=== PATIENT | female | born 1960 | race Caucasian/White ===

== ENCOUNTER 2025-03-31 14:19 | Outpatient (RCR) | payer MEDICARE, SELFPAY ==
[2025-03-31 15:21] LABS: Hematocrit 22.7 % (37.0-47.0); Hemoglobin 7.1 g/dL (12.0-15.0); Mean Corpuscular HGB Conc 31.3 g/dl (32-36); Mean Corpuscular Hemoglobin 33.2 pg (26-34); Mean Corpuscular Volume 106.1 fl (80-100); Platelet Count Result 169 k/mm3 (150-375); Red Blood Count 2.14 M/mm3 (4.2-5.4); White Blood Count 3.5 K/mm3 (4.5-10.0)
[2025-03-31 15:41] LABS: Alanine Aminotransferase 19 U/L (6-35); Albumin Level 3.8 g/dL (3.5-5.1); Alkaline Phosphatase 95 U/L (38-126); Anion Gap 10 mmol/L (4-12); Aspartate Amino Transferase 33 U/L (14-36); Bilirubin,Total 0.4 mg/dL (0.2-1.3); Blood Urea Nitrogen 46 mg/dL (7-17); Calcium 9.3 mg/dL (8.4-10.2); Carbon Dioxide 18 mmol/L (22-30); Chloride 110 mmol/L (98-107); Estimated Glomerular Filt Rate 11; Glucose 93 mg/dL (65-110); Potassium 4.6 mmol/L (3.4-5.0); Sodium 138 mmol/L (137-145); Total Protein 6.5 g/dL (6.3-8.2)
[2025-03-31 16:09] LABS: Band Neutrophils Percent 6 % (0-6); Basophils Absolute Manual 0.03 K/mm3 (0.0-0.1); Basophils Percent Manual 1 % (0-1); Eosinophils Absolute Manual 0.03 K/mm3 (0.02-0.50); Eosinophils Percent Manual 1 % (0-4); Lymphocytes Absolute Manual 0.70 K/mm3 (1.1-4.5); Lymphocytes Percent Manual 20 % (18-44); Monocytes Absolute Manual 0.17 K/mm3 (0.1-0.90); Monocytes Percent Manual 5 % (3-9); Neutrophils Absolute Manual 2.55 K/mm3 (1.3-6.7); Neutrophils Percent Manual 67 % (46-73); Total Cells Counted 100
[2025-03-31 16:10] LABS: Macrocytosis 1+ (NORMAL); Schistocytes None Seen
[2025-04-06 18:07] LABS: Tacrolimus (FK506), Blood 5.5 ng/mL (5.0-20.0)
== END 2025-06-29 23:59 | disposition home or self-care (01) ==
LOC: HOMEHLTHV 14:19
DX: Z48.24 Encounter for aftercare following lung transplant (principal); Z94.2 Lung transplant status
CPT/HCPCS: 36415; 80053; 80197; 85025

== ENCOUNTER 2025-04-07 12:30 | Outpatient (NON) | payer MEDICARE, SELFPAY ==
--- OUTSIDE RECORDS SUMMARY | 2025-04-07 12:43 | XMS_ITS | Clinical Summary ---
Author Organization [facility] Address [address] [place] [address] Care Team Providers Care Manager Linux Name Role Phone Pcp, [address] Primary Care Provide r Unavailable Source Comments [facility],non-owned Affiliates and Associated Physician Practices is amultiple site organization consisting of ambulatory clinics and hospital sitesin [place], [place], [place]. This disclosure is being madepursuant to the Care Everywhere program and may not contain all information available regarding this patient. Last updated 18.[employer] [facility] Allergies No known active allergies Medications * Be aware that medications may not be up to date on this document. Alwaysverify current medications with the patient. montelukast (SINGULAIR) 10 MG tablet Take 10 mg by mouth at bedtime 1 Active omeprazole (PRILOSEC) 40 MG capsule Take 40 mg by mouth 2 times daily 0 Active fluticasone propionate (FLONASE) 50 MCG/ACT nasal spray [place] 2 sprays into each nostril once daily 0 Active albuterol HFA (PROVENTIL;VENT MIHIR;PROAIR) 108 (90 Base) MCG/ACT inhaler Inhale 2 puffs by mouth 0 Active albuterol-iprat ropium (DUO-NEB) 0.5-2.5 (3) MG/3ML nebulizer solution 1 Active acetaminophen (TYLENOL) 500 MG tablet Take 2 (two) tablets by mouth every 6 hours as needed for Fever or Pain Maximum allowable Acetaminophen amount = 4 Grams (4000 mg) / 24 hours. 1 Active ibuprofen (MOTRIN) 200 MG tablet Take 1 (one) tablet to 2 (two) tablets by mouth every 6 hours as needed for Pain 0 1 Active calcium 500 mg tablet Take 1 (one) tablet by mouth 2 times daily with morning and evening meal 60 Each 1 Active amLODIPine (NORVASC) 10 MG tabletIndicatio ns:Hypertension , essential Take 1 (one) tablet by mouth once daily 90 tablet 3 1 Active propranolol (INDERAL) 20 MG tablet Take 20 mg by mouth 2 times daily Active lisinopril-hydr oCHLOROthiazide (PRINZIDE; ZESTORETIC) 20-12.5 MG tablet 1 Active hydrOXYzine hcl (ATARAX) 25 MG tabletIndicatio ns:Anxiety attack Take 1 (one) tablet by mouth 4 times daily as needed 60 tablet 1 1 Active benzonatate (TESSALON) 100 MG capsule Take 2 (two) capsules by mouth 3 times daily 90 capsule 1 1 Active calcium carbonate (CALCI-CHEW) 1250 (500 Ca) MG chew tablet Take 1 tablet by mouth 2 times daily Active fluticasone-demetris meterol 113-14 MCG/ACT inhaler Inhale 1 puff by mouth 2 times daily Active SYMBICORT 160-4.5 MCG/ACT inhaler Inhale 2 (two) puffs by mouth 2 times daily 10.2 g 5 1 Active nintedanib (OFEV) 150 MG capsuleIndicati ons:Interstitia l lung disease (HCC) Take 1 (one) capsule by mouth 2 times daily with morning and evening meal 60 capsule 11 1 Active traZODone (DESYREL) 100 MG tablet Take 1 (one) tablet by mouth nightly as needed for Insomnia 30 tablet 1 Active atorvastatin (LIPITOR) 10 MG tablet 1 Active cetirizine (ZYRTEC) 10 MG tabletIndicatio ns:Allergic rhinitis, unspecified seasonality, unspecified trigger Take 1 (one) tablet by mouth once daily 90 tablet 3 1 Active mycophenolate (CELLCEPT) 500 MG tabletIndicatio ns:Interstitial lung disease (HCC) Take 1 tablet by mouth twice daily 60 tablet 2 Active Active Problems Problem Noted Date Diagnosed Date Allergic rhinitis 03/30/2021 Pulmonary hypertension 03/30/2021 Weakness 03/11/2021 SOB (shortness of breath) on exertion 03/11/2021 Anxiety attack 03/10/2021 Assessment & Plan (03/10/2021 9:20 AM CDT): Try hydroxyzine as needed for anxiety Counseled her to avoid benzodiazepines She does not have any symptoms of depression at the moment, she is a new patient to me. 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 ER Shortness of breath 02/12/2021 UIP (usual interstitial pneumonitis) 02/12/2021 Hypertension, essential 10/06/2020 Overview (12/29/2020): Last Assessment & Plan: Stable Cont lisionpril/HCTZ Assessment & Plan (03/10/2021 9:17 AM CDT): Stop lisinopril and increase amlodipine to 10 mg daily Monitor blood pressure closely I do not feel lisinopril contributes to her cough but it is worth a try Interstitial lung disease 07/20/2020 Overview (12/29/2020): Last Assessment & Plan: F/u with pulmonary Last Assessment & Plan: Chronic Cont airduo F/u with pulmonary GERD (gastroesophageal reflux disease) 0 Overview (12/29/2020): Last Assessment & Plan: Improved Cont omeprazole BID Immunizations Immunization Administration Dates Next Due [employer] primary monoval ent 12+ yr 0.3mL Purple cap 10/04/2020,09/13/2020 INFLUENZA VACCINE 06/14/2020 PNEUMOCOCCAL PPSV23 09/21/2020 iNFLUENZA VACCINE, RECOM-MCCARTHY, QUADR. (FLUBLOCK QUADRIVALENT; 18Y+) (RIV4) 06/15/2021 Family History Medical History Relation Name Comments CAD (Coronary Artery Disease) Brother 1 CAD (Coronary Artery Disease) Brother 2 Cancer - Renal Father COPD - Chronic Obstructive Pulmonary Disease Mother Relation Name Status Comments Brother 1 Alive Brother 2 Alive Father Mother Social History Tobacco Use Types Packs/Day Years Used Date Smoking Tobacco: Never Smokeless Tobacco: Never Alcohol Use Standard Drinks/Week Comments Yes 4 (1 standard drink = 0.6 oz pur e alcohol) AUDIT-C Answer Date Recorded Q1: How often do you have a drink containing alc ohol? 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 Gender Identity Not on file Sexual Orientation Not on file Last Filed Vital Signs Vital Sign Reading Time Taken Comments Blood Pressure 114/80 07/11/2021 2:10 PM CDT Pulse 95 07/11/2021 2:10 PM CDT Temperature 36.5 C (97.7 F) 07/11/2021 2:10 PM CDT Respiratory Rate 14 07/11/2021 2:10 PM CDT Oxygen Saturation 96% 07/11/2021 2:10 PM CDT Inhaled Oxygen Concentration - - Weight 60.8 kg (134 lb) 07/11/2021 2:10 PM CDT Height 170.2 cm (5' 7) 03/27/2021 10:53 AM CDT Body Mass Index 20.99 03/27/2021 10:53 AM CDT Plan of Treatment Health Maintenance Due Date Last Done Comments COLON MONITORING 1961 COLONOSCOPY - COLON CA SCREENING 1961 CT COLONOGRAPHY - COLON CA SCREENING 1961 FIT - COLON CA SCREENING 1961 FLEX SIG - COLON CA SCREENING 1961 HIV SCREENING 1976 HEPATITIS C SCREENING 05/12/1979 DTAP/TDAP/TD VACCINES (1 - Tdap) 1980 ZOSTER VACCINE (1 of 2) 1980 Respiratory Syncytial Virus (RSV) Vaccine Pt: or over 60 yrs (1 - Risk 60-74 years 1-dose series) 2021 PNEUMOCOCCAL VACCINE 50+ (2 of 2 - PCV) 09/21/2021 09/21/2020 MAMMOGRAM 03/27/2023 03/27/2021 COLOGUARD (AGES 45-75) - COLON CA SCREENING 03/22/2024 03/22/2021, 03/22/2021 (Done Outside Per Report) Colorectal Cancer Screening 03/22/2024 COVID-19 VACCINE (4 - 2023-2 5 season) 2024 07/17/2021, 10/04/2020, 09/13/2020 DEPRESSION SCREENING 09/08/2024 INFLUENZA VACCINE (#1) 2025 06/15/2021, 2019 PAP with HPV 03/27/2026 03/27/2021 HEPATITIS B VACCINE Aged Out No longe r eligible based on patient's age to complete this topic HIB VACCINE Aged Out No longer eligi ble based on patient's age to complete this topic HPV VACCINE Aged Out No longer eligi ble based on patient's age to complete this topic MENINGOCOCCAL (Group B) VACCINE SHARED DECISION-MAKING Aged Out No longer eligible based on patient's age to complete this topic MENINGOCOCCAL GROUPS A/C/Y/W VACCINE Aged Out No longer eligible based on patient's age to complete this topic Procedures Procedure Name Priority Date/Time Associated Diagnosis Comments MAMMO BILAT SCREENING Routine 03/27/2021 1:02 PM CDT Encounter for screening mammogram for malignant neoplasm of breast PAP IG LB+HPV APTIMA Routine 03/27/2021 11:29 AM CDT Well woman exam with routine gynecological exam from Last 3 Months or Most Recently Relevant to Health Maintenance Results * MAMMO BILAT SCREENING (03/27/2021 1:02 PM CDT) Anatomical Region Laterality Modality Breast Bilateral Mammography 03/27/2021 1:50 PM CDT Impressions 03/27/2021 1:52 PM CDT Annual screening mammography is recommended. OVERALL FINAL ASSESSMENT: BI-RADS CATEGORY 2: BENIGN. *Reading Radiologist: Isabella Diane on 03/27/2021 at 1:52 PM Narrative 03/27/2021 1:52 PM CDT EXAMINATION: BILATERAL DIGITAL SCREENING MAMMOGRAM AND BILATERAL BREAST TOMOSYNTHESIS HISTORY: Screening. 60-year-old woman undergoing her first mammogram examination. The patient is undergoing evaluation for possible lung transplantation. COMPARISON: None, this is the patient's first mammogram. TECHNIQUE: BILATERAL digital breast tomosynthesis (DBT) and synthetic 2D digital mammogram images were obtained (bilateral craniocaudal and mediolateral oblique projections) including computer aided detection (CAD.) BREAST PARENCHYMAL COMPOSITION:Category C: The breasts are heterogeneously dense, which may obscure small masses. MAMMOGRAM FINDINGS: There is no suspicious finding in either breast. Vascular calcifications are present, left greater than right. Patrick Lorenzana MD MAMMO ORDERABLES Final Result * PAP IG LB+HPV APTIMA (03/27/2021 11:29 AM CDT) Diagnosis [facility] ACCOUNT BILL Comment:NEGATIVE FOR INTRAEP ITHELIAL LESION OR MALIGNANCY. Specimen Adequacy [facility] ACCOUNT BILL Comment: Satisfactory for evaluation. Endocervical and/or squamous metaplastic cells (endocervical component) are present. Clinician Provided ICD10 [facility] ACCOUNT BILL Comment:Z01.419 Performed by [facility] ACCOUNT BILL Comment:Rachel Hernandez, Manager Health (ASCP) Comment . [facility] ACCOUNT BILL Note [facility] ACCOUNT BILL Comment: The Pap smear is a screening test designed to aid in the detection of premalignant and malignant conditions of the uterine cervix. It is not a diagnostic procedure and should not be used as the sole means of detecting cervical cancer. Both false-positive and false-negative reports do occur. . IGLBP CPT Code Automation [facility] ACCOUNT BILL Comment: This liquid based ThinPrep(R) pap test was screened with the use of an image guided system. Human papillomavirus Aptima Negative Negative [facility] ACCOUNT BILL Comment: This nucleic acid amplification test detects fourteen high-risk HPV types (16,18,31,33,35,39,45,51,52,56,58,59,66,68) without differentiation. Pathology/Cytolog y PART OF UTERINE CERVIX / Unknown 03/27/2021 11:29 AM CDT 03/28/2021 Narrative [facility] ACCOUNT BILL - 03/29/2021 1:08 PM CDT Source.............Cervix;Endocervix Other..............Post Menopausal No. of containers..01 ThinPrep Vial Resulting Agency Comment Lab Testing performed at: [facility] [id number] [facility] - PATHOLOGY/CYTOLOGY O RDERABLES Final Result [facility] ACCOUNT BILL [address] [place] [address] from Last 3 Months or Most Recently Relevant to Health Maintenance Insurance Advance Directives * Full Code (Latest Code Status on File) Date Activated Date Inactivated Comments 03/11/2021 10:56 AM 03/17/2021 5:26 PM * Full Code Date Activated Date Inactivated Comments 02/12/2021 4:18 PM 02/19/2021 10:01 PM * Full Code Date Activated Date Inactivated Comments 01/23/2021 11:19 AM 01/24/2021 4:29 PM Care Teams Manager Linux Relationship Specialty Start Date End Date PcpMikal [facility] 3rd PCP - General 10/05/24
--- OUTSIDE RECORDS SUMMARY | 2025-04-07 12:43 | XMS_ITS | Encounter Summary ---
Author Organization [facility] Address [address] [place] [address] Care Team Providers Care Face Man Name Role Phone Rosy Grover RN Unavailable [phone] Pelon Yo MD Unavailable [phone] Paula Hitchcock RN Unavailable Unavai Kayleigh Mireles MD Unavailable [phone] Unknown, Notinfile Primary Care Provider Unavail able Patrick Lorenzana MD Primary Care Provider Encounter Details Date Type Department Care Team (Late st Contact Info) Description 07/01/[address] [id number] White, Marie Social History Tobacco Use Types Packs/Day Years Used Date Smoking Tobacco: Never Smokeless Tobacco: Never Alcohol Use Standard Drinks/Week Comments Never 0 (1 standard drink = 0.6 oz pur e alcohol) OASIS D0700: Social Isolation Answer Da te Recorded Frequency of experiencing loneliness or isolatio n Never 02/19/2023 OASIS A1250: Transportation Answer Date Recorded Lack of Transportation (Medical) No 02/19/2023 Lack of Transportation (Non-Medical) No 02/19/2023 Patient Unable or Declines to Respond No 02/19/2023 OASIS B1300: Health Literacy Answer Quinten e Recorded Frequency of needing help to read materials from doctor or pharmacy Never 02/19/2023 Social Connection and Isolation Panel [NHANES] A nswer Date Recorded In a typical week, how many times do you talk on the phone with family, friends, or neighbors? Three times a week 02/07/20 How often do you get togethe r with friends or relatives? Once a week 02/06/2023 How often do you attend chur ch or pentecostal services? Never 02/06/2023 Do you belong to any clubs o r organizations such as evangelical groups, unions, fraternal or athletic groups, or school groups? No 02/06/2023 How often do you attend meet ings of the clubs or organizations you belong to? 1 to 4 times per year 02/06/2023 Are you , , di vorced, , never , or living with a partner? 02/06/2023 AUDIT-C Answer Date Recorded Q1: How often do you have a drink containing alc ohol? 2-4 times a month 02/06/2023 Q2: How many drinks containi ng alcohol do you have on a typical day when you are drinking? 1 or 2 02/06/2023 Q3: How often do you have si x or more drinks on one occasion? Never 02/06/2023 Overall Financial Resource Strain (CARDIA) Answe r Date Recorded How hard is it for you to pa y for the very basics like food, housing, medical care, and heating? Not very hard 02/06/2023 PHQ-2 Answer Date Recorded PHQ-2 Total Score 2 02/06/2023 Hunger Vital Sign Answer Date Recorded Within the past 12 months, y ou worried that your food would run out before you got the money to buy more. Never true 02/26/20 24 Within the past 12 months, t he food you bought just didn't last and you didn't have money to get more. Never true 02/26/2024 PRAPARE - Transportation Answer Date Re corded In the past 12 months, has l ack of transportation kept you from medical appointments or from getting medications? No 09/2022 In the past 12 months, has l ack of transportation kept you from meetings, work, or from getting things needed for daily living? No 02/06/2023 Housing Stability Vital Sign Answer Quinten e Recorded In the last 12 months, was t here a time when you were not able to pay the mortgage or rent on time? No 02/06/2023 In the last 12 months, how many places have you lived? 1 02/06/2023 In the last 12 months, was t here a time when you did not have a steady place to sleep or slept in a mcc (including now)? No 02/06/2023 Personal Safety Answer Date Recorded Have you ever been in or are you currently in a harmful physical or emotional relationship or is someone making you feel afraid or unsafe? 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 Gender Identity Not on file Sexual Orientation Not on file documented as of this encounter Last Filed Vital Signs Vital Sign Reading Time Taken Comments Blood Pressure 146/85 06/29/2024 9:42 PM CDT Pulse 65 06/29/2024 9:42 PM CDT Temperature 36.8 C (98.2 F) 06/29/2024 9:42 PM CDT Respiratory Rate 20 06/29/2024 9:42 PM CDT Oxygen Saturation 97% 06/29/2024 9:42 PM CDT Inhaled Oxygen Concentration - - Weight - - Height - - Body Mass Index - - 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 Auris - 8900 12/12/2024 12/12/2024 12/30/2024 10:18 AM CDT C. difficile suspected 12/18/2024 12/18/202412/19 6:10 AM CDT C. difficile suspected 12/26/2024 12/26/202412/26 2:54 PM CDT Norovirus suspected 12/26/2024 12/26/2024 12/27/19 3:12 PM CDT Norovirus 12/26/2024 12/26/2024 01/09/2025 3:05 AM CDT COVID: Suspected 03/14/2025 03/14/2025 03/15/2025 12:27 AM CDT Ring Surveillance: C. auris Comment:03/15/2025- 8900 C. Auris. Lashonda Ontiveros 03/15/2025 03/15/2025 03/22/2025 7:27 PM C DT C. difficile suspected 03/15/2025 03/16/202503/17 5:35 AM CDT Norovirus suspected 03/15/2025 03/16/2025 03/17/20 4:31 AM CDT Norovirus 03/16/2025 03/16/2025 03/30/2025 7:26 PM CDT documented as of this encounter Care Teams Face Man Relationship Specialty Start Date End Date Unknown, Notinfile PCP - General 11/11/23 01/06/25 Patrick Lorenzana MD [address] [facility] [address] [place] [address] PCP - General Family Medicine 01/07/25 Rosy Grover, LOLI [address] [facility] [address] [place] [address] Finished Garment Inspector 02/14/21 Pelon Yo MD [address] [place] [address] Referring Physician Pulmonary Disease 04/29/21 Paula Hitchcock RN Finished Garment Inspector Finished Garment Inspector 01/21/22 Kayleigh Boland MD [address] [facility] [address] [place] [address] Senior Enterprise Architect Pulmonary Disease 02/13/23 documented as of this encounter
--- OUTSIDE RECORDS SUMMARY | 2025-04-07 12:43 | XMS_ITS ---
Author Organization [facility] Address [address] [place] [address] Care Team Providers Care Emergency Vehicle Dispatcher Name Role Phone Rosy Grover RN Unavailable [phone] Pelon Yo MD Unavailable [phone] Paula Hicthcock RN Unavailable Kayleigh Weeks MD Unavailable [phone] Patrick Lorenzana MD Primary Care Provider Transplant Episode Lung Recipient [facility] ([place], [place]) - 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 Marked as Active Follow-up on 01/19/2022 Lung CoordinatorPaula Hitchcock RN Phone: N/A Fax: N/A Email: N/A [place] Organ Diagnosis Organ 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) Infection History Noted Survival Infection Treatment Organism Resolved 12/30/2024 2 years 11 months Norovirus 0 01/04/2025 12/25/2024 2 years 11 months Devora esophagitis (HCC) 06/26/2024 2 years 5 months UTI (urinary tr act infection) 12/31/2024 08/07/2023 1 year 6 months COVID-19 10/03/2022 257 days UTI (urinary tra ct infection) 03/31/2022 71 days 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) 03/04/2022 44 days Proteus infection 0 12/31/2024 01/22/2022 3 days Donor culture wi th Aspergillus 01/22/2022 3 days Donor culture wi th Stenotrophomonas maltophilia Donor Information Organ ABO Source Meets Risk Criteria HLA Match Mismatches Cross Match Right Lung Transplanted O DBD No A: B: DR: T cell (Negative) B cell (Negative) Left Lung Transplanted O DBD No A: B: DR: T cell (Negative) B cell (Negative) Right Lung Donor Serology Results Anti-CMV CMV IgG: Positive Anti-HBcAb HBC Total: Negative HBsAg HBsAg: Negative HBV DNA No results on file Anti-HCV HCV: Negative Anti-HIV I/II No results on file Anti-HTLV I/II HTLV: Negative RPR/VDRL RPR: Negative HBsAb HBsAb: Not Done SARS CoV-2 No results on file Left Lung Donor Serology Results Anti-CMV CMV IgG: Positive Anti-HBcAb HBC Total: Negative HBsAg HBsAg: Negative HBV DNA No results on file Anti-HCV HCV: Negative Anti-HIV I/II No results on file Anti-HTLV I/II HTLV: Negative RPR/VDRL RPR: Negative HBsAb HBsAb: Not Done SARS CoV-2 No results on file Care Team Name Role Phone Fax Email Paula Hitchcock RN Lung Coordinator N/A N/A N/A Pelon Yo MD Referring Physician [phone] N/A Rosy Grover RN Pre Coordinator [phone] N/A N/A Events Post-Transplant Pre-Transplant Admitted: 01/08/2022 Referred: 02/14/2021 Transplanted: 01/19/2022 Evaluation began: 1 Discharged: 03/20/2022 Committee: 04/26/2021 Center waitlisted: 1 Appointments (03/07/2025 - 05/08/2025) When With Visit Type Description 03/14/2025 Transplant - Bery, A Return Encount er for aftercare following lung transplant (HCC) (Primary Dx); Encounter for monitoring tacrolimus therapy; Stage 4 chronic kidney disease (HCC); Bilateral leg pain
--- OUTSIDE RECORDS SUMMARY | 2025-04-07 12:44 | XMS_ITS | Referral Summary ---
Author Organization [facility] Address [address] [place] [address] Care Team Providers Care Senior International Tax Manager Name Role Phone Rosy Grover RN Unavailable [phone] Pelon Yo MD Unavailable [phone] Paula Hitchcock RN Unavailable Unavti Pauline Mireles MD Unavailable [phone] Patrick Lorenzana MD Primary Care Provider Encounters Date Type Department Care Team Description 04/01/2025 Telephone [facility] Pulmonary Rehabilitation Program 1 [facility] [address]st [place] [address] Josette Ochoa 03/31/2025 Orders Only [facility] and [facility] Transplant Lung [address] [facility] [address] [phone] [place] [address] Paula Hitchcock RN 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) (Primary Dx) 03/29/2025 Telephone [facility] Pulmonary Rehabilitation Program 1 [facility] 1st [place] [address] Josette Ochoa 03/28/2025 Telephone [facility] Pulmonary [address] [facility] Medicine 8th [place] [address] [place] [address] Kirby Porter MD 03/24/2025 Telephone [facility] 1[address] [place] [address] Josette Ochoa 03/22/2025 SHOP/CHAP Initial Eligibility Review [facility] OP CASE MANAGEMENT [address] [place] [address] Molly Wu RN 03/14/2025 8:13 PM CDT - 03/21/2025 2:30 PM CDT Hospital Encounter [facility] [address] [place] [address] Pauline Bhat MD Qureshi, MD Jacob Murdock Rodrigo, MD Lung transplant status, bilateral, 2021, (CMV D+/R+) (Primary Dx); Weight loss; Weakness; Failure to thrive in adult Discharge Disposition: Discharge to home or self care 03/15/2025 10:35 AM CDT Ancillary Procedure [facility] Vascular Lab IP 1 [facility] [address] [place] [address] 03/14/2025 Telephone [facility] Transplant Lung [address] [facility] [phone] [place] [address] Paula Hitchcock RN 03/14/2025 Telephone [facility] and [facility] Transplant Lung [address] [facility] [address] Mail[address] [phone] [place] [address] Tiera Lincoln 03/14/2025 10:30 AM CDT Lab [facility] Advanced [facility] [address] [place] [id number] 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) 03/14/2025 9:30 AM CDT Lab [facility] [address] [place] [address] 03/14/2025 8:53 AM CDT - 03/14/2025 11:59 PM CDT Hospital Encounter [facility] Radiology [facility] [address] [place] [address] 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) Discharge Disposition: Discharge to home or self care 03/14/2025 10:00 AM CDT Office Visit [facility] Pulmonary [address] [facility] Advanced [facility] 8th [place] [address] [place] [address] Seth Vasquez MD 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) (Primary Dx); Encounter for monitoring tacrolimus therapy; Stage 4 chronic kidney disease (HCC); Bilateral leg pain 03/14/2025 9:15 AM CDT - 03/14/2025 11:59 PM CDT Hospital Encounter [facility] Pulmonary [address] [facility] [address] [place] [address] 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) Discharge Disposition: Discharge to home or self care 03/09/2025 Telephone [facility] and [facility] Transplant Lung [address] [facility] [phone] [place] [address] Nga Rosario 03/09/2025 Telephone [facility] Transplant Lung [address] [phone] [place] [address] Paula Hitchcock RN 02/01/2025 Telephone [facility] Nephrology [address] [facility] 5th [place] [address] [place] [address] Irving Gipson MD Dismissal 01/13/2025 Telephone [facility] Transplant Lung [address] [facility] [phone] [place] [address] Paula Hitchcock RN 01/12/2025 Orders Only [facility] and [facility] Transplant Lung [address] [phone] [place] [address] Paula Hitchcock RN 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) (Primary Dx) 01/11/2025 Telephone [facility] Post Acute Care [address] [facility] [address] [place] [address] Grecia Adams MA 01/10/2025 Telephone [facility] Otolaryngology [address] [place] [address] Gisela Solorio 01/07/2025 NH/SNF Visit [facility] [place] [address] [place] [address] Malorie Bowling NP Lung transplant recipient (HCC) (Primary Dx); Susan esophagitis (HCC); ABLA (acute blood loss anemia); CKD (chronic kidney disease) stage 4, GFR 15-29 ml/min ([facility]); Hyperkalemia; Essential hypertension 01/07/2025 Telephone [facility] and [facility] Transplant Lung [address] [phone] [place] [address] Paula Hitchcock RN 01/07/2025 Orders Only [facility] [address] [place] [address] Malorie Bowling NP from Last 3 Months Allergies No known active allergies Medications acetaminophen (TYLENOL) 325 mg tablet Take 2 tablets (650 mg total) by mouth every 6 (six) hours as needed for pain Over the counter medication. 30 tablet Active cholecalciferol (VITAMIN D-3) 2000 unit capsule Take 1 capsule (2,000 Units total) by mouth daily Over the counter medication. Can be taken any time of day. 022 Active calcium carbonate (OS-PITO) 1,500 mg (600 mg elemental) tablet Take one tablet (600 mg) by mouth once daily. It is acceptable to take combination product with vitamin D, but also take additional vitamin D on medication list. Over the counter medication. Can be taken any time of day. 022 Active acyclovir (ZOVIRAX) 200 mg capsule -- HOLD while on Valcyte -- 024 Active predniSONE (DELTASONE) 5 mg tablet Take 1 tablet (5 mg) by mouth daily 90 tablet 3 025 Active sulfamethoxazole-t rimethoprim (BACTRIM DS) 800-160 mg per tabletIndications: Pulmonary fibrosis (HCC),Chronic hypoxemic respiratory failure (HCC),Awaiting transplantation of lung Take 1 tablet (160 mg of trimethoprim total) by mouth 3 (three) times a week 39 tablet 3 025 Active folic acid (FOLVITE) 1 mg tablet Take 1 tablet (1 mg total) by mouth daily 025 2025 Active prochlorperazine (COMPAZINE) 5 mg tablet TAKE 1 TABLET BY MOUTH THREE TIMES A DAY NEEDED 90 tablet 3 025 Active valGANciclovir (VALCYTE) 450 mg tablet Take 1 tablet (450 mg total) by mouth 2 (two) times a week on Mondays and 8 tablet 11 025 Active omeprazole (PriLOSEC) 40 mg capsule Take 1 capsule (40 mg total) by mouth 2 (two) times a day 60 capsule 025 Active aspirin 81 mg chewable tablet Take 1 tablet (81 mg total) by mouth daily 025 Active azaTHIOprine (IMURAN) 50 mg tablet HOLD - previous dose 50mg nightly Active tacrolimus 0.5 mg immediate-release capsule Take 1 capsule (0.5 mg total) by mouth 2 (two) times a day 60 capsule 11 025 Active sertraline (ZOLOFT) 50 mg tablet Take 1 tablet (50 mg total) by mouth daily Active cefdinir (OMNICEF) 300 mg capsule Take 1 capsule (300 mg total) by mouth daily 3 capsule 025 Active fosfomycin (MONUROL) 3 gram packet MIX CONTENTS OF 1 PACKET IN 3 TO 4 OUNCES (ONE-HALF CUP) OF WATER, STIR AND DRINK PROMPTLY *DO NOT USE HOT WATER. TAKE ONCE A WEEK FOR UTI PROPHYLAXIS 5 packet 10 024 2024 Discontinued(E rror) carvediloL (COREG) 12.5 mg tablet Take 1 tablet (12.5 mg total) by mouth 2 (two) times a day with meals 180 tablet 3 2024 Discontinued azaTHIOprine (IMURAN) 50 mg tablet HOLD for WBC 12/2024 (prev dose 50 mg QHS) 2024 Discontinued aspirin 81 mg chewable tablet Take 1 tablet (81 mg total) by mouth daily -- HOLD until instructed to resume by transplant team -- 2024 Discontinued mirtazapine (REMERON) 15 mg tablet Take 1 tablet (15 mg total) by mouth nightly 2024 Discontinued(E rror) nitazoxanide (ALINIA) 500 mg tabletIndications: Helminthic Infection Take 1 tablet (500 mg total) by mouth 2 (two) times a day through and including doses on 01/05/25 2024 Discontinued fluconazole (DIFLUCAN) 200 mg tabletIndications: invasive candidiasis Take 1 tablet (200 mg total) by mouth daily through and including doses on 01/11/25 2024 Discontinued tacrolimus 0.5 mg immediate-release capsule Take 1 capsule (0.5 mg total) by mouth every morning 2024 Discontinued azaTHIOprine (IMURAN) 50 mg tablet Take 1 tablet (50 mg total) by mouth nightly 2024 Discontinued hydroCHLOROthiazid e (HYDRODIURIL) 25 mg tablet Take 1 tablet (25 mg total) by mouth daily 2024 Discontinued Active Problems Problem Noted Date Diagnosed Date Pain in both lower extremities 03/15/2025 Weight loss 03/15/2025 Pancytopenia 03/15/2025 Acute kidney failure 03/14/2025 Assessment & Plan (03/14/2025 9:26 PM CDT): Cr up to 7.94, from b/l of 2-3. Last two admissions have been for TENNILLE on CKD as well. Last admission was 12/2024 iso of poor PO intake, during which she had HD line placed but was able to recover renal function to defer dialysis intitate. Has yet to establish with outpatient renal. -- Cont tacro at 0.5mg BID, adjust based on troughs and renal function -- IVF (1L 03/14). Urine lytes and UA ordered -- No indication for urgent dialysis. Transplant renal c/s in AM -- monitor K and phos Esophagitis 03/14/2025 Hyperkalemia 01/07/2025 Susan esophagitis 12/25/2024 Assessment & Plan (03/14/2025 9:26 PM CDT): -- Completed fluconazole course -- requires repeat EGD, due this month Assessment & Plan (01/07/2025 1:01 PM CDT): Will need repeat EGD scheduled in 8 weeks. Have asked SS to call and arrange. Complete diflucan as ordered & continue PPI. Assessment & Plan (01/04/2025 11:56 AM CDT): Will need repeat EGD scheduled in 8 weeks. Have asked SS to call and arrange. Complete diflucan ordered & continue PPI. Assessment & Plan (12/30/2024 12:49 PM CDT): Continue fluconazole 200 mg daily through January 11. Needs follow up GI for EGD in 8 weeks. She is so advised endorses understanding. Continue omeprazole 40 mg daily. Thrombocytopenia 12/13/2024 Failure to thrive in adult 12/11/2024 Assessment & Plan (12/31/2024 12:10 PM CDT): RD following. Reports eating well. Monitor. Assessment & Plan (12/30/2024 12:48 PM CDT): I endorse admission to longterm care. The patient is at risk of injury, illness and a requirement for a higher level of care without this service. The patient needs assistance from the nurses and care team for all activities of daily living including dressing, hygeine of person and toilet, safe transfer and mobility, dietary needs, medication administration, and grooming. The patient will need physical and occupational therapy to progress to a safer level of care. ABLA (acute blood loss anemia) 12/11/2024 Assessment & Plan (01/07/2025 1:02 PM CDT): Mild fluctuations. Continue to monitor outpt via Transplant team. Assessment & Plan (12/30/2024 12:48 PM CDT): Follow up labs ordered. Lung transplant status, bilateral, 2021, (CMV D+ /R+) 06/26/2024 Pulmonary embolism 06/26/2024 Assessment & Plan (12/30/2024 12:48 PM CDT): Recognized 2021. Not currently on anticoagulation. Essential hypertension 06/26/2024 Assessment & Plan (01/07/2025 1:05 PM CDT): Mild fluctuations. No changes. Montior outpt. Assessment & Plan (01/04/2025 11:49 AM CDT): BP mildly elevated. Continue on Coreg & monitor for need for BP med adjustment. No changes today. Assessment & Plan (12/30/2024 12:45 PM CDT): This is chronic and currently stable. We will continue to monitor serial vital signs for trending and continue the scripting of carvedilol 12.5 mg p.o. b.I.d.. Chronic kidney disease (CKD), stage IV (severe) 08/07/2023 Assessment & Plan (03/14/2025 9:26 PM CDT): Cr up to 7.94, from b/l of 2-3. Last two admissions have been for TENNILLE on CKD as well. Last admission was 12/2024 iso of poor PO intake, during which she had HD line placed but was able to recover renal function to defer dialysis intitate. Has yet to establish with outpatient renal. -- Cont tacro at 0.5mg BID, adjust based on troughs and renal function -- IVF (1L 03/14). Urine lytes and UA ordered -- No indication for urgent dialysis. Transplant renal c/s in AM -- monitor K and phos Assessment & Plan (01/07/2025 1:09 PM CDT): Increased. Have notified transplant team. Repeat labs with HH to be faxed to transplant team. Encourage to push fluids. Assessment & Plan (01/04/2025 11:58 AM CDT): Appears new baseline. Transplant team following. Repeat ordered for 01/07. Meds reviewed. Metabolic acidosis 02/06/2023 Lung transplant recipient 01/22/2023 Assessment & Plan (01/04/2025 11:57 AM CDT): Tacro level WNL. Labs reviewed by transplant team without new orders. Request weekly labs. Repeat ordered for 01/11. Assessment & Plan (12/31/2024 12:08 PM CDT): Continue immunosuppression/prophylaxis meds. Patient has not received tacro, fosfomycin, nitazonxanide since admission d/t pharmacy supply issues. Discussing with DON/Pharmacy to resolve issues SIA. Tacro level with BMP/CBC ordered for Friday. Assessment & Plan (12/30/2024 3:02 PM CDT): She received her transplant in 2021. He has been noncompliant with her medication. Continue fosfomycin 3 g oral weekly,nitazoxanide 500mg bid, prednisone 5mg/day, sulfamethoxazole/trimethoprim 160mg three times per week, tacrolimus, and valganciclovir 900mg on ; Follow up lab including Tacro level ordered. I asked the DON to ok the Tacro level via mediprocity. Nurses through [facility] chat to confirm that Imuran is currently to be on hold. I asked him to review the medication orders per [facility] and this was confirmed. UTI (urinary tract infection) 10/03/2022 Encounter for aftercare following lung transplan t 04/25/2022 Severe malnutrition 04/03/2022 Assessment & Plan (12/30/2024 12:48 PM CDT): Dietary to consult and monitor. 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 OK as long as skin does not get irritated. Can consider steri strips or replacement of suture if needed. Please keep remaining sutures in place for now Primary graft dysfunction of transplanted lung 0 01/22/2022 Donor culture with Aspergillus 01/22/2022 Donor culture with Stenotrophomonas maltophilia 01/22/2022 Pulmonary hypertension 03/30/2021 Exertional dyspnea 03/10/2021 Overview (03/12/2023): Last Assessment & Plan: I am not aware of her baseline pulmonary status Will get CXR I advised her to call her stagecraft teacher for further guidance If her symptoms worsened she is to go to [facility] ER Assessment & Plan (01/04/2025 11:53 AM CDT): Reports HENSLEY that improves with rest. Denies any SOB at rest, coughing. Not new. She does drop down to 92% on documenation at times. Will have therapy check O2 sats with exertion & monitor. May need walk study for home O2 PRN prior to discharge. IPF (idiopathic pulmonary fibrosis) 02/12/2021 Hypertension, essential 10/06/2020 Assessment & Plan (12/14/2020 5:17 AM CDT): Stable Cont lisionpril/HCTZ Assessment & Plan (10/20/2020 3:02 PM 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): Stable Cont lisionpril/HCTZ ILD (interstitial lung disease) 07/20/2020 Assessment & Plan (03/14/2025 9:26 PM CDT): -- cont pred 5, OI ppx, and valganciclovir -- Holding imuran -- PT/OT/Pulm rehab and RD consulted -- cont home mirtazapine for appetite Assessment & Plan (10/20/2020 3:02 PM 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): F/u with pulmonary Allergic rhinitis 07/20/2020 Assessment & Plan (12/14/2020 5:17 AM CDT): Uncontrolled Cont zyrtec, singulair Refer to ENT Primary insomnia 02/07/2020 Assessment & Plan (10/20/2020 3:03 PM 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): Chronic Cont ativan Assessment & Plan (06/06/2020 11:59 AM CDT): Stable Cont ativan prn Assessment & Plan (02/07/2020 11:27 AM CDT): Stable Cont ativan prn Gastroesophageal reflux disease without esophagi tis 02/07/2020 Assessment & Plan (04/06/2020 5:00 AM CDT): Improved Cont omeprazole BID Assessment & Plan (03/08/2020 11:08 AM CDT): Try omeprazole, see if covered by insurance Assessment & Plan (02/07/2020 11:28 AM CDT): Uncontrolled Start nexium BID Stop prilosec Refer to GI Check for h pylori Ab Postmenopausal 02/07/2020 Resolved Problems Problem Noted Date Diagnosed Date Resolved Date Norovirus 12/30/2024 01/04/2025 Assessment & Plan (12/31/2024 12:09 PM CDT): BM stable without n/v. Continue monitoring & contact isolation at this time. Assessment & Plan (12/30/2024 3:08 PM CDT): Detected December 26, she is currently on contact isolation, monitor for further symptoms or recurrence Other neutropenia 12/29/2024 01/04/2025 Melena 12/11/2024 12/31/2024 [id number] kidney injury 06/26/2024 01/04/2025 Assessment & Plan (12/30/2024 12:48 PM CDT): Follow up labs ordered UTI (urinary tract infection) 06/26/2024 12/31/2024 Pulmonary hypertension 06/26/202406/26 Cystitis 06/25/2024 06/26/2024 TENNILLE (acute kidney injury) 08/07/2023 COVID-19 08/07/2023 12/31/2024 Acute pancreatitis 02/06/2023 Acute renal failure superimp osed on chronic kidney disease 02/06/2023 12/31/2024 Abdominal pain 02/05/2023 12/31/2024 Colitis 10/02/2022 12/31/2024 Acute pulmonary embolism wit hout acute cor pulmonale 04/29/2022 12/31/2024 Diarrhea 03/31/2022 12/31/2024 Acute kidney injury 03/31/2022 01/01/20 Leg wound, left, subsequent encounter 03/31/2022 12/31/2024 Oropharyngeal dysphagia 03/04/2022 07/2 12/2021 Overview (03/04/2022): MBS: Pharyngeal swallow function is mildly impaired. Penetration: Yes There is penetration of thin liquid. Penetration is not sensed. The penetrated material is not cleared. Aspiration: Yes There is aspiration of thin liquid. Aspiration is not sensed. The aspirated material is cleared. Residue:Yes There is pharyngeal residue of nectar thick liquid and solid. Residue is not sensed. The residual material is not cleared. Proteus infection 03/04/2022 12/31/2024 Overview (03/04/2022): BAL and wash 02/22/2022 Lymphedema 03/04/2022 03/31/2022 Anemia 03/04/2022 01/04/[address] 01/30/20222021 Assessment & Plan (02/05/2022 3:18 PM CDT): Will plan to downsize trach later this week Acute hepatitis, likely ischemic 01/22/2022 01/04/2025 Steroid-induced hyperglycemia 01/22/2022 01/04/2025 Moderate malnutrition 01/09/20222024 Urinary Tract Infection 01/04/202212/08 Shortness of breath 01/03/2022 03/31/20 Allergic rhinitis 03/30/2021 12/30/2024 Idiopathic pulmonary fibrosis (CMS/HCC) 03/14/2021 02/01/2022 Overview (03/14/2021): Added automatically from request for surgery [id number] Weakness 03/11/2021 01/07/2025 Assessment & Plan (12/31/2024 12:06 PM CDT): Making good progress with PT/OT already. Continue & monitor. Anxiety attack 03/10/2021 12/31/2024 Overview (03/12/2023): Last Assessment & Plan: Try hydroxyzine as needed for anxiety Counseled her to avoid benzodiazepines She does not have any symptoms of depression at the moment, she is a new patient to me. Will re-evaluate this SOB (shortness of breath) on exertion 02/12/2021 12/31/2024 Hypertension, essential 10/06/202012/08 Overview (03/12/2023): Last Assessment & Plan: Stable Cont lisionpril/HCTZ Last Assessment & Plan: Stop lisinopril and increase amlodipine to 10 mg daily Monitor blood pressure closely I do not feel lisinopril contributes to her cough but it is worth a try Pulmonary fibrosis 07/20/2020 Assessment & Plan (12/14/2020 5:16 AM CDT): Chronic Cont airduo F/u with pulmonary Interstitial lung disease 07/20/2020 Overview (03/12/2023): Last Assessment & Plan: F/u with pulmonary Last Assessment & Plan: Chronic Cont airduo F/u with pulmonary Opacity of lung on imaging study 04/05/2020 03/31/2022 Assessment & Plan (04/06/2020 5:00 AM CDT): Persistent, new Because of abnormal CXR, to order CT chest and refer to pulmonary Bilateral pneumonia 03/14/2020 01/01/20 Assessment & Plan (04/06/2020 1:04 PM CDT): New Order cipro Pure hypercholesterolemia 02/07/2020 Assessment & Plan (12/30/2024 12:46 PM CDT): Dietary will follo Assessment & Plan (12/14/2020 5:17 AM CDT): Chronic Follow low cholesterol diet Assessment & Plan (10/20/2020 3:02 PM 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): Chronic Follow low cholesterol diet Assessment & Plan (06/06/2020 11:59 AM CDT): Stable Cont low cholesterol diet Assessment & Plan (04/06/2020 1:06 PM CDT): Stable Cont low cholesterol diet Assessment & Plan (02/07/2020 11:26 AM CDT): Need to get updated lipid profile Follow low cholesterol diet Pre-transplant evaluation for lung transplant 02/07/20 20 01/22/2022 Encounter for screening mamm ogram for malignant neoplasm of breast 02/07/2020 03/08/2020 Cough 02/07/2020 03/31/2022 Assessment & Plan (10/20/2020 3:01 PM 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): Likely secondary to ILD Cont Airduo F/u with pulmonary Assessment & Plan (04/06/2020 1:05 PM CDT): New Order cipro and medrol pack Order CT chest Assessment & Plan (04/06/2020 5:00 AM CDT): Improving. Because of abnormal CXR, to order CT chest and refer to pulmonary Assessment & Plan (03/08/2020 11:09 AM CDT): Chronic cough with new acute productive cough. Try omeprazole for chronic dry cough. For acute worsening productive cough, start Zpack. Assessment & Plan (02/07/2020 11:29 AM CDT): Possible secondary to uncontrolled GERD Start nexium BID Stop prilosec Refer to GI Check for h pylori Ab Order CXR GERD (gastroesophageal reflux disease) 02/07/2020 01/04/2025 Overview (03/12/2023): Last Assessment & Plan: Improved Cont omeprazole BID Chronic hypoxemic respiratory failure 03/31/2022 Awaiting transplantation of lung 03/31/2022 Immunizations Immunization Administration Dates Next Due Influenza, Quadrivalent, Spl it, Preservative Free, Intramuscular 10/15/2022 Influenza, Unspecified 06/14/2020,2018(Deferred: Patient Refused) Pfizer SARS-CoV-2 Monovalent Vaccination (12+ Yrs) PURPLE 07/17/2021,10/04/2020,09/13/2020 Pfizer Sars-Cov-2 Bivalent V accination (12+ YRS) 08/08/2022 Pneumococcal Polysaccharide PPV23 09/21/2020 Social History Tobacco Use Types Packs/Day Years Used Date Smoking Tobacco: Never Smokeless Tobacco: Never Tobacco Cessation:Counseling Given: Not Answered Alcohol Use Standard Drinks/Week Comments Never 0 [...] materials from doctor or pharmacy Never 02/19/2023 [facility] Utilities Answer Date Recorded In the past 12 months has th e [employer], gas, oil, or water [employer] threatened to shut off services in your home? No 03/20/2025 Social Connection and Isolation Panel [NHANES] A nswer Date Recorded In a typical week, how many times do you talk on the phone with family, friends, or neighbors? Once a week 03/20/2025 How often do you get together with friends or re latives? Once a week 03/20/2025 How often do you attend zoroastrianism or jewish serv ices? Never 03/20/2025 Do you belong to any clubs o r organizations such as zoroastrianism groups, unions, fraternal or athletic groups, or school groups? No 03/20/2025 How often do you attend meet ings of the clubs or organizations you belong to? Never 03/20/2025 Are you , , di vorced, , never , or living with a partner? 03/20/2025 AUDIT-C Answer Date Recorded Q1: How often do you have a drink containing alcohol? Never 12/22/2024 Q2: How many drinks containi ng alcohol do you have on a typical day when you are drinking? Patient does not drink Q3: How often do you have si x or more drinks on one occasion? Never 12/22/2024 Overall Financial Resource Strain (CARDIA) Answe r Date Recorded How hard is it for you to pa y for the very basics like food, housing, medical care, and heating? Not very hard 03/20/2025 PHQ-2 Answer Date Recorded PHQ-2 Total Score 2 02/06/2023 Hunger Vital Sign Answer Date Recorded Within the past 12 months, y ou worried that your food would run out before you got the money to buy more. Sometimes true Within the past 12 months, t he food you bought just didn't last and you didn't have money to get more. Sometimes true PRAPARE - Transportation Answer Date Re corded In the past 12 months, has l ack of transportation kept you from medical appointments or from getting medications? Yes 03/08 In the past 12 months, has l ack of transportation kept you from meetings, work, or from getting things needed for daily living? Yes 03/20/2025 Housing Stability Vital Sign Answer Quinten e [...] place to sleep or slept in a snf (including now)? No 02/06/2023 Housing Stability Vital Sign Answer Quinten e Recorded In the last 12 months, was t here a time when you were not able to pay the mortgage or rent on time? No 03/20/2025 In the past 12 months, how m any times have you moved where you were living? 0 03/20/2025 At any time in the past 12 m [facility], were you homeless or living in a snf (including now)? No 03/20/2025 Personal Safety Answer Date Recorded Have you ever been in or are you currently in a harmful physical or emotional relationship or is someone making you feel afraid or unsafe? 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 Gender Identity Not on file Sexual Orientation Not on file Last Filed Vital Signs Vital Sign Reading Time Taken Comments Blood Pressure 157/80 03/21/2025 2:10 PM CDT Pulse 71 03/21/2025 2:10 PM CDT Temperature 36.9 C (98.4 F) 03/21/2025 2:10 PM CDT Respiratory Rate 18 03/21/2025 2:10 PM CDT Oxygen Saturation 100% 03/21/2025 2:10 PM CDT Inhaled Oxygen Concentration - - Weight 50.9 kg (112 lb 3.2 oz) 03/19/2025 5:07 A M CDT Height 165.1 cm (5' 5) 03/15/2025 9:01 AM CDT Body Mass Index 18.67 03/15/2025 9:01 AM CDT Plan of Treatment Not on file Medical Devices Implanted Type Area Service Cashier Device Identifier Shelf Expiration Date Model / Serial / Lot Neri [place] Kit Hemodialysis Catheter Triple Lumen Curved Short Term Polyurethane Power Trialysis [id number] - [id number] Implanted:Qty: 1 on 12/13/2024 by Moon Carranza MD at [facility] Neri Giat 11/05/2025 [id number] / / [id number] Procedures Procedure Name Priority Date/Time Associated Diagnosis Comments INFECTION PREVENTION SUSAN AURIS PCR, SURVEILLANCE Routine 03/21/2025 12:36 PM CDT EGFR Routine 03/21/2025 5:07 AM CDT DIFFERENTIAL AUTO Routine 03/21/2025 5:07 AM CDT TACROLIMUS LEVEL, TROUGH Routine 03/21/2025 5:07 AM CDT MAGNESIUM Routine 03/21/2025 5:07 AM CDT PHOSPHORUS Routine 03/21/2025 5:07 AM CDT CBC WITH AUTO DIFFERENTIAL Routine 03/21/2025 5:07 AM CDT COMPREHENSIVE METABOLIC PANEL Routine 03/21/2025 5:07 AM CDT EGFR Routine 03/20/2025 5:05 AM CDT MANUAL DIFFERENTIAL Routine 03/20/2025 5:05 AM CDT TYPE AND SCREEN Timed 03/20/2025 5:05 AM CDT TACROLIMUS LEVEL, TROUGH Routine 03/20/2025 5:05 AM CDT MAGNESIUM Routine 03/20/2025 5:05 AM CDT PHOSPHORUS Routine 03/20/2025 5:05 AM CDT CBC WITH AUTO DIFFERENTIAL Routine 03/20/2025 5:05 AM CDT COMPREHENSIVE METABOLIC PANEL Routine 03/20/2025 5:05 AM CDT EGFR Routine 03/19/2025 5:05 AM CDT DIFFERENTIAL AUTO Routine 03/19/2025 5:05 AM CDT TACROLIMUS LEVEL, TROUGH Routine 03/19/2025 5:05 AM CDT MAGNESIUM Routine 03/19/2025 5:05 AM CDT PHOSPHORUS Routine 03/19/2025 5:05 AM CDT CBC WITH AUTO DIFFERENTIAL Routine 03/19/2025 5:05 AM CDT COMPREHENSIVE METABOLIC PANEL Routine 03/19/2025 5:05 AM CDT EGFR Routine 03/18/2025 5:45 AM CDT DIFFERENTIAL AUTO Routine 03/18/2025 5:45 AM CDT TACROLIMUS LEVEL, TROUGH Routine 03/18/2025 5:45 AM CDT MAGNESIUM Routine 03/18/2025 5:45 AM CDT PHOSPHORUS Routine 03/18/2025 5:45 AM CDT CBC WITH AUTO DIFFERENTIAL Routine 03/18/2025 5:45 AM CDT COMPREHENSIVE METABOLIC PANEL Routine 03/18/2025 5:45 AM CDT TRANSFUSE RED BLOOD CELLS Timed 03/17/2025 5:41 PM CDT TYPE AND SCREEN Timed 03/17/2025 1:35 PM CDT INFECTION PREVENTION SUSAN AURIS PCR, SURVEILLANCE Routine 03/17/2025 1:35 PM CDT PREPARE RBC Timed 03/17/2025 12:17 PM CDT EGFR Routine 03/17/2025 5:17 AM CDT DIFFERENTIAL AUTO Routine 03/17/2025 5:17 AM CDT TACROLIMUS LEVEL, TROUGH Routine 03/17/2025 5:17 AM CDT MAGNESIUM Routine 03/17/2025 5:17 AM CDT PHOSPHORUS Routine 03/17/2025 5:17 AM CDT CBC WITH AUTO DIFFERENTIAL Routine 03/17/2025 5:17 AM CDT COMPREHENSIVE METABOLIC PANEL Routine 03/17/2025 5:17 AM CDT MOLECULAR INFECTIOUS DISEASE LAB INFECTION PREVENTION COURTESY CALLBACK BATTERY Routine 03/16/2025 11:20 PM CDT CRYPTOSPORIDIUM AND GIARDIA ANTIGEN ASSAY Routine 03/16/2025 11:20 PM CDT OVA AND PARASITE EXAM GEN LAB Routine 03/16/2025 11:20 PM CDT STOOL CULTURE Routine 03/16/2025 11:20 PM CDT NOROVIRUS PCR Routine 03/16/2025 11:20 PM CDT C. DIFFICILE TESTING Routine 03/16/2025 11:20 PM CDT INFECTION PREVENTION VRE CULTURE Routine 03/16/2025 11:19 PM CDT US KIDNEY COMPLETE IP Routine 03/16/2025 2:26 PM CDT EGFR Routine 03/16/2025 5:41 AM CDT DIFFERENTIAL AUTO Routine 03/16/2025 5:41 AM CDT TACROLIMUS LEVEL, TROUGH Routine 03/16/2025 5:41 AM CDT ZINC Routine 03/16/2025 5:41 AM CDT FERRITIN Routine 03/16/2025 5:41 AM CDT IRON PROFILE W/ IBC Routine 03/16/2025 5:41 AM CDT COPPER, SERUM Routine 03/16/2025 5:41 AM CDT MAGNESIUM Routine 03/16/2025 5:41 AM CDT PHOSPHORUS Routine 03/16/2025 5:41 AM CDT CBC WITH AUTO DIFFERENTIAL Routine 03/16/2025 5:41 AM CDT COMPREHENSIVE METABOLIC PANEL Routine 03/16/2025 5:41 AM CDT CYTOMEGALOVIRUS (CMV) DNA, QUANT GEN LAB Routine 03/16/2025 5:41 AM CDT BK VIRUS PCR QUANTITATIVE Routine 03/16/2025 5:41 AM CDT PROTEIN / CREATININE RATIO, URINE, RANDOM Routine 03/15/2025 1:04 PM CDT INFECTION PREVENTION SUSAN AURIS PCR, SURVEILLANCE Routine 03/15/2025 1:04 PM CDT US ROBBI IP Routine 03/15/2025 11:44 AM CDT EGFR Timed 03/15/2025 5:32 AM CDT BASIC METABOLIC PANEL Timed 03/15/2025 5:32 AM CDT TACROLIMUS LEVEL, TROUGH Routine 03/15/2025 5:32 AM CDT CREATININE, URINE, RANDOM Routine 03/15/2025 12:29 AM CDT URINALYSIS, MICROSCOPIC ONLY Routine 03/15/2025 12:29 AM CDT POTASSIUM, URINE, RANDOM Routine 03/15/2025 12:29 AM CDT SODIUM, URINE, RANDOM Routine 03/15/2025 12:29 AM CDT URINE CULTURE Routine 03/15/2025 12:29 AM CDT URINALYSIS AND REFLEX TO MICROSCOPIC AND CULTURE Routine 03/15/2025 12:29 AM CDT MANUAL DIFFERENTIAL Routine 03/14/2025 10:24 PM CDT EGFR Routine 03/14/2025 10:24 PM CDT MAGNESIUM Routine 03/14/2025 10:24 PM CDT PHOSPHORUS Routine 03/14/2025 10:24 PM CDT CBC WITH AUTO DIFFERENTIAL Routine 03/14/2025 10:24 PM CDT COMPREHENSIVE METABOLIC PANEL Routine 03/14/2025 10:24 PM CDT RESPIRATORY PATHOGEN PANEL Routine 03/14/2025 10:24 PM CDT PULMONARY FUNCTION TEST (PFT) Routine 03/14/2025 9:42 AM CDT 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) EGFR Routine 03/14/2025 9:15 AM CDT 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) BLOOD SMEAR REVIEW Routine 03/14/2025 9:15 AM CDT 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) DIFFERENTIAL AUTO Routine 03/14/2025 9:15 AM CDT Encounter for aftercare following lung transplant ([facility]) CBC WITH AUTO DIFFERENTIAL Routine 03/14/2025 9:15 AM CDT 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) COMPREHENSIVE METABOLIC PANEL Routine 03/14/2025 9:15 AM CDT 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) LIPID PANEL Routine 03/14/2025 9:15 AM CDT 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) HEMOGLOBIN A1C Routine 03/14/2025 9:15 AM CDT Encounter for aftercare following lung transplant ([facility]) VITAMIN D 25 HYDROXY Routine 03/14/2025 9:15 AM CDT 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) T4, FREE Routine 03/14/2025 9:15 AM CDT 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) TSH Routine 03/14/2025 9:15 AM CDT 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) TACROLIMUS LEVEL, TROUGH Routine 03/14/2025 9:15 AM CDT 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) XR CHEST PA LATERAL 2 VIEWS Schedule Routine, Read Routine (OP Routine) 03/14/2025 9:02 AM CDT 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) MANUAL DIFFERENTIAL Routine 01/07/2025 5:29 AM CDT CBC WITHOUT DIFFERENTIAL Routine 01/07/2025 5:29 AM CDT EGFR Routine 01/07/2025 5:29 AM CDT BASIC METABOLIC PANEL Routine 01/07/2025 5:29 AM CDT HEPATITIS PANEL, ACUTE Routine 08/15/2022 9:25 AM 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) Long-term use of immunosuppressant medication Encounter for therapeutic drug level monitoring Aftercare following organ transplant STOOL DNA COLOGUARD Routine 03/22/2021 9:50 AM CDT Screening for colon cancer SCREENING MAMMOGRAM BILATERAL W JOSESITO Routine 06/08/2015 2:50 PM CDT from Last 3 Months or Most Recently Relevant to Health Maintenance Results * Infection Prevention Susan auris PCR, surveillance Axilla/Groin (03/21/2025 12:36 PM CDT) Susan auris DNA Not Detected Not Detected [facility] Comment: Interpretive Data Testing performed by [facility] Molecular Infectious Disease Laboratory using the Lauren beth 6800 Susan auris assay. This assay detects DNA from Susan auris using Real-Time PCR. This assay is laboratory developed and is not cleared by the [place] Food and Drug Administration. The performance characteristics have been verified by the [facility] Infectious Disease [facility]. Axilla/Groin 03/21/2025 12:3 6 PM CDT 03/21/2025 1:14 PM CDT Maria Antonia SHELL [facility] - 03/22/2025 10:01 AM CDT Order placed by OPA due to ring surveillance. us Instant Order Generic Provider LAB MICROBIOLOGY - GENERAL ORDERABLES Final Result [facility] [place] [address] [facility] * (ABNORMAL) eGFR (03/21/2025 5:07 AM CDT) Pathologist [facility] eGFR 16(L) >=60 mL/min/1. 73 m2 Comment: Interpretive Data Reference Interval Normal >/= 90 mL/min/1.73m2 Mildly decreased* 60 - 89 mL/min/1.73m2 Mildly to moderately decreased 45 - 59 mL/min/1.73m2 Moderately to severely decreased 30 - 44 mL/min/1.73m2 Severely decreased 15 - 29 mL/min/1.73m2 Kidney Failure < 15 mL/min/1.73m2 *Relative to young adult level Estimated glomerular filtration rate is determined by the 2020 CKD-EPI equation recommended by the National Kidney Foundation (A Unifying Approach to GFR Estimation: Recommendations of the NKF-ASK Task Force on Reassessing the Inclusion of Race in Diagnosing Kidney Disease, JASN 2020). The CKD-EPI equation should not be used for patients with unstable renal function and has not been validated in children and those over 70. Current interpretive data was last reviewed 2021. Blood 03/21/2025 5:07 AM CDT 03/21/2025 5:34 AM CDT Pauline Bhat MD LAB BLOOD ORDERABLES F inal Result SUMAYA [facility] Department [place] [address] * (ABNORMAL) Differential, auto (03/21/2025 5:07 AM CDT) Pathologist [facility] Neutrophil abs 0.54(L) 1.50 - 6.50 K/cumm Imm gran abs 0.19(H) 0.00 - 0.10 K/cumm [facility] Lymphocyte abs 0.74(L) 0.80 - 3.30 K/cumm [facility] Monocyte abs 0.23 0.20 - 0.80 K/cumm [facility] Eosinophil abs 0.03 0.00 - 0.50 K/cumm [facility] Basophil abs 0.03 0.00 - 0.10 K/cumm [facility] Neutrophil pct 30.7 % [facility] Comment: Interpretive Data Percent cell count reference ranges are not reported, since discordance with absolute values may lead to misinterpretation of CBC data. Current Interpretive Data was last revised on 2017. Imm gran pct 10.8 % [facility] Comment: Interpretive Data Percent cell count reference ranges are not reported, since discordance with absolute values may lead to misinterpretation of CBC data. Current Interpretive Data was last revised on 2017. Lymphocyte pct 42.0 % [facility] Comment: Interpretive Data Percent cell count reference ranges are not reported, since discordance with absolute values may lead to misinterpretation of CBC data. Current Interpretive Data was last revised on 2017. Monocyte pct 13.1 % [facility] Comment: Interpretive Data Percent cell count reference ranges are not reported, since discordance with absolute values may lead to misinterpretation of CBC data. Current Interpretive Data was last revised on 2017. Eosinophil pct 1.7 % [facility] Comment: Interpretive Data Percent cell count reference ranges are not reported, since discordance with absolute values may lead to misinterpretation of CBC data. Current Interpretive Data was last revised on 2017. Basophil pct 1.7 % [facility] Comment: Interpretive Data Percent cell count reference ranges are not reported, since discordance with absolute values may lead to misinterpretation of CBC data. Current Interpretive Data was last revised on 2017. Blood 03/21/2025 5:07 AM CDT 03/21/2025 5:34 AM CDT us Pauline Bhat MD LAB BLOOD ORDERABLES F inal Result [facility] Department [place] [address] * Tacrolimus level trough (03/21/2025 5:07 AM CDT) Tacrolimus trough 5.1 ng/mL Comment: Interpretive Data Testing performed by liquid chromatography-tandem mass spectrometry. Therapeutic concentrations vary depending on type of transplanted organ and time elapsed since transplant. Typical trough concentrations range from 5-15 ng/mL. This test was developed and its performance characteristics determined by the [facility] Laboratory consistent with CLIA requirements. This test has not been cleared or approved by the [place] Food and Drug administration. Current interpretive data last reviewed 2019. Blood 03/21/2025 5:07 AM CDT 03/21/2025 5:34 AM CDT us Pauline Bhat MD LAB BLOOD ORDERABLES F inal Result [facility] Department [place] [address] * (ABNORMAL) CBC with auto differential (03/21/2025 5:07 AM CDT) WBC 1.76(L) 3.80 - 9.90 K/cumm Hgb 7.0(L) 11.9 - 15.5 g/dL [facility] Hct 21.4(L) 35.6 - 45.5 % [facility] Plt 120(L) 150 - 400 K/cumm [facility] MPV 10.3 9.1 - 12.3 fL [facility] RBC 2.21(L) 3.90 - 5.20 M/cumm [facility] MCV 96.8(H) 81.3 - 96.4 fL [facility] MCH 31.7 27.1 - 33.3 pg [facility] MCHC 32.7 32.3 - 35.7 g/dL [facility] RDW CV 25.1(H) 11.1 - 14.9 % [facility] RDW SD 84.6(H) 35.7 - 48.1 fL [facility] NRBC abs 0.00 0.00 - 0.01 K/cumm [facility] Blood 03/21/2025 5:07 AM CDT 03/21/2025 5:34 AM CDT Pauline Bhat MD LAB BLOOD ORDERABLES F inal Result Performing Organization Address City/[facility] [[email or web address]] Co de Phone Number [facility] [place] [address] * (ABNORMAL) Phosphorus (03/21/2025 5:07 AM CDT) [facility] Phosphorus, pl 1.6(L) 2.3 - 4.5 mg/dL Blood 03/21/2025 5:07 AM CDT 03/21/2025 5:34 AM CDT Pauline Bhat MD LAB BLOOD ORDERABLES F inal Result Performing Organization Address [facility] [[email or web address]] Co de Phone Number [facility] Department [place] [address] * Magnesium (03/21/2025 5:07 AM CDT) [facility] Magnesium 1.5 1.4 - 2.5 mg/dL Blood 03/21/2025 5:07 AM CDT 03/21/2025 5:34 AM CDT Paulien Bhat MD LAB BLOOD ORDERABLES F inal Result Performing Organization Address City/[facility] [[email or web address]] [place] [address] * (ABNORMAL) Comprehensive metabolic panel (03/21/2025 5:07 AM CDT) [facility] Sodium 140 135 - 145 mmol/L Potassium, pl 3.6 3.3 - 4.9 mmol/L [facility] Chloride 112(H) 97 - 110 mmol/L [facility] CO2 22 22 - 32 mmol/L [facility] Anion gap 6 2 - 15 mmol/L [facility] BUN 30(H) 6 - 25 mg/dL [facility] Creatinine 3.23(H) 0.60 - 1.10 mg/dL [facility] Glucose 86 70 - 199 mg/dL [facility] Comment: Interpretive Data Fasting glucose >/= 126 mg/dl is diagnostic for diabetes. Fasting is defined as no caloric intake for at least 8 hours. Fasting glucose between 100 mg/dl to 125 mg/dl is diagnostic of prediabetes. In a patient with classic symptoms of hyperglycemia or hyperglycemic crisis, a random glucose >/= 200 mg/dl is diagnostic for diabetes. In the absence of unequivocal hyperglycemia, results should be confirmed by repeat testing. The classification and Diagnosis of Diabetes Diabetes Care 202; 46: S19-S40. Current interpretive data was last revised 2022. Calcium 8.6 8.5 - 10.3 mg/dL [facility] Bilirubin, total 0.2 0.1 - 1.2 mg/dL [facility] Protein, pl 5.6(L) 6.5 - 8.5 g/dL [facility] Albumin 3.3(L) 3.5 - 5.0 g/dL [facility] Alk phos 87 40 - 130 Units/L [facility] ALT 19 7 - 45 Units/L [facility] AST 40 10 - 45 Units/L [facility] Blood 03/21/2025 5:07 AM CDT 03/21/2025 5:34 AM CDT us Pauline Bhat MD LAB BLOOD ORDERABLES F inal Result [facility] Department [place] [address] * (ABNORMAL) eGFR (03/20/2025 5:05 AM CDT) [facility] eGFR 14(L) >=60 mL/min/1. 73 m2 Comment: Interpretive Data Reference Interval Normal >/= 90 mL/min/1.73m2 Mildly decreased* 60 - 89 mL/min/1.73m2 Mildly to moderately decreased 45 - 59 mL/min/1.73m2 Moderately to severely decreased 30 - 44 mL/min/1.73m2 Severely decreased 15 - 29 mL/min/1.73m2 Kidney Failure < 15 mL/min/1.73m2 *Relative to young adult level Estimated glomerular filtration rate is determined by the 2020 CKD-EPI equation recommended by the National Kidney Foundation (A Unifying Approach to GFR Estimation: Recommendations of the NKF-ASK Task Force on Reassessing the Inclusion of Race in Diagnosing Kidney Disease, JASN 2020). The CKD-EPI equation should not be used for patients with unstable renal function and has not been validated in children and those over 70. Current interpretive data was last reviewed 2021. Blood 03/20/2025 5:05 AM CDT 03/20/2025 5:58 AM CDT Pauline Bhat MD LAB BLOOD ORDERABLES F inal Result Performing Organization Address [facility] de Phone Number SUMAYA [facility] [place] [employer] [place] [address] * Tacrolimus level trough (03/20/2025 5:05 AM CDT) [facility] Signature Tacrolimus trough 4.1 ng/mL Comment: Interpretive Data Testing performed by liquid chromatography-tandem mass spectrometry. Therapeutic concentrations vary depending on type of transplanted organ and time elapsed since transplant. Typical trough concentrations range from 5-15 ng/mL. This test was developed and its performance characteristics determined by the [facility] consistent with CLIA requirements. This test has not been cleared or approved by the [place] Food and Drug administration. Current interpretive data last reviewed 2019. Blood 03/20/2025 5:05 AM CDT 03/20/2025 6:00 AM CDT Pauline Bhat MD LAB BLOOD ORDERABLES F inal Result Performing Organization Address [facility] de Phone [facility] [place] [address] * (ABNORMAL) CBC with auto differential (03/20/2025 5:05 AM CDT) Pathologist [facility] WBC 1.58(L) 3.80 - 9.90 K/cumm Hgb 7.2(L) 11.9 - 15.5 g/dL [facility] Hct 21.6(L) 35.6 - 45.5 % [facility] Plt 120(L) 150 - 400 K/cumm [facility] MPV 11.2 9.1 - 12.3 fL [facility] RBC 2.23(L) 3.90 - 5.20 M/cumm [facility] MCV 96.9(H) 81.3 - 96.4 fL [facility] MCH 32.3 27.1 - 33.3 pg [facility] MCHC 33.3 32.3 - 35.7 g/dL [facility] RDW CV 24.8(H) 11.1 - 14.9 % [facility] RDW SD 83.8(H) 35.7 - 48.1 fL [facility] NRBC abs 0.00 0.00 - 0.01 K/cumm [facility] Morphologic Screen Results confirmed by manual morphology review. [facility] Blood 03/20/2025 5:05 AM CDT 03/20/2025 6:00 AM CDT us Pauline Bhat MD LAB BLOOD ORDERABLES E dited Result - Final [facility] [place] [address] * (ABNORMAL) Manual Differential (03/20/2025 5:05 AM CDT) Pathologist [facility] Differential Manual Cells Counted 119 [facility] Neutrophil abs 0.74(L) 1.50 - 6.50 K/cumm [facility] Imm gran abs 0.07 0.00 - 0.10 K/cumm [facility] Lymphocyte abs 0.55(L) 0.80 - 3.30 K/cumm [facility] Monocyte abs 0.17(L) 0.20 - 0.80 K/cumm [facility] Eosinophil abs 0.03 0.00 - 0.50 K/cumm [facility] Basophil abs 0.03 0.00 - 0.10 K/cumm [facility] Neutrophil pct 47.0 % [facility] Comment: Interpretive Data Percent cell count reference ranges are not reported, since discordance with absolute values may lead to misinterpretation of CBC data. Current Interpretive Data was last revised on 2017. Lymphocyte pct 34.5 % [facility] Comment: Interpretive Data Percent cell count reference ranges are not reported, since discordance with absolute values may lead to misinterpretation of CBC data. Current Interpretive Data was last revised on 2017. Monocyte pct 10.9 % [facility] Comment: Interpretive Data Percent cell count reference ranges are not reported, since discordance with absolute values may lead to misinterpretation of CBC data. Current Interpretive Data was last revised on 2017. Eosinophil pct 1.7 % [facility] Comment: Interpretive Data Percent cell count reference ranges are not reported, since discordance with absolute values may lead to misinterpretation of CBC data. Current Interpretive Data was last revised on 2017. Basophil pct 1.7 % [facility] Comment: Interpretive Data Percent cell count reference ranges are not reported, since discordance with absolute values may lead to misinterpretation of CBC data. Current Interpretive Data was last revised on 2017. Metamyelocyte pct 1.7(H) 0.0 - 0.0 % [facility] Myelocyte pct 1.7(H) 0.0 - 0.0 % [facility] Promyelocyte pct 0.8(H) 0.0 - 0.0 % [facility] [facility] Blood 03/20/2025 5:05 AM CDT 03/20/2025 6:05 AM CDT us Pauline Bhat MD LAB BLOOD ORDERABLES F inal Result [facility] [place] [address] * Type and screen (03/20/2025 5:05 AM CDT) Moon, indirect Negative ABO Rh O Positive [facility] Blood 03/20/2025 5:05 AM CDT 03/20/2025 6:05 AM CDT Narrative [facility] - 03/20/2025 7:29 AM CDT Has the patient had Daratumumab or Isatuximab in the past 6 months?->Unknown Gage Rogers MD LAB BLOOD BANK TEST ORDERABLES Final Result Performing Organization Address City/[facility] [[email or web address]] [place] [address] * (ABNORMAL) Phosphorus (03/20/2025 5:05 AM CDT) Pathologist [facility] Phosphorus, pl 1.6(L) 2.3 - 4.5 mg/dL Blood 03/20/2025 5:05 AM CDT 03/20/2025 5:58 AM CDT Pauline Bhat MD LAB BLOOD ORDERABLES F inal Result Performing Organization Address [facility] [[email or web address]] Co de Phone Number [facility] [place] [place] [address] * Magnesium (03/20/2025 5:05 AM CDT) Pathologist [facility] Magnesium 1.5 1.4 - 2.5 mg/dL Blood 03/20/2025 5:05 AM CDT 03/20/2025 5:58 AM CDT Pauline Bhat MD LAB BLOOD ORDERABLES F inal Result Performing Organization Address City/[facility] [[email or web address]] Co de Phone Number [facility] [place] [address] * (ABNORMAL) Comprehensive metabolic panel (03/20/2025 5:05 AM CDT) Sodium 142 135 - 145 mmol/L Potassium, pl 3.5 3.3 - 4.9 mmol/L [facility] Chloride 111(H) 97 - 110 mmol/L [facility] CO2 22 22 - 32 mmol/L [facility] Anion gap 9 2 - 15 mmol/L [facility] BUN 35(H) 6 - 25 mg/dL [facility] Creatinine 3.58(H) 0.60 - 1.10 mg/dL [facility] Glucose 95 70 - 199 mg/dL [facility] Comment: Interpretive Data Fasting glucose >/= 126 mg/dl is diagnostic for diabetes. Fasting is defined as no caloric intake for at least 8 hours. Fasting glucose between 100 mg/dl to 125 mg/dl is diagnostic of prediabetes. In a patient with classic symptoms of hyperglycemia or hyperglycemic crisis, a random glucose >/= 200 mg/dl is diagnostic for diabetes. In the absence of unequivocal hyperglycemia, results should be confirmed by repeat testing. The classification and Diagnosis of Diabetes Diabetes Care 202; 46: S19-S40. Current interpretive data was last revised 2022. Calcium 8.6 8.5 - 10.3 mg/dL [facility] Bilirubin, total 0.2 0.1 - 1.2 mg/dL [facility] Protein, pl 5.7(L) 6.5 - 8.5 g/dL [facility] Albumin 3.2(L) 3.5 - 5.0 g/dL [facility] Alk phos 83 40 - 130 Units/L [facility] ALT 23 7 - 45 Units/L [facility] AST 48(H) 10 - 45 Units/L [facility] Blood 03/20/2025 5:05 AM CDT 03/20/2025 5:58 AM CDT us Pauline Bhat MD LAB BLOOD ORDERABLES F inal Result [facility] [place] [address] * (ABNORMAL) eGFR (03/19/2025 5:05 AM CDT) eGFR 12(L) >=60 mL/min/1. 73 m2 Comment: Interpretive Data Reference Interval Normal >/= 90 mL/min/1.73m2 Mildly decreased* 60 - 89 mL/min/1.73m2 Mildly to moderately decreased 45 - 59 mL/min/1.73m2 Moderately to severely decreased 30 - 44 mL/min/1.73m2 Severely decreased 15 - 29 mL/min/1.73m2 Kidney Failure < 15 mL/min/1.73m2 *Relative to young adult level Estimated glomerular filtration rate is determined by the 2020 CKD-EPI equation recommended by the National Kidney Foundation (A Unifying Approach to GFR Estimation: Recommendations of the NKF-ASK Task Force on Reassessing the Inclusion of Race in Diagnosing Kidney Disease, JASN 2020). The CKD-EPI equation should not be used for patients with unstable renal function and has not been validated in children and those over 70. Current interpretive data was last reviewed 2021. Blood 03/19/2025 5:05 AM CDT 03/19/2025 6:35 AM CDT us Pauline Bhat MD LAB BLOOD ORDERABLES F inal Result [facility] [place] [address] * (ABNORMAL) Differential, auto (03/19/2025 5:05 AM CDT) Neutrophil abs 0.48(C) 1.50 - 6.50 K/cumm Comment:This result has been called to irineo mendoza rn by [id number] on 03/19/2025 07:41:05, and has been read back. Imm gran abs 0.18(H) 0.00 - 0.10 K/cumm [facility] Lymphocyte abs 0.68(L) 0.80 - 3.30 K/cumm [facility] Monocyte abs 0.18(L) 0.20 - 0.80 K/cumm [facility] Eosinophil abs 0.02 0.00 - 0.50 K/cumm [facility] Basophil abs 0.01 0.00 - 0.10 K/cumm [facility] Neutrophil pct 31.0 % [facility] Comment: Differential consistent with previous result. Differential consistent with previous result. Interpretive Data Percent cell count reference ranges are not reported, since discordance with absolute values may lead to misinterpretation of CBC data. Current Interpretive Data was last revised on 2017. Imm gran pct 11.6 % [facility] Comment: Interpretive Data Percent cell count reference ranges are not reported, since discordance with absolute values may lead to misinterpretation of CBC data. Current Interpretive Data was last revised on 2017. Lymphocyte pct 43.9 % [facility] Comment: Interpretive Data Percent cell count reference ranges are not reported, since discordance with absolute values may lead to misinterpretation of CBC data. Current Interpretive Data was last revised on 2017. Monocyte pct 11.6 % [facility] Comment: Interpretive Data Percent cell count reference ranges are not reported, since discordance with absolute values may lead to misinterpretation of CBC data. Current Interpretive Data was last revised on 2017. Eosinophil pct 1.3 % [facility] Comment: Interpretive Data Percent cell count reference ranges are not reported, since discordance with absolute values may lead to misinterpretation of CBC data. Current Interpretive Data was last revised on 2017. Basophil pct 0.6 % [facility] Comment: Interpretive Data Percent cell count reference ranges are not reported, since discordance with absolute values may lead to misinterpretation of CBC data. Current Interpretive Data was last revised on 2017. Blood 03/19/2025 5:05 AM CDT 03/19/2025 6:36 AM CDT us Pauline Bhat MD LAB BLOOD ORDERABLES F inal Result [facility] [place] [address] * Tacrolimus level trough (03/19/2025 5:05 AM CDT) Pathologist [facility] Tacrolimus trough 4.5 ng/mL Comment: Interpretive Data Testing performed by liquid chromatography-tandem mass spectrometry. Therapeutic concentrations vary depending on type of transplanted organ and time elapsed since transplant. Typical trough concentrations range from 5-15 ng/mL. This test was developed and its performance characteristics determined by the [facility] consistent with CLIA requirements. This test has not been cleared or approved by the [place] Food and Drug administration. Current interpretive data last reviewed 2019. Blood 03/19/2025 5:05 AM CDT 03/19/2025 6:36 AM CDT Pauline Bhat MD LAB BLOOD ORDERABLES F inal Result [facility] [place] [address] * (ABNORMAL) CBC with auto differential (03/19/2025 5:05 AM CDT) Pathologist [facility] WBC 1.55(L) 3.80 - 9.90 K/cumm Hgb 7.0(L) 11.9 - 15.5 g/dL [facility] Hct 20.7(L) 35.6 - 45.5 % [facility] Plt 116(L) 150 - 400 K/cumm [facility] MPV 10.6 9.1 - 12.3 fL [facility] RBC 2.18(L) 3.90 - 5.20 M/cumm [facility] MCV 95.0 81.3 - 96.4 fL [facility] MCH 32.1 27.1 - 33.3 pg [facility] MCHC 33.8 32.3 - 35.7 g/dL [facility] RDW CV 25.2(H) 11.1 - 14.9 % [facility] RDW SD 81.4(H) 35.7 - 48.1 fL [facility] NRBC abs 0.00 0.00 - 0.01 K/cumm [facility] Blood 03/19/2025 5:05 AM CDT 03/19/2025 6:36 AM CDT Pauline Bhat MD LAB BLOOD ORDERABLES F inal Result Performing Organization Address City/[facility] [[email or web address]] Co de Phone Number [facility] [place] [address] * (ABNORMAL) Phosphorus (03/19/2025 5:05 AM CDT) [facility] Phosphorus, pl 1.8(L) 2.3 - 4.5 mg/dL Blood 03/19/2025 5:05 AM CDT 03/19/2025 6:35 AM CDT Pauline Bhat MD LAB BLOOD ORDERABLES F inal Result Performing Organization Address [facility] [[email or web address]] Co de Phone Number [facility] [place] [address] * Magnesium (03/19/2025 5:05 AM CDT) [facility] Magnesium 1.6 1.4 - 2.5 mg/dL Blood 03/19/2025 5:05 AM CDT 03/19/2025 6:35 AM CDT Pauline Bhat MD LAB BLOOD ORDERABLES F inal Result Performing Organization Address City/[facility] [[email or web address]] [place] [address] * (ABNORMAL) Comprehensive metabolic panel (03/19/2025 5:05 AM CDT) [facility] Sodium 140 135 - 145 mmol/L Potassium, pl 3.6 3.3 - 4.9 mmol/L [facility] Chloride 109 97 - 110 mmol/L [facility] CO2 20(L) 22 - 32 mmol/L [facility] Anion gap 11 2 - 15 mmol/L [facility] BUN 42(H) 6 - 25 mg/dL [facility] Creatinine 3.93(H) 0.60 - 1.10 mg/dL [facility] Glucose 89 70 - 199 mg/dL [facility] Comment: Interpretive Data Fasting glucose >/= 126 mg/dl is diagnostic for diabetes. Fasting is defined as no caloric intake for at least 8 hours. Fasting glucose between 100 mg/dl to 125 mg/dl is diagnostic of prediabetes. In a patient with classic symptoms of hyperglycemia or hyperglycemic crisis, a random glucose >/= 200 mg/dl is diagnostic for diabetes. In the absence of unequivocal hyperglycemia, results should be confirmed by repeat testing. The classification and Diagnosis of Diabetes Diabetes Care 202; 46: S19-S40. Current interpretive data was last revised 2022. Calcium 8.2(L) 8.5 - 10.3 mg/dL [facility] Bilirubin, total 0.2 0.1 - 1.2 mg/dL [facility] Protein, pl 5.6(L) 6.5 - 8.5 g/dL [facility] Albumin 3.1(L) 3.5 - 5.0 g/dL [facility] Alk phos 72 40 - 130 Units/L [facility] ALT 18 7 - 45 Units/L [facility] AST 45 10 - 45 Units/L [facility] Blood 03/19/2025 5:0 5 AM CDT 03/19/2025 6:35 AM CDT us Pauline Bhat MD LAB BLOOD ORDERABLES F inal Result [facility] [place] [address] * (ABNORMAL) eGFR (03/18/2025 5:45 AM CDT) eGFR 10(L) >=60 mL/min/1. 73 m2 Comment: Interpretive Data Reference Interval Normal >/= 90 mL/min/1.73m2 Mildly decreased* 60 - 89 mL/min/1.73m2 Mildly to moderately decreased 45 - 59 mL/min/1.73m2 Moderately to severely decreased 30 - 44 mL/min/1.73m2 Severely decreased 15 - 29 mL/min/1.73m2 Kidney Failure < 15 mL/min/1.73m2 *Relative to young adult level Estimated glomerular filtration rate is determined by the 2020 CKD-EPI equation recommended by the National Kidney Foundation (A Unifying Approach to GFR Estimation: Recommendations of the NKF-ASK Task Force on Reassessing the Inclusion of Race in Diagnosing Kidney Disease, JASN 2020). The CKD-EPI equation should not be used for patients with unstable renal function and has not been validated in children and those over 70. Current interpretive data was last reviewed 2021. Blood 03/18/2025 5:45 AM CDT 03/18/2025 7:40 AM CDT us Pauline Bhat MD LAB BLOOD ORDERABLES F inal Result [facility] [place] [address] * (ABNORMAL) Differential, auto (03/18/2025 5:45 AM CDT) Neutrophil abs 0.67(L) 1.50 - 6.50 K/cumm Imm gran abs 0.19(H) 0.00 - 0.10 K/cumm [facility] Lymphocyte abs 0.66(L) 0.80 - 3.30 K/cumm [facility] Monocyte abs 0.21 0.20 - 0.80 K/cumm [facility] Eosinophil abs 0.04 0.00 - 0.50 K/cumm [facility] Basophil abs 0.02 0.00 - 0.10 K/cumm [facility] Neutrophil pct 37.5 % [facility] Comment: Interpretive Data Percent cell count reference ranges are not reported, since discordance with absolute values may lead to misinterpretation of CBC data. Current Interpretive Data was last revised on 2017. Imm gran pct 10.6 % [facility] Comment: Interpretive Data Percent cell count reference ranges are not reported, since discordance with absolute values may lead to misinterpretation of CBC data. Current Interpretive Data was last revised on 2017. Lymphocyte pct 36.9 % [facility] Comment: Interpretive Data Percent cell count reference ranges are not reported, since discordance with absolute values may lead to misinterpretation of CBC data. Current Interpretive Data was last revised on 2017. Monocyte pct 11.7 % [facility] Comment: Interpretive Data Percent cell count reference ranges are not reported, since discordance with absolute values may lead to misinterpretation of CBC data. Current Interpretive Data was last revised on 2017. Eosinophil pct 2.2 % [facility] Comment: Interpretive Data Percent cell count reference ranges are not reported, since discordance with absolute values may lead to misinterpretation of CBC data. Current Interpretive Data was last revised on 2017. Basophil pct 1.1 % [facility] Comment: Interpretive Data Percent cell count reference ranges are not reported, since discordance with absolute values may lead to misinterpretation of CBC data. Current Interpretive Data was last revised on 2017. Blood 03/18/2025 5:45 AM CDT 03/18/2025 7:22 AM CDT Pauline Bhat MD LAB BLOOD ORDERABLES F inal Result [facility] [place] [address] * Tacrolimus level trough (03/18/2025 5:45 AM CDT) Tacrolimus trough 3.2 ng/mL Comment: Interpretive Data Testing performed by liquid chromatography-tandem mass spectrometry. Therapeutic concentrations vary depending on type of transplanted organ and time elapsed since transplant. Typical trough concentrations range from 5-15 ng/mL. This test was developed and its performance characteristics determined by the [facility] consistent with CLIA requirements. This test has not been cleared or approved by the [place] Food and Drug administration. Current interpretive data last reviewed 2019. Blood 03/18/2025 5:45 AM CDT 03/18/2025 7:22 AM CDT Pauline Bhat MD LAB BLOOD ORDERABLES F inal Result [facility] [place] [address] * (ABNORMAL) CBC with auto differential (03/18/2025 5:45 AM CDT) Pathologist [facility] WBC 1.79(L) 3.80 - 9.90 K/cumm Hgb 7.8(L) 11.9 - 15.5 g/dL [facility] Hct 23.2(L) 35.6 - 45.5 % [facility] Plt 117(L) 150 - 400 K/cumm [facility] MPV 10.9 9.1 - 12.3 fL [facility] RBC 2.42(L) 3.90 - 5.20 M/cumm [facility] MCV 95.9 81.3 - 96.4 fL [facility] Comment:MCV delta due to megan arent blood transfusion. MCH 32.2 27.1 - 33.3 pg [facility] MCHC 33.6 32.3 - 35.7 g/dL [facility] RDW CV 24.6(H) 11.1 - 14.9 % [facility] RDW SD 79.8(H) 35.7 - 48.1 fL [facility] NRBC abs 0.00 0.00 - 0.01 K/cumm [facility] Blood 03/18/2025 5:45 AM CDT 03/18/2025 7:22 AM CDT us Pauline Bhat MD LAB BLOOD ORDERABLES E dited Result - Final [facility] [place] [address] * (ABNORMAL) Phosphorus (03/18/2025 5:45 AM CDT) Pathologist [facility] Phosphorus, pl 2.1(L) 2.3 - 4.5 mg/dL Blood 03/18/2025 5:45 AM CDT 03/18/2025 7:22 AM CDT Pauline Bhat MD LAB BLOOD ORDERABLES F inal Result Performing Organization Address City/[facility]/ZIP Co de Phone Number [facility] [place] [address] * Magnesium (03/18/2025 5:45 AM CDT) [facility] Magnesium 1.8 1.4 - 2.5 mg/dL Blood 03/18/2025 5:45 AM CDT 03/18/2025 7:22 AM CDT Pauline Bhat MD LAB BLOOD ORDERABLES F inal Result Performing Organization Address City/[facility] de Phone Number [facility] [place] [address] * (ABNORMAL) Comprehensive metabolic panel (03/18/2025 5:45 AM CDT) [facility] Sodium 143 135 - 145 mmol/L Potassium, pl 3.4 3.3 - 4.9 mmol/L [facility] Chloride 110 97 - 110 mmol/L [facility] CO2 20(L) 22 - 32 mmol/L [facility] Anion gap 13 2 - 15 mmol/L [facility] BUN 51(H) 6 - 25 mg/dL [facility] Creatinine 4.74(H) 0.60 - 1.10 mg/dL [facility] Glucose 94 70 - 199 mg/dL [facility] Comment: Interpretive Data Fasting glucose >/= 126 mg/dl is diagnostic for diabetes. Fasting is defined as no caloric intake for at least 8 hours. Fasting glucose between 100 mg/dl to 125 mg/dl is diagnostic of prediabetes. In a patient with classic symptoms of hyperglycemia or hyperglycemic crisis, a random glucose >/= 200 mg/dl is diagnostic for diabetes. In the absence of unequivocal hyperglycemia, results should be confirmed by repeat testing. The classification and Diagnosis of Diabetes Diabetes Care 202; 46: S19-S40. Current interpretive data was last revised 2022. Calcium 8.4(L) 8.5 - 10.3 mg/dL [facility] Bilirubin, total 0.3 0.1 - 1.2 mg/dL [facility] Protein, pl 5.9(L) 6.5 - 8.5 g/dL [facility] Albumin 3.4(L) 3.5 - 5.0 g/dL [facility] Alk phos 67 40 - 130 Units/L [facility] ALT 12 7 - 45 Units/L [facility] AST 30 10 - 45 Units/L [facility] Blood 03/18/2025 5:45 AM CDT 03/18/2025 7:22 AM CDT Pauline Bhat MD LAB BLOOD ORDERABLES F inal Result Performing Organization Address City/[facility]/ZIP Co de Phone Number [facility] [place] [employer] [place] [address] * Transfuse RBC (03/17/2025 11:45 PM CDT) Blood Gary Verdin MD BLOOD TRANSFUSION ORDER ALEX Edited Result - Final [facility] [place] [place] [address] * Infection Prevention Susan auris PCR, surveillance Axilla/Groin (03/17/2025 1:35 PM CDT) Pathologist [facility] Susan auris DNA Not Detected Not Detected [facility] Comment: Interpretive Data Testing performed by [facility] Infectious Disease Laboratory using the Lauren beth 6800 Susan auris assay. This assay detects DNA from Susan auris using Real-Time PCR. This assay is laboratory developed and is not cleared by the [place] Food and Drug Administration. The performance characteristics have been verified by the [facility] Infectious Disease [facility]. Axilla/Groin 03/17/2025 1:35 PM CDT 03/17/2025 3:48 PM CDT Narrative [facility] - 03/17/2025 11:58 PM CDT Order placed by [facility] due to ring surveillance. us Instant Order Generic Provider LAB MICROBIOLOGY - GENERAL ORDERABLES Final Result Performing Organization Address [facility]/ZIP Co de Phone Number [facility] [place] [address] [facility] * Type and screen (03/17/2025 1:35 PM CDT) ABO Rh O Positive Moon, indirect Negative [facility] Blood 03/17/2025 1:35 PM CDT 03/17/2025 2:46 PM CDT Narrative [facility] - 03/17/2025 3:34 PM CDT Has the patient had Daratumumab or Isatuximab in the past 6 months?->Unknown Gary Verdin MD LAB BLOOD BANK TEST ORD ERABLES Final Result Performing Organization Address [facility] [[email or web address]] Co de Phone Number [facility] Department [place] [address] * Prepare RBC: 1 Units (03/17/2025 12:17 PM CDT) Product code [id number] Unit Number [id number] [facility] Product Blood Type OPOS [facility] Dispense Status PRESUMED TRANSFUSED [facility] Blood 03/17/2025 12:1 7 PM CDT 03/17/2025 12:17 PM CDT Narrative [facility] - 03/18/2025 6:00 AM CDT Are special requirements needed? (All products are leukoreduced and CMV- safe)- >No Date required:-[id number] LRRBC # of [id number] Reasons:-Hgb <7 g/dL} Gary Verdin MD BLOOD BANK PRODUCT ORDE RADHA Final Result Performing Organization Address [facility] [[email or web address]] Co de Phone Number [facility] [place] [address] * (ABNORMAL) eGFR (03/17/2025 5:17 AM CDT) eGFR 8(L) >=60 mL/min/1. 73 m2 Comment: Interpretive Data Reference Interval Normal >/= 90 mL/min/1.73m2 Mildly decreased* 60 - 89 mL/min/1.73m2 Mildly to moderately decreased 45 - 59 mL/min/1.73m2 Moderately to severely decreased 30 - 44 mL/min/1.73m2 Severely decreased 15 - 29 mL/min/1.73m2 Kidney Failure < 15 mL/min/1.73m2 *Relative to young adult level Estimated glomerular filtration rate is determined by the 2020 CKD-EPI equation recommended by the National Kidney Foundation (A Unifying Approach to GFR Estimation: Recommendations of the NKF-ASK Task Force on Reassessing the Inclusion of Race in Diagnosing Kidney Disease, JASN 2020). The CKD-EPI equation should not be used for patients with unstable renal function and has not been validated in children and those over 70. Current interpretive data was last reviewed 2021. Blood 03/17/2025 5:17 AM CDT 03/17/2025 5:54 AM CDT us Pauline Bhat MD LAB BLOOD ORDERABLES F inal Result Performing Organization Address [facility]/ZIP Co de Phone Number [facility] [place] [address] * (ABNORMAL) Differential, auto (03/17/2025 5:17 AM CDT) Neutrophil abs 0.80(L) 1.50 - 6.50 K/cumm Imm gran abs 0.20(H) 0.00 - 0.10 K/cumm [facility] Lymphocyte abs 0.67(L) 0.80 - 3.30 K/cumm [facility] [facility] Monocyte abs 0.30 0.20 - 0.80 K/cumm [facility] Eosinophil abs 0.02 0.00 - 0.50 K/cumm [facility] Basophil abs 0.02 0.00 - 0.10 K/cumm [facility] Neutrophil pct 39.8 % [facility] Comment: Interpretive Data Percent cell count reference ranges are not reported, since discordance with absolute values may lead to misinterpretation of CBC data. Current Interpretive Data was last revised on 2017. Imm gran pct 10.0 % [facility] Comment: Interpretive Data Percent cell count reference ranges are not reported, since discordance with absolute values may lead to misinterpretation of CBC data. Current Interpretive Data was last revised on 2017. Lymphocyte pct 33.3 % [facility] Comment: Interpretive Data Percent cell count reference ranges are not reported, since discordance with absolute values may lead to misinterpretation of CBC data. Current Interpretive Data was last revised on 2017. Monocyte pct 14.9 % [facility] Comment: Interpretive Data Percent cell count reference ranges are not reported, since discordance with absolute values may lead to misinterpretation of CBC data. Current Interpretive Data was last revised on 2017. Eosinophil pct 1.0 % [facility] Comment: Interpretive Data Percent cell count reference ranges are not reported, since discordance with absolute values may lead to misinterpretation of CBC data. Current Interpretive Data was last revised on 2017. Basophil pct 1.0 % [facility] Comment: Interpretive Data Percent cell count reference ranges are not reported, since discordance with absolute values may lead to misinterpretation of CBC data. Current Interpretive Data was last revised on 2017. Blood 03/17/2025 5:17 AM CDT 03/17/2025 5:53 AM CDT Pauline Bhat MD LAB BLOOD ORDERABLES F inal Result Performing Organization Address [facility] de Phone Number [facility] [place] [address] * Tacrolimus level trough (03/17/2025 5:17 AM CDT) [facility] Tacrolimus trough 4.3 ng/mL Comment: Interpretive Data Testing performed by liquid chromatography-tandem mass spectrometry. Therapeutic concentrations vary depending on type of transplanted organ and time elapsed since transplant. Typical trough concentrations range from 5-15 ng/mL. This test was developed and its performance characteristics determined by the [facility] consistent with CLIA requirements. This test has not been cleared or approved by the [place] Food and Drug administration. Current interpretive data last reviewed 2019. Blood 03/17/2025 5:17 AM CDT 03/17/2025 5:53 AM CDT Pauline Bhat MD LAB BLOOD ORDERABLES F inal Result Performing Organization Address [facility] [[email or web address]] Co de Phone Number SUMAYA [facility] [place] [address] * (ABNORMAL) CBC with auto differential (03/17/2025 5:17 AM CDT) [facility] WBC 2.01(L) 3.80 - 9.90 K/cumm Hgb 6.9(L) 11.9 - 15.5 g/dL [facility] Hct 20.7(L) 35.6 - 45.5 % [facility] Plt 123(L) 150 - 400 K/cumm [facility] MPV 10.5 9.1 - 12.3 fL [facility] RBC 2.04(L) 3.90 - 5.20 M/cumm [facility] MCV 101.5(H) 81.3 - 96.4 fL [facility] MCH 33.8(H) 27.1 - 33.3 pg [facility] MCHC 33.3 32.3 - 35.7 g/dL [facility] RDW CV 22.5(H) 11.1 - 14.9 % [facility] RDW SD 81.1(H) 35.7 - 48.1 fL [facility] NRBC abs 0.00 0.00 - 0.01 K/cumm [facility] Blood 03/17/2025 5:17 AM CDT 03/17/2025 5:53 AM CDT Pauline Bhat MD LAB BLOOD ORDERABLES F inal Result Performing Organization Address City/State/[facility] [[email or web address]] Co de Phone Number [facility] [place] [address] * Phosphorus (03/17/2025 5:17 AM CDT) [facility] Phosphorus, pl 2.7 2.3 - 4.5 mg/dL Blood 03/17/2025 5:17 AM CDT 03/17/2025 5:54 AM CDT Pauline Bhat MD LAB BLOOD ORDERABLES F inal Result Performing Organization Address City/[facility] de Phone Number [facility] [place] [address] * Magnesium (03/17/2025 5:17 AM CDT) [facility] Magnesium 1.9 1.4 - 2.5 mg/dL Blood 03/17/2025 5:17 AM CDT 03/17/2025 5:54 AM CDT Pauline Bhat MD LAB BLOOD ORDERABLES F inal Result Performing Organization Address City/[facility] [[email or web address]] [place] [address] * (ABNORMAL) Comprehensive metabolic panel (03/17/2025 5:17 AM CDT) [facility] Sodium 143 135 - 145 mmol/L Potassium, pl 3.9 3.3 - 4.9 mmol/L [facility] Chloride 110 97 - 110 mmol/L [facility] CO2 22 22 - 32 mmol/L [facility] Anion gap 11 2 - 15 mmol/L [facility] BUN 65(H) 6 - 25 mg/dL [facility] Creatinine 5.74(H) 0.60 - 1.10 mg/dL [facility] Glucose 113 70 - 199 mg/dL [facility] Comment: Interpretive Data Fasting glucose >/= 126 mg/dl is diagnostic for diabetes. Fasting is defined as no caloric intake for at least 8 hours. Fasting glucose between 100 mg/dl to 125 mg/dl is diagnostic of prediabetes. In a patient with classic symptoms of hyperglycemia or hyperglycemic crisis, a random glucose >/= 200 mg/dl is diagnostic for diabetes. In the absence of unequivocal hyperglycemia, results should be confirmed by repeat testing. The classification and Diagnosis of Diabetes Diabetes Care 2021; 46: S19-S40. Current interpretive data was last revised 2022. Calcium 8.8 8.5 - 10.3 mg/dL [facility] Bilirubin, total 0.2 0.1 - 1.2 mg/dL [facility] Protein, pl 6.5 6.5 - 8.5 g/dL [facility] Albumin 3.8 3.5 - 5.0 g/dL [facility] Alk phos 85 40 - 130 Units/L [facility] ALT 9 7 - 45 Units/L [facility] AST 22 10 - 45 Units/L [facility] Blood 03/17/2025 5:17 AM CDT 03/17/2025 5:54 AM CDT us Pauline Bhat MD LAB BLOOD ORDERABLES F inal Result [facility] Department [place] [address] * MID Lab Inf Prevention Courtesy Callback Stool (03/16/2025 11:20 PM CDT) Pathologist [facility] TestName Norovirus PCR Date Notified [id number] [facility] Time Notified 912 [facility] Called/Read Back Alberto Beckman, Revenue Accountant [facility] Called By Lito Eduardo [facility] Stool 03/16/2025 11:2 0 PM CDT 03/17/2025 3:06 AM CDT Pauline Bhat MD LAB MICROBIOLOGY - GEN ERAL ORDERABLES Final Result Performing Organization Address City/[facility] [[email or web address]] Co de Phone Number [facility] [place] [address] * C. difficile testing Stool (03/16/2025 11:20 PM CDT) [facility] Result Positive Negative Toxin Result Negative Negative [facility] C. diff result Negative, free toxin. Negative, free toxin [facility] C. diff interp GDH+/toxin- results almost never represent true C. difficile infection (CDI). Results may represent colonization with C. difficile without CDI, detection of a bacteria other than toxigenic C. difficile, or a false negative toxin assay. If there is a high index of suspicion for CDI, additional testing by PCR is available upon request. [facility] Stool 03/16/2025 11:2 0 PM CDT 03/17/2025 12:56 AM CDT Pauline Bhat MD LAB MICROBIOLOGY - GEN ERAL ORDERABLES Final Result Performing Organization Address City/[facility] [[email or web address]] Co de Phone Number [facility] [place] [address] * Ova and parasite exam Stool (03/16/2025 11:20 PM CDT) [facility] Ova & Parasite exam See Footnote [facility] Comment: SOURCE: STOOL, STLP OVA AND PARASITE, MICROSCOPY, F FINAL No parasites seen. Cryptosporidium, Cyclospora, and microsporidia are not readily detected by this method. Single negative specimen does not rule out parasitic infection. Test Performed by: [facility] - [address] [address] Bookkeeper: Bryson Craft Ph.D.; CLIA# [id number] Stool 03/16/2025 11:2 0 PM CDT 03/17/2025 12:56 AM CDT Narrative IMGUELEE [facility] - 03/24/2025 2:02 PM CDT Is the patient immunosuppressed?->Yes Has the patient had recent travel outside the [place]?->No Pauline Bhat MD LAB MICROBIOLOGY - GEN ERAL ORDERABLES Final Result [facility] [place] [address] [facility] * (ABNORMAL) Norovirus PCR Stool (03/16/2025 11:20 PM CDT) [facility] Norovirus GI RNA Not Detected Not Detected [facility] Norovirus GII RNA Detected(A) Not Detected SUMAYA [facility] Comment: Interpretive data: Testing performed at the [facility] using the [employer]od[employer] Xpert Norovirus Assay. This assay uses nucleic acid amplification to detect RNA from norovirus. This test is cleared by the [place] Food and Drug Administration for unformed stool specimens. The performance characteristics for unformed stool specimens have been verified by the performing laboratory. The performance characteristics of rectal swab specimens have also been validated and verified by the performing laboratory. Positive Xpert Norovirus results do not rule out other causes of infectious diarrhea. Assay interference may be observed in the presence of Barium sulfate and Benzalkonium chloride. Mutations or polymorphisms in primer or probe binding regions may affect detection of new or unknown norovirus variants resulting in a false negative result. Results from the Xpert Norovirus Assay should be interpreted in conjunction with other laboratory and clinical data available to the clinician. Current interpretive data was last revised on 2024. Stool 03/16/2025 11:2 0 PM CDT 03/17/2025 3:06 AM CDT Pauline Bhat MD LAB MICROBIOLOGY - GEN ERAL ORDERABLES Final Result Performing Organization Address City/[facility]/[place] [address] [facility] * Cryptosporidium and Giardia antigen assay Stool (03/16/2025 11:20 PM CDT) Giardia Ag Negative Negative Cryptosporidium Ag Negative Negative [facility] Comment: Interpretive data: Testing performed by the [facility] using an immunoassay that detects Cryptosporidium and Giardia antigens in stool specimens. If comprehensive examination for ova and parasites is required, please request Ova and Parasite Examination. Stool 03/16/2025 11:2 0 PM CDT 03/17/2025 12:56 AM CDT Pauline Bhat MD LAB MICROBIOLOGY - GEN ERAL ORDERABLES Final Result Performing Organization Address [facility] [[email or web address]] Co de Phone Number [facility] [place] [address] * Stool culture Stool Rectum (03/16/2025 11:20 PM CDT) Pathologist [facility] Direct Specimen Exam Shiga Toxin Testing: Antigen detection assay for Shiga-toxin NEGATIVE for Shiga Toxin 1 and Shiga Toxin 2. Report Final Report: No growth of enteric bacterial pathogens [facility] Stool (Rectum) 03/16/2025 11 :20 PM CDT 03/17/2025 12:56 AM CDT Narrative [facility] - 03/21/2025 10:38 AM CDT Testing performed by [facility] ([phone]). Routine stool cultures include procedures to detect Salmonella, Shigella, Edwardsiella, Aeromonas, Pleisiomonas, Campylobacter, Yersinia, E. coli O157, and Shiga-like toxins. Vibrio is cultured only upon special request. If Vibrio is suspected, please call the laboratory at [phone]. Interpretive data was last updated January 13, 2017. us Pauline Bhat MD LAB MICROBIOLOGY - GEN ERAL ORDERABLES Final Result Performing Organization Address City/[facility]/ZIP Co de Phone Number [facility] [place] [address] * Infection Prevention VRE Culture Stool (03/16/2025 11:19 PM CDT) Report Final Report: Negative Stool 03/16/2025 11:1 9 PM CDT 03/17/2025 5:28 AM CDT Narrative [facility] - 03/19/2025 8:23 AM CDT Surveillance culture for Infection Prevention purposes only; results indicate colonization, not infection requiring treatment. Testing performed by [facility] ([phone]). us Gary Verdin MD LAB MICROBIOLOGY - GENE RAL ORDERABLES Final Result Performing Organization Address [facility] [[email or web address]] Co de Phone Number [facility] [place] [address] * US Kidney Complete (03/16/2025 2:26 PM CDT) Anatomical Region Laterality Modality Kidney N/A Ultrasound 03/16/2025 2:28 PM CDT Impressions 03/16/2025 2:30 PM CDT 1. No hydronephrosis or suspicious renal masses. 2. The kidneys are small bilaterally compatible with chronic renal disease. 3. Punctate focus of gas in the bladder lumen. Please correlate with history of recent catheterization. Dictated by: Lilian Milian MD, MPHS The radiology attending physician has personally reviewed this study, and had reviewed and/or edited this written report and agrees with it. Electronically signed by: Prosper Brooks M.D. 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 Prior Chambers catheter. COMPARISON: Ultrasound 12/11/2024. FINDINGS: Kidneys: The echogenicity of both kidneys is normal. The kidneys are small in size. The right kidney measures 8.9 cm in length, and the left, 9.2 cm in length. There is no hydronephrosis in either kidney. There are no renal calculi visualized. Simple cyst in the left kidney. Bladder: There is a focus of dirty shadowing in the anti-dependent bladder lumen. Otherwise, the bladder is normal. 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 Prior Chambers catheter. COMPARISON: Ultrasound 12/11/2024. FINDINGS: Kidneys: The echogenicity of both kidneys is normal. The kidneys are small in size. The right kidney measures 8.9 cm in length, and the left, 9.2 cm in length. There is no hydronephrosis in either kidney. There are no renal calculi visualized. Simple cyst in the left kidney. Bladder: There is a focus of dirty shadowing in the anti-dependent bladder lumen. Otherwise, the bladder is normal. IMPRESSION: 1. No hydronephrosis or suspicious renal masses. 2. The kidneys are small bilaterally compatible with chronic renal disease. 3. Punctate focus of gas in the bladder lumen. Please correlate with history of recent catheterization. Dictated by: Lilian Milian MD, MPHS The radiology attending physician has personally reviewed this study, and had reviewed and/or edited this written report and agrees with it. Electronically signed by: Prosper Brooks M.D. us Pauline Bhat MD [facility] US PROCEDURES Tonia l Result * BK virus PCR quantitative Blood (03/16/2025 5:41 AM CDT) Pathologist [facility] BKV DNA result, pl Not Detected [facility] Comment: The quantifiable range of this assay is 21.5 IU/mL to 100,000,000 IU/mL (1.33 log IU/mL to 8.00 log IU/mL). Testing was performed by the [employer] BKV Quantatitive Test version 2.0 ([employer] Testing performed at [facility] Current Interpretive Data was last revised on 2021. Blood 03/16/2025 5:41 AM CDT 03/16/2025 6:28 AM CDT Pauline Bhat MD LAB MICROBIOLOGY - GEN ERAL ORDERABLES Final Result Performing Organization Address City/[facility]/ZIP Co de Phone Number [facility] [place] [place] [address] [facility] * (ABNORMAL) Cytomegalovirus (CMV) DNA PCR, quantitative Blood (03/16/2025 5:41 AM CDT) [facility] CMV DNA Detected( A) [facility] Comment: Interpretive Data: The quantifiable range of this assay is 34 IUnits/mL to 10,000,000 IUnits/mL (1.53 log IUnits/mL to 7.0 log IUnits/mL). Testing was performed by the BETH 6800 CMV Test ([employer] Testing performed at [facility]. Current interpretive data was last revised on 2021. CMV DNA IU/mL 124 IUnits/mL [facility] CMV DNA log IU/mL 2.09 log IUnits/mL [facility] Blood 03/16/2025 5:41 AM CDT 03/16/2025 6:28 AM CDT Pauline Bhat MD LAB MICROBIOLOGY - GEN ERAL ORDERABLES Final Result Performing Organization Address City/[facility]/ZIP Co de Phone Number [facility] [place] [employer] [place] [address] [facility] * (ABNORMAL) eGFR (03/16/2025 5:41 AM CDT) [facility] eGFR 6(L) >=60 mL/min/1. 73 m2 Comment: Interpretive Data Reference Interval Normal >/= 90 mL/min/1.73m2 Mildly decreased* 60 - 89 mL/min/1.73m2 Mildly to moderately decreased 45 - 59 mL/min/1.73m2 Moderately to severely decreased 30 - 44 mL/min/1.73m2 Severely decreased 15 - 29 mL/min/1.73m2 Kidney Failure < 15 mL/min/1.73m2 *Relative to young adult level Estimated glomerular filtration rate is determined by the 2020 CKD-EPI equation recommended by the National Kidney Foundation (A Unifying Approach to GFR Estimation: Recommendations of the NKF-ASK Task Force on Reassessing the Inclusion of Race in Diagnosing Kidney Disease, JASN 2020). The CKD-EPI equation should not be used for patients with unstable renal function and has not been validated in children and those over 70. Current interpretive data was last reviewed 2021. Blood 03/16/2025 5:41 AM CDT 03/16/2025 6:24 AM CDT us Pauline Bhat MD LAB BLOOD ORDERABLES F inal Result [facility] [place] [address] * (ABNORMAL) Differential, auto (03/16/2025 5:41 AM CDT) Neutrophil abs 0.57(L) 1.50 - 6.50 K/cumm Imm gran abs 0.09 0.00 - 0.10 K/cumm [facility] Lymphocyte abs 0.52(L) 0.80 - 3.30 K/cumm [facility] Monocyte abs 0.17(L) 0.20 - 0.80 K/cumm [facility] Eosinophil abs 0.03 0.00 - 0.50 K/cumm [facility] Basophil abs 0.01 0.00 - 0.10 K/cumm [facility] Neutrophil pct 41.0 % [facility] Comment: Interpretive Data Percent cell count reference ranges are not reported, since discordance with absolute values may lead to misinterpretation of CBC data. Current Interpretive Data was last revised on 2017. Imm gran pct 6.5 % [facility] Comment: Interpretive Data Percent cell count reference ranges are not reported, since discordance with absolute values may lead to misinterpretation of CBC data. Current Interpretive Data was last revised on 2017. Lymphocyte pct 37.4 % SUMAYA [facility] Comment: Interpretive Data Percent cell count reference ranges are not reported, since discordance with absolute values may lead to misinterpretation of CBC data. Current Interpretive Data was last revised on 2017. Monocyte pct 12.2 % SUMAYA [facility] Comment: Interpretive Data Percent cell count reference ranges are not reported, since discordance with absolute values may lead to misinterpretation of CBC data. Current Interpretive Data was last revised on 2017. Eosinophil pct 2.2 % SUMAYA [facility] Comment: Interpretive Data Percent cell count reference ranges are not reported, since discordance with absolute values may lead to misinterpretation of CBC data. Current Interpretive Data was last revised on 2017. Basophil pct 0.7 % [facility] Comment: Interpretive Data Percent cell count reference ranges are not reported, since discordance with absolute values may lead to misinterpretation of CBC data. Current Interpretive Data was last revised on 2017. Blood 03/16/2025 5:41 AM CDT 03/16/2025 6:25 AM CDT us Pauline Bhat MD LAB BLOOD ORDERABLES F inal Result [facility] [place] [address] * Tacrolimus level trough (03/16/2025 5:41 AM CDT) Tacrolimus trough 5.5 ng/mL Comment: Interpretive Data Testing performed by liquid chromatography-tandem mass spectrometry. Therapeutic concentrations vary depending on type of transplanted organ and time elapsed since transplant. Typical trough concentrations range from 5-15 ng/mL. This test was developed and its performance characteristics determined by the [facility] consistent with CLIA requirements. This test has not been cleared or approved by the [place] Food and Drug administration. Current interpretive data last reviewed 2019. Blood 03/16/2025 5:41 AM CDT 03/16/2025 6:25 AM CDT Pauline Bhat MD LAB BLOOD ORDERABLES F inal Result Performing Organization Address [facility] de Phone Number [facility] [place] [employer] [place] [address] * (ABNORMAL) Iron profile w/ IBC (03/16/2025 5:41 AM CDT) [facility] Iron 191(H) 35 - 145 mcg/dL TIBC <208(L) 250 - 400 mcg/dL [facility] Transferrin saturation >92(H) 20 - 50 % [facility] Blood 03/16/2025 5:41 AM CDT 03/16/2025 6:24 AM CDT Pauline Bhat MD LAB BLOOD ORDERABLES F inal Result Performing Organization Address [facility] de Phone Number [facility] [place] [employer] [place] [address] * (ABNORMAL) CBC with auto differential (03/16/2025 5:41 AM CDT) [facility] WBC 1.39(L) 3.80 - 9.90 K/cumm Hgb 7.5(L) 11.9 - 15.5 g/dL [facility] Hct 22.3(L) 35.6 - 45.5 % [facility] Plt 124(L) 150 - 400 K/cumm [facility] MPV 10.7 9.1 - 12.3 fL [facility] RBC 2.20(L) 3.90 - 5.20 M/cumm [facility] MCV 101.4(H) 81.3 - 96.4 fL [facility] MCH 34.1(H) 27.1 - 33.3 pg [facility] MCHC 33.6 32.3 - 35.7 g/dL [facility] RDW CV 22.5(H) 11.1 - 14.9 % [facility] RDW SD 81.2(H) 35.7 - 48.1 fL [facility] NRBC abs 0.00 0.00 - 0.01 K/cumm [facility] Blood 03/16/2025 5:41 AM CDT 03/16/2025 6:25 AM CDT Pauline Bhat MD LAB BLOOD ORDERABLES F inal Result Performing Organization Address [facility] de Phone Number [facility] [place] [address] * Copper, serum (03/16/2025 5:41 AM CDT) Copper 90 77 - 206 mcg/dL [facility] Comment: ADDITIONAL INFORMATION This test was developed and its performance characteristics determined by [facility] in a manner consistent with CLIA requirements. This test has not been cleared or approved by the U.S. Food and Drug Administration. Test Performed by: [address] [address] Bookkeeper: Bryson Craft Ph.D.; CLIA# [id number] Blood 03/16/2025 5:41 AM CDT 03/16/2025 6:24 AM CDT Pauline Bhat MD LAB BLOOD ORDERABLES F inal Result Performing Organization Address [facility] [[email or web address]] Co de Phone Number [facility] [place] [address] [facility] * Zinc (03/16/2025 5:41 AM CDT) Zinc 66 60 - 106 mcg/dL [facility] Comment: ADDITIONAL INFORMATION This test was developed and its performance characteristics determined by [facility] in a manner consistent with CLIA requirements. This test has not been cleared or approved by the U.S. Food and Drug Administration. Test Performed by: [facility] [address] [place] [address] Bookkeeper: Bryson Craft Ph.D.; CLIA# [id number] Blood 03/16/2025 5:41 AM CDT 03/16/2025 6:24 AM CDT aPuline Bhat MD LAB BLOOD ORDERABLES F inal Result Performing Organization Address [facility] [[email or web address]] Co de Phone Number [facility] [place] [place] [address] [facility] * Phosphorus (03/16/2025 5:41 AM CDT) Phosphorus, pl 4.0 2.3 - 4.5 mg/dL Blood 03/16/2025 5:41 AM CDT 03/16/2025 6:24 AM CDT Pauline Bhat MD LAB BLOOD ORDERABLES F inal Result Performing Organization Address [facility] de Phone Number [facility] [place] [place] [address] * Magnesium (03/16/2025 5:41 AM CDT) Magnesium 2.3 1.4 - 2.5 mg/dL Blood 03/16/2025 5:41 AM CDT 03/16/2025 6:24 AM CDT Pauline Bhat MD LAB BLOOD ORDERABLES F inal Result Performing Organization Address [facility] [[email or web address]] Co de Phone Number [facility] [place] [address] * (ABNORMAL) Ferritin (03/16/2025 5:41 AM CDT) Ferritin 868(H) 13 - 150 ng/mL Blood 03/16/2025 5:41 AM CDT 03/16/2025 6:24 AM CDT Pauline Bhat MD LAB BLOOD ORDERABLES F inal Result SUMAYA [facility] [place] [address] * (ABNORMAL) Comprehensive metabolic panel (03/16/2025 5:41 AM CDT) Pathologist [facility] Sodium 141 135 - 145 mmol/L Potassium, pl 4.1 3.3 - 4.9 mmol/L [facility] Chloride 107 97 - 110 mmol/L [facility] CO2 20(L) 22 - 32 mmol/L [facility] Anion gap 14 2 - 15 mmol/L [facility] BUN 76(H) 6 - 25 mg/dL [facility] Creatinine 7.19(H) 0.60 - 1.10 mg/dL [facility] Glucose 81 70 - 199 mg/dL [facility] Comment: Interpretive Data Fasting glucose >/= 126 mg/dl is diagnostic for diabetes. Fasting is defined as no caloric intake for at least 8 hours. Fasting glucose between 100 mg/dl to 125 mg/dl is diagnostic of prediabetes. In a patient with classic symptoms of hyperglycemia or hyperglycemic crisis, a random glucose >/= 200 mg/dl is diagnostic for diabetes. In the absence of unequivocal hyperglycemia, results should be confirmed by repeat testing. The classification and Diagnosis of Diabetes Diabetes Care 202; 46: S19-S40. Current interpretive data was last revised 2022. Calcium 9.1 8.5 - 10.3 mg/dL [facility] Bilirubin, total 0.3 0.1 - 1.2 mg/dL [facility] Protein, pl 6.7 6.5 - 8.5 g/dL [facility] Albumin 3.9 3.5 - 5.0 g/dL [facility] Alk phos 72 40 - 130 Units/L [facility] ALT 6(L) 7 - 45 Units/L [facility] AST 20 10 - 45 Units/L [facility] Blood 03/16/2025 5:41 AM CDT 03/16/2025 6:24 AM CDT Pauline Bhat MD LAB BLOOD ORDERABLES F inal Result Performing Organization Address [facility] [[email or web address]] Co de Phone Number [facility] [place] [place] [address] * Infection Prevention Susan auris PCR, surveillance Axilla/Groin (03/15/2025 1:04 PM CDT) Pathologist [facility] Susan auris DNA Not Detected Not Detected [facility] Comment: Interpretive Data Testing performed by [facility] Molecular Infectious Disease Laboratory using the Lauren beth 6800 Susan auris assay. This assay detects DNA from Susan auris using Real-Time PCR. This assay is laboratory developed and is not cleared by the [facility] Food and Drug Administration. The performance characteristics have been verified by the [facility] Molecular Infectious Disease Laboratory. Axilla/Groin 03/15/2025 1:04 PM CDT 03/15/2025 2:07 PM CDT Lito Robertson MD LAB MICROBIOLOGY - GENERAL ORDER ALEX Final Result Performing Organization Address [facility] [[email or web address]] Co de Phone Number [facility] [place] [address] [facility] * (ABNORMAL) Protein / creatinine ratio, urine, random (03/15/2025 1:04 PM CDT) Protein, ur, quant 31.5 mg/dL Comment: Interpretive Data No reference range established. Current interpretive data was last revised 2019. Creatinine Ur 114.6 mg/dL [facility] Comment: Interpretive Data No reference range established. Current interpretive data was last revised 2019. Protein/creatinin e ratio 274.9(H) 0.0 - 180.0 mg/g CR SUMAYA [facility] Urine 03/15/2025 1:04 PM CDT 03/15/2025 2:09 PM CDT us Pauline Bhat MD LAB URINE ORDERABLES F inal Result [facility] Department of Laboratories [place], [place] [id number] * US ROBBI (03/15/2025 11:44 AM CDT) Anatomical Region Laterality Modality Vascular N/A Ultrasound 03/15/2025 11:0 8 AM CDT Narrative 03/21/2025 12:43 PM CDT [facility] - Department of Vascular Surgery, Vascular Laboratory [address] [place] [id number] Lower Extremity Arterial Doppler Report Patient Name: HANNAH BOYD : 1960 Study Date: 03/15/2025 11:08:00 AM Gender: F Tech: Tamela Muñoz [facility] Location: [id number] Ref Provider: PAULINE BHAT Quality: Adequate Order Provider: PAULINE BHAT PROCEDURES: Arterial Report: Ankle - Brachial Index Doppler exam. INDICATIONS: Leg pain. MEASUREMENTS: Right Value Units Left Value Units Rt Brachial Pressure 128 mmHg Lt Brachial Pressure IV mmHg Rt JET WIPER Pressure >254 mmHg Lt JET WIPER Pressure 168 mmHg Rt DPA Pressure >254 mmHg Lt DPA Pressure 182 mmHg Rt 1st Digit Pressure 118 mmHg Lt 1st Digit Pressure 122 mmHg Rt PT ROBBI Resting NC Lt PT ROBBI Resting 1.31 Rt AT ROBBI Resting NC Lt AT ROBBI Resting 1.42 Rt Digit/Arm Index 0.92 Lt Digit/Arm Index 0.95 Right Value Units Left Value Units FINDINGS: Performing Senior Reservations Agent: Tamela Muñoz RVT. Right Posterior Tibial Artery Analysis: The posterior tibial waveform is multiphasic. Right Anterior Tibial Artery Analysis: The anterior tibial waveform is multiphasic. Right Digits: Normal right digit pressure and waveform. Left Posterior Tibial Artery Analysis: The posterior tibial waveform is multiphasic. Left Anterior Tibial Artery Analysis: The anterior tibial waveform is multiphasic. Left Digits: Normal left digit pressure and waveform. CONCLUSIONS: 1. Bilateral Digit/Arm Indices are within normal limits (for reference, normal ELVIS is >0.6). 2. The right ankle arteries are non-compressible which is consistent with arterial calcification thus the Ankle/Brachial Index on the right is not obtainable. 3. The above listed left Ankle/Brachial Index at rest is within normal limits (for reference, normal resting ROBBI is 0.90 - 1.4; ROBBI >1.4 due to non-compressible arteries is not diagnostic). HISTORY: CKD, HTN, leg pain. PREVIOUS STUDIES: No previous studies for comparison. DISCLAIMER: The study images and the final report will be retained in the patient chart by the Vascular Laboratory for the legally required time period. This chart constitutes the legal record of any testing performed. ATTESTATION: I have reviewed and interpreted the pertinent images and measurements of this study. I attest to the conclusions in the final report that is provided above. Electronically Signed By: Cesar Isaacs MD [facility] [phone] 03/21/2025 11:55:03 AM CDT Procedure Note Cesar Isaacs MD - 03/21/2025 [facility] - Department of Vascular Surgery,Vascular Laboratory [address] [place] [address] Lower Extremity Arterial Doppler Report Patient Name: HANNAH BOYD : 1960 Study Date: 03/15/2025 11:08:00 AM Gender: F Tech: Tamela Muñoz RVT Location: [id number] Ref Provider: PAULINE BHAT Quality: Adequate Order Provider: PAULINE BHAT PROCEDURES: Arterial Report: Ankle - Brachial Index Doppler exam. INDICATIONS: Leg pain. MEASUREMENTS: Right Value Units Left Value Units Rt Brachial Pressure 128 mmHg Lt Brachial Pressure IV mmHg Rt JET WIPER Pressure >254 mmHg Lt JET WIPER Pressure 168 mmHg Rt DPA Pressure >254 mmHg Lt DPA Pressure 182 mmHg Rt 1st Digit Pressure 118 mmHg Lt 1st Digit Pressure 122 mmHg Rt PT ROBBI Resting NC Lt PT ROBBI Resting 1.31 Rt AT ROBBI Resting NC Lt AT ROBBI Resting 1.42 Rt Digit/Arm Index 0.92 Lt Digit/Arm Index 0.95 Right Value Units Left Value Units FINDINGS: Performing Senior Reservations Agent: Tamela Muñoz RVT. Right Posterior Tibial Artery Analysis: The posterior tibial waveform is multiphasic. Right Anterior Tibial Artery Analysis: The anterior tibial waveform is multiphasic. Right Digits: Normal right digit pressure and waveform. Left Posterior Tibial Artery Analysis: The posterior tibial waveform is multiphasic. Left Anterior Tibial Artery Analysis: The anterior tibial waveform is multiphasic. Left Digits: Normal left digit pressure and waveform. CONCLUSIONS: 1. Bilateral Digit/Arm Indices are within normal limits (for reference,normal ELVIS is >0.6). 2. The right ankle arteries are non-compressible which is consistent witharterial calcification thus the Ankle/Brachial Index on the right is notobtainable. 3. The above listed left Ankle/Brachial Index at rest is within normallimits (for reference, normal resting ROBBI is 0.90 - 1.4; ROBBI >1.4 due tonon-compressible arteries is not diagnostic). HISTORY: CKD, HTN, leg pain. PREVIOUS STUDIES: No previous studies for comparison. DISCLAIMER: The study images and the final report will be retained in the patientchart by the Vascular Laboratory for the legally required time period. This chartconstitutes the legal record of any testing performed. ATTESTATION: I have reviewed and interpreted the pertinent images and measurements ofthis study. I attest to the conclusions in the final report that is provided above. Electronically Signed By: Cesar Isaacs MD [facility] [phone] 03/21/2025 11:55:03 AM CDT Pauline Bhat MD [facility] US PROCEDURES Tonia l Result * (ABNORMAL) eGFR (03/15/2025 5:32 AM CDT) eGFR 5(L) >=60 mL/min/1. 73 m2 Comment: Interpretive Data Reference Interval Normal >/= 90 mL/min/1.73m2 Mildly decreased* 60 - 89 mL/min/1.73m2 Mildly to moderately decreased 45 - 59 mL/min/1.73m2 Moderately to severely decreased 30 - 44 mL/min/1.73m2 Severely decreased 15 - 29 mL/min/1.73m2 Kidney Failure < 15 mL/min/1.73m2 *Relative to young adult level Estimated glomerular filtration rate is determined by the 2020 CKD-EPI equation recommended by the National Kidney Foundation (A Unifying Approach to GFR Estimation: Recommendations of the NKF-ASK Task Force on Reassessing the Inclusion of Race in Diagnosing Kidney Disease, JASN 2020). The CKD-EPI equation should not be used for patients with unstable renal function and has not been validated in children and those over 70. Current interpretive data was last reviewed 2021. Blood 03/15/2025 5:32 AM CDT 03/15/2025 6:25 AM CDT Pauline Bhat MD LAB BLOOD ORDERABLES F inal Result Performing Organization Address [facility] de Phone Number [facility] [place] [place] [address] * Tacrolimus level trough (03/15/2025 5:32 AM CDT) Tacrolimus trough 6.6 ng/mL Comment: Interpretive Data Testing performed by liquid chromatography-tandem mass spectrometry. Therapeutic concentrations vary depending on type of transplanted organ and time elapsed since transplant. Typical trough concentrations range from 5-15 ng/mL. This test was developed and its performance characteristics determined by the [facility] Laboratory consistent with CLIA requirements. This test has not been cleared or approved by the [place] Food and Drug administration. Current interpretive data last reviewed 2019. Blood 03/15/2025 5:32 AM CDT 03/15/2025 6:25 AM CDT Pauline Bhat MD LAB BLOOD ORDERABLES F inal Result Performing Organization Address [facility] de Phone Number SUMAYA [facility] [place] [address] * (ABNORMAL) Basic metabolic panel (03/15/2025 5:32 AM CDT) Sodium 136 135 - 145 mmol/L Potassium, pl 3.7 3.3 - 4.9 mmol/L [facility] Chloride 105 97 - 110 mmol/L [facility] CO2 19(L) 22 - 32 mmol/L [facility] Anion gap 12 2 - 15 mmol/L [facility] BUN 84(H) 6 - 25 mg/dL [facility] Creatinine 7.79(H) 0.60 - 1.10 mg/dL [facility] Glucose 89 70 - 199 mg/dL [facility] Comment: Interpretive Data Fasting glucose >/= 126 mg/dl is diagnostic for diabetes. Fasting is defined as no caloric intake for at least 8 hours. Fasting glucose between 100 mg/dl to 125 mg/dl is diagnostic of prediabetes. In a patient with classic symptoms of hyperglycemia or hyperglycemic crisis, a random glucose >/= 200 mg/dl is diagnostic for diabetes. In the absence of unequivocal hyperglycemia, results should be confirmed by repeat testing. The classification and Diagnosis of Diabetes Diabetes Care 2021; 46: S19-S40. Current interpretive data was last revised 2022. Calcium 8.7 8.5 - 10.3 mg/dL [facility] Blood 03/15/2025 5:32 AM CDT 03/15/2025 6:25 AM CDT us Pauline Bhat MD LAB BLOOD ORDERABLES F inal Result [facility] [place] [address] * (ABNORMAL) Urinalysis reflex to microscopic and culture Urine (03/15/2025 12:29 AM CDT) Color, ur Yellow Yellow Clarity, ur Cloudy(A) Clear [facility] Specific gravity, ur 1.018 1.003 - 1.030 [facility] pH, urine 6.0 [facility] Comment: Interpretive Data U rine pH is affected by diet, medications, systemic acid-base disturbances, and renal tubular function. pH may affect urinary stone formation. For example, urine pH below 6.0 may help reduce the tendency for calcium phosphate stones and pH greater than 6.0 may reduce the tendency for uric acid stone formation. Source: [facility] Current Interpretive Data was last revised on 2017 Protein, ur ql 1+(A) Negative [facility] Glucose, ur ql Negative Negative [facility] Ketones, ur Negative Negative [facility] Bilirubin, ur Negative Negative [facility] Blood, ur Trace(A) Negative [facility] Urobilinogen, ur <2.0 <2.0 mg/dL [facility] Nitrite, ur Negative Negative [facility] Leukocyte esterase, ur 3+(A) Negative [facility] UA reflex comment Reflex to microscopic UA will be performed. [facility] Urine 03/15/2025 12:2 9 AM CDT 03/15/2025 12:48 AM CDT Pauline Bhat MD LAB MICROBIOLOGY - GEN ERAL ORDERABLES Final Result Performing Organization Address [facility] [[email or web address]] Co de Phone Number [facility] [place] [address] * Sodium, urine, random (03/15/2025 12:29 AM CDT) Sodium, ur 31 mmol/L Comment: Interpretive Data No reference range established. Current interpretive data was last revised 2019. Urine (Urine, Clean Catch) 03/15/2025 12:29 AM CDT 03/15/2025 12:54 AM CDT Pauline Bhat MD LAB URINE ORDERABLES F inal Result Performing Organization Address [facility] [[email or web address]] Co de Phone Number [facility] [place] [employer] [place] [address] * Potassium, urine, random (03/15/2025 12:29 AM CDT) Potassium conc, ur 29.5 mmol/L Comment: Interpretive Data No reference range established. Current interpretive data was last revised 2019. Urine (Urine, Clean Catch) 03/15/2025 12:29 AM CDT 03/15/2025 12:54 AM CDT us Pauline Bhat MD LAB URINE ORDERABLES F inal Result Performing Organization Address [facility] [[email or web address]] Co de Phone Number [facility] [place] [address] * Creatinine, urine, random (03/15/2025 12:29 AM CDT) Creatinine Ur 170.7 mg/dL Comment: Interpretive Data No reference range established. Current interpretive data was last revised 2019. Urine 03/15/2025 12:2 9 AM CDT 03/15/2025 12:54 AM CDT Pauline Bhat MD LAB URINE ORDERABLES F inal Result Performing Organization Address [facility] de Phone Number [facility] [place] [address] * (ABNORMAL) Urinalysis, microscopic only (03/15/2025 12:29 AM CDT) WBC, ur >50(A) 0 - 5 /HPF RBC, ur 3-5(A) 0 - 2 /HPF [facility] Epithelial cells, squamous, ur 1-5 0 - 5 /HPF [facility] Bacteria, ur 3+(A) [facility] Mucous, ur Present(A) [facility] Culture Reflex Comment Reflex to urine culture will be performed. [facility] Urine 03/15/2025 12:2 9 AM CDT 03/15/2025 12:48 AM CDT us Pauline Bhat MD LAB URINE ORDERABLES F inal Result Performing Organization Address [facility] de Phone Number [facility] [place] [address] * (ABNORMAL) Urine culture Urine (03/15/2025 12:29 AM CDT) Report Final Report: Greater than or equal to 100,000 colonies/mL of Proteus vulgaris group Greater than or equal to 100,000 colonies/mL of Klebsiella variicola (.) Organism PROTEUS VULGARIS GROUP [facility] Organism KLEBSIELLA VARIICOLA [facility] Urine 03/15/2025 12:2 9 AM CDT 03/15/2025 1:27 AM CDT Narrative [facility] - 03/17/2025 10:58 AM CDT Urine culture reflexed based upon urinalysis results. Testing performed by [facility] Microbiology Laboratory ([phone]) Organism Antibiotic Method Susceptibility Proteus vulgaris group Ampicillin INTERPRETATION Resistant Proteus vulgaris group Cefazolin INTERPRETATION Resistant Proteus vulgaris group Nitrofurantoin INTERPRETATION Resistant Proteus vulgaris group Gentamicin INTERPRETATION Susceptible Proteus vulgaris group Trimethoprim with Sulfamethoxazole INTERPRETATION Resistant Proteus vulgaris group Meropenem INTERPRETATION Susceptible Proteus vulgaris group Cefepime INTERPRETATION Susceptible Proteus vulgaris group Ciprofloxacin INTERPRETATION Susceptible Proteus vulgaris group Ceftazidime INTERPRETATION Susceptible Proteus vulgaris group Ceftriaxone INTERPRETATION Susceptible Proteus vulgaris group Piperacillin/Tazobactam INTERPR ETATION Susceptible Klebsiella variicola Ampicillin INTERPRETATION Resistant Klebsiella variicola Cefazolin INTERPRETATION Susceptible Klebsiella variicola Nitrofurantoin INTERPRETATION Susceptible Klebsiella variicola Gentamicin INTERPRETATION Susceptible Klebsiella variicola Trimethoprim with Sulfamethoxazole INTERPRETATION Resistant Klebsiella variicola Meropenem INTERPRETATION Susceptible Klebsiella variicola Cefepime INTERPRETATION Susceptible Klebsiella variicola Ciprofloxacin INTERPRETATION Susceptible Klebsiella variicola Ceftazidime INTERPRETATION Susceptible Klebsiella variicola Ceftriaxone INTERPRETATION Susceptible Klebsiella variicola Piperacillin/Tazobactam INTERPRET ATION Intermediate Klebsiella variicola Cephalexin INTERPRETATION Susceptible Klebsiella variicola Cefuroxime-axetil INTERPRETATION Susceptible Klebsiella variicola Cefdinir INTERPRETATION Susceptible us Pauline Bhat MD LAB MICROBIOLOGY - GEN ERAL ORDERABLES Final Result [facility] [place] [address] * (ABNORMAL) eGFR (03/14/2025 10:24 PM CDT) [facility] eGFR 5(L) >=60 mL/min/1. 73 m2 Comment: Interpretive Data Reference Interval Normal >/= 90 mL/min/1.73m2 Mildly decreased* 60 - 89 mL/min/1.73m2 Mildly to moderately decreased 45 - 59 mL/min/1.73m2 Moderately to severely decreased 30 - 44 mL/min/1.73m2 Severely decreased 15 - 29 mL/min/1.73m2 Kidney Failure < 15 mL/min/1.73m2 *Relative to young adult level Estimated glomerular filtration rate is determined by the 2020 CKD-EPI equation recommended by the National Kidney Foundation (A Unifying Approach to GFR Estimation: Recommendations of the NKF-ASK Task Force on Reassessing the Inclusion of Race in Diagnosing Kidney Disease, JASN 2020). The CKD-EPI equation should not be used for patients with unstable renal function and has not been validated in children and those over 70. Current interpretive data was last reviewed 2021. Blood 03/14/2025 10:2 4 PM CDT 03/14/2025 11:13 PM CDT us Pauline Bhat MD LAB BLOOD ORDERABLES F inal Result [facility] [place] [address] * Respiratory pathogen panel Nasopharyngeal (03/14/2025 10:24 PM CDT) [facility] Influenza A RNA Not Detected Not Detected Influenza B RNA Not Detected Not Detected [facility] RSV RNA Not Detected Not Detected [facility] COVID-19 RNA Not Detected Not Detected [facility] Coronavirus 229E RNA Not Detected Not Detected [facility] Coronavirus HKU1 RNA Not Detected Not Detected [facility] Coronavirus NL63 RNA Not Detected Not Detected [facility] Coronavirus OC43 RNA Not Detected Not Detected [facility] Adenovirus DNA Not Detected Not Detected [facility] Metapneumovirus RNA Not Detected Not Detected [facility] [facility] Rhinovirus/Enterov irus RNA Not Detected Not Detected [facility] Parainfluenza 1 RNA Not Detected Not Detected [facility] Parainfluenza 2 RNA Not Detected Not Detected [facility] Parainfluenza 3 RNA Not Detected Not Detected [facility] Parainfluenza 4 RNA Not Detected Not Detected [facility] B. pertussis DNA Not Detected Not Detected [facility] B. parapertussis DNA Not Detected Not Detected [facility] C. pneumoniae DNA Not Detected Not Detected [facility] M. pneumoniae DNA Not Detected Not Detected [facility] Nasopharyngeal 03/14/2025 10 :24 PM CDT 03/14/2025 11:15 PM CDT N[facility]ative [facility] - 03/15/2025 12:26 AM CDT Is the Patient experiencing symptoms consistent with COVID?->Unknown Surveillance testing for transplant patient?->No Interpretive Data The Translimit FilmArray Respiratory Panel (RP2.1) assay is a multiplexed real-time PCR based nucleic acid test capable of simultaneous qualitative detection and identification of multiple respiratory viral and bacterial nucleic acids, including SARS Coronavirus 2 (the causative agent of COVID-19). The following bacteria, viruses and virus subtypes can be identified using the FilmArray RP2.1 assay: Bordetella pertussis, Bordetella parapertussis, Chlamydia pneumoniae, Mycoplasma pneumoniae, Adenovirus, SARS Coronavirus 2, seasonal coronaviruses (Coronavirus HKU1, Coronavirus NL63, Coronavirus 229E, and Coronavirus OC43), Influenza A, Influenza A subtype H1, Influenza A subtype H3, Influenza A subtype 2009 H1, Influenza B, Metapneumovirus, Parainfluenza 1, Parainfluenza 2, Parainfluenza 3, Parainfluenza 4, RSV, Rhinovirus/Enterovirus. Due to the genetic similarity between human Rhinovirus and Enterovirus, the FilmArray RP2.1 assay cannot reliably differentiate them. Coronavirus OC43 may cross-react with some isolates of Coronavirus HKU1. A dual positive result may be due to cross-reactivity or may indicate a co- infection. The detection and identification of specific viral and bacterial nucleic acids from individuals exhibiting signs and symptoms of a respiratory infection aids in the diagnosis of respiratory infection if used in conjunction with other clinical and epidemiological information. The results of this test should not be used as the sole basis for diagnosis, treatment, or other management decisions. Negative results in the setting of a respiratory illness may be due to infection with pathogens that are not detected by this test. Positive results do not rule out infection/co-infection with other organisms. The agent(s) detected by the FilmArray RP2.1 may not be the definite cause of disease. Additional testing (lab, imaging, etc.) may be necessary when evaluating a patient with possible respiratory tract infection. The FilmArray RP2.1 assay has FDA clearance for testing of [employer] swabs. The performance of additional specimen types has been assessed by the performing laboratory. The performance characteristics of this assay have been determined by [facility]. Current interpretive data was last revised on 22. us Pauline Bhat MD LAB MICROBIOLOGY - GEN ERAL ORDERABLES Final Result [facility] [place] [address] * (ABNORMAL) CBC with auto differential (03/14/2025 10:24 PM CDT) WBC 1.65(L) 3.80 - 9.90 K/cumm Hgb 7.9(L) 11.9 - 15.5 g/dL [facility] Hct 23.6(L) 35.6 - 45.5 % [facility] Plt 133(L) 150 - 400 K/cumm [facility] MPV 10.4 9.1 - 12.3 fL [facility] RBC 2.36(L) 3.90 - 5.20 M/cumm [facility] MCV 100.0(H) 81.3 - 96.4 fL [facility] MCH 33.5(H) 27.1 - 33.3 pg [facility] MCHC 33.5 32.3 - 35.7 g/dL [facility] RDW CV 22.5(H) 11.1 - 14.9 % [facility] RDW SD 79.3(H) 35.7 - 48.1 fL [facility] NRBC abs 0.00 0.00 - 0.01 K/cumm [facility] Blood 03/14/2025 10:2 4 PM CDT 03/14/2025 11:13 PM CDT us Pauline Bhat MD LAB BLOOD ORDERABLES F inal Result [facility] [place] [address] * (ABNORMAL) Manual Differential (03/14/2025 10:24 PM CDT) Differential Manual Cells Counted 116 [facility] Neutrophil abs 0.95(L) 1.50 - 6.50 K/cumm [facility] Lymphocyte abs 0.58(L) 0.80 - 3.30 K/cumm [facility] Monocyte abs 0.09(L) 0.20 - 0.80 K/cumm [facility] Eosinophil abs 0.01 0.00 - 0.50 K/cumm [facility] Basophil abs 0.01 0.00 - 0.10 K/cumm [facility] Neutrophil pct 57.7 % [facility] Comment: Interpretive Data Percent cell count reference ranges are not reported, since discordance with absolute values may lead to misinterpretation of CBC data. Current Interpretive Data was last revised on 2017. Lymphocyte pct 35.3 % [facility] Comment: Interpretive Data Percent cell count reference ranges are not reported, since discordance with absolute values may lead to misinterpretation of CBC data. Current Interpretive Data was last revised on 2017. Monocyte pct 5.2 % [facility] Comment: Interpretive Data Percent cell count reference ranges are not reported, since discordance with absolute values may lead to misinterpretation of CBC data. Current Interpretive Data was last revised on 2017. Eosinophil pct 0.9 % [facility] Comment: Interpretive Data Percent cell count reference ranges are not reported, since discordance with absolute values may lead to misinterpretation of CBC data. Current Interpretive Data was last revised on 2017. Basophil pct 0.9 % [facility] Comment: Interpretive Data Percent cell count reference ranges are not reported, since discordance with absolute values may lead to misinterpretation of CBC data. Current Interpretive Data was last revised on 2017. RBC morphology Normal [facility] Platelet clumping Present(A) [facility] Blood 03/14/2025 10:2 4 PM CDT 03/14/2025 11:17 PM CDT Pauline Bhat MD LAB BLOOD ORDERABLES E dited Result - Final Performing Organization Address City/[facility] [[email or web address]] Co de Phone Number [facility] [place] [employer] [place] [address] * Phosphorus (03/14/2025 10:24 PM CDT) Phosphorus, pl 4.2 2.3 - 4.5 mg/dL Blood 03/14/2025 10:2 4 PM CDT 03/14/2025 11:13 PM CDT Pauline Bhat MD LAB BLOOD ORDERABLES F inal Result Performing Organization Address [facility] de Phone Number [facility] [place] [employer] [place] [address] * Magnesium (03/14/2025 10:24 PM CDT) Magnesium 2.3 1.4 - 2.5 mg/dL Blood 03/14/2025 10:2 4 PM CDT 03/14/2025 11:13 PM CDT Pauline Bhat MD LAB BLOOD ORDERABLES F inal Result Performing Organization Address [facility] de Phone Number [facility] [place] [employer] [place] [address] * (ABNORMAL) Comprehensive metabolic panel (03/14/2025 10:24 PM CDT) Sodium 135 135 - 145 mmol/L Potassium, pl 3.8 3.3 - 4.9 mmol/L [facility] Chloride 102 97 - 110 mmol/L [facility] CO2 18(L) 22 - 32 mmol/L [facility] Anion gap 15 2 - 15 mmol/L [facility] BUN 87(H) 6 - 25 mg/dL [facility] Creatinine 8.48(H) 0.60 - 1.10 mg/dL [facility] Glucose 122 70 - 199 mg/dL [facility] Comment: Interpretive Data Fasting glucose >/= 126 mg/dl is diagnostic for diabetes. Fasting is defined as no caloric intake for at least 8 hours. Fasting glucose between 100 mg/dl to 125 mg/dl is diagnostic of prediabetes. In a patient with classic symptoms of hyperglycemia or hyperglycemic crisis, a random glucose >/= 200 mg/dl is diagnostic for diabetes. In the absence of unequivocal hyperglycemia, results should be confirmed by repeat testing. The classification and Diagnosis of Diabetes Diabetes Care 2021; 46: S19-S40. Current interpretive data was last revised 2022. Calcium 9.1 8.5 - 10.3 mg/dL [facility] Bilirubin, total 0.3 0.1 - 1.2 mg/dL [facility] Protein, pl 7.2 6.5 - 8.5 g/dL [facility] Albumin 4.2 3.5 - 5.0 g/dL [facility] Alk phos 72 40 - 130 Units/L [facility] ALT 9 7 - 45 Units/L [facility] AST 18 10 - 45 Units/L [facility] Blood 03/14/2025 10:2 4 PM CDT 03/14/2025 11:13 PM CDT us Pauline Bhat MD LAB BLOOD ORDERABLES F inal Result [facility] [place] [address] * Pulmonary Function Test - (03/14/2025 9:42 AM CDT) FVC PRE 2.36 L [facility] FVC %PRE PRED 76 % [facility] FEV1 PRE 1.83 L [facility] FEV1 %PRE PRED 75 % [facility] FEV1/FVC PRE 77.4 % [facility] Anatomical Region Laterality Modality PFT 03/14/2025 9:32 AM CDT Narrative 03/14/2025 12:23 PM CDT PFT performed at:->[facility] Adult PFT Lab- [facility]- Procedure:->Spirometry Procedure:->Pulse Ox Pulmonary Function Test Interpretation SPIROMETRY: There is a decrease in expiratory airflow at high lung volumes. There is a decrease in expiratory airflow at middle lung volumes. The FEV1 to FVC ratio is normal. The FEV1 and FVC are reduced in a pattern suggestive of a restrictive abnormality. The inspiratory loop is appropriate for the expiratory flow abnormality. PULSE OXIMETRY: Oxygen saturation as measured by pulse oximetry is normal. Impression: There is a mild restrictive ventilatory defect. However, measurement of lung volumes is suggested to confirm this if clinically indicated. Compared with most recent study, there has been no significant interval change. The attending pulmonary physician certifies a physician presence in the [facility] during the administration of aerosolized bronchodilator. The attending pulmonary physician certifies that he/she has reviewed and interpreted the graphic and numerical data of this pulmonary function study and agrees with the written final report. The lower limit of normal for PaO2 and %HbO2 is age dependent. However, the [facility] Pulmonary Function Laboratory defines hypoxemia as a PaO2 <56 mm Hg or a %HbO2 <89%. Starting on September of 2024 the [facility] Pulmonary Function Laboratory utilizes race neutral GLI Global normative equations. Pauline Bhat MD PFT ORDERABLES Final Result * (ABNORMAL) Blood smear review (03/14/2025 9:15 AM CDT) RBC morphology Present(A) Hypochromasia 3-7/HPF(A) [facility] Anisocytosis Slight(A) [facility] Poikilocytosis Slight(A) [facility] Microcytes 3-7/HPF(A) [facility] Macrocytes 3-7/HPF(A) [facility] Schistocytes 1-2/HPF(A) [facility] Acanthocytes 3-7/HPF(A) [facility] Platelet estimate Adequate [facility] Blood 03/14/2025 9:15 AM CDT 03/14/2025 10:00 AM CDT Pauline Bhat MD LAB BLOOD ORDERABLES F inal Result Performing Organization Address City/[facility]/ZIP Co de Phone Number [facility] [place] [address] * (ABNORMAL) eGFR (03/14/2025 9:15 AM CDT) eGFR 5(L) >=60 mL/min/1. 73 m2 Comment: Interpretive Data Reference Interval Normal >/= 90 mL/min/1.73m2 Mildly decreased* 60 - 89 mL/min/1.73m2 Mildly to moderately decreased 45 - 59 mL/min/1.73m2 Moderately to severely decreased 30 - 44 mL/min/1.73m2 Severely decreased 15 - 29 mL/min/1.73m2 Kidney Failure < 15 mL/min/1.73m2 *Relative to young adult level Estimated glomerular filtration rate is determined by the 2020 CKD-EPI equation recommended by the National Kidney Foundation (A Unifying Approach to GFR Estimation: Recommendations of the NKF-ASK Task Force on Reassessing the Inclusion of Race in Diagnosing Kidney Disease, JASN 2020). The CKD-EPI equation should not be used for patients with unstable renal function and has not been validated in children and those over 70. Current interpretive data was last reviewed 2021. Blood 03/14/2025 9:15 AM CDT 03/14/2025 9:50 AM CDT us Pauline Bhat MD LAB BLOOD ORDERABLES F inal Result Performing Organization Address City/[facility]/ZIP Co de Phone Number [facility] [place] [address] * (ABNORMAL) Differential, auto (03/14/2025 9:15 AM CDT) Pathologist [facility] Neutrophil abs 0.82(L) 1.50 - 6.50 K/cumm Imm gran abs 0.05 0.00 - 0.10 K/cumm [facility] Lymphocyte abs 0.93 0.80 - 3.30 K/cumm [facility] Monocyte abs 0.25 0.20 - 0.80 K/cumm [facility] Eosinophil abs 0.05 0.00 - 0.50 K/cumm [facility] Basophil abs 0.01 0.00 - 0.10 K/cumm [facility] Neutrophil pct 38.8 % [facility] Comment: Interpretive Data Percent cell count reference ranges are not reported, since discordance with absolute values may lead to misinterpretation of CBC data. Current Interpretive Data was last revised on 2017. Imm gran pct 2.4 % [facility] Comment: Interpretive Data Percent cell count reference ranges are not reported, since discordance with absolute values may lead to misinterpretation of CBC data. Current Interpretive Data was last revised on 2017. Lymphocyte pct 44.1 % [facility] Comment: Interpretive Data Percent cell count reference ranges are not reported, since discordance with absolute values may lead to misinterpretation of CBC data. Current Interpretive Data was last revised on 2017. Monocyte pct 11.8 % [facility] Comment: Interpretive Data Percent cell count reference ranges are not reported, since discordance with absolute values may lead to misinterpretation of CBC data. Current Interpretive Data was last revised on 2017. Eosinophil pct 2.4 % [facility] Comment: Interpretive Data Percent cell count reference ranges are not reported, since discordance with absolute values may lead to misinterpretation of CBC data. Current Interpretive Data was last revised on 2017. Basophil pct 0.5 % [facility] Comment: Interpretive Data Percent cell count reference ranges are not reported, since discordance with absolute values may lead to misinterpretation of CBC data. Current Interpretive Data was last revised on 2017. Blood 03/14/2025 9:15 AM CDT 03/14/2025 9:57 AM CDT us Pauline Bhat MD LAB BLOOD ORDERABLES F inal Result Performing Organization Address [facility] de Phone Number [facility] [place] [address] * Tacrolimus level trough (03/14/2025 9:15 AM CDT) [facility] Tacrolimus trough 7.9 ng/mL Comment: Interpretive Data Testing performed by liquid chromatography-tandem mass spectrometry. Therapeutic concentrations vary depending on type of transplanted organ and time elapsed since transplant. Typical trough concentrations range from 5-15 ng/mL. This test was developed and its performance characteristics determined by the [facility] consistent with CLIA requirements. This test has not been cleared or approved by the [place] Food and Drug administration. Current interpretive data last reviewed 2019. Blood 03/14/2025 9:15 AM CDT 03/14/2025 9:50 AM CDT Pauline Bhat MD LAB BLOOD ORDERABLES F inal Result Performing Organization Address [facility] de Phone Number [facility] [place] [address] * (ABNORMAL) CBC with auto differential (03/14/2025 9:15 AM CDT) [facility] WBC 2.11(L) 3.80 - 9.90 K/cumm Hgb 8.1(L) 11.9 - 15.5 g/dL [facility] Hct 24.1(L) 35.6 - 45.5 % [facility] Plt 150 150 - 400 K/cumm [facility] MPV 10.7 9.1 - 12.3 fL [facility] RBC 2.38(L) 3.90 - 5.20 M/cumm [facility] MCV 101.3(H) 81.3 - 96.4 fL [facility] MCH 34.0(H) 27.1 - 33.3 pg [facility] MCHC 33.6 32.3 - 35.7 g/dL [facility] RDW CV 22.7(H) 11.1 - 14.9 % [facility] RDW SD 82.1(H) 35.7 - 48.1 fL [facility] NRBC abs 0.02(H) 0.00 - 0.01 K/cumm [facility] Blood 03/14/2025 9:15 AM CDT 03/14/2025 9:57 AM CDT Pauline Bhat MD LAB BLOOD ORDERABLES F inal Result Performing Organization Address City/[facility]/ZIP Co de Phone Number [facility] [place] [address] * Vitamin D 25 hydroxy (03/14/2025 9:15 AM CDT) Vitamin D 25-OH 30 30 - 80 ng/mL Blood 03/14/2025 9:15 AM CDT 03/14/2025 9:50 AM CDT Pauline Bhat MD LAB BLOOD ORDERABLES F inal Result Performing Organization Address City/[facility] [[email or web address]] Co de Phone Number [facility] [place] [address] * TSH (03/14/2025 9:15 AM CDT) Thyroid Stimulating Hormone 0.95 0.30 - 4.20 mcIUnit/mL Blood 03/14/2025 9:15 AM CDT 03/14/2025 9:50 AM CDT Pauline Bhat MD LAB BLOOD ORDERABLES F inal Result Performing Organization Address City/[facility] [[email or web address]] Co de Phone Number [facility] [place] [address] * T4, free (03/14/2025 9:15 AM CDT) Free T4 0.93 0.90 - 1.70 ng/dL Blood 03/14/2025 9:15 AM CDT 03/14/2025 9:50 AM CDT Pauline Bhat MD LAB BLOOD ORDERABLES F inal Result Performing Organization Address [facility] Phone Number [facility] [place] [place] [address] * (ABNORMAL) Hemoglobin A1c (03/14/2025 9:15 AM CDT) Hgb A1C 6.2(H) 4.0 - 5.6 % Estimated Average Glucose 131 mg/dL [facility] Comment: The ADA recommends reporting an estimated Average Glucose (eAG) with all Hemoglobin A1c results using the equation derived from a study of 507 normal and diabetic adults. Minority populations were underrepresented and children were not included. (Diabetes Care 2020; 43(S1): S66-S76). The eAG is not equivalent to a fasting glucose. Blood 03/14/2025 9:15 AM CDT 03/14/2025 9:50 AM CDT Result [facility] Pauline Bhat MD LAB BLOOD ORDERABLES F inal Result Performing Organization Address [facility] de Phone Number [facility] [place] [address] * (ABNORMAL) Lipid panel (03/14/2025 9:15 AM CDT) Cholesterol 216(H) 30 - 199 mg/dL Comment: Interpretive Data Ages < or = 19 years Acceptable: <170 mg/dL Borderline high: 170-199 mg/dL High: >or= 200 mg/dL Ages > or = 20 years Desirable: <200 mg/dL Borderline high: 200-239 mg/dL High: >or= 240 mg/dL Literature References: 1. Expert Panel on Integrated Guidelines for Cardiovascular Health and Risk Reduction in Children and Adolescents. Pediatrics 2011;128:S213 2. NCEP Expert Panel. Circulation 2004;110:227 Current Interpretive Data was last revised on 2018. Triglycerides 306(H) <=149 mg/dL [facility] Comment: Interpretive Data Ages < or = 9 years Acceptable: <75 mg/dL Borderline high: 75-99 mg/dL High: >or= 100 mg/dL Ages 10 to 20 years Acceptable: <90 mg/dL Borderline high: 90-129 mg/dL High: >or= 130 mg/dL Ages > or = 20 years Desirable: <150 mg/dL Borderline high: 150-199 mg/dL High: 200-499 mg/dL Very high: >or= 499 mg/dL Literature References: 1. Expert Panel on Integrated Guidelines for Cardiovascular Health and Risk Reduction in Children and Adolescents. Pediatrics 2011;128:S213 2. NCEP Expert Panel. Circulation 2004;110:227 Current Interpretive Data was last revised on 2018. HDL 36(L) >=40 mg/dL [facility] Comment: Interpretive Data Ages < or = 19 years Acceptable: >45 mg/dL Borderline low: 40-45 mg/dL Low: <40 mg/dL Ages > or = 20 years Desirable: >or= 60 mg/dL Low: <40 mg/dL Literature References: 1. Expert Panel on Integrated Guidelines for Cardiovascular Health and Risk Reduction in Children and Adolescents. Pediatrics 2011;128:S213 2. NCEP Expert Panel. Circulation 2004;110:227 Current Interpretive Data was last revised on 2018. LDL, calculated 126 <=129 mg/dL [facility] Comment: Interpretive Data Ages < or = 19 years Acceptable: <110 mg/dL Borderline high: 110-129 mg/dL High: >or= 130 mg/dL Ages > or = 20 years Optimal: <100 mg/dL Near optimal: 100-129 mg/dL Borderline high: 130-159 mg/dL High: >160 mg/dL Calculated using the Yann LDL-C estimating equation. This equation was implemented on 2024. Prior to this date LDL-C was estimated using the Friedewald equation. Literature References: 1. Expert Panel on Integrated Guidelines for Cardiovascular Health and Risk Reduction in Children and Adolescents. Pediatrics 2011;128:S213 2. NCEP Expert Panel. Circulation 2004;110:227 3. Yann Hernández et al. SANAZ Cardiol. 2019January 06;5(5):540-548. doi: 10.1001/[email or web address] Current Interpretive Data was last revised on 2024. Non-HDL Cholesterol 180 mg/dL [facility] Comment: Interpretive Data Ages < or = 19 years Acceptable: <120 mg/dL Borderline high: 120-144 mg/dL High: >145 mg/dL Ages > or = 20 years When triglycerides are >200 mg/dL, Non-HDL cholesterol is a secondary target of therapy with treatment goals that are 30 mg/dL greater than the LDL cholesterol target. Literature References: 1. Expert Panel on Integrated Guidelines for Cardiovascular Health and Risk Reduction in Children and Adolescents. Pediatrics 2011;128:S213 2. NCEP Expert Panel. Circulation 2004;110:227 Current Interpretive Data was last revised on 2018. Chol/HDL ratio 6 [facility] Blood 03/14/2025 9:15 AM CDT 03/14/2025 9:50 AM CDT us Pauline Bhat MD LAB BLOOD ORDERABLES F inal Result [facility] [place] [address] * (ABNORMAL) Comprehensive metabolic panel (03/14/2025 9:15 AM CDT) Sodium 133(L) 135 - 145 mmol/L Potassium, pl 4.1 3.3 - 4.9 mmol/L [facility] Comment:Hemolyzed; Potassium value may be falsely elevated by as much as 0.6-1.0 mmol/L. Suggest redraw and reanalysis. Chloride 102 97 - 110 mmol/L [facility] CO2 13(L) 22 - 32 mmol/L [facility] Anion gap 18(H) 2 - 15 mmol/L [facility] BUN 84(H) 6 - 25 mg/dL [facility] Creatinine 7.94(H) 0.60 - 1.10 mg/dL [facility] Glucose 127 70 - 199 mg/dL [facility] Comment: Interpretive Data Fasting glucose >/= 126 mg/dl is diagnostic for diabetes. Fasting is defined as no caloric intake for at least 8 hours. Fasting glucose between 100 mg/dl to 125 mg/dl is diagnostic of prediabetes. In a patient with classic symptoms of hyperglycemia or hyperglycemic crisis, a random glucose >/= 200 mg/dl is diagnostic for diabetes. In the absence of unequivocal hyperglycemia, results should be confirmed by repeat testing. The classification and Diagnosis of Diabetes Diabetes Care 2021; 46: S19-S40. Current interpretive data was last revised 2022. Calcium 9.4 8.5 - 10.3 mg/dL [facility] Bilirubin, total 0.4 0.1 - 1.2 mg/dL [facility] Protein, pl 7.2 6.5 - 8.5 g/dL [facility] Albumin 3.9 3.5 - 5.0 g/dL [facility] Alk phos 73 40 - 130 Units/L [facility] ALT 7 7 - 45 Units/L [facility] AST 29 10 - 45 Units/L [facility] Comment:Hemolyzed; result ma y be falsely elevated Blood 03/14/2025 9:15 AM CDT 03/14/2025 9:50 AM CDT us Pauline Bhat MD LAB BLOOD ORDERABLES F inal Result [facility] [place] [address] * XR Chest Pa Lateral 2 Views (03/14/2025 9:02 AM CDT) Anatomical Region Laterality Modality Body, Chest N/A Computed Radiogr aphy 03/14/2025 9:07 AM CDT Impressions 03/14/2025 9:07 AM CDT The current study is compared with the prior radiograph dated 12/27/2024. The patient is status post a transverse sternotomy and bilateral lung transplantation. The heart and mediastinal contours are stable.. There is no pneumothorax.. There is minimal blunting of the right costophrenic angle likely due to scarring. No effusions no mass or lymphadenopathy. Suture material seen in the bilateral lower lobes compatible with downsizing of the donor lungs. Vertebroplasty changes noted. Electronically signed by: Starr Kohli M.D. Narrative 03/14/2025 9:07 AM CDT EXAMINATION: 2 view chest radiograph Procedure Note Starr Kohli MD - 03/14/2025 EXAMINATION: 2 view chest radiograph IMPRESSION: The current study is compared with the prior radiograph dated 12/27/2024. The patient is status post a transverse sternotomy and bilateral lung transplantation. The heart and mediastinal contours are stable.. There is no pneumothorax.. There is minimal blunting of the right costophrenic angle likely due to scarring. No effusions no mass or lymphadenopathy. Suture material seen in the bilateral lower lobes compatible with downsizing of the donor lungs. Vertebroplasty changes noted. Electronically signed by: Starr Kohli M.D. Pauline Bhat MD IMG XR PROCEDURES Tonia l Result * (ABNORMAL) eGFR (01/07/2025 5:29 AM CDT) eGFR 16(L) >=60 mL/min/1. 73 m2 [facility] BAKER Comment: Interpretive Data Reference Interval Normal >/= 90 mL/min/1.73m2 Mildly decreased* 60 - 89 mL/min/1.73m2 Mildly to moderately decreased 45 - 59 mL/min/1.73m2 Moderately to severely decreased 30 - 44 mL/min/1.73m2 Severely decreased 15 - 29 mL/min/1.73m2 Kidney Failure < 15 mL/min/1.73m2 *Relative to young adult level Estimated glomerular filtration rate is determined by the 2020 CKD-EPI equation recommended by the National Kidney [employer] (A Unifying Approach to GFR Estimation: Recommendations of the NKF-ASK Task Force on Reassessing the Inclusion of Race in Diagnosing Kidney Disease, JASN 2020). The CKD-EPI equation should not be used for patients with unstable renal function and has not been validated in children and those over 70. Current interpretive data was last reviewed 2021. [address] [address] Blood 01/07/2025 5:29 AM CDT 01/07/2025 6:56 AM CDT us Malorie Bowling [employer] LAB BLOOD ORDERABLES Final Result [address] Department [place] [address] * (ABNORMAL) Manual Differential (01/07/2025 5:29 AM CDT) Differential Manual SUMAYA Comment:[address] [address] Cells Counted 100 SUMAYA Comment:[address] [address] Neutrophil abs 4.00 1.50 - 6.50 K/cumm SUMAYA Comment:[address] [address] Imm gran abs 0.33(H) 0.00 - 0.10 K/cumm SUMAYA Comment:[address] [address] Lymphocyte abs 1.00 0.80 - 3.30 K/cumm SUMAYA Comment:[address] [address] Monocyte abs 0.22 0.20 - 0.80 K/cumm SUMAYA Comment:[address] [address] Neutrophil pct 72.0 % SUMAYA Comment: rare band seen Interpretive Data Percent cell count reference ranges are not reported, since discordance with absolute values may lead to misinterpretation of CBC data. Current Interpretive Data was last revised on 2017. [address] [address] Lymphocyte pct 18.0 % SUMAYA Comment: Interpretive Data Percent cell count reference ranges are not reported, since discordance with absolute values may lead to misinterpretation of CBC data. Current Interpretive Data was last revised on 2017. [address] [address] Monocyte pct 4.0 % SUMAYA BAKER Comment: Interpretive Data Percent cell count reference ranges are not reported, since discordance with absolute values may lead to misinterpretation of CBC data. Current Interpretive Data was last revised on 2017. [facility], [address] [place]., [address] Metamyelocyte pct 2.0(H) 0.0 - 0.0 % SUMAYA BAKER Comment:[address] [address] Myelocyte pct 3.0(H) 0.0 - 0.0 % SUMAYA Comment:[facility], [address] [place] [address]., [address] Promyelocyte pct 1.0(H) 0.0 - 0.0 % SUMAYA BAKER Comment:[address] [address] RBC morphology Present(A) SUMAYA BAKER Comment:[address] [address] Microcytes 3-7/HPF(A) SUMAYA BAKER Comment:[address] [address] Platelet estimate Automated Count Confirmed [facility]MAYA BAKER Comment:[address] [address] Blood 01/07/2025 5:29 AM CDT 01/07/2025 6:45 AM CDT Malorie Bowling [employer] LAB BLOOD ORDERABLES Final Result SUMAYA [address] Department [place] [address] * (ABNORMAL) CBC without differential (01/07/2025 5:29 AM CDT) WBC 5.56 3.80 - 9.90 K/cumm SUMAYA BAKER Comment:[address] [address] Hgb 8.5(L) 11.9 - 15.5 g/dL SUMAYA BAKER Comment:[address] [address] Hct 27.0(L) 35.6 - 45.5 % SUMAYA BAKER Comment:[address] [address] Plt 130(L) 150 - 400 K/cumm [facility] Comment:[address], [address] MPV 11.1 9.1 - 12.3 fL [facility] Comment:[address], [address] RBC 2.69(L) 3.90 - 5.20 M/cumm [facility] Comment:[address], [address] MCV 100.4(H) 81.3 - 96.4 fL [facility] Comment:[address], [address] MCH 31.6 27.1 - 33.3 pg [facility] Comment:[address], [address] MCHC 31.5(L) 32.3 - 35.7 g/dL [facility] Comment:[address], [address] RDW CV 21.2(H) 11.1 - 14.9 % [facility] Comment:[address], [address] RDW SD 74.2(H) 35.7 - 48.1 fL [facility] Comment:[address], [address] NRBC abs 0.02(H) 0.00 - 0.01 K/cumm [facility] Comment:[address], [address] Blood 01/07/2025 5:29 AM CDT 01/07/2025 6:45 AM CDT us Malorie Bowling NP LAB BLOOD ORDERABLES Edited Result - Final SUMAYA [address] [facility] Department [place] [address] * (ABNORMAL) Basic metabolic panel (01/07/2025 5:29 AM CDT) Pathologist [facility] Sodium 142 135 - 145 mmol/L SUMAYA Comment:[facility], [address] [place] [address]., [address] Potassium, pl 5.3(H) 3.3 - 4.9 mmol/L [facility] Comment:[address] [address] Chloride 115(H) 97 - 110 mmol/L SUMAYA Comment:[address] [address] CO2 17(L) 22 - 32 mmol/L SUMAYA Comment:[address] [address] Anion gap 10 2 - 15 mmol/L [facility] Comment:[address] [address] BUN 34(H) 6 - 25 mg/dL [facility] Comment:[address] [address] Creatinine 3.19(H) 0.60 - 1.10 mg/dL SUMAYA Comment:[address] [address] Glucose 79 70 - 199 mg/dL [facility] Comment: Interpretive Data Fasting glucose >/= 126 mg/dl is diagnostic for diabetes. Fasting is defined as no caloric intake for at least 8 hours. Fasting glucose between 100 mg/dl to 125 mg/dl is diagnostic of prediabetes. In a patient with classic symptoms of hyperglycemia or hyperglycemic crisis, a random glucose >/= 200 mg/dl is diagnostic for diabetes. In the absence of unequivocal hyperglycemia, results should be confirmed by repeat testing. The classification and Diagnosis of Diabetes Diabetes Care 202; 46: S19-S40. Current interpretive data was last revised 2022. [facility], [address] [place]., [address] Calcium 8.4(L) 8.5 - 10.3 mg/dL [facility]YA Comment:[address] [address] Blood 01/07/2025 5:29 AM CDT 01/07/2025 6:56 AM CDT Malorie Bowling [employer] LAB BLOOD ORDERABLES Final Result [facility]MAYA [address] [facility] Department [place] [address] * Hepatitis panel, acute (08/15/2022 9:25 AM 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) Pathologist [facility] Hep A IgM Nonreactive Nonreactive [facility] Hep B core IgM Nonreactive Nonreactive [facility] Hep C Ab Nonreactive Nonreactive [facility] Comment:Antibodies to HCV no t detected. Does NOT exclude the possibility of recent exposure to HCV. Current interpretive data was last revised on 22 HepBsAg Nonreactive Nonreactive [facility] Blood 08/15/2022 9:25 AM 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 08/15/2022 10:04 AM 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 Manuel Gil MD LAB MICROBIOLOGY - GENE [facility] ORDERABLES Final Result Performing Organization Address [facility] [[email or web address]] Co de Phone Number SUMAYA [facility] [place] [address] * Stool DNA - Cologuard (03/22/2021 9:50 AM CDT) Pathologist [facility] Stool DNA - Cologuard Negative Negative [facility] (CLIA #:[id number]) Comment: NEGATIVE TEST RESULT. A negative Cologuard result indicates a low likelihood that a colorectal cancer (CRC) or advanced adenoma (adenomatous polyps with more advanced pre-malignant features) is present. The chance that a person with a negative Cologuard test has a colorectal cancer is less than 1 in 1500 (negative predictive value >99.9%) or has an advanced adenoma is less than 5.3% (negative predictive value 94.7%). These data are based on a prospective cross-sectional study of 10,000 individuals at average risk for colorectal cancer who were screened with both Cologuard and colonoscopy. (Ioana Vicente al, N Engl J Med 2014;370(14):6608-3723) The normal value (reference range) for this assay is negative. COLOGUARD RE-SCREENING RECOMMENDATION: Periodic colorectal cancer screening is an important part of preventive healthcare for asymptomatic individuals at average risk for colorectal cancer. Following a negative Cologuard result, the [place] [employer] and U.S. Multi-Society Task Force screening guidelines recommend a Cologuard re-screening interval of 3 years. References: [place] [employer] Guideline for Colorectal Cancer Screening: https://www.cancer.org/cancer/iimcb-rfyldj-wpldke/kkrtxvowd-mjlfejamd-ilrzqyr/ac s-rec ommendations.html.; Andrew DK, Saul MACIAS, John PavonK, Colorectal Cancer Screening: Recommendations for Physicians and Patients from the U.S. Multi-Society Task Force on Colorectal Cancer Screening , Am J Gastroenterology 2017; 112:5158-5336. TEST DESCRIPTION: Composite algorithmic analysis of stool DNA-biomarkers with hemoglobin immunoassay. Quantitative values of individual biomarkers are not reportable and are not associated with individual biomarker result reference ranges. Cologuard is intended for colorectal cancer screening of adults of either sex, 45 years or older, who are at average-risk for colorectal cancer (CRC). Cologuard has been approved for use by the U.S. FDA. The performance of Cologuard was established in a cross sectional study of average-risk adults aged 50-84. Cologuard performance in patients ages 45 to 49 years was estimated by sub-group analysis of near-age groups. Colonoscopies performed for a positive result may find as the most clinically significant lesion: colorectal cancer [4.0%], advanced adenoma (including sessile serrated polyps greater than or equal to 1cm diameter) [20%] or non- advanced adenoma [31%]; or no colorectal neoplasia [45%]. These estimates are derived from a prospective cross-sectional screening study of 10,000 individuals at average risk for colorectal cancer who were screened with both Cologuard and colonoscopy. (Ioana Vicente al, N Engl J Med 2014;370(14):0135-4250.) Cologuard may produce a false negative or false positive result (no colorectal cancer or precancerous polyp present at colonoscopy follow up). A negative Cologuard test result does not guarantee the absence of CRC or advanced adenoma (pre-cancer). The current Cologuard screening interval is every 3 years. ([place] [employer] and U.S. Multi-Society Task Force). Cologuard performance data in a 10,000 patient pivotal study using colonoscopy as the reference method can be accessed at the following location: www.Wisr.Dinnr/results. Additional description of the Cologuard test process, warnings and precautions can be found at www.colGaaturd.Dinnr. Stool 03/22/2021 9:50 AM CDT 03/23/2021 6:25 PM CDT us Ethan Suero MD LAB BODY FLUIDS AND STOOLS OR DERABLES Final Result [facility] (CLIA #:[id number]) [address] [place] [address] * Screening Mammogram Bilateral [place] (06/08/2015 2:50 PM CDT) Anatomical Region Laterality Modality Breast Bilateral Mammography 06/08/2015 2:50 PM CDT Impressions 06/09/2015 8:56 AM CDT BIRADS 1: NEGATIVE There is no mammographic evidence of malignancy. A 1 year screening mammogram is recommended. The patient has been or will be contacted. The patient will be entered into an automated reminder system to schedule a mammogram in one year. Electronically signed by: Dr. Kendell Renee nh/:06/09/2015 08:56:27 Veneer Puller: Criselda Delgado RT(R)(M), [facility] letter sent: Normal Exam Reading location: BI-RADS: 1 Negative [EOD] Narrative 06/09/2015 8:56 AM CDT - BENJAMÍN BILAT SCREENING 3D W/CAD BILATERAL DIGITAL SCREENING MAMMOGRAM 3D/2D WITH CAD WITH MEDIOLATERAL OBLIQUE CRANIOCAUDAL: 06/08/2015 The study was acquired using full field digital technology and interpreted from soft copy. Current study was also evaluated with ICAD version 7.2. CLINICAL: Baseline. COMPARISONS: None. BREAST TISSUE: The tissue of both breasts is heterogeneously dense, which may obscure small masses. FINDINGS: No significant masses, calcifications, or other findings are seen in either breast. Procedure Note Provider, MD Elizabeth - 01/23/2021 - BENJAMÍN BILAT SCREENING 3D W/CAD BILATERAL DIGITAL SCREENING MAMMOGRAM 3D/2D WITH CAD WITH MEDIOLATERALOBLIQUE CRANIOCAUDAL: 06/08/2015 The study was acquired using full field digital technology and interpretedfrom soft copy. Current study was also evaluated with [employer] version 7.2. CLINICAL: Baseline. COMPARISONS: None. BREAST TISSUE: The tissue of both breasts is heterogeneously dense, whichmay obscure small masses. FINDINGS: No significant masses, calcifications, or other findings areseen in either breast. IMPRESSION: BIRADS 1: NEGATIVE There is no mammographic evidence of malignancy. A 1 year screeningmammogram is recommended. The patient has been or will be contacted. The patient will be entered into an automated reminder system to schedulea mammogram in one year. Electronically signed by: Dr. 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 09/11/21, 12/25/21 09/11/2021 023 Insurance IDPA MEDICARE MEDICARE Advance Directives For more information, please contact: [phone] * Full Code (Latest Code Status on File) Date Activated Date Inactivated Comments 03/14/2025 8:38 PM 03/21/2025 7:13 PM * Full Code Date Activated Date Inactivated Comments 12/12/2024 2:25 AM 12/29/2024 5:40 PM * Full Code Date Activated Date Inactivated Comments 06/26/2024 1:09 AM 06/30/2024 3:49 PM * Full Code Date Activated Date Inactivated Comments 08/07/2023 1:11 PM 08/09/2023 4:21 PM * Full Code Date Activated Date Inactivated Comments 02/06/2023 1:30 AM 02/13/2023 4:00 PM Care Teams Senior International Tax Manager Relationship Specialty Start Date End Date Patrick Lorenzana MD [address] [facility] [address] [place] [address] PCP - General Family Medicine 01/07/25 Rosy Grover, RN [address] [facility] [address] [place] [address] Body Coverer 02/14/21 Pelon Yo MD [address] [place] [address] Referring Physician Pulmonary Disease 04/29/21 Paula Hitchcock, winch operatorBody Coverer Body Coverer 01/21/22 Pauline Bhat MD [address] [place] [address] Environmental Sampling Technician Pulmonary Disease 02/13/23
--- OUTSIDE RECORDS SUMMARY | 2025-04-07 12:45 | XMS_ITS | Clinical Summary ---
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 2 Active acetaminophen (TYLENOL) 325 MG tablet Take 650 mg by mouth every 6 (six) hours as needed for Pain or Fever. Active apixaban (ELIQUIS) 5 MG tablet Take 5 mg by mouth 2 (two) times daily. Active voriconazole (VFEND) 200 MG tablet Take 200 mg by mouth 2 (two) times daily. Active tacrolimus (PROGRAF) 0.5 MG capsule Take 0.5-1 mg by mouth see administration instructions. Takes 2 capsules (1 mg) in AM and 1 capsule (0.5 mg) in PM Active prochlorperazi ne (COMPAZINE) 10 MG tablet Take 10 mg by mouth every 8 (eight) hours as needed (nausea). Active omeprazole (PRILOSEC) 40 MG capsule Take 40 mg by mouth 2 (two) times a day. Active sulfamethoxazo le-trimethopri m (BACTRIM DS) 800-160 MG tablet Take 1 tablet by mouth 3 (three) times a week. Friday, Friday, and Fridays Active furosemide (LASIX) 20 MG tablet Take 20 mg by mouth daily as needed (Edema). Active acyclovir (ZOVIRAX) 200 mg capsule Take 200 mg by mouth 2 (two) times daily. Active predniSONE (DELTASONE) 5 mg tablet Take 5 mg by mouth daily. Active azaTHIOprine (IMURAN) 50 MG tablet Take 50 mg by mouth daily. Active aspirin EC (ECOTRIN) 81 MG tablet Take 81 mg by mouth daily. Active sertraline (ZOLOFT) 50 MG tablet Take 50 mg by mouth nightly at bedtime. Active Calcium Carbonate (CALCIUM 600 OR) Take 600 mg by mouth daily. Active Vitamin D3, cholecalcifero l, 2000 UNIT Tab tablet Take 2,000 Units by mouth daily. Active Active Problems Problem Noted Date Diagnosed Date Colitis 10/02/2022 Encounters Date Type Department Care Team Description 03/24/2025 6:49 PM CDT - 03/24/2025 11:59 PM CDT Hospital Encounter [place] [id number] [place] [address] Fabrice Dunham MD Discharge Disposition: Home or Self Care (Routine Discharge) 03/24/2025 Orders Only [facility] [address] [place] [address] Fabrice Dunham MD from Last 3 Months Immunizations Immunization Administration Dates Next Due Fluzone 6 Months+ Quad (0.5 mL Prefilled Syringe) 10/02/2022(Deferred: Other - will give prior to DC) Social History Tobacco Use Types Packs/Day Years Used Date Smoking Tobacco: Never Smokeless Tobacco: Never Tobacco Cessation:Counseling Given: Not Answered Alcohol Use Standard Drinks/Week Comments Not Currently 0 (1 standard drink = 0.6 oz pur e alcohol) Comments No Sex and Gender Information Value Date Recorded Sex Assigned at Not on file Legal Sex Female 7:32 PM CDT Gender Identity Not on file Sexual Orientation Not on file Last Filed Vital Signs Vital Sign Reading Time Taken Comments Blood Pressure 113/69 10/03/2022 5:57 AM [employer] Pulse 88 10/03/2022 5:28 AM [employer] Temperature 36.7 C (98.1 F) 10/03/2022 5:28 AM [employer] Respiratory Rate 18 10/03/2022 5:28 AM [employer] Oxygen Saturation 93% 10/03/2022 5:28 AM [employer] Inhaled Oxygen Concentration - - Weight 55.8 kg (123 lb 0.3 oz) 10/02/2022 5:25 P M [employer] Height 168.9 cm (5' 6.5) 10/02/2022 5:25 PM [employer] Body Mass Index 19.56 10/02/2022 5:25 PM [employer] Plan of Treatment Health Maintenance Due Date Last Done Comments Cervical Cancer Screening Pap Smear (Age 30 to 64) Every 3 Years 1961 Annual Physical 1964 Hepatitis C 1979 DTaP, Tdap and Td Vaccines (1 - Tdap) 1980 Zoster Vaccines (1 of 2) 1980 Cervical Cancer Screening Pap with HPV Testing (Age 30 to 64) Every 5 Years 1991 Cervical Cancer Screening with HPV 1991 Mammogram Screening 2001 RSV Immunization or 60+ Years (1 - Risk 60-74 years 1-dose series) 2021 Pneumococcal Vaccine: 50+ Years (2 of 2 - PCV) 09/21/2021 09/21/2020 Colorectal Cancer Screening FIT/FOBT (1 Year) 10/02/2023 10/02/2022 COVID-19 Vaccine ( season) 2024 08/08/2022, 07/17/2021, 10/04/2020, Additional history exists Meningococcal B Vaccine Aged Out No l onger eligible based on patient's age to complete this topic Meningococcal Vaccine Aged Out No carlos alberto deny eligible based on patient's age to complete this topic RSV Immunizations Under 20 Months Aged Out No longer eligible based on patient's age to complete this topic Procedures Procedure Name Priority Date/Time Associated Diagnosis Comments CBC W/DIFF AUTOMATED Routine 03/24/2025 1:10 PM CDT Lung transplant status, bilateral (CMS/HCC HHS/HCC) COMPREHENSIVE METABOLIC PANEL Routine 03/24/2025 1:10 PM CDT Lung transplant status, bilateral (CMS/HCC HHS/HCC) TACROLIMUS Routine 03/24/2025 1:10 PM CDT Lung transplant status, bilateral (CMS/HCC HHS/HCC) OCCULT BLOOD, FECES STAT 10/02/2022 5 :42 PM [employer] from Last 3 Months or Most Recently Relevant to Health Maintenance Results * (ABNORMAL) COMPREHENSIVE METABOLIC PANEL (03/24/2025 1:10 PM CDT) SODIUM S/P/B 142 136 - 145 MMOL/L 03/24/2025 7:13 PM CDT [facility] POTASSIUM S/P/B 4.5 3.5 - 5.1 MMOL/L 03/24/2025 7:13 PM CDT [facility] CHLORIDE S/P/B 107 98 - 107 MMOL/L 03/24/2025 7:13 PM CDT [facility] CO2 20.5(L) 21.0 - 32.0 MMOL/L 03/24/2025 7:13 PM CDT [facility] GLUCOSE 116(H) 70 - 99 MG/DL 03/24/2025 7:13 PM CDT [facility] Comment: FASTING GLUCOSE 100 TO 125 MG/DL IS CONSISTENT WITH IMPAIRED FASTING GLUCOSE. FASTING GLUCOSE >125 MG/DL IS CONSISTENT WITH DIABETES. RANDOM GLUCOSE >200 MG/DL WITH HYPERGLYCEMIC SYMPTOMS IS CONSISTENT WITH DIABETES. PER ADA GUIDELINES BUN 32(H) 6 - 24 MG/DL 03/24/2025 7:13 PM CDT [facility] CREATININE S/P/B 3.78(H) 0.55 - 1.02 MG/DL 03/24/2025 7:13 PM CDT [facility] CALCIUM S/P/B 9.1 8.4 - 10.5 MG/DL 03/24/2025 7:13 PM CDT [facility] BILIRUBIN TOTAL S/P/B 0.3 0.2 - 1.0 MG/DL 03/24/2025 7:13 PM CDT [facility] Comment: THIS ASSAY IS NOT RECOMMENDED FOR PATIENTS UNDERGOING TREATMENT WITH ELTROMBOPAG DUE TO THE POTENTIAL FOR FALSELY ELEVATED RESULTS. ALKALINE PHOSPHATASE S/P/B 137(H) 50 - 130 U/L 03/24/2025 7:13 PM CDT [facility] AST 53(H) 15 - 37 U/L 03/24/2025 7:13 PM CDT [facility] ALT 35 14 - 59 U/L 03/24/2025 7:13 PM CDT [facility] TOTAL PROTEIN S/P/B 6.7 6.4 - 8.2 G/DL 03/24/2025 7:13 PM CDT [facility] ALBUMIN S/P/B 3.7 3.4 - 5.0 G/DL 03/24/2025 7:13 PM CDT [facility] ANION GAP 14.5 5.0 - 15.0 MMOL/L 03/24/2025 7:13 PM CDT [facility] OSMOLALITY (CALC) 302 MOSM/KG 025 7:13 PM CDT [facility] Comment:REFERENCE RANGE NOT ESTABLISHED GFR ESTIMATE 13(L) >89 ML/MIN/1. 73 M2 03/24/2025 7:13 PM CDT [facility] GFR NOTES GFR REFERENCE S: 03/24/2025 7:13 PM CDT [facility] Comment: THE ESTIMATED GFR IS CALCULATED USING THE 2020 CKD-EPI EQUATION. THE FOLLOWING CATEGORIES FOR GRADING RENAL FUNCTION ARE RECOMMENDED BY THE INTERNATIONAL SOCIETY OF NEPHROLOGY (KDIGO 2012 CLINICAL PRACTICE GUIDELINE). G1,NORMAL OR HIGH: >89 ml/min/1.73 m2 G2,MILDLY DECREASED: 60-89 ml/min/1.73 m2 G3A,MILDLY TO MODERATELY DECREASED: 45-59 ml/min/1.73 m2 G3B,MODERATELY TO SEVERELY DECREASED: 30-44 ml/min/1.73 m2 G4,SEVERELY DECREASED: 15-29 ml/min/1.73 m2 G5,KIDNEY FAILURE: <15 ml/min/1.73 m2 03/24/2025 1:10 PM CDT us Fabrice Pennington MD LABORATORY Fin al Result [facility] [address] [email or web address] [address], * (ABNORMAL) CBC W/DIFF AUTOMATED (03/24/2025 1:10 PM CDT) WBC 2.43(L) 4.00 - 10.80 x10'3/uL 03/24/2025 7:04 PM CDT [facility] RBC 2.38(L) 4.10 - 5.40 x10'6/uL 03/24/2025 7:04 PM CDT [facility] HGB 7.7(L) 12.0 - 16.0 G/DL 03/24/2025 7:04 PM CDT [facility] HCT 24.7(L) 36.0 - 47.0 % 03/24/2025 7:04 PM CDT [facility] MCV 103.8(H) 78.0 - 100.0 FL 03/24/2025 7:04 PM CDT [facility] MCH 32.4(H) 27.0 - 31.0 PG 03/24/2025 7:04 PM CDT [facility] MCHC 31.2(L) 33.0 - 36.0 G/DL 03/24/2025 7:04 PM CDT [facility] RDW 24.9(H) 11.5 - 14.5 % 03/24/2025 7:04 PM CDT [facility] PLT 167 150 - 350 x10'3/uL 03/24/2025 7:04 PM CDT [facility] MPV 10.8(H) 7.4 - 10.4 FL 03/24/2025 7:04 PM CDT [facility] CBC COMMENT NORMAL REFERENCE RANGE NOT ESTABLISHED FOR THE PROPORTIONAL LEUKOCYTE DIFFERENTIAL. 03/24/2025 7:04 PM CDT [facility] SEG NEUTROPHILS 53 % 7:27 PM CDT [facility] METAMYELOCYTES 2 % 03/24/2025 7:27 PM CDT [facility] MYELOCYTES 4 % 03/24/2025 7:27 PM CDT [facility] LYMPHOCYTES 33 % 03/24/2025 7:27 PM CDT [facility] MONOCYTES 8 % 03/24/2025 7:27 PM CDT [facility] ABS SEGMENTED NEUTS 1.29(L) 1.60 - 8.30 x10'3/uL 03/24/2025 7:27 PM CDT [facility] ABS. METAMYELOCYTES 0.05(H) 0.00 x10'3/uL 03/24/2025 7:27 PM CDT [facility] ABS. MYELOCYTES 0.10(H) 0.00 x10'3/uL 03/24/2025 7:27 PM CDT [facility] ABS. LYMPHOCYTES 0.80 0.80 - 4.70 x10'3/uL 03/24/2025 7:27 PM CDT [facility] ABS. MONOCYTES 0.19 0.10 - 1.50 x10'3/uL 03/24/2025 7:27 PM CDT [facility] PLT MORPH. NORMAL 03/24/2025 7:27 PM CDT [facility] RBC MORPHOLOGY 2+ 03/24/2025 7:27 PM CDT [facility] Comment: POIKILOCYTOSIS 2+ MACROCYTES 3+ ANISOCYTOSIS 03/24/2025 1:10 PM CDT Fabrice Pennington MD LABORATORY Fin al Result [facility] [address] [id number], * TACROLIMUS (03/24/2025 1:10 PM CDT) Pathologist [facility] TACROLIMUS 14.4 mcg/L 03/26/2025 3:29 PM CDT [email or web address] [facility] Comment: No definitive therapeutic or toxic ranges have been established. Optimal blood drug levels are influenced by type of transplant, patient response, time post- transplant, co-administration of other drugs, and drug formulation. The following trough range is a suggested guideline: 5.0-20.0 mcg/L This test was developed and its analytical performance characteristics have been determined by [email or web address] [place], [place]. It has not been cleared or approved by the U.S. Food and Drug Administration. This assay has been validated pursuant to the CLIA regulations and is used for clinical purposes. Test Performed by [email or web address], [email or web address], [address] [place] [address] Wilson Reyez M.D., Ph.D., Director of Laboratories , CLIA [id number] 03/24/2025 1:10 PM CDT Fabrice Pennington MD LABORATORY Fin al Result [email or web address] [place] [id number] [place], [place] , [place] [phone] * OCCULT BLOOD, FECES (10/02/2022 5:42 PM [employer]) Pathologist [facility] OCCULT BLOOD FECAL POSITIVE 10/02/2022 6:04 PM [employer] [facility] STOOL SPECIMEN / Unknown 10/02/2022 5:42 PM [employer] Pat Gomes [employer]-BC BODY FLUIDS AND STOOLS OR DERABLES Final Result [facility] [address] [place] [address], [place] [phone] from Last 3 Months or Most Recently Relevant to Health Maintenance Additional Health Concerns Infection Onset Date Last Indicated ESBL - Extended Spectrum Beta-lactamase 10/04/19 23 10/04/2022 Insurance [employer] Advance Directives * Full Code (Latest Code Status on File) Date Activated Date Inactivated Comments 10/02/2022 10:53 PM 10/03/2022 11:08 AM Care Teams Trapeze Artist Relationship Specialty Start Date End Date None, Provider, PCP - General UNKNOWN PHYSICIAN SPECIALTY 10/02/22
--- OUTSIDE RECORDS SUMMARY | 2025-04-07 12:45 | XMS_ITS | Clinical Summary ---
Author Organization [facility] Address [address] [place] [address] Care Team Providers Care Web Content Coordinator Name Role Phone Rosy Grover RN Unavailable [phone] Pelon Yo MD Unavailable [phone] Paula Hitchcock RN Unavailable Georgei Pauline Mireles MD Unavailable [phone] Patrick Lorenzana MD Primary Care Provider Allergies No known active allergies Medications acetaminophen (TYLENOL) 325 mg tablet Take 2 tablets (650 mg total) by mouth every 6 (six) hours as needed for pain Over the counter medication. 30 tablet 022 Active cholecalciferol (VITAMIN D-3) 2000 unit capsule [...] a day 60 capsule 11 025 Active aspirin 81 mg chewable tablet Take 1 tablet (81 mg total) by mouth daily 025 Active azaTHIOprine (IMURAN) 50 mg tablet HOLD - previous dose 50mg nightly 025 Active tacrolimus 0.5 mg immediate-release capsule Take [...] A WEEK FOR UTI PROPHYLAXIS 5 packet 024 2024 Discontinued(E rror) carvediloL (COREG) 12.5 mg tablet Take 1 tablet (12.5 mg total) by mouth 2 (two) times a day with meals 180 tablet 3 024 2024 Discontinued azaTHIOprine (IMURAN) 50 mg tablet HOLD for WBC 12/2024 (prev dose 50 mg QHS) 025 2024 Discontinued aspirin 81 mg chewable tablet Take 1 tablet (81 mg total) by mouth daily -- HOLD until instructed to resume by transplant team -- 025 2024 Discontinued mirtazapine (REMERON) 15 mg tablet Take 1 tablet (15 mg total) by mouth nightly 2024 Discontinued(E rror) nitazoxanide (ALINIA) 500 mg tabletIndications: Helminthic Infection Take 1 tablet (500 mg total) by mouth 2 (two) times a day through and including doses on 01/05/25 025 2024 Discontinued fluconazole (DIFLUCAN) 200 mg tabletIndications: invasive candidiasis Take 1 tablet (200 mg total) by mouth daily through and including doses on 01/11/25 025 2024 Discontinued tacrolimus 0.5 mg immediate-release capsule Take 1 capsule (0.5 mg total) by mouth every morning 2024 Discontinued azaTHIOprine (IMURAN) 50 mg tablet Take 1 tablet (50 mg total) by mouth nightly 025 2024 Discontinued hydroCHLOROthiazid e (HYDRODIURIL) 25 mg [...] K and phos Esophagitis 03/14/2025 Hyperkalemia 01/07/2025 Devora esophagitis 12/25/2024 Assessment & Plan (03/14/2025 9:26 [...] 12:48 PM CDT): I endorse admission to fpc care. The patient is at risk of [...] DON to ok [facility] level [facility] Nurses through [employer] chat to confirm that Imuran is currently to be on hold. I asked him to review the medication orders per [employer] and this was confirmed. UTI (urinary tract [...] CXR I advised her to call her gmat tutor for further guidance If her symptoms worsened she is to go to [facility] Assessment & Plan (01/04/2025 11:53 AM [...] lisionpril/HCTZ Assessment & Plan (10/20/2020 3:02 PM COMMUNITY ENGAGEMENT COORDINATOR): Stable Cont lisionpril/HCTZ ILD (interstitial lung disease) 07/20/2020 Assessment & Plan (03/14/2025 9:26 PM CDT): -- cont pred 5, OI ppx, and valganciclovir -- Holding imuran -- PT/OT/Pulm rehab and RD consulted -- cont home mirtazapine for appetite Assessment & Plan (10/20/2020 3:02 PM COMMUNITY ENGAGEMENT COORDINATOR): F/u with pulmonary Allergic rhinitis 07/20/2020 Assessment & Plan (12/14/2020 5:17 AM CDT): Uncontrolled Cont zyrtec, singulair Refer to ENT Primary insomnia 02/07/2020 Assessment & Plan (10/20/2020 3:03 PM COMMUNITY ENGAGEMENT COORDINATOR): Chronic Cont ativan Assessment & Plan (06/06/2020 [...] Other neutropenia 12/29/2024 01/04/2025 Melena 12/11/2024 12/31/2024 [id number] kidney injury 06/26/2024 01/04/2025 Assessment & Plan [...] (03/14/2021): Added automatically from request for surgery [id number] Weakness 03/11/2021 01/07/2025 Assessment & Plan (12/31/2024 [...] diet Assessment & Plan (10/20/2020 3:02 PM COMMUNITY ENGAGEMENT COORDINATOR): Chronic Follow low cholesterol diet Assessment & Plan (06/06/2020 11:59 AM CDT): Stable Cont low cholesterol diet Assessment & Plan (04/06/2020 1:06 PM CDT): Stable Cont low cholesterol diet Assessment & Plan (02/07/2020 11:26 AM CDT): Need to get updated lipid profile Follow low cholesterol diet Pre-transplant evaluation for lung transplant 02/07/2001/22/2022 Encounter for screening mamm ogram for malignant neoplasm of breast 02/07/2020 03/08/2020 Cough 02/07/2020 03/31/2022 Assessment & Plan (10/20/2020 3:01 PM COMMUNITY ENGAGEMENT COORDINATOR): Likely secondary to ILD Cont Airduo F/u [...] failure 03/31/2022 Awaiting transplantation of lung 03/31/2022 Encounters Date Type Department Care Team Description 04/01/2025 Telephone [facility] Program 1 [facility] 1st [place] [phone] Josette Ochoa 03/31/2025 Orders Only [facility] Transplant Lung [address] [facility] [address] [id number] [place] [address] Paula Hitchcock, RN 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) (Primary Dx) 03/29/2025 Telephone [facility] 1 [facility] 1[address] [place] [address] Josette Ochoa 03/28/2025 Telephone [facility] [address] [facility] 8th [place] [address] [place] [address] Kirby Porter MD 03/24/2025 Telephone [facility] 1 [facility] [address] [place] [address] Josette Ochoa 03/22/2025 SHOP/CHAP Initial Eligibility Review [facility] OP CASE MANAGEMENT [address] [place] [address] Molly Wu RN 03/15/2025 10:35 AM CDT Ancillary Procedure [facility] IP 1 [facility] [address] [place] [address] 03/14/2025 8:13 PM CDT - 03/21/2025 2:30 PM CDT Hospital Encounter [address] [address] Pauline Bhat MD Qureshi, MD Jacob Murdock Rodrigo, MD Lung transplant status, bilateral, 2021, (CMV D+/R+) (Primary Dx); Weight loss; Weakness; Failure to thrive in adult Discharge Disposition: Discharge to home or self care 03/14/2025 10:30 AM CDT Lab [facility] ([facility]) [address] [place] [address] 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) 03/14/2025 10:00 AM CDT Office Visit [facility] [address] [facility] Medicine 8th [place] [address] [place] [address] Seth Vasquez MD 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) (Primary Dx); Encounter for monitoring tacrolimus therapy; Stage 4 chronic kidney disease (HCC); Bilateral leg pain 03/14/2025 9:30 AM CDT Lab [facility] [address] [place] [address] 03/14/2025 9:15 AM CDT - 03/14/2025 11:59 PM CDT Hospital Encounter [facility] [address] [facility] [address] [place] [address] 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) Discharge Disposition: Discharge to home or self care 03/14/2025 8:53 AM CDT - 03/14/2025 11:59 PM CDT Hospital Encounter [facility] [place] [facility] ([facility]) [address] [place] [address] 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) Discharge Disposition: Discharge to home or self care 03/14/2025 Telephone [facility] [address] [facility] [address] [id number] [place] [address] Paula Hitchcock, LOLI 03/14/2025 Telephone [facility] [address] [facility] [address] [id number] [place] [address] Tiera Lincoln 03/09/2025 Telephone [facility] [address] [facility] [address] [id number] [place] [address] Nga Rosario 03/09/2025 Telephone [facility] [address] [facility] [address] [phone] [place] [address] Puala Hitchcock, RN 02/01/2025 Telephone [facility] Nephrology [address] [facility] Medicine 5th [place] [address] [place] [address] Irving Gipson MD Dismissal 01/13/2025 Telephone [facility] Trans[facility] Lung [address] [facility] [address] [id number] [place] [address] Paula Hitchcock, LOLI 01/12/2025 Orders Only [facility] Trans[facility] Lung [address] [facility] [address] [id number] [place] [address] Paula Hitchcock, LOLI 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) (Primary Dx) 01/11/[address] [facility] Medical [facility] Post Acute Care [address] [facility] [address], [place] [address] Grecia Adams MA 01/10/2025 Telephone [facility] Otolaryngology [address] [place] [address] Giesla Solorio 01/07/2025 NH/SNF Visit [facility] Medical [facility] Post Acute Care [address] [address] Malorie Bowling NP Lung transplant recipient (HCC) (Primary Dx); Devora esophagitis (HCC); ABLA (acute blood loss anemia); CKD (chronic kidney disease) stage 4, GFR 15-29 ml/min (HCC); Hyperkalemia; Essential hypertension 01/07/2025 Telephone [facility] Trans[facility] Lung [address] [facility] [address] [phone] [place] [address] Paula Hitchcock RN 01/07/[address] [facility] Medical [address] [phone] Malorie Bowling NP from Last 3 Months Immunizations Immunization Administration Dates Next Due Influenza, Quadrivalent, Spl it, Preservative Free, Intramuscular 10/15/2022 Influenza, Unspecified 06/14/2020,2018(Deferred: Patient Refused) Pfizer SARS-CoV-2 Monovalent Vaccination (12+ Yrs) PURPLE 07/17/2021,10/04/2020,09/13/2020 PitchEngine Sars-Cov-2 Bivalent V accination (12+ YRS) 08/08/2022 Pneumococcal Polysaccharide PPV23 09/21/2020 Surgical History Surgery Date Site/Laterality Comments IR PICC LINE PLACEMENT > 5 YEARS 09/14/2021 N/A IR PICC LINE PLACEMENT > 5 YEARS 12/28/2021 N/A CENTRAL LINE PLACEMENT > 5 YEARS 04/03/2022 N/A CENTRAL LINE PLACEMENT > 5 YEARS 05/01/2022 N/A US GUIDED ASPIRATION ABSCESS HEMATOMA CYST SOFT TISSUE 06/27/2022 N/A COLONOSCOPY LUNG TRANSPLANT, DOUBLE CENTRAL LINE PLACEMENT > 5 YEARS 10/04/2022 N/A KYPHOPLASTY LUMBAR 03/24/2023 N/A CENTRAL LINE PLACEMENT > 5 YEARS 06/29/2024 N/A CENTRAL LINE PLACEMENT > 5 YEARS 12/13/2024 N/A Medical History Medical History Date Comments Known health problems: none Pulmonary fibrosis (HCC) 07/20/2020 ILD (interstitial lung disease) ([facility]) 07/20/2020 Allergic rhinitis 07/20/2020 Asthma Hypertension Oropharyngeal dysphagia 03/04/2022 MBS: Pha ryngeal swallow function is mildly impaired. Penetration: Yes There is penetration of thin liquid. Penetration is not sensed. The penetrated material is not cleared. Aspiration: Yes There is aspiration of thin liquid. Aspiration is not sensed. The aspirated material is cleared. Residue:Yes There is pharyngeal residue of nectar thick liquid and solid. Residue is not sensed. The residual GERD (gastroesophageal reflux disease) Acute pancreatitis 02/06/2023 Family History Medical History Relation Name Comments Cancer Father Hypertension Father COPD Mother No Known Problems Son 1 No Known Problems Son 2 Relation Name Status Comments Father Mother Son 1 Alive Son 2 Alive Social History Tobacco Use Types Packs/Day Years [...] materials from doctor or pharmacy Never 02/19/2023 [facility] Utilities Answer Date Recorded In the past 12 months has th e electric, gas, oil, or water company threatened to shut off services in your home? No 03/20/2025 Social Connection and Isolation Panel [NHANES] A nswer Date Recorded In a typical week, how many times do you talk on the phone with family, friends, or neighbors? Once a week 03/20/2025 How often do you get together with friends or re latives? Once a week 03/20/2025 How often do you attend mu-ism or advent serv ices? Never 03/20/2025 Do you belong to any clubs o r organizations such as mu-ism groups, unions, fraternal or athletic groups, or [...] any time in the past [address] [facility], were you homeless or living in a [...] on file Legal Sex Female 6:28 PM COMMUNITY ENGAGEMENT COORDINATOR Gender Identity Not on file Sexual Orientation Not on file Obstetrics History Last Filed Vital Signs Vital Sign Reading [...] 03/15/2025 9:01 AM CDT Plan of Treatment Health Maintenance Due Date Last Done Comments Cervical Cancer Screening 1961 Colon Cancer Screening-Colonoscopy 1961 DTaP/Tdap/Td Vaccine (1 - Tdap) 1972 Hepatitis B Screening 1979 Regular Well Visit/Exam 18-64 1979 Zoster Vaccine (1 of 2) 1980 Pneumococcal vaccine <65 (2 of 2 - PCV) 09/21/2021 09/21/2020 Breast Cancer Screening-Mammogram 03/27/2022 021, 06/08/2015 Depression Screening 02/06/2024 02/05/2023, 02/05/2023, 07/09/2022, Additional history exists Covid-19 Vaccine (2023- 5 season) 2024 08/08/2022, 07/17/2021, 10/04/2020, Additional history exists Influenza Vaccine (#1) 2025 3, 06/15/2021, 06/14/2020 Colon Cancer Screening-DNA Stool Discontinued 03/22/20 21 Colon Cancer Screening-FIT Discontinued 03/22/2021 Hepatitis C Screening Completed 08/15/2022 , 04/22/2022, 02/19/2022, Additional history exists Medical Devices Implanted Type Area Transfusion Nurse Device Identifier Shelf Expiration Date Model / Serial / Lot Neri Gita Kit Hemodialysis Catheter Triple Lumen Curved Short Term Polyurethane Power Trialysis [id number] - [id number] Implanted:Qty: 1 on 12/13/2024 by Moon Carranza MD at [facility] Neri Carlton 11/05/2025 [id number] / / [id number] Procedures Procedure Name Priority Date/Time Associated Diagnosis Comments INFECTION PREVENTION DEVORA AURIS PCR, SURVEILLANCE Routine 03/21/2025 12:36 PM [...] Timed 03/17/2025 1:35 PM CDT INFECTION PREVENTION DEVORA AURIS PCR, SURVEILLANCE Routine 03/17/2025 1:35 PM [...] Routine 03/15/2025 1:04 PM CDT INFECTION PREVENTION DEVORA AURIS PCR, SURVEILLANCE Routine 03/15/2025 1:04 PM [...] 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) CBC WITH AUTO DIFFERENTIAL Routine 03/14/2025 9:15 AM CDT 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) COMPREHENSIVE METABOLIC PANEL Routine 03/14/2025 9:15 AM CDT 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) LIPID PANEL Routine 03/14/2025 9:15 AM CDT 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) HEMOGLOBIN A1C Routine 03/14/2025 9:15 AM CDT 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) VITAMIN D 25 HYDROXY Routine 03/14/2025 9:15 [...] HEPATITIS PANEL, ACUTE Routine 08/15/2022 9:25 AM COMMUNITY ENGAGEMENT COORDINATOR 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) Long-term use of immunosuppressant medication Encounter for therapeutic drug level monitoring Aftercare following organ transplant STOOL DNA COLOGUARD Routine 03/22/2021 9:50 AM CDT Screening for colon cancer SCREENING MAMMOGRAM BILATERAL W JOSESITO Routine 06/08/2015 2:50 PM CDT from Last 3 Months or Most Recently Relevant to Health Maintenance Results * Infection Prevention Devora auris PCR, surveillance Axilla/Groin (03/21/2025 12:36 PM CDT) 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 This assay detects DNA from Devora auris using Real-Time PCR. This assay is laboratory developed and is not cleared by the [place] Food and Drug Administration. The performance characteristics have been verified by the [facility]. Axilla/Groin 03/21/2025 12:3 6 PM CDT 03/21/2025 1:14 PM CDT Narrative SUMAYA CASTELLANOS - 03/22/2025 10:01 AM CDT Order placed by [facility] due to ring surveillance. us Instant Order Generic Provider LAB MICROBIOLOGY - GENERAL ORDERABLES [facility] Department [place] [address] [facility] * (ABNORMAL) eGFR (03/21/2025 5:07 AM CDT) eGFR 16(L) >=60 mL/min/1. 73 m2 Comment: [...] LAB BLOOD ORDERABLES F inal Result SUMAYA CASTELLANOS [facility] Department [place] [address] * (ABNORMAL) Differential, auto (03/21/2025 5:07 AM CDT) Neutrophil abs 0.54(L) 1.50 - 6.50 K/cumm Imm gran abs 0.19(H) 0.00 - 0.10 K/cumm [facility] Lymphocyte abs 0.74(L) 0.80 - 3.30 K/cumm [facility] Monocyte abs 0.23 0.20 - 0.80 K/cumm [facility] Eosinophil abs 0.03 0.00 - 0.50 K/cumm [facility] Basophil abs 0.03 0.00 - 0.10 K/cumm [facility] Neutrophil pct 30.7 % [facility] Comment: Interpretive Data Percent cell count reference ranges are not reported, since discordance with absolute values may lead to misinterpretation of CBC data. Current Interpretive Data was last revised on 2017. Imm gran pct 10.8 % [facility] Comment: Interpretive Data Percent cell count reference ranges are not reported, since discordance with absolute values may lead to misinterpretation of CBC data. Current Interpretive Data was last revised on 2017. Lymphocyte pct 42.0 % [facility] Comment: Interpretive Data Percent cell count reference ranges are not reported, since discordance with absolute values may lead to misinterpretation of CBC data. Current Interpretive Data was last revised on 2017. Monocyte pct 13.1 % [facility] Comment: Interpretive Data Percent cell count reference ranges are not reported, since discordance with absolute values may lead to misinterpretation of CBC data. Current Interpretive Data was last revised on 2017. Eosinophil pct 1.7 % [facility] Comment: Interpretive Data Percent cell count reference ranges are not reported, since discordance with absolute values may lead to misinterpretation of CBC data. Current Interpretive Data was last revised on 2017. Basophil pct 1.7 % [facility] Comment: Interpretive Data Percent cell count reference ranges are not reported, since discordance with absolute values may lead to misinterpretation of CBC data. Current Interpretive Data was last revised on 2017. Blood 03/21/2025 5:07 AM CDT 03/21/2025 5:34 AM CDT Pauline Bhat MD LAB BLOOD ORDERABLES F inal Result Performing Organization Address [facility] de Phone Number [facility] [place] [address] * Tacrolimus level trough (03/21/2025 5:07 AM CDT) Pathologist [facility] Tacrolimus trough 5.1 ng/mL Comment: Interpretive Data Testing performed by liquid chromatography-tandem mass spectrometry. Therapeutic concentrations vary depending on type of transplanted organ and time elapsed since transplant. Typical trough concentrations range from 5-15 ng/mL. This test was developed and its performance characteristics determined by the [facility] consistent with CLIA requirements. This test has not been cleared or approved by the [place] Food and Drug administration. Current interpretive data last reviewed 2019. Blood 03/21/2025 5:07 AM CDT 03/21/2025 5:34 AM CDT Pauline Bhat MD LAB BLOOD ORDERABLES F inal Result Performing Organization Address [facility] de Phone Number [facility] [place] [address] * (ABNORMAL) CBC with auto differential (03/21/2025 5:07 AM CDT) Pathologist [facility] WBC 1.76(L) 3.80 - 9.90 K/cumm Hgb 7.0(L) 11.9 - 15.5 g/dL [facility] Hct 21.4(L) 35.6 - 45.5 % [facility] Plt 120(L) 150 - 400 K/cumm [facility] MPV 10.3 9.1 - 12.3 fL [facility] RBC 2.21(L) 3.90 - 5.20 M/cumm [facility] MCV 96.8(H) 81.3 - 96.4 fL [facility] MCH 31.7 27.1 - 33.3 pg [facility] MCHC 32.7 32.3 - 35.7 g/dL [facility] RDW CV 25.1(H) 11.1 - 14.9 % [facility] RDW SD 84.6(H) 35.7 - 48.1 fL [facility] NRBC abs 0.00 0.00 - 0.01 K/cumm [facility] Blood 03/21/2025 5:07 AM CDT 03/21/2025 5:34 AM CDT us Pauline Bhat MD LAB BLOOD ORDERABLES F inal Result Performing Organization Address [facility] Co de Phone Number [facility] Department [place] [address] * (ABNORMAL) Phosphorus (03/21/2025 5:07 AM CDT) Phosphorus, pl 1.6(L) 2.3 - 4.5 mg/dL Blood 03/21/2025 5:07 AM CDT 03/21/2025 5:34 AM CDT Pauline Bhat MD LAB BLOOD ORDERABLES F inal Result Performing Organization Address City/[facility] Co de Phone Number [facility] Department [place] [address] * Magnesium (03/21/2025 5:07 AM CDT) Magnesium 1.5 1.4 - 2.5 mg/dL Blood 03/21/2025 5:07 AM CDT 03/21/2025 5:34 AM CDT Pauline Bhat MD LAB BLOOD ORDERABLES F inal Result [facility] [place] [address] * (ABNORMAL) Comprehensive metabolic panel (03/21/2025 5:07 AM CDT) Sodium 140 135 - 145 mmol/L Potassium, pl 3.6 3.3 - 4.9 mmol/L [facility] Chloride 112(H) 97 - 110 mmol/L [facility] CO2 22 22 - 32 mmol/L [facility] Anion gap 6 2 - 15 mmol/L [facility] BUN 30(H) 6 - 25 mg/dL [facility] Creatinine 3.23(H) 0.60 - 1.10 mg/dL [facility] Glucose 86 70 - 199 mg/dL [facility] Comment: Interpretive Data Fasting glucose >/= 126 [...] 2022. Calcium 8.6 8.5 - 10.3 mg/dL [facility] Bilirubin, total 0.2 0.1 - 1.2 mg/dL [facility] Protein, pl 5.6(L) 6.5 - 8.5 g/dL [facility] Albumin 3.3(L) 3.5 - 5.0 g/dL [facility] Alk phos 87 40 - 130 Units/L [facility] ALT 19 7 - 45 Units/L [facility] AST 40 10 - 45 Units/L [facility] Blood 03/21/2025 5:07 AM CDT 03/21/2025 5:34 AM CDT Pauline Bhat MD LAB BLOOD ORDERABLES F inal Result Performing Organization Address [facility] de Phone Number [facility] Department [place] [address] * (ABNORMAL) eGFR (03/20/2025 5:05 AM CDT) eGFR 14(L) >=60 mL/min/1. 73 m2 Comment: [...] ORDERABLES F inal Result Performing Organization Address [facility] Co de Phone Number [facility] [place] [address] * Tacrolimus level trough (03/20/2025 5:05 AM CDT) Tacrolimus trough 4.1 ng/mL Comment: Interpretive Data Testing performed by liquid chromatography-tandem mass spectrometry. Therapeutic concentrations vary depending on type of transplanted organ and time elapsed since transplant. Typical trough concentrations range from 5-15 ng/mL. This test was developed and its performance characteristics determined by the [facility] consistent with CLIA requirements. This test has not been cleared or approved by the [place] Food and Drug administration. Current interpretive data last reviewed 2019. Blood 03/20/2025 5:05 AM CDT 03/20/2025 6:00 AM CDT Pauline Bhat MD LAB BLOOD ORDERABLES F inal Result Performing Organization Address City/[facility]/ZIP Co de Phone Number [facility] [facility] [place] [address] * (ABNORMAL) CBC with auto differential (03/20/2025 5:05 AM CDT) WBC 1.58(L) 3.80 - 9.90 K/cumm Hgb 7.2(L) 11.9 - 15.5 g/dL [facility] Hct 21.6(L) 35.6 - 45.5 % [facility] Plt 120(L) 150 - 400 K/cumm [facility] MPV 11.2 9.1 - 12.3 fL [facility] RBC 2.23(L) 3.90 - 5.20 M/cumm [facility] MCV 96.9(H) 81.3 - 96.4 fL [facility] MCH 32.3 27.1 - 33.3 pg [facility] MCHC 33.3 32.3 - 35.7 g/dL [facility] RDW CV 24.8(H) 11.1 - 14.9 % [facility] RDW SD 83.8(H) 35.7 - 48.1 fL [facility] NRBC abs 0.00 0.00 - 0.01 K/cumm [facility] Morphologic Screen Results confirmed by manual morphology review. [facility] Blood 03/20/2025 5:05 AM CDT 03/20/2025 6:00 AM CDT Pauline Bhat MD LAB BLOOD ORDERABLES E dited Result - Final Performing Organization Address [facility]/ZIP Co de Phone Number [facility] Department [place] [address] * (ABNORMAL) Manual Differential (03/20/2025 5:05 AM CDT) Differential Manual Cells Counted 119 [facility] Neutrophil abs 0.74(L) 1.50 - 6.50 K/cumm [facility] Imm gran abs 0.07 0.00 - 0.10 K/cumm [facility] Lymphocyte abs 0.55(L) 0.80 - 3.30 K/cumm [facility] Monocyte abs 0.17(L) 0.20 - 0.80 K/cumm [facility] Eosinophil abs 0.03 0.00 - 0.50 K/cumm [facility] Basophil abs 0.03 0.00 - 0.10 K/cumm [facility] Neutrophil pct 47.0 % [facility] Comment: Interpretive Data Percent cell count reference ranges are not reported, since discordance with absolute values may lead to misinterpretation of CBC data. Current Interpretive Data was last revised on 2017. Lymphocyte pct 34.5 % [facility] Comment: Interpretive Data Percent cell count reference ranges are not reported, since discordance with absolute values may lead to misinterpretation of CBC data. Current Interpretive Data was last revised on 2017. Monocyte pct 10.9 % [facility] Comment: Interpretive Data Percent cell count reference ranges are not reported, since discordance with absolute values may lead to misinterpretation of CBC data. Current Interpretive Data was last revised on 2017. Eosinophil pct 1.7 % [facility] Comment: Interpretive Data Percent cell count reference ranges are not reported, since discordance with absolute values may lead to misinterpretation of CBC data. Current Interpretive Data was last revised on 2017. Basophil pct 1.7 % [facility] Comment: Interpretive Data Percent cell count reference ranges are not reported, since discordance with absolute values may lead to misinterpretation of CBC data. Current Interpretive Data was last revised on 2017. Metamyelocyte pct 1.7(H) 0.0 - 0.0 % [facility] Myelocyte pct 1.7(H) 0.0 - 0.0 % [facility] Promyelocyte pct 0.8(H) 0.0 - 0.0 % [facility] Blood 03/20/2025 5:05 AM CDT 03/20/2025 6:05 AM CDT Pauline Bhat MD LAB BLOOD ORDERABLES F inal Result Performing Organization Address [facility] Co de Phone Number [facility] [place] [address] * Type and screen (03/20/2025 5:05 AM CDT) Pathologist [facility] Moon, indirect Negative ABO Rh O Positive [facility] Blood 03/20/2025 5:05 AM CDT 03/20/2025 6:05 AM CDT Narrative [facility] - 03/20/2025 7:29 AM CDT Has the patient had Daratumumab or Isatuximab in the past 6 months?->Unknown Gage Rogers MD LAB BLOOD BANK TEST ORDERABLES Final Result Performing Organization Address [facility] de Phone Number [facility] [address] * (ABNORMAL) Phosphorus (03/20/2025 5:05 AM CDT) Pathologist [facility] Phosphorus, pl 1.6(L) 2.3 - 4.5 mg/dL Blood 03/20/2025 5:05 AM CDT 03/20/2025 5:58 AM CDT Pauline Bhat MD LAB BLOOD ORDERABLES F inal Result Performing Organization Address [facility] Co de Phone Number [facility] [place] [address] * Magnesium (03/20/2025 5:05 AM CDT) Magnesium 1.5 1.4 - 2.5 mg/dL Blood 03/20/2025 5:05 AM CDT 03/20/2025 5:58 AM CDT us Pauline Bhat MD LAB BLOOD ORDERABLES F inal Result [facility] Department [place] [address] * (ABNORMAL) Comprehensive metabolic panel (03/20/2025 5:05 AM CDT) Pathologist [facility] Sodium 142 135 - 145 mmol/L Potassium, pl 3.5 3.3 - 4.9 mmol/L [facility] Chloride 111(H) 97 - 110 mmol/L [facility] CO2 22 22 - 32 mmol/L [facility] Anion gap 9 2 - 15 mmol/L [facility] BUN 35(H) 6 - 25 mg/dL [facility] Creatinine 3.58(H) 0.60 - 1.10 mg/dL [facility] Glucose 95 70 - 199 mg/dL [facility] Comment: Interpretive Data Fasting glucose >/= 126 [...] 2022. Calcium 8.6 8.5 - 10.3 mg/dL [facility] Bilirubin, total 0.2 0.1 - 1.2 mg/dL [facility] Protein, pl 5.7(L) 6.5 - 8.5 g/dL [facility] Albumin 3.2(L) 3.5 - 5.0 g/dL [facility] Alk phos 83 40 - 130 Units/L [facility] ALT 23 7 - 45 Units/L [facility] AST 48(H) 10 - 45 Units/L [facility] Blood 03/20/2025 5:05 AM CDT 03/20/2025 5:58 AM CDT Pauline Bhat MD LAB BLOOD ORDERABLES F inal Result Performing Organization Address [facility] Co de Phone Number [facility] Department [place] [address] * (ABNORMAL) eGFR (03/19/2025 5:05 AM CDT) [...] ORDERABLES F inal Result Performing Organization Address [facility] Co de Phone Number [facility] Department [place] [address] * (ABNORMAL) Differential, auto (03/19/2025 5:05 AM CDT) Neutrophil abs 0.48(C) 1.50 - 6.50 K/cumm Comment:This result has been called to irineo mendoza rn by [id number] on 03/19/2025 07:41:05, and has been read back. Imm gran abs 0.18(H) 0.00 - 0.10 K/cumm [facility] Lymphocyte abs 0.68(L) 0.80 - 3.30 K/cumm [facility] Monocyte abs 0.18(L) 0.20 - 0.80 K/cumm [facility] Eosinophil abs 0.02 0.00 - 0.50 K/cumm [facility] Basophil abs 0.01 0.00 - 0.10 K/cumm [facility] Neutrophil pct 31.0 % [facility] Comment: Differential consistent with previous result. Differential consistent with previous result. Interpretive Data Percent cell count reference ranges are not reported, since discordance with absolute values may lead to misinterpretation of CBC data. Current Interpretive Data was last revised on 2017. Imm gran pct 11.6 % [facility] Comment: Interpretive Data Percent cell count reference ranges are not reported, since discordance with absolute values may lead to misinterpretation of CBC data. Current Interpretive Data was last revised on 2017. Lymphocyte pct 43.9 % [facility] Comment: Interpretive Data Percent cell count reference ranges are not reported, since discordance with absolute values may lead to misinterpretation of CBC data. Current Interpretive Data was last revised on 2017. Monocyte pct 11.6 % [facility] Comment: Interpretive Data Percent cell count reference ranges are not reported, since discordance with absolute values may lead to misinterpretation of CBC data. Current Interpretive Data was last revised on 2017. Eosinophil pct 1.3 % [facility] Comment: Interpretive Data Percent cell count reference ranges are not reported, since discordance with absolute values may lead to misinterpretation of CBC data. Current Interpretive Data was last revised on 2017. Basophil pct 0.6 % [facility] Comment: Interpretive Data Percent cell count reference ranges are not reported, since discordance with absolute values may lead to misinterpretation of CBC data. Current Interpretive Data was last revised on 2017. Blood 03/19/2025 5:05 AM CDT 03/19/2025 6:36 AM CDT Pauline Bhat MD LAB BLOOD ORDERABLES F inal Result Performing Organization Address [facility] de Phone Number [facility] [place] [address] * Tacrolimus level trough (03/19/2025 5:05 AM CDT) Pathologist [facility] Tacrolimus trough 4.5 ng/mL Comment: Interpretive Data Testing performed by liquid chromatography-tandem mass spectrometry. Therapeutic concentrations vary depending on type of transplanted organ and time elapsed since transplant. Typical trough concentrations range from 5-15 ng/mL. This test was developed and its performance characteristics determined by the [facility] consistent with CLIA requirements. This test has not been cleared or approved by the US Food and Drug administration. Current interpretive data last reviewed 2019. Blood 03/19/2025 5:05 AM CDT 03/19/2025 6:36 AM CDT Pauline Bhat MD LAB BLOOD ORDERABLES F inal Result Performing Organization Address [facility] de Phone Number [facility] [place] [address] * (ABNORMAL) CBC with auto differential (03/19/2025 5:05 AM CDT) Pathologist [facility] WBC 1.55(L) 3.80 - 9.90 K/cumm Hgb 7.0(L) 11.9 - 15.5 g/dL [facility] Hct 20.7(L) 35.6 - 45.5 % [facility] Plt 116(L) 150 - 400 K/cumm [facility] MPV 10.6 9.1 - 12.3 fL [facility] RBC 2.18(L) 3.90 - 5.20 M/cumm [facility] MCV 95.0 81.3 - 96.4 fL [facility] MCH 32.1 27.1 - 33.3 pg [facility] MCHC 33.8 32.3 - 35.7 g/dL [facility] RDW CV 25.2(H) 11.1 - 14.9 % [facility] RDW SD 81.4(H) 35.7 - 48.1 fL [facility] NRBC abs 0.00 0.00 - 0.01 K/cumm [facility] Blood 03/19/2025 5:05 AM CDT 03/19/2025 6:36 AM CDT us Pauline Bhat MD LAB BLOOD ORDERABLES F inal Result Performing Organization Address [facility] Co de Phone Number [facility] [place] [address] * (ABNORMAL) Phosphorus (03/19/2025 5:05 AM CDT) Phosphorus, pl 1.8(L) 2.3 - 4.5 mg/dL Blood 03/19/2025 5:05 AM CDT 03/19/2025 6:35 AM CDT Pauline Bhat MD LAB BLOOD ORDERABLES F inal Result Performing Organization Address City/[facility] Co de Phone Number [facility] [place] [address] * Magnesium (03/19/2025 5:05 AM CDT) Magnesium 1.6 1.4 - 2.5 mg/dL Blood 03/19/2025 5:05 AM CDT 03/19/2025 6:35 AM CDT Pauline Bhat MD LAB BLOOD ORDERABLES F inal Result [facility] [place] [address] * (ABNORMAL) Comprehensive metabolic panel (03/19/2025 5:05 AM CDT) Sodium 140 135 - 145 mmol/L Potassium, pl 3.6 3.3 - 4.9 mmol/L [facility] Chloride 109 97 - 110 mmol/L [facility] CO2 20(L) 22 - 32 mmol/L [facility] Anion gap 11 2 - 15 mmol/[facility] BUN 42(H) 6 - 25 mg/dL [facility] Creatinine 3.93(H) 0.60 - 1.10 mg/dL [facility] Glucose 89 70 - 199 mg/dL [facility] Comment: Interpretive Data Fasting glucose >/= 126 [...] 2022. Calcium 8.2(L) 8.5 - 10.3 mg/dL [facility] Bilirubin, total 0.2 0.1 - 1.2 mg/dL [facility] Protein, pl 5.6(L) 6.5 - 8.5 g/dL [facility] Albumin 3.1(L) 3.5 - 5.0 g/dL [facility] Alk phos 72 40 - 130 Units/L [facility] ALT 18 7 - 45 Units/L [facility] AST 45 10 - 45 Units/[facility] Blood 03/19/2025 5:05 AM CDT 03/19/2025 6:35 AM CDT us Pauline Bhat MD LAB BLOOD ORDERABLES F inal Result Performing Organization Address [facility] de Phone Number [facility] Department [place] [address] * (ABNORMAL) eGFR (03/18/2025 5:45 AM CDT) Pathologist [facility] eGFR 10(L) >=60 mL/min/1. 73 m2 Comment: [...] ORDERABLES F inal Result Performing Organization Address [facility] Co de Phone Number [facility] Department [place] [address] * (ABNORMAL) Differential, auto (03/18/2025 5:45 AM CDT) Neutrophil abs 0.67(L) 1.50 - 6.50 K/cumm Imm gran abs 0.19(H) 0.00 - 0.10 K/cumm [facility] Lymphocyte abs 0.66(L) 0.80 - 3.30 K/cumm [facility] Monocyte abs 0.21 0.20 - 0.80 K/cumm [facility] Eosinophil abs 0.04 0.00 - 0.50 K/cumm [facility] Basophil abs 0.02 0.00 - 0.10 K/cumm [facility] Neutrophil pct 37.5 % [facility] Comment: Interpretive Data Percent cell count reference ranges are not reported, since discordance with absolute values may lead to misinterpretation of CBC data. Current Interpretive Data was last revised on 2017. Imm gran pct 10.6 % [facility] Comment: Interpretive Data Percent cell count reference ranges are not reported, since discordance with absolute values may lead to misinterpretation of CBC data. Current Interpretive Data was last revised on 2017. Lymphocyte pct 36.9 % [facility] Comment: Interpretive Data Percent cell count reference ranges are not reported, since discordance with absolute values may lead to misinterpretation of CBC data. Current Interpretive Data was last revised on 2017. Monocyte pct 11.7 % [facility] Comment: Interpretive Data Percent cell count reference ranges are not reported, since discordance with absolute values may lead to misinterpretation of CBC data. Current Interpretive Data was last revised on 2017. Eosinophil pct 2.2 % [facility] Comment: Interpretive Data Percent cell count reference ranges are not reported, since discordance with absolute values may lead to misinterpretation of CBC data. Current Interpretive Data was last revised on 2017. Basophil pct 1.1 % [facility] Comment: Interpretive Data Percent cell count reference ranges are not reported, since discordance with absolute values may lead to misinterpretation of CBC data. Current Interpretive Data was last revised on 2017. Blood 03/18/2025 5:45 AM CDT 03/18/2025 7:22 AM CDT us Pauline Bhat MD LAB BLOOD ORDERABLES F inal Result [facility] Department [place] [address] * Tacrolimus level trough (03/18/2025 5:45 AM CDT) [facility] Tacrolimus trough 3.2 ng/mL Comment: Interpretive Data Testing performed by liquid chromatography-tandem mass spectrometry. Therapeutic concentrations vary depending on type of transplanted organ and time elapsed since transplant. Typical trough concentrations range from 5-15 ng/mL. This test was developed and its performance characteristics determined by the [facility] consistent with CLIA requirements. This test has not been cleared or approved by the US Food and Drug administration. Current interpretive data last reviewed 2019. Blood 03/18/2025 5:45 AM CDT 03/18/2025 7:22 AM CDT us Pauline Bhat MD LAB BLOOD ORDERABLES F inal Result [facility] Department [place] [address] * (ABNORMAL) CBC with auto differential (03/18/2025 5:45 AM CDT) [facility] WBC 1.79(L) 3.80 - 9.90 K/cumm Hgb 7.8(L) 11.9 - 15.5 g/dL [facility] Hct 23.2(L) 35.6 - 45.5 % [facility] Plt 117(L) 150 - 400 K/cumm [facility] MPV 10.9 9.1 - 12.3 fL [facility] RBC 2.42(L) 3.90 - 5.20 M/cumm [facility] MCV 95.9 81.3 - 96.4 fL [facility] Comment:MCV delta due to megan arent blood transfusion. MCH 32.2 27.1 - 33.3 pg [facility] MCHC 33.6 32.3 - 35.7 g/dL [facility] RDW CV 24.6(H) 11.1 - 14.9 % [facility] RDW SD 79.8(H) 35.7 - 48.1 fL [facility] NRBC abs 0.00 0.00 - 0.01 K/cumm [facility] Blood 03/18/2025 5:45 AM CDT 03/18/2025 7:22 AM CDT Pauline Bhat MD LAB BLOOD ORDERABLES E dited Result - Final Performing Organization Address [facility] Co de Phone Number [facility] [place] [address] * (ABNORMAL) Phosphorus (03/18/2025 5:45 AM CDT) [facility] Phosphorus, pl 2.1(L) 2.3 - 4.5 mg/dL Blood 03/18/2025 5:45 AM CDT 03/18/2025 7:22 AM CDT Pauline Bhat MD LAB BLOOD ORDERABLES F inal Result Performing Organization Address [facility] de Phone Number [facility] Department [place] [address] * Magnesium (03/18/2025 5:45 AM CDT) [facility] Magnesium 1.8 1.4 - 2.5 mg/dL Blood 03/18/2025 5:45 AM CDT 03/18/2025 7:22 AM CDT Pauline Bhat MD LAB BLOOD ORDERABLES F inal Result Performing Organization Address [facility] [place] [address] * (ABNORMAL) Comprehensive metabolic panel (03/18/2025 5:45 AM CDT) [facility] Sodium 143 135 - 145 mmol/L Potassium, pl 3.4 3.3 - 4.9 mmol/L [facility] Chloride 110 97 - 110 mmol/L [facility] CO2 20(L) 22 - 32 mmol/L [facility] Anion gap 13 2 - 15 mmol/L [facility] BUN 51(H) 6 - 25 mg/dL [facility] Creatinine 4.74(H) 0.60 - 1.10 mg/dL [facility] Glucose 94 70 - 199 mg/dL [facility] Comment: Interpretive Data Fasting glucose >/= 126 [...] 2022. Calcium 8.4(L) 8.5 - 10.3 mg/dL [facility] Bilirubin, total 0.3 0.1 - 1.2 mg/dL [facility] Protein, pl 5.9(L) 6.5 - 8.5 g/dL [facility] Albumin 3.4(L) 3.5 - 5.0 g/dL [facility] Alk phos 67 40 - 130 Units/L [facility] ALT 12 7 - 45 Units/L [facility] AST 30 10 - 45 Units/L [facility] Blood 03/18/2025 5:45 AM CDT 03/18/2025 7:22 AM CDT us Pauline Bhat MD LAB BLOOD ORDERABLES F inal Result [facility] [place] [address] * Transfuse RBC (03/17/2025 11:45 PM CDT) Blood Gary Verdin MD BLOOD TRANSFUSION ORDER ALEX Edited Result - Final [facility] [place] [address] * Infection Prevention Devora auris PCR, surveillance Axilla/Groin (03/17/2025 1:35 PM CDT) 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 This assay detects DNA from Devora auris using Real-Time PCR. This assay is laboratory developed and is not cleared by the [facility] Food and Drug Administration. The performance characteristics have been verified by the [facility]. Axilla/Groin 03/17/2025 1:35 PM CDT 03/17/2025 3:48 PM CDT Narrative [facility] - 03/17/2025 11:58 PM CDT Order placed by [facility] due to ring surveillance. us Instant Order Generic Provider LAB MICROBIOLOGY - GENERAL ORDERABLES [place] [address] [facility] * Type and screen (03/17/2025 1:35 PM CDT) ABO Rh O Positive Moon, indirect Negative [facility] Blood 03/17/2025 1:35 PM CDT 03/17/2025 2:46 PM CDT Narrative [facility] - 03/17/2025 3:34 PM CDT Has the patient had Daratumumab or Isatuximab in the past 6 months?->Unknown us Gary Verdin MD LAB BLOOD BANK TEST ORD [place]AB[place] [address] * Prepare RBC: 1 Units (03/17/2025 12:17 PM CDT) Product code [id number] Unit Number [id number] [facility] Product Blood Type OPOS [facility] Dispense Status PRESUMED TRANSFUSED [facility] Blood 03/17/2025 12:1 7 PM CDT 03/17/2025 12:[address] [facility] - 03/18/2025 6:00 AM CDT Are special requirements needed? (All products are leukoreduced and CMV- safe)- >No Date required:-[id number] LRRBC # of [id number] Reasons:-Hgb <7 g/dL} us Gary Verdin MD BLOOD BANK PRODUCT ORDE RABLES Final Result [facility] [place] [address] * (ABNORMAL) eGFR (03/17/2025 5:17 AM CDT) [...] of Race in Diagnosing Kidney Disease, JASN 202). The CKD-EPI equation should not be used for patients with unstable renal function and has not been validated in children and those over 70. Current interpretive data was last reviewed 2021. Blood 03/17/2025 5:17 AM CDT 03/17/2025 5:54 AM CDT us Pauline Bhat MD LAB BLOOD ORDERABLES F inal Result [facility] [place] [address] * (ABNORMAL) Differential, auto (03/17/2025 5:17 AM CDT) Neutrophil abs 0.80(L) 1.50 - 6.50 K/cumm Imm gran abs 0.20(H) 0.00 - 0.10 K/cumm [facility] Lymphocyte abs 0.67(L) 0.80 - 3.30 K/cumm [facility] Monocyte abs 0.30 0.20 - 0.80 K/cumm [facility] Eosinophil abs 0.02 0.00 - 0.50 K/cumm [facility] Basophil abs 0.02 0.00 - 0.10 K/cumm [facility] Neutrophil pct 39.8 % [facility] Comment: Interpretive Data Percent cell count reference ranges are not reported, since discordance with absolute values may lead to misinterpretation of CBC data. Current Interpretive Data was last revised on 2017. Imm gran pct 10.0 % [facility] Comment: Interpretive Data Percent cell count reference ranges are not reported, since discordance with absolute values may lead to misinterpretation of CBC data. Current Interpretive Data was last revised on 2017. Lymphocyte pct 33.3 % [facility] Comment: Interpretive Data Percent cell count reference ranges are not reported, since discordance with absolute values may lead to misinterpretation of CBC data. Current Interpretive Data was last revised on 2017. Monocyte pct 14.9 % [facility] Comment: Interpretive Data Percent cell count reference ranges are not reported, since discordance with absolute values may lead to misinterpretation of CBC data. Current Interpretive Data was last revised on 2017. Eosinophil pct 1.0 % [facility] Comment: Interpretive Data Percent cell count reference ranges are not reported, since discordance with absolute values may lead to misinterpretation of CBC data. Current Interpretive Data was last revised on 2017. Basophil pct 1.0 % [facility] Comment: Interpretive Data Percent cell count reference ranges are not reported, since discordance with absolute values may lead to misinterpretation of CBC data. Current Interpretive Data was last revised on 2017. Blood 03/17/2025 5:17 AM CDT 03/17/2025 5:53 AM CDT Pauline Bhat MD LAB BLOOD ORDERABLES F inal Result Performing Organization Address [facility] de Phone Number [facility] [place] [address] * Tacrolimus level trough (03/17/2025 5:17 AM CDT) [facility] Tacrolimus trough 4.3 ng/mL Comment: Interpretive Data Testing performed by liquid chromatography-tandem mass spectrometry. Therapeutic concentrations vary depending on type of transplanted organ and time elapsed since transplant. Typical trough concentrations range from 5-15 ng/mL. This test was developed and its performance characteristics determined by the [facility] consistent with CLIA requirements. This test has not been cleared or approved by the US Food and Drug administration. Current interpretive data last reviewed 2019. Blood 03/17/2025 5:17 AM CDT 03/17/2025 5:53 AM CDT Pauline Bhat MD LAB BLOOD ORDERABLES F inal Result Performing Organization Address [facility] de Phone Number [facility] [place] [address] * (ABNORMAL) CBC with auto differential (03/17/2025 5:17 AM CDT) [facility] WBC 2.01(L) 3.80 - 9.90 K/cumm Hgb 6.9(L) 11.9 - 15.5 g/dL [facility] Hct 20.7(L) 35.6 - 45.5 % [facility] Plt 123(L) 150 - 400 K/cumm [facility] MPV 10.5 9.1 - 12.3 fL [facility] RBC 2.04(L) 3.90 - 5.20 M/cumm [facility] MCV 101.5(H) 81.3 - 96.4 fL [facility] MCH 33.8(H) 27.1 - 33.3 pg [facility] MCHC 33.3 32.3 - 35.7 g/dL [facility] RDW CV 22.5(H) 11.1 - 14.9 % [facility] RDW SD 81.1(H) 35.7 - 48.1 fL [facility] NRBC abs 0.00 0.00 - 0.01 K/cumm [facility] Blood 03/17/2025 5:17 AM CDT 03/17/2025 5:53 AM CDT Pauline Bhat MD LAB BLOOD ORDERABLES F inal Result [facility] [place] [address] * Phosphorus (03/17/2025 5:17 AM CDT) Pathologist [facility] Phosphorus, pl 2.7 2.3 - 4.5 mg/dL Blood 03/17/2025 5:17 AM CDT 03/17/2025 5:54 AM CDT Pauline Bhat MD LAB BLOOD ORDERABLES F inal Result [facility] [place] [address] * Magnesium (03/17/2025 5:17 AM CDT) Magnesium 1.9 1.4 - 2.5 mg/dL Blood 03/17/2025 5:17 AM CDT 03/17/2025 5:54 AM CDT us Pauline Bhat MD LAB BLOOD ORDERABLES F inal Result [facility] [place] [address] * (ABNORMAL) Comprehensive metabolic panel (03/17/2025 5:17 AM CDT) Sodium 143 135 - 145 mmol/L Potassium, pl 3.9 3.3 - 4.9 mmol/L [facility] Chloride 110 97 - 110 mmol/L [facility] CO2 22 22 - 32 mmol/L [facility] Anion gap 11 2 - 15 mmol/L [facility] BUN 65(H) 6 - 25 mg/dL [facility] Creatinine 5.74(H) 0.60 - 1.10 mg/dL [facility] Glucose 113 70 - 199 mg/dL [facility] Comment: Interpretive Data Fasting glucose >/= 126 [...] 2022. Calcium 8.8 8.5 - 10.3 mg/dL [facility] Bilirubin, total 0.2 0.1 - 1.2 mg/dL [facility] Protein, pl 6.5 6.5 - 8.5 g/dL [facility] Albumin 3.8 3.5 - 5.0 g/dL [facility] Alk phos 85 40 - 130 Units/L [facility] ALT 9 7 - 45 Units/L [facility] AST 22 10 - 45 Units/L [facility] Blood 03/17/2025 5:17 AM CDT 03/17/2025 5:54 AM CDT Pauline Bhat MD LAB BLOOD ORDERABLES F inal Result Performing Organization Address City/[facility] Co de Phone Number [facility] [place] [address] * MID Lab Inf Prevention Courtesy Callback Stool (03/16/2025 11:20 PM CDT) Pathologist [facility] TestName Norovirus PCR Date Notified [id number] [facility] Time Notified [address] [facility] Called/Read Back Alberto Beckman, Department Store Door Greeter [facility] Called By Lito Eduardo [facility] Stool 03/16/2025 11:2 0 PM CDT 03/17/2025 3:06 AM CDT Pauline Bhat MD LAB MICROBIOLOGY - GEN ERAL ORDERABLES Final Result Performing Organization Address [facility] de Phone Number [facility] [place] [address] * C. difficile testing Stool (03/16/2025 11:20 PM CDT) [facility] Result Positive Negative Toxin Result Negative Negative [facility] C. diff result Negative, free toxin. Negative, free toxin [facility] C. diff interp GDH+/toxin- results almost never represent true C. difficile infection (CDI). Results may represent colonization with C. difficile without CDI, detection of a bacteria other than toxigenic C. difficile, or a false negative toxin assay. If there is a high index of suspicion for CDI, additional testing by PCR is available upon request. SUMAYA [facility] Stool 03/16/2025 11:2 0 PM CDT 03/17/2025 12:56 AM CDT Pauline Bhat MD LAB MICROBIOLOGY - GEN ERAL ORDERABLES Final Result Performing Organization Address City/[facility] Co de Phone Number [facility] Department [place] [address] * Ova and parasite exam Stool (03/16/2025 11:20 PM CDT) [facility] Ova & Parasite exam See [facility] [place] ref Lab Comment: SOURCE: STOOL, STLP OVA AND PARASITE, MICROSCOPY, F FINAL No parasites seen. Cryptosporidium, Cyclospora, and microsporidia are not readily detected by this method. Single negative specimen does not rule out parasitic infection. Test Performed by: [address] [address] [employer] Operator: Bryson Craft Ph.D.; CLIA# [id number] Stool 03/16/2025 11:2 0 PM CDT 03/17/2025 12:56 AM CDT Narrative [facility] - 03/24/2025 2:02 PM CDT Is the patient immunosuppressed?->Yes Has the patient had recent travel outside the [place]?->No Pauline Bhat MD LAB MICROBIOLOGY - GEN ERAL ORDERABLES Final Result SUMAYA CASTELLANOS [facility] Department [place] [address] [facility] * (ABNORMAL) Norovirus PCR Stool (03/16/2025 11:20 PM CDT) [facility] Norovirus GI RNA Not Detected Not Detected [facility] Norovirus GII RNA Detected(A) Not Detected [facility] Comment: Interpretive data: Testing performed at the [facility] using the Leaf Xpert Norovirus Assay. This assay uses nucleic [...] ERAL ORDERABLES Final Result Performing Organization Address [facility] [place] [address] [facility] * Cryptosporidium and Giardia antigen assay Stool (03/16/2025 11:20 PM CDT) Giardia Ag Negative Negative Cryptosporidium Ag Negative Negative [facility] Comment: Interpretive data: Testing performed by the [facility] using an immunoassay that detects Cryptosporidium and Giardia antigens in stool specimens. If comprehensive examination for ova and parasites is required, please request Ova and Parasite Examination. Stool 03/16/2025 11:2 0 PM CDT 03/17/2025 12:56 AM CDT Pauline Bhat MD LAB MICROBIOLOGY - GEN ERAL ORDERABLES Final Result Performing Organization Address [facility] Co de Phone Number [facility] [place] [address] * Stool culture Stool Rectum (03/16/2025 11:20 PM CDT) Direct Specimen Exam Shiga Toxin Testing: Antigen detection assay for Shiga-toxin NEGATIVE for Shiga Toxin 1 and Shiga Toxin 2. Report Final Report: No growth of enteric bacterial pathogens [facility] Stool (Rectum) 03/16/2025 11 :20 PM CDT 03/17/2025 12:56 AM CDT Narrative [facility] 03/21/2025 10:38 AM CDT Testing performed by [facility] ([phone]). Routine stool cultures include procedures to detect Salmonella, Shigella, Edwardsiella, Aeromonas, Pleisiomonas, Campylobacter, Yersinia, E. coli O157, and Shiga-like toxins. Vibrio is cultured only upon special request. If Vibrio is suspected, please call the laboratory at [phone]. Interpretive data was last updated January 13, 2017. Pauline Bhat MD LAB MICROBIOLOGY - GEN ERAL ORDERABLES Final Result Performing Organization Address City/[facility]/ZIP Co de Phone Number [facility] [place] [address] * Infection Prevention VRE Culture Stool (03/16/2025 11:19 PM CDT) Report Final Report: Negative Stool 03/16/2025 11:1 9 PM CDT 03/17/2025 5:28 AM CDT Narrative [facility] 03/19/2025 8:23 AM CDT Surveillance culture for Infection Prevention purposes only; results indicate colonization, not infection requiring treatment. Testing performed by [facility] ([phone]). us Gary Verdin MD LAB MICROBIOLOGY - GENE RAL ORDERABLES Final Result Performing Organization Address City/[facility] Co de Phone Number [facility] Department [place] [address] * US Kidney Complete (03/16/2025 2:26 PM [...] Prosper Brooks M.D. us Pauline Bhat MD [facility] US PROCEDURES Tonia l Result * BK virus PCR quantitative Blood (03/16/2025 5:41 AM CDT) Pathologist [facility] BKV DNA result, pl Not Detected [facility] Comment: The quantifiable range of this assay is 21.5 IU/mL to 100,000,000 IU/mL (1.33 log IU/mL to 8.00 log IU/mL). Testing was performed by the JIMMY 6800 BKV Quantatitive Test version 2.0 ([employer] Testing performed at [facility] Current Interpretive Data was last revised on 2021. Blood 03/16/2025 5:41 AM CDT 03/16/2025 6:28 AM CDT Pauline Bhat MD LAB MICROBIOLOGY - GEN ERAL ORDERABLES Final Result [facility] Department [place] [address] [facility] * (ABNORMAL) Cytomegalovirus (CMV) DNA PCR, quantitative Blood (03/16/2025 5:41 AM CDT) [facility] CMV DNA Detected( A) [facility] Comment: Interpretive Data: The quantifiable range of this assay is 34 IUnits/mL to 10,000,000 IUnits/mL (1.53 log IUnits/mL to 7.0 log IUnits/mL). Testing was performed by the JIMMY 6800 CMV Test ([employer] Testing performed at [facility]. Current interpretive data was last revised on 2021. CMV DNA IU/mL 124 IUnits/mL [facility] CMV DNA log IU/mL 2.09 log IUnits/mL [facility] Blood 03/16/2025 5:41 AM CDT 03/16/2025 6:28 AM CDT Result [facility] Pauline Bhat MD LAB MICROBIOLOGY - GEN ERAL ORDERABLES Final Result Performing Organization Address [facility] Co de Phone Number SUMAYA [facility] [place] [address] [facility] * (ABNORMAL) eGFR (03/16/2025 5:41 AM CDT) Pathologist [facility] eGFR 6(L) >=60 mL/min/1. 73 m2 Comment: [...] ORDERABLES F inal Result Performing Organization Address City/[facility]/ZIP Co de Phone Number SUMAYA [facility] Department [place] [address] * (ABNORMAL) Differential, auto (03/16/2025 5:41 AM CDT) Pathologist [facility] Neutrophil abs 0.57(L) 1.50 - 6.50 K/cumm Imm gran abs 0.09 0.00 - 0.10 K/cumm [facility] Lymphocyte abs 0.52(L) 0.80 - 3.30 K/cumm [facility] Monocyte abs 0.17(L) 0.20 - 0.80 K/cumm [facility] Eosinophil abs 0.03 0.00 - 0.50 K/cumm [facility] Basophil abs 0.01 0.00 - 0.10 K/cumm [facility] Neutrophil pct 41.0 % [facility] Comment: Interpretive Data Percent cell count reference ranges are not reported, since discordance with absolute values may lead to misinterpretation of CBC data. Current Interpretive Data was last revised on 2017. Imm gran pct 6.5 % [facility] Comment: Interpretive Data Percent cell count reference ranges are not reported, since discordance with absolute values may lead to misinterpretation of CBC data. Current Interpretive Data was last revised on 2017. Lymphocyte pct 37.4 % [facility] Comment: Interpretive Data Percent cell count reference ranges are not reported, since discordance with absolute values may lead to misinterpretation of CBC data. Current Interpretive Data was last revised on 2017. Monocyte pct 12.2 % [facility] Comment: Interpretive Data Percent cell count reference ranges are not reported, since discordance with absolute values may lead to misinterpretation of CBC data. Current Interpretive Data was last revised on 2017. Eosinophil pct 2.2 % [facility] Comment: Interpretive Data Percent cell count reference ranges are not reported, since discordance with absolute values may lead to misinterpretation of CBC data. Current Interpretive Data was last revised on 2017. Basophil pct 0.7 % [facility] Comment: Interpretive Data Percent cell count reference ranges are not reported, since discordance with absolute values may lead to misinterpretation of CBC data. Current Interpretive Data was last revised on 2017. Blood 03/16/2025 5:41 AM CDT 03/16/2025 6:25 AM CDT us Pauline Bhat MD LAB BLOOD ORDERABLES F inal Result [facility] Department [place] [address] * Tacrolimus level trough (03/16/2025 5:41 AM CDT) Pathologist [facility] Tacrolimus trough 5.5 ng/mL Comment: Interpretive Data Testing performed by liquid chromatography-tandem mass spectrometry. Therapeutic concentrations vary depending on type of transplanted organ and time elapsed since transplant. Typical trough concentrations range from 5-15 ng/mL. This test was developed and its performance characteristics determined by the [facility] consistent with CLIA requirements. This test has not been cleared or approved by the [place] Food and Drug administration. Current interpretive data last reviewed 2019. Blood 03/16/2025 5:41 AM CDT 03/16/2025 6:25 AM CDT Pauline Bhat MD LAB BLOOD ORDERABLES F inal Result Performing Organization Address [facility] Co de Phone Number [facility] [place] [address] * (ABNORMAL) Iron profile w/ IBC (03/16/2025 5:41 AM CDT) [facility] Iron 191(H) 35 - 145 mcg/dL TIBC <208(L) 250 - 400 mcg/dL [facility] Transferrin saturation >92(H) 20 - 50 % [facility] Blood 03/16/2025 5:41 AM CDT 03/16/2025 6:24 AM CDT Pauline Bhat MD LAB BLOOD ORDERABLES F inal Result Performing Organization Address City/[facility]/ZIP Co de Phone Number [facility] [place] [address] * (ABNORMAL) CBC with auto differential (03/16/2025 5:41 AM CDT) [facility] WBC 1.39(L) 3.80 - 9.90 K/cumm Hgb 7.5(L) 11.9 - 15.5 g/dL [facility] Hct 22.3(L) 35.6 - 45.5 % [facility] Plt 124(L) 150 - 400 K/cumm [facility] MPV 10.7 9.1 - 12.3 fL [facility] RBC 2.20(L) 3.90 - 5.20 M/cumm [facility] MCV 101.4(H) 81.3 - 96.4 fL [facility] MCH 34.1(H) 27.1 - 33.3 pg [facility] MCHC 33.6 32.3 - 35.7 g/dL [facility] RDW CV 22.5(H) 11.1 - 14.9 % [facility] RDW SD 81.2(H) 35.7 - 48.1 fL [facility] NRBC abs 0.00 0.00 - 0.01 K/cumm [facility] Blood 03/16/2025 5:41 AM CDT 03/16/2025 6:25 AM CDT Pauline Bhat MD LAB BLOOD ORDERABLES F inal Result [facility] Department [place] [address] * Copper, serum (03/16/2025 5:41 AM CDT) [facility] Copper 90 77 - 206 mcg/dL [place] ref [facility] Comment: ADDITIONAL INFORMATION This test was developed and its performance characteristics determined by [facility] in a manner consistent with CLIA requirements. This test has not been cleared or approved by the U.S. Food and Drug Administration. Test Performed by: [facility] - [address] [address] [employer] Operator: Bryson Craft Ph.D.; CLIA# [id number] Blood 03/16/2025 5:41 AM CDT 03/16/2025 6:24 AM CDT Pauline Bhat MD LAB BLOOD ORDERABLES F inal Result Performing Organization Address City/[facility] Co de Phone Number [facility] [place] [address] [place] [facility] * Zinc (03/16/2025 5:41 AM CDT) Zinc 66 60 - 106 mcg/dL [facility] Comment: ADDITIONAL INFORMATION This test was developed and its performance characteristics determined by [facility] in a manner consistent with CLIA requirements. This test has not been cleared or approved by the U.S. Food and Drug Administration. Test Performed by: [place] [id number] [employer] Operator: Bryson Craft Ph.D.; CLIA# [id number] Blood 03/16/2025 5:41 AM CDT 03/16/2025 6:24 AM CDT Pauline Bhat MD LAB BLOOD ORDERABLES F inal Result Performing Organization Address [facility] de Phone Number SUMAYA [facility] [place] [address] [place] ref [facility] * Phosphorus (03/16/2025 5:41 AM CDT) Phosphorus, pl 4.0 2.3 - 4.5 mg/dL Blood 03/16/2025 5:41 AM CDT 03/16/2025 6:24 AM CDT Pauline Bhat MD LAB BLOOD ORDERABLES F inal Result Performing Organization Address City/[facility] Co de Phone Number SUMAYA [facility] [place] [address] * Magnesium (03/16/2025 5:41 AM CDT) [facility] Magnesium 2.3 1.4 - 2.5 mg/dL Blood 03/16/2025 5:41 AM CDT 03/16/2025 6:24 AM CDT Pauline Bhat MD LAB BLOOD ORDERABLES F inal Result Performing Organization Address City/[facility]/ZIP Co de Phone Number [facility] [place] [address] * (ABNORMAL) Ferritin (03/16/2025 5:41 AM CDT) [facility] Ferritin 868(H) 13 - 150 ng/mL Blood 03/16/2025 5:41 AM CDT 03/16/2025 6:24 AM CDT Pauline Bhat MD LAB BLOOD ORDERABLES F inal Result Performing Organization Address City/[facility] de Phone Number [facility] Department [place] [address] * (ABNORMAL) Comprehensive metabolic panel (03/16/2025 5:41 AM CDT) [facility] Sodium 141 135 - 145 mmol/L Potassium, pl 4.1 3.3 - 4.9 mmol/L [facility] Chloride 107 97 - 110 mmol/L [facility] CO2 20(L) 22 - 32 mmol/L [facility] Anion gap 14 2 - 15 mmol/L [facility] BUN 76(H) 6 - 25 mg/dL [facility] Creatinine 7.19(H) 0.60 - 1.10 mg/dL [facility] Glucose 81 70 - 199 mg/dL [facility] Comment: Interpretive Data Fasting glucose >/= 126 [...] 2022. Calcium 9.1 8.5 - 10.3 mg/dL [facility] Bilirubin, total 0.3 0.1 - 1.2 mg/dL [facility] Protein, pl 6.7 6.5 - 8.5 g/dL [facility] Albumin 3.9 3.5 - 5.0 g/dL [facility] Alk phos 72 40 - 130 Units/L [facility] ALT 6(L) 7 - 45 Units/L [facility] AST 20 10 - 45 Units/L [facility] Blood 03/16/2025 5:41 AM CDT 03/16/2025 6:24 AM CDT Pauline Bhat MD LAB BLOOD ORDERABLES F inal Result Performing Organization Address City/State/[facility] Co de Phone Number [facility] [place] [address] * Infection Prevention Devora auris PCR, surveillance Axilla/Groin (03/15/2025 1:04 PM CDT) 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 This assay detects DNA from Devora auris using Real-Time PCR. This assay is laboratory developed and is not cleared by the [place] Food and Drug Administration. The performance characteristics have been verified by the [facility]. Axilla/Groin 03/15/2025 1:04 PM CDT 03/15/2025 2:07 PM CDT Lito Robertson MD LAB MICROBIOLOGY - GENERAL ORDER ALEX Final Result Performing Organization Address City/State/[facility] de Phone Number [facility] [place] [address] [facility] * (ABNORMAL) Protein / creatinine ratio, urine, random (03/15/2025 1:04 PM CDT) Protein, ur, quant 31.5 mg/dL Comment: Interpretive Data No reference range established. Current interpretive data was last revised 2019. Creatinine Ur 114.6 mg/dL [facility] Comment: Interpretive Data No reference range established. Current interpretive data was last revised 2019. Protein/creatinin e ratio 274.9(H) 0.0 - 180.0 mg/g CR [facility] Urine 03/15/2025 1:04 PM CDT 03/15/2025 2:09 PM CDT us Pauline Bhat MD LAB URINE ORDERABLES F inal Result Performing Organization Address [facility] Co de Phone Number [facility] [place] [address] * US ROBBI (03/15/2025 11:44 AM CDT) Anatomical Region Laterality Modality Vascular N/A Ultrasound 03/15/2025 11:0 8 AM CDT Narrative 03/21/2025 12:43 PM CDT [facility] - Department of Vascular Surgery, Vascular Laboratory [address] [place] [address] Lower Extremity Arterial Doppler Report Patient Name: HANNAH BOYD : 1960 Study Date: 03/15/2025 11:08:00 AM Gender: F Tech: Tamela Muñoz RVT Location: [id number] Ref Provider: PALUINE BHAT Quality: Adequate Order Provider: PAULINE BHAT PROCEDURES: Arterial Report: Ankle - Brachial Index Doppler exam. INDICATIONS: Leg pain. MEASUREMENTS: Right Value Units Left Value Units Rt Brachial Pressure 128 mmHg Lt Brachial Pressure IV mmHg Rt APPEALS REPRESENTATIVE Pressure >254 mmHg Lt APPEALS REPRESENTATIVE Pressure 168 mmHg Rt DPA Pressure >254 mmHg Lt DPA Pressure 182 mmHg Rt 1st Digit Pressure 118 mmHg Lt 1st Digit Pressure 122 mmHg Rt PT ROBBI Resting NC Lt PT ROBBI Resting 1.31 Rt AT ROBBI Resting NC Lt AT ROBBI Resting 1.42 Rt Digit/Arm Index 0.92 Lt Digit/Arm Index 0.95 Right Value Units Left Value Units FINDINGS: Performing Hair Assistant: Tamela Muñoz RVT. Right Posterior Tibial Artery [...] above. Electronically Signed By: Cesar Isaacs MD [facility] [phone] 03/21/2025 11:55:03 AM CDT Procedure Note Cesar Isaacs MD - 03/21/2025 [facility] - Department of Vascular Surgery,Vascular Laboratory [address] [place] [address] Lower Extremity Arterial Doppler Report Patient Name: HANNAH BOYD : 1960 Study Date: 03/15/2025 11:08:00 AM Gender: F Tech: Tamela Muñoz RVT Location: [id number] Ref Provider: PAULINE BHAT Quality: Adequate Order Provider: PAULINE BHAT PROCEDURES: Arterial Report: Ankle - Brachial Index Doppler exam. INDICATIONS: Leg pain. MEASUREMENTS: Right Value Units Left Value Units Rt Brachial Pressure 128 mmHg Lt Brachial Pressure IV mmHg Rt APPEALS REPRESENTATIVE Pressure >254 mmHg Lt APPEALS REPRESENTATIVE Pressure 168 mmHg Rt DPA Pressure >254 mmHg Lt DPA Pressure 182 mmHg Rt 1st Digit Pressure 118 mmHg Lt 1st Digit Pressure 122 mmHg Rt PT ROBBI Resting NC Lt PT ROBBI Resting 1.31 Rt AT ROBBI Resting NC Lt AT ROBBI Resting 1.42 Rt Digit/Arm Index 0.92 Lt Digit/Arm Index 0.95 Right Value Units Left Value Units FINDINGS: Performing Hair Assistant: Tamela Muñoz RVT. Right Posterior Tibial Artery [...] above. Electronically Signed By: Cesar Isaacs MD [facility] [phone] 03/21/2025 11:55:03 AM CDT us Pauline Bhat MD [facility] US PROCEDURES Tonia l Result * (ABNORMAL) [...] LAB BLOOD ORDERABLES F inal Result [facility] Department [place] [address] * Tacrolimus level trough (03/15/2025 5:32 AM CDT) Tacrolimus trough 6.6 ng/mL Comment: Interpretive Data Testing performed by liquid chromatography-tandem mass spectrometry. Therapeutic concentrations vary depending on type of transplanted organ and time elapsed since transplant. Typical trough concentrations range from 5-15 ng/mL. This test was developed and its performance characteristics determined by the [facility] consistent with CLIA requirements. This test has not been cleared or approved by the US Food and Drug administration. Current interpretive data last reviewed 2019. Blood 03/15/2025 5:32 AM CDT 03/15/2025 6:25 AM CDT Pauline Bhat MD LAB BLOOD ORDERABLES F inal Result Performing Organization Address City/[facility]/ZIP Co de Phone Number [facility] Department [place] [address] * (ABNORMAL) Basic metabolic panel (03/15/2025 5:32 AM CDT) [facility] Sodium 136 135 - 145 mmol/L Potassium, pl 3.7 3.3 - 4.9 mmol/L [facility] Chloride 105 97 - 110 mmol/L [facility] CO2 19(L) 22 - 32 mmol/L [facility] Anion gap 12 2 - 15 mmol/L [facility] BUN 84(H) 6 - 25 mg/dL [facility] Creatinine 7.79(H) 0.60 - 1.10 mg/dL [facility] Glucose 89 70 - 199 mg/dL [facility] Comment: Interpretive Data Fasting glucose >/= 126 [...] 2022. Calcium 8.7 8.5 - 10.3 mg/dL [facility] Blood 03/15/2025 5:32 AM CDT 03/15/2025 6:25 AM CDT Pauline Bhat MD LAB BLOOD ORDERABLES F inal Result Performing Organization Address City/[facility]/ZIP Co de Phone Number [facility] Department [place] [address] * (ABNORMAL) Urinalysis reflex to microscopic and culture Urine (03/15/2025 12:29 AM CDT) Color, ur Yellow Yellow Clarity, ur Cloudy(A) Clear [facility] Specific gravity, ur 1.018 1.003 - 1.030 [facility] pH, urine 6.0 [facility] Comment: Interpretive Data U rine pH is affected by diet, medications, systemic acid-base disturbances, and renal tubular function. pH may affect urinary stone formation. For example, urine pH below 6.0 may help reduce the tendency for calcium phosphate stones and pH greater than 6.0 may reduce the tendency for uric acid stone formation. Source: [facility] Current Interpretive Data was last revised on 2017 Protein, ur ql 1+(A) Negative [facility] Glucose, ur ql Negative Negative [facility] Ketones, ur Negative Negative [facility] Bilirubin, ur Negative Negative [facility] Blood, ur Trace(A) Negative [facility] Urobilinogen, ur <2.0 <2.0 mg/dL [facility] Nitrite, ur Negative Negative [facility] Leukocyte esterase, ur 3+(A) Negative [facility] UA reflex comment Reflex to microscopic UA will be performed. [facility] Urine 03/15/2025 12:2 9 AM CDT 03/15/2025 12:48 AM CDT Pauline Bhat MD LAB MICROBIOLOGY - GEN ERAL ORDERABLES Final Result [facility] [place] [address] * Sodium, urine, random (03/15/2025 12:29 AM CDT) Sodium, ur 31 mmol/L Comment: Interpretive Data No reference range established. Current interpretive data was last revised 2019. Urine (Urine, Clean Catch) 03/15/2025 12:29 AM CDT 03/15/2025 12:54 AM CDT Pauline Bhat MD LAB URINE ORDERABLES F inal Result Performing Organization Address [facility] de Phone Number [facility] [place] [address] * Potassium, urine, random (03/15/2025 12:29 AM CDT) Potassium conc, ur 29.5 mmol/L Comment: Interpretive Data No reference range established. Current interpretive data was last revised 2019. Urine (Urine, Clean Catch) 03/15/2025 12:29 AM CDT 03/15/2025 12:54 AM CDT Pauline Bhat MD LAB URINE ORDERABLES F inal Result Performing Organization Address [facility] [place] [address] * Creatinine, urine, random (03/15/2025 12:29 AM CDT) Creatinine Ur 170.7 mg/dL Comment: Interpretive Data No reference range established. Current interpretive data was last revised 2019. Urine 03/15/2025 12:2 9 AM CDT 03/15/2025 12:54 AM CDT Pauline Bhat MD LAB URINE ORDERABLES F inal Result Performing Organization Address [facility] de Phone Number [facility] [place] [address] * (ABNORMAL) Urinalysis, microscopic only (03/15/2025 12:29 AM CDT) WBC, ur >50(A) 0 - 5 /HPF RBC, ur 3-5(A) 0 - 2 /HPF [facility] Epithelial cells, squamous, ur 1-5 0 - 5 /HPF [facility] Bacteria, ur 3+(A) [facility] Mucous, ur Present(A) [facility] Culture Reflex Comment Reflex to urine culture will be performed. [facility] Urine 03/15/2025 12:2 9 AM CDT 03/15/2025 12:48 AM CDT us Pauline Bhat MD LAB URINE ORDERABLES F inal Result [facility] Department [place] [address] * (ABNORMAL) Urine culture Urine (03/15/2025 12:29 AM CDT) Report Final Report: Greater than or equal to 100,000 colonies/mL of Proteus vulgaris group Greater than or equal to 100,000 colonies/mL of Klebsiella variicola (.) Organism PROTEUS VULGARIS GROUP [facility] Organism KLEBSIELLA VARIICOLA [facility] Urine 03/15/2025 12:2 9 AM CDT 03/15/2025 1:27 AM CDT Narrative [facility] - 03/17/2025 10:58 AM CDT Urine culture reflexed based upon urinalysis results. Testing performed by [facility] ([phone]) Organism Antibiotic Method Susceptibility Proteus vulgaris group [...] INTERPRETATION Susceptible Klebsiella variicola Cefdinir INTERPRETATION Susceptible Pauline Bhat MD LAB MICROBIOLOGY - GEN ERAL ORDERABLES Final Result Performing Organization Address [facility] Co de Phone Number [facility] Department [place] [address] * (ABNORMAL) eGFR (03/14/2025 10:24 PM CDT) [facility] eGFR 5(L) >=60 mL/min/1. 73 m2 Comment: [...] ORDERABLES F inal Result Performing Organization Address City/[facility]/ZIP Co de Phone Number [facility] Department [place] [address] * Respiratory pathogen panel Nasopharyngeal (03/14/2025 10:24 PM CDT) [facility] Influenza A RNA Not Detected Not Detected Influenza B RNA Not Detected Not Detected [facility] RSV RNA Not Detected Not Detected [facility] COVID-19 RNA Not Detected Not Detected [facility] Coronavirus 229E RNA Not Detected Not Detected [facility] Coronavirus HKU1 RNA Not Detected Not Detected [facility] Coronavirus NL63 RNA Not Detected Not Detected [facility] Coronavirus OC43 RNA Not Detected Not Detected [facility] Adenovirus DNA Not Detected Not Detected [facility] Metapneumovirus RNA Not Detected Not Detected [facility] Rhinovirus/Enterov irus RNA Not Detected Not Detected [facility] Parainfluenza 1 RNA Not Detected Not Detected [facility] Parainfluenza 2 RNA Not Detected Not Detected [facility] Parainfluenza 3 RNA Not Detected Not Detected [facility] Parainfluenza 4 RNA Not Detected Not Detected [facility] B. pertussis DNA Not Detected Not Detected [facility] B. parapertussis DNA Not Detected Not Detected [facility] C. pneumoniae DNA Not Detected Not Detected [facility] M. pneumoniae DNA Not Detected Not Detected [facility] Nasopharyngeal 03/14/2025 10 :24 PM CDT 03/14/2025 11:15 PM CDT Narrative [facility] - 03/15/2025 12:26 AM CDT Is the Patient experiencing symptoms consistent with COVID?->Unknown Surveillance testing for transplant patient?->No Interpretive Data The [employer] FilmArray Respiratory Panel (RP2.1) assay is a [...] assay has FDA clearance for testing of IN [place] swabs. The performance of additional specimen types has been assessed by the performing laboratory. The performance characteristics of this assay have been determined by [facility] Molecular Infectious Disease Laboratory. Current interpretive data was last revised on 22. Pauline Bhat MD LAB MICROBIOLOGY - GEN ERAL ORDERABLES Final Result [facility] Department [place] [address] * (ABNORMAL) CBC with auto differential (03/14/2025 10:24 PM CDT) WBC 1.65(L) 3.80 - 9.90 K/cumm Hgb 7.9(L) 11.9 - 15.5 g/dL [facility] Hct 23.6(L) 35.6 - 45.5 % [facility] Plt 133(L) 150 - 400 K/cumm [facility] MPV 10.4 9.1 - 12.3 fL [facility] RBC 2.36(L) 3.90 - 5.20 M/cumm [facility] MCV 100.0(H) 81.3 - 96.4 fL [facility] MCH 33.5(H) 27.1 - 33.3 pg [facility] MCHC 33.5 32.3 - 35.7 g/dL [facility] RDW CV 22.5(H) 11.1 - 14.9 % [facility] RDW SD 79.3(H) 35.7 - 48.1 fL [facility] NRBC abs 0.00 0.00 - 0.01 K/cumm [facility] Blood 03/14/2025 10:2 4 PM CDT 03/14/2025 11:13 PM CDT us Pauline Bhat MD LAB BLOOD ORDERABLES F inal Result [facility] Department [place] [address] * (ABNORMAL) Manual Differential (03/14/2025 10:24 PM CDT) Differential Manual Cells Counted 116 [facility] Neutrophil abs 0.95(L) 1.50 - 6.50 K/cumm [facility] Lymphocyte abs 0.58(L) 0.80 - 3.30 K/cumm [facility] Monocyte abs 0.09(L) 0.20 - 0.80 K/cumm [facility] Eosinophil abs 0.01 0.00 - 0.50 K/cumm [facility] Basophil abs 0.01 0.00 - 0.10 K/cumm [facility] Neutrophil pct 57.7 % [facility] Comment: Interpretive Data Percent cell count reference ranges are not reported, since discordance with absolute values may lead to misinterpretation of CBC data. Current Interpretive Data was last revised on 2017. Lymphocyte pct 35.3 % [facility] Comment: Interpretive Data Percent cell count reference ranges are not reported, since discordance with absolute values may lead to misinterpretation of CBC data. Current Interpretive Data was last revised on 2017. Monocyte pct 5.2 % [facility] Comment: Interpretive Data Percent cell count reference ranges are not reported, since discordance with absolute values may lead to misinterpretation of CBC data. Current Interpretive Data was last revised on 2017. Eosinophil pct 0.9 % [facility] Comment: Interpretive Data Percent cell count reference ranges are not reported, since discordance with absolute values may lead to misinterpretation of CBC data. Current Interpretive Data was last revised on 2017. Basophil pct 0.9 % [facility] Comment: Interpretive Data Percent cell count reference ranges are not reported, since discordance with absolute values may lead to misinterpretation of CBC data. Current Interpretive Data was last revised on 2017. RBC morphology Normal [facility] Platelet clumping Present(A) [facility] Blood 03/14/2025 10:2 4 PM CDT 03/14/2025 11:17 PM CDT Pauline Bhat MD LAB BLOOD ORDERABLES E dited Result - Final [facility] [place] [address] * Phosphorus (03/14/2025 10:24 PM CDT) Phosphorus, pl 4.2 2.3 - 4.5 mg/dL Blood 03/14/2025 10:2 4 PM CDT 03/14/2025 11:13 PM CDT Pauline Bhat MD LAB BLOOD ORDERABLES F inal Result [facility] [place] [address] * Magnesium (03/14/2025 10:24 PM CDT) Magnesium 2.3 1.4 - 2.5 mg/dL Blood 03/14/2025 10:2 4 PM CDT 03/14/2025 11:13 PM CDT us Pauline Bhat MD LAB BLOOD ORDERABLES F inal Result [facility] [place] [address] * (ABNORMAL) Comprehensive metabolic panel (03/14/2025 10:24 PM CDT) Sodium 135 135 - 145 mmol/L Potassium, pl 3.8 3.3 - 4.9 mmol/L [facility] Chloride 102 97 - 110 mmol/L [facility] CO2 18(L) 22 - 32 mmol/L [facility] Anion gap 15 2 - 15 mmol/L [facility] BUN 87(H) 6 - 25 mg/dL [facility] Creatinine 8.48(H) 0.60 - 1.10 mg/dL [facility] Glucose 122 70 - 199 mg/dL [facility] Comment: Interpretive Data Fasting glucose >/= 126 [...] 2022. Calcium 9.1 8.5 - 10.3 mg/dL [facility] Bilirubin, total 0.3 0.1 - 1.2 mg/dL [facility] Protein, pl 7.2 6.5 - 8.5 g/dL [facility] Albumin 4.2 3.5 - 5.0 g/dL [facility] Alk phos 72 40 - 130 Units/L [facility] ALT 9 7 - 45 Units/L [facility] AST 18 10 - 45 Units/L [facility] Blood 03/14/2025 10:2 4 PM CDT 03/14/2025 11:13 PM CDT Pauline Bhat MD LAB BLOOD ORDERABLES F inal Result [facility] [place] [address] * Pulmonary Function Test - (03/14/2025 9:42 AM CDT) FVC PRE 2.36 L [facility] FVC %PRE PRED 76 % [facility] FEV1 PRE 1.83 L [facility] FEV1 %PRE PRED 75 % [facility] FEV1/FVC PRE 77.4 % [facility] Anatomical Region Laterality Modality PFT 03/14/2025 9:32 AM CDT Narrative 03/14/2025 12:23 PM CDT PFT performed at:->[facility] Adult PFT Lab- [facility] Procedure:->Spirometry Procedure:->Pulse Ox Pulmonary Function Test Interpretation [...] and %HbO2 is age dependent. However, the [facility] defines hypoxemia as a PaO2 <56 mm Hg or a %HbO2 <89%. Starting on September of 2024 the [facility] utilizes race neutral GLI Global normative equations. Pauline Bhat MD PFT ORDERABLES Final Result * (ABNORMAL) Blood smear review (03/14/2025 9:15 AM CDT) RBC morphology Present(A) Hypochromasia 3-7/HPF(A) [facility] Anisocytosis Slight(A) [facility] Poikilocytosis Slight(A) [facility] Microcytes 3-7/HPF(A) [facility] Macrocytes 3-7/HPF(A) [facility] Schistocytes 1-2/HPF(A) [facility] Acanthocytes 3-7/HPF(A) [facility] Platelet estimate Adequate [facility] Blood 03/14/2025 9:15 AM CDT 03/14/2025 10:00 AM CDT us Pauline Bhat MD LAB BLOOD ORDERABLES F inal Result [facility] [place] [address] * (ABNORMAL) eGFR (03/14/2025 9:15 AM CDT) [...] MD LAB BLOOD ORDERABLES F inal Result [facility] [place] [address] * (ABNORMAL) Differential, auto (03/14/2025 9:15 AM CDT) Neutrophil abs 0.82(L) 1.50 - 6.50 K/cumm Imm gran abs 0.05 0.00 - 0.10 K/cumm [facility] Lymphocyte abs 0.93 0.80 - 3.30 K/cumm [facility] Monocyte abs 0.25 0.20 - 0.80 K/cumm [facility] Eosinophil abs 0.05 0.00 - 0.50 K/cumm [facility] Basophil abs 0.01 0.00 - 0.10 K/cumm [facility] Neutrophil pct 38.8 % [facility] Comment: Interpretive Data Percent cell count reference ranges are not reported, since discordance with absolute values may lead to misinterpretation of CBC data. Current Interpretive Data was last revised on 2017. Imm gran pct 2.4 % [facility] Comment: Interpretive Data Percent cell count reference ranges are not reported, since discordance with absolute values may lead to misinterpretation of CBC data. Current Interpretive Data was last revised on 2017. Lymphocyte pct 44.1 % [facility] Comment: Interpretive Data Percent cell count reference ranges are not reported, since discordance with absolute values may lead to misinterpretation of CBC data. Current Interpretive Data was last revised on 2017. Monocyte pct 11.8 % [facility] Comment: Interpretive Data Percent cell count reference ranges are not reported, since discordance with absolute values may lead to misinterpretation of CBC data. Current Interpretive Data was last revised on 2017. Eosinophil pct 2.4 % [facility] Comment: Interpretive Data Percent cell count reference ranges are not reported, since discordance with absolute values may lead to misinterpretation of CBC data. Current Interpretive Data was last revised on 2017. Basophil pct 0.5 % [facility] Comment: Interpretive Data Percent cell count reference ranges are not reported, since discordance with absolute values may lead to misinterpretation of CBC data. Current Interpretive Data was last revised on 2017. Blood 03/14/2025 9:15 AM CDT 03/14/2025 9:57 AM CDT Pauline Bhat MD LAB BLOOD ORDERABLES F inal Result Performing Organization Address [facility] de Phone Number [facility] [place] [address] * Tacrolimus level trough (03/14/2025 9:15 AM CDT) Pathologist [facility] Tacrolimus trough 7.9 ng/mL Comment: Interpretive Data Testing performed by liquid chromatography-tandem mass spectrometry. Therapeutic concentrations vary depending on type of transplanted organ and time elapsed since transplant. Typical trough concentrations range from 5-15 ng/mL. This test was developed and its performance characteristics determined by the [facility] consistent with CLIA requirements. This test has not been cleared or approved by the US Food and Drug administration. Current interpretive data last reviewed 2019. Blood 03/14/2025 9:15 AM CDT 03/14/2025 9:50 AM CDT Pauline Bhat MD LAB BLOOD ORDERABLES F inal Result Performing Organization Address [facility] de Phone Number [facility] Department [place] [address] * (ABNORMAL) CBC with auto differential (03/14/2025 9:15 AM CDT) Pathologist [facility] WBC 2.11(L) 3.80 - 9.90 K/cumm Hgb 8.1(L) 11.9 - 15.5 g/dL [facility] Hct 24.1(L) 35.6 - 45.5 % [facility] Plt 150 150 - 400 K/cumm [facility] MPV 10.7 9.1 - 12.3 fL [facility] RBC 2.38(L) 3.90 - 5.20 M/cumm [facility] MCV 101.3(H) 81.3 - 96.4 fL [facility] MCH 34.0(H) 27.1 - 33.3 pg [facility] MCHC 33.6 32.3 - 35.7 g/dL [facility] RDW CV 22.7(H) 11.1 - 14.9 % [facility] RDW SD 82.1(H) 35.7 - 48.1 fL [facility] NRBC abs 0.02(H) 0.00 - 0.01 K/cumm [facility] Blood 03/14/2025 9:15 AM CDT 03/14/2025 9:57 AM CDT Pauline Bhat MD LAB BLOOD ORDERABLES F inal Result [facility] Department [place] [address] * Vitamin D 25 hydroxy (03/14/2025 9:15 AM CDT) Vitamin D 25-OH 30 30 - 80 ng/mL Blood 03/14/2025 9:15 AM CDT 03/14/2025 9:50 AM CDT Pauline Bhat MD LAB BLOOD ORDERABLES F inal Result [facility] [place] [address] * TSH (03/14/2025 9:15 AM CDT) Thyroid Stimulating Hormone 0.95 0.30 - 4.20 mcIUnit/mL Blood 03/14/2025 9:15 AM CDT 03/14/2025 9:50 AM CDT Pauline Bhat MD LAB BLOOD ORDERABLES F inal Result Performing Organization Address City/[facility] Co de Phone Number [facility] [place] [address] * T4, free (03/14/2025 9:15 AM CDT) Pathologist [facility] Free T4 0.93 0.90 - 1.70 ng/dL Blood 03/14/2025 9:15 AM CDT 03/14/2025 9:50 AM CDT Pauline Bhat MD LAB BLOOD ORDERABLES F inal Result Performing Organization Address [facility] [place] [address] * (ABNORMAL) Hemoglobin A1c (03/14/2025 9:15 AM CDT) [facility] Hgb A1C 6.2(H) 4.0 - 5.6 % Estimated Average Glucose 131 mg/dL [facility] Comment: The ADA recommends reporting an estimated [...] ORDERABLES F inal Result Performing Organization Address [facility] [place] [address] * (ABNORMAL) Lipid panel (03/14/2025 9:15 AM [...] revised on 2018. Triglycerides 306(H) <=149 mg/dL [facility] Comment: Interpretive Data Ages < or = [...] revised on 2018. HDL 36(L) >=40 mg/dL [facility] Comment: Interpretive Data Ages < or = [...] 2018. LDL, calculated 126 <=129 mg/dL [facility] Comment: Interpretive Data Ages < or = [...] 3. Yann Hernández et al. SANAZ Cardiol. 2020 January 06;5(5):540-548. doi: [email or web address] Current Interpretive Data was last revised on 2024. Non-HDL Cholesterol 180 mg/dL [facility] Comment: Interpretive Data Ages < or = [...] last revised on 2018. Chol/HDL ratio 6 [facility] Blood 03/14/2025 9:15 AM CDT 03/14/2025 9:50 AM CDT us Pauline Bhat MD LAB BLOOD ORDERABLES F inal Result [facility] [place] [address] * (ABNORMAL) Comprehensive metabolic panel (03/14/2025 9:15 AM CDT) Sodium 133(L) 135 - 145 mmol/L Potassium, pl 4.1 3.3 - 4.9 mmol/L [facility] Comment:Hemolyzed; Potassium value may be falsely elevated by as much as 0.6-1.0 mmol/L. Suggest redraw and reanalysis. Chloride 102 97 - 110 mmol/L [facility] CO2 13(L) 22 - 32 mmol/L [facility] Anion gap 18(H) 2 - 15 mmol/L [facility] BUN 84(H) 6 - 25 mg/dL [facility] Creatinine 7.94(H) 0.60 - 1.10 mg/dL [facility] Glucose 127 70 - 199 mg/dL [facility] Comment: Interpretive Data Fasting glucose >/= 126 [...] 2022. Calcium 9.4 8.5 - 10.3 mg/dL [facility] Bilirubin, total 0.4 0.1 - 1.2 mg/dL [facility] Protein, pl 7.2 6.5 - 8.5 g/dL [facility] Albumin 3.9 3.5 - 5.0 g/dL [facility] Alk phos 73 40 - 130 Units/L [facility] ALT 7 7 - 45 Units/L [facility] AST 29 10 - 45 Units/L [facility] Comment:Hemolyzed; result ma y be falsely elevated Blood 03/14/2025 9:15 AM CDT 03/14/2025 9:50 AM CDT us Pauline Bhat MD LAB BLOOD ORDERABLES F inal Result [facility] Department of [place] [address] * XR Chest Pa Lateral 2 Views [...] noted. Electronically signed by: Starr Kohli M.D. [facility] 03/14/2025 9:07 AM CDT EXAMINATION: 2 view [...] Current interpretive data was last reviewed 2021. [facility] [place], [address] [place] [address]., [id number] Blood 01/07/2025 5:29 AM CDT 01/07/2025 6:56 AM CDT us Malorie Bowling NP LAB BLOOD ORDERABLES Final Result SUMAYA [address] Department [place] [address] * (ABNORMAL) Manual Differential (01/07/2025 5:29 AM CDT) Differential Manual SUMAYA Comment:[address] [address] Cells Counted 100 SUMAYA Comment:[address] [address] Neutrophil abs 4.00 1.50 - 6.50 K/cumm SUMAYA Comment:[address] [address] Imm gran abs 0.33(H) 0.00 - 0.10 K/cumm SUMAYA Comment:[address] [address] Lymphocyte abs 1.00 0.80 - 3.30 K/cumm SUMAYA Comment:[address] [address] Monocyte abs 0.22 0.20 - 0.80 K/cumm SUMAYA Comment:[address] [address] Neutrophil pct 72.0 % SUMAYA Comment: rare band seen Interpretive Data Percent cell count reference ranges are not reported, since discordance with absolute values may lead to misinterpretation of CBC data. Current Interpretive Data was last revised on 2017. [address] [address] Lymphocyte pct 18.0 % SUMAYA Comment: Interpretive Data Percent cell count reference ranges are not reported, since discordance with absolute values may lead to misinterpretation of CBC data. Current Interpretive Data was last revised on 2017. [address] [address] Monocyte pct 4.0 % SUMAYA Comment: Interpretive Data Percent cell count reference ranges are not reported, since discordance with absolute values may lead to misinterpretation of CBC data. Current Interpretive Data was last revised on 2017. [address] [address] Metamyelocyte pct 2.0(H) 0.0 - 0.0 % SUMAYA Comment:[address] [address] Myelocyte pct 3.0(H) 0.0 - 0.0 % SUMAYA Comment:[address] [address] Promyelocyte pct 1.0(H) 0.0 - 0.0 % SUMAYA Comment:[address] [address] RBC morphology Present(A) SUMAYA Comment:[address] [address] Microcytes 3-7/HPF(A) SUMAYA Comment:[address] [address] Platelet estimate Automated Count Confirmed SUMAYA Comment:[address] [address] Blood 01/07/2025 5:29 AM CDT 01/07/2025 6:45 AM CDT us Malorie Bowling IN [place] LAB BLOOD ORDERABLES Final Result SUMAYA [address] Department [place] [address] * (ABNORMAL) CBC without differential (01/07/2025 5:29 AM CDT) WBC 5.56 3.80 - 9.90 K/cumm SUMAYA Comment:[address], [address] Hgb 8.5(L) 11.9 - 15.5 g/dL SUMAYA Comment:[address], [address] Hct 27.0(L) 35.6 - 45.5 % SUMAYA Comment:[address], [address] Plt 130(L) 150 - 400 K/cumm SUMAYA Comment:[address], [address] MPV 11.1 9.1 - 12.3 fL CERLEE Comment:[address], [address] RBC 2.69(L) 3.90 - 5.20 M/cumm SUMAYA Comment:[address], [address] MCV 100.4(H) 81.3 - 96.4 fL CERLEE Comment:[address], [address] MCH 31.6 27.1 - 33.3 pg SUMAYA Comment:[address], [address] MCHC 31.5(L) 32.3 - 35.7 g/dL SUMAYA Comment:[address], [address] RDW CV 21.2(H) 11.1 - 14.9 % SUMAYA Comment:[address], [address] RDW SD 74.2(H) 35.7 - 48.1 fL SUMAYA Comment:[address], [address] NRBC abs 0.02(H) 0.00 - 0.01 K/cumm SUMAYA Comment:[address], [address] Blood 01/07/2025 5:29 AM CDT 01/07/2025 6:45 AM CDT us Malorie Bowling NP LAB BLOOD ORDERABLES Edited Result - Final SUMAYA [address] Department [place] [address] * (ABNORMAL) Basic metabolic panel (01/07/2025 5:29 AM CDT) Sodium 142 135 - 145 mmol/L SUMAYA Comment:[address] [address] Potassium, pl 5.3(H) 3.3 - 4.9 mmol/L SUMAYA Comment:[address] [address] Chloride 115(H) 97 - 110 mmol/L SUMAYA Comment:[address] [address] CO2 17(L) 22 - 32 mmol/L SUMAYA Comment:[address] [address] Anion gap 10 2 - 15 mmol/L SUMAYA Comment:[address] [address] BUN 34(H) 6 - 25 mg/dL SUMAYA Comment:[address] [address] Creatinine 3.19(H) 0.60 - 1.10 mg/dL SUMAYA Comment:[address] [address] Glucose 79 70 - 199 mg/dL [facility] Comment: Interpretive Data Fasting glucose >/= 126 [...] Current interpretive data was last revised 2022. [address] [place]., [address] Calcium 8.4(L) 8.5 - 10.3 mg/dL SUMAYA Comment:[facility] [place], [address] [place]., [address] Blood 01/07/2025 5:2 9 AM CDT 01/07/2025 6:56 AM CDT Malorie Bowling IN [place] LAB BLOOD ORDERABLES Final Result Performing Organization Address City/[facility]/ZIP Co de Phone Number SUMAYA [address] [place] [address] Department [place] [address] * Hepatitis panel, acute (08/15/2022 9:25 AM COMMUNITY ENGAGEMENT COORDINATOR) Pathologist [facility] Hep A IgM Nonreactive Nonreactive [facility] Hep B core IgM Nonreactive Nonreactive [facility] Hep C Ab Nonreactive Nonreactive [facility] Comment:Antibodies to HCV no t detected. Does NOT exclude the possibility of recent exposure to HCV. Current interpretive data was last revised on 22 HepBsAg Nonreactive Nonreactive [facility] Blood 08/15/2022 9:25 AM COMMUNITY ENGAGEMENT COORDINATOR 08/15/2022 10:04 AM COMMUNITY ENGAGEMENT COORDINATOR Manuel Gil MD LAB MICROBIOLOGY - GENE RAL ORDERABLES Final Result Performing Organization Address [facility] Co de Phone Number [facility] [place] [address] * Stool DNA - Cologuard (03/22/2021 9:50 AM CDT) Pathologist [facility] Stool DNA - Cologuard Negative Negative [facility] (CLIA #:[id number]) Comment: NEGATIVE TEST RESULT. A negative Cologuard [...] (Ioana Vicente al, N Engl J Med 2014;370(14):7383-2029) The normal value (reference range) for this assay is negative. COLOGUARD RE-SCREENING RECOMMENDATION: Periodic colorectal cancer screening is an important part of preventive healthcare for asymptomatic individuals at average risk for colorectal cancer. Following a negative Cologuard result, the [place] [employer] Society and U.S. Multi-Society Task Force screening guidelines recommend a Cologuard re-screening interval of 3 years. References: [place] [employer] Guideline for Colorectal Cancer Screening: https://www.cancer.org/cancer/lhzor-ozenkf-fdgcdf/njwzjcqjx-ucciwmpwp-lysjydv/ac s-rec ommendations.html.; Andrew DK, Saul MACIAS, John PavonK, Colorectal Cancer Screening: Recommendations for Physicians and Patients from the U.S. Multi-Society Task Force on Colorectal Cancer Screening , Am J Gastroenterology 2017; 112:5908-7430. TEST DESCRIPTION: Composite algorithmic analysis of stool [...] (Ioana Vicente al, N Engl J Med 2014;370(14):6309-1794.) Cologuard may produce a false negative or false positive result (no colorectal cancer or precancerous polyp present at colonoscopy follow up). A negative Cologuard test result does not guarantee the absence of CRC or advanced adenoma (pre-cancer). The current Cologuard screening interval is every 3 years. ([place] [employer] Society and U.S. Multi-Society Task Force). Cologuard performance data in a 10,000 patient pivotal study using colonoscopy as the reference method can be accessed at the following location: www.[facility].GuidesMob/results. Additional description of the Cologuard test process, warnings and precautions can be found at www.cologuard.GuidesMob. Stool 03/22/2021 9:50 AM CDT 03/23/2021 6:25 PM CDT Ethan Suero MD LAB BODY FLUIDS AND STOOLS OR DERABLES Final Result [facility] (CLIA #:[id number]) [address] [place] [address] * Screening Mammogram Bilateral W Josesito (06/08/2015 [...] signed by: Dr. Kendell Renee nh/:06/09/2015 08:56:27 Retail Aide: Criselda Delgado RT(R)(M), [facility] letter sent: Normal Exam Reading location: BI-RADS: [...] signed by: Dr. 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 09/11/21, 12/25/21 09/11/2021 023 Insurance IDPA MEDICARE MEDICARE Advance Directives For more information, please contact: [phone] * Full Code (Latest Code Status on [...] 1:30 AM 02/13/2023 4:00 PM Care Teams Web Content Coordinator Relationship Specialty Start Date End Date Patrick Lorenzana MD [address] [facility] [address] [place] [address] PCP - General Family Medicine 01/07/25 Rosy Grover RN [address] [facility] [address] [place] [address] Copying Machine Repairer 02/14/21 Pelon Yo MD [address] [place], [place] [id number] Referring Physician Pulmonary Disease 04/29/21 Paula Hitchcock, flexographic press helperCopying Machine Repairer Copying Machine Repairer 01/21/22 Pauline Bhat MD [address] [place] [address] Outsole Handler Pulmonary Disease 02/13/23
[2025-04-07 12:50] LABS: Hematocrit 22.7 % (35.0-49.0); Hemoglobin 7.0 g/dL (12.0-15.0); Mean Corpuscular HGB Conc 30.8 g/dL (32-36); Mean Corpuscular Hemoglobin 34.3 pg (27.0-31.0); Mean Corpuscular Volume 111.3 fL (78.0-102.0); Platelet Count Result 126 K/mm3 (150-420); Red Blood Count 2.04 M/mm3 (4.20-5.40); White Blood Count 4.0 K/mm3 (4.8-10.8)
[2025-04-07 13:02] LABS: Alanine Aminotransferase 15 U/L (6-35); Albumin Level 3.9 g/dL (3.5-5.1); Alkaline Phosphatase 92 U/L (38-126); Anion Gap 9 mmol/L (4-12); Aspartate Amino Transferase 26 U/L (14-36); Bilirubin,Total 0.4 mg/dL (0.2-1.3); Blood Urea Nitrogen 38 mg/dL (7-17); Calcium 8.5 mg/dL (8.4-10.2); Carbon Dioxide 16 mmol/L (22-30); Chloride 114 mmol/L (98-107); Estimated Glomerular Filt Rate 12; Glucose 96 mg/dL (65-110); Osmolality Calculated 297 mOsm/kg (285-295); Potassium 4.4 mmol/L (3.4-5.0); Sodium 139 mmol/L (137-145); Total Protein 6.3 g/dL (6.3-8.2)
[2025-04-07 13:07] LABS: Band Neutrophils Percent 0 % (0-6); Neutrophils Absolute Manual 2.24 K/mm3 (1.3-6.7); Neutrophils Percent Manual 56 % (46-73); Total Cells Counted 100
[2025-04-07 13:08] LABS: Eosinophils Absolute Manual 0.16 K/mm3 (0.02-0.50); Eosinophils Percent Manual 4 % (1-6); Lymphocytes Absolute Manual 1.36 K/mm3 (1.1-4.5); Lymphocytes Percent Manual 34 % (18-44); Monocytes Absolute Manual 0.24 K/mm3 (0.1-0.90); Monocytes Percent Manual 6 % (3-9)
[2025-04-10 10:07] LABS: Tacrolimus (FK506), Blood 7.0 ng/mL (5.0-20.0)
== END 2025-04-07 12:31 | disposition home or self-care (01) ==
LOC: CHSLAB 12:41
DX: N17.9 Acute kidney failure, unspecified (principal); I12.9 Hypertensive chronic kidney disease with stage 1 through stage 4 chronic kidney disease, or unspecified chronic kidney disease; N18.4 Chronic kidney disease, stage 4 (severe); Z94.2 Lung transplant status
CPT/HCPCS: 36415; 80053; 80197; 85025

== ENCOUNTER 2025-04-14 11:08 | Outpatient (NON) | payer MEDICARE, SELFPAY ==
--- OUTSIDE RECORDS SUMMARY | 2025-04-14 11:16 | XMS_ITS | Clinical Summary ---
Author Organization [facility] Address [address] [place] [address] Care Team Providers Care Attorney General Name Role Phone None, Provider MD Primary [...] - 03/24/2025 11:59 PM CDT Hospital Encounter [place] [id number] [place] [address] Fabrice Dunham MD Discharge Disposition: Home or Self Care (Routine Discharge) 03/24/2025 Orders Only [facility] [address] [place] [address] Fabrice Dunham MD from Last 3 Months [...] Comments Blood Pressure 113/69 10/03/2022 5:57 AM CRABBER Pulse 88 10/03/2022 5:28 AM CRABBER Temperature 36.7 C (98.1 F) 10/03/2022 5:28 AM CRABBER Respiratory Rate 18 10/03/2022 5:28 AM CRABBER Oxygen Saturation 93% 10/03/2022 5:28 AM CRABBER Inhaled Oxygen Concentration - - Weight 55.8 kg (123 lb 0.3 oz) 10/02/2022 5:25 P M CRABBER Height 168.9 cm (5' 6.5) 10/02/2022 5:25 PM CRABBER Body Mass Index 19.56 10/02/2022 5:25 PM CRABBER Plan of Treatment Health Maintenance Due Date [...] BLOOD, FECES STAT 10/02/2022 5 :42 PM CRABBER from Last 3 Months or Most Recently Relevant to Health Maintenance Results * (ABNORMAL) COMPREHENSIVE METABOLIC PANEL (03/24/2025 1:10 PM CDT) SODIUM S/P/B 142 136 - 145 MMOL/L 03/24/2025 7:[address] [facility] POTASSIUM S/P/B 4.5 3.5 - 5.1 MMOL/L 03/24/2025 7:[address] [facility] CHLORIDE S/P/B 107 98 - 107 MMOL/L 03/24/2025 7:[address] [facility] CO2 20.5(L) 21.0 - 32.0 MMOL/L 03/24/2025 7:[address] [facility] GLUCOSE 116(H) 70 - 99 MG/DL 03/24/2025 7:[address] [facility] Comment: FASTING GLUCOSE 100 TO 125 MG/DL IS CONSISTENT WITH IMPAIRED FASTING GLUCOSE. FASTING GLUCOSE >125 MG/DL IS CONSISTENT WITH DIABETES. RANDOM GLUCOSE >200 MG/DL WITH HYPERGLYCEMIC SYMPTOMS IS CONSISTENT WITH DIABETES. PER ADA GUIDELINES BUN 32(H) 6 - 24 MG/DL 03/24/2025 7:[address] [facility] CREATININE S/P/B 3.78(H) 0.55 - 1.02 MG/DL 03/24/2025 7:[address] [facility] CALCIUM S/P/B 9.1 8.4 - 10.5 MG/DL 03/24/2025 7:[address] [facility] BILIRUBIN TOTAL S/P/B 0.3 0.2 - 1.0 MG/DL 03/24/2025 7:[address] [facility] Comment: THIS ASSAY IS NOT RECOMMENDED FOR PATIENTS UNDERGOING TREATMENT WITH ELTROMBOPAG DUE TO THE POTENTIAL FOR FALSELY ELEVATED RESULTS. ALKALINE PHOSPHATASE S/P/B 137(H) 50 - 130 U/L 03/24/2025 7:[address] [facility] AST 53(H) 15 - 37 U/L 03/24/2025 7:[address] [facility] ALT 35 14 - 59 U/L 03/24/2025 7:[address] [facility] TOTAL PROTEIN S/P/B 6.7 6.4 - 8.2 G/DL 03/24/2025 7:[address] [facility] ALBUMIN S/P/B 3.7 3.4 - 5.0 G/DL 03/24/2025 7:[address] [facility] ANION GAP 14.5 5.0 - 15.0 MMOL/L 03/24/2025 7:[address] [facility] OSMOLALITY (CALC) 302 MOSM/KG 025 7:[address] [facility] Comment:REFERENCE RANGE NOT ESTABLISHED GFR ESTIMATE 13(L) >89 ML/MIN/1. 73 M2 03/24/2025 7:[address] [facility] GFR NOTES GFR REFERENCE S: 03/24/2025 7:[address] [facility] Comment: THE ESTIMATED GFR IS [...] Fabrice Pennington MD LABORATORY Fin al Result [facility] [address] [place] [address], * (ABNORMAL) CBC W/DIFF AUTOMATED (03/24/2025 1:10 PM CDT) WBC 2.43(L) 4.00 - 10.80 x10'3/uL 03/24/2025 7:[address] [facility] RBC 2.38(L) 4.10 - 5.40 x10'6/uL 03/24/2025 7:[address] [facility] HGB 7.7(L) 12.0 - 16.0 G/DL 03/24/2025 7:[address] [facility] HCT 24.7(L) 36.0 - 47.0 % 03/24/2025 7:[address] [facility] MCV 103.8(H) 78.0 - 100.0 FL 03/24/2025 7:[address] [facility] MCH 32.4(H) 27.0 - 31.0 PG 03/24/2025 7:[address] [facility] MCHC 31.2(L) 33.0 - 36.0 G/DL 03/24/2025 7:[address] [facility] RDW 24.9(H) 11.5 - 14.5 % 03/24/2025 7:[address] [facility] PLT 167 150 - 350 x10'3/uL 03/24/2025 7:[address] [facility] MPV 10.8(H) 7.4 - 10.4 FL 03/24/2025 7:[address] [facility] CBC COMMENT NORMAL REFERENCE RANGE NOT ESTABLISHED FOR THE PROPORTIONAL LEUKOCYTE DIFFERENTIAL. 03/24/2025 7:[address] [facility] SEG NEUTROPHILS 53 % 7:[address] [facility] METAMYELOCYTES 2 % 03/24/2025 7:[address] [facility] MYELOCYTES 4 % 03/24/2025 7:[address] [facility] LYMPHOCYTES 33 % 03/24/2025 7:[address] [facility] MONOCYTES 8 % 03/24/2025 7:[address] [facility] ABS SEGMENTED NEUTS 1.29(L) 1.60 - 8.30 x10'3/uL 03/24/2025 7:[address] [facility] ABS. METAMYELOCYTES 0.05(H) 0.00 x10'3/uL 03/24/2025 7:[address] [facility] ABS. MYELOCYTES 0.10(H) 0.00 x10'3/uL 03/24/2025 7:[address] [facility] ABS. LYMPHOCYTES 0.80 0.80 - 4.70 x10'3/uL 03/24/2025 7:[address] [facility] ABS. MONOCYTES 0.19 0.10 - 1.50 x10'3/uL 03/24/2025 7:[address] [facility] PLT MORPH. NORMAL 03/24/2025 7:[address] [facility] RBC MORPHOLOGY 2+ 03/24/2025 7:[address] [facility] Comment: POIKILOCYTOSIS 2+ MACROCYTES 3+ ANISOCYTOSIS 03/24/2025 1:10 PM CDT Fabrice Pennington MD LABORATORY Fin al Result [facility] [address] [place] [place] [id number], * TACROLIMUS (03/24/2025 1:10 PM CDT) Pathologist [facility] TACROLIMUS 14.4 mcg/L 03/26/2025 3:29 PM CDT [facility] SHELLI NIELSEN Comment: No definitive therapeutic or toxic ranges have been established. Optimal blood drug levels are influenced by type of transplant, patient response, time post- transplant, co-administration of other drugs, and drug formulation. The following trough range is a suggested guideline: 5.0-20.0 mcg/L This test was developed and its analytical performance characteristics have been determined by [facility] [place], [place]. It has not been cleared or approved by the U.S. Food and Drug Administration. This assay has been validated pursuant to the CLIA regulations and is used for clinical purposes. Test Performed by [facility], [address] [place] [address] Wilson Reyez M.D., Ph.D., Director of Laboratories , CLIA [id number] 03/24/2025 1:10 PM CDT Fabrice Pennington MD LABORATORY Fin al Result [facility] [place] [id number] [place], [place] , [place] [phone] * OCCULT BLOOD, FECES (10/02/2022 5:42 PM CRABBER) Pathologist [facility] OCCULT BLOOD FECAL POSITIVE 10/02/2022 6:04 PM CRABBER [facility] STOOL SPECIMEN / Unknown 10/02/2022 5:42 PM CRABBER Pat Gomes KNOT BORER-BC BODY FLUIDS AND STOOLS OR DERABLES Final Result [facility] [address] [place] [address], [place] [phone] from Last 3 Months or Most Recently Relevant to Health Maintenance Additional Health Concerns Infection Onset Date Last Indicated ESBL - Extended Spectrum Beta-lactamase 10/04/19 23 10/04/2022 Insurance MULT[employer]LAN Advance Directives * Full Code (Latest Code Status on File) Date Activated Date Inactivated Comments 10/02/2022 10:53 PM 10/03/2022 11:08 AM Care Teams Attorney General Relationship Specialty Start Date End Date None, Provider, PCP - General UNKNOWN PHYSICIAN SPECIALTY 10/02/22
--- OUTSIDE RECORDS SUMMARY | 2025-04-14 11:16 | XMS_ITS ---
Author Organization [facility] Address [address] [place] [address] Care Team Providers Care Cigar Head Pegger Name Role Phone Rosy Grover RN Unavailable [phone] Pelon Yo MD Unavailable [phone] Paula Hitchcock RN Unavailable Kayleigh Weeks MD Unavailable [phone] Patrick Lorenzana MD Primary Care Provider Transplant Episode Lung Recipient [facility] ([place], [place]) - [facility] Organs Received: Right Lung, Left Lung Transplanted on 01/19/2022 Marked as Active Follow-up on 01/19/2022 Lung CoordinatorPaula Hitchcock RN Phone: N/A Fax: N/A Email: N/A [place] Organ Diagnosis Organ 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) Infection History Noted Survival Infection Treatment Organism Resolved 12/30/2024 2 years 11 months Norovirus 0 01/04/2025 12/25/2024 2 years 11 months Devora esophagitis 06/26/2024 2 years 5 months UTI (urinary [...] N/A N/A Pelon Yo MD Referring Physician [phone] N/A Rosy Grover RN Pre Coordinator [phone] N/A N/A Events Post-Transplant Pre-Transplant Admitted: 01/08/2022 Referred: 02/14/2021 Transplanted: 01/19/2022 Evaluation began: 1 Discharged: 03/20/2022 Committee: 04/26/2021 Center waitlisted: 1 Appointments (03/14/2025 - 05/15/2025) When With Visit Type Description 03/14/2025 Transplant - Berdarron, A Return Encount er for aftercare following lung transplant (HCC) (Primary Dx); Encounter for monitoring tacrolimus therapy; Stage 4 chronic kidney disease (HCC); Bilateral leg pain
--- OUTSIDE RECORDS SUMMARY | 2025-04-14 11:16 | XMS_ITS | Patient Health Record ---
Author Organization [facility] Address [address] [address] Care Team Providers Care Broiler Chef Or Cook Name Role Phone RAYSA COLVIN Unavailable [phone] Reason For Referral No Information Plan Of Treatment No Information
--- OUTSIDE RECORDS SUMMARY | 2025-04-14 11:16 | XMS_ITS | Clinical Summary ---
Author Organization [facility] Address [address] [place] [address] Care Team Providers Care Tubing Tester Name Role Phone Rosy Grover RN Unavailable [phone] Pelon Yo MD Unavailable [phone] Paula Hitchcock RN Unavailable Georgei Pauline Mireles MD Unavailable [phone] Patrick Lorenzana MD Primary Care Provider Allergies [...] (BACTRIM DS) 800-160 mg per tabletIndications: Pulmonary fibrosis,Chronic hypoxemic respiratory failure (HCC),Awaiting transplantation of lung [...] week on Mondays and 8 tablet 11 Active omeprazole (PriLOSEC) 40 mg capsule Take 1 capsule (40 mg total) by mouth 2 (two) times a day 60 capsule 11 Active aspirin 81 mg chewable tablet Take 1 tablet (81 mg total) by mouth daily Active azaTHIOprine (IMURAN) 50 mg tablet HOLD - previous dose 50mg nightly Active sertraline (ZOLOFT) 50 mg tablet Take 1 tablet (50 mg total) by mouth daily Active cefdinir (OMNICEF) 300 mg capsule Take 1 capsule (300 mg total) by mouth daily 3 capsule Active tacrolimus 0.5 mg immediate-release capsule Take 1 capsule (0.5 mg total) by mouth every morning Active tacrolimus 0.5 mg immediate-release capsule Take 1 capsule (0.5 mg total) by mouth 2 (two) times a day 60 capsule 11 025 2024 Discontinued hydroCHLOROthiazid e (HYDRODIURIL) 25 [...] 12:48 PM CDT): I endorse admission to [facility] care. The patient is at risk of [...] the [place] level via mediprocity. Nurses through [employer] chat to confirm that Imuran is currently to be on hold. I asked him to review the medication orders per [employer] and this was confirmed. UTI (urinary tract [...] CXR I advised her to call her machine baster for further guidance If her symptoms worsened [...] lisionpril/HCTZ Assessment & Plan (10/20/2020 3:02 PM CODING QUALITY ANALYST): Stable Cont lisionpril/HCTZ ILD (interstitial lung disease) 07/20/2020 Assessment & Plan (03/14/2025 9:26 PM CDT): -- cont pred 5, OI ppx, and valganciclovir -- Holding imuran -- PT/OT/Pulm rehab and RD consulted -- cont home mirtazapine for appetite Assessment & Plan (10/20/2020 3:02 PM CODING QUALITY ANALYST): F/u with pulmonary Allergic rhinitis 07/20/2020 Assessment & Plan (12/14/2020 5:17 AM CDT): Uncontrolled Cont zyrtec, singulair Refer to ENT Primary insomnia 02/07/2020 Assessment & Plan (10/20/2020 3:03 PM CODING QUALITY ANALYST): Chronic Cont ativan Assessment & Plan (06/06/2020 [...] Other neutropenia 12/29/2024 01/04/2025 Melena 12/11/2024 12/31/2024 Ldkfb-ny-hfmijed kidney injury 06/26/2024 01/04/2025 Assessment & Plan [...] Infection 01/04/202212/08 Shortness of breath 01/03/2022 03/31/20 22 Allergic rhinitis 03/30/2021 12/30/2024 Idiopathic pulmonary fibrosis (CMS/HCC) 03/14/2021 02/01/2022 Overview (03/14/2021): Added automatically from request for surgery [id number] Weakness 03/11/2021 01/07/2025 Assessment & Plan (12/31/2024 [...] diet Assessment & Plan (10/20/2020 3:02 PM CODING QUALITY ANALYST): Chronic Follow low cholesterol diet Assessment & [...] 03/31/2022 Assessment & Plan (10/20/2020 3:01 PM CODING QUALITY ANALYST): Likely secondary to ILD Cont Airduo F/u [...] Encounters Date Type Department Care Team Description 04/11/2025 Telephone [facility] Transplant Lung [address] [facility] [address] Mailstop [phone] [place] [address] Paula Hitchcock, LOLI 04/01/2025 Telephone [facility] Pulmonary Rehabilitation Program [address] [facility] 1st [place] [address] Josette Ochoa 03/31/2025 Orders Only [facility] Transplant Lung [address] [facility] [address] Mailstop [phone] [place] [address] Paula Hitchcock, LOLI 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) (Primary Dx) 03/29/2025 Telephone [facility] Pulmonary Rehabilitation Program [address] [facility] 1st [place] [address] Josette Ochoa 03/28/2025 Telephone [facility] Pulmonary [address] [facility] 8th [place] [address] [place] [address] Kirby Porter MD 03/24/2025 Telephone [facility] Pulmonary Rehabilitation Program [address] [facility] 1st [place] [address] Josette Ochoa 03/22/2025 SHOP/CHAP Initial Eligibility Review [facility] OP CASE MANAGEMENT [address] [place] [address] Molly Wu RN 03/15/2025 10:35 AM CDT Ancillary Procedure [facility] Vascular Lab IP 1 [facility] [address] [place] [address] 03/14/2025 8:13 PM CDT - 03/21/2025 2:30 PM CDT Hospital Encounter [address] [address] Pauline Bhat MD Qureshi, MD Jacob Murdock Rodrigo, MD Lung transplant status, bilateral, 2021, (CMV D+/R+) (Primary Dx); Weight loss; Weakness; Failure to thrive in adult Discharge Disposition: Discharge to home or self care 03/14/2025 10:30 AM CDT Lab [facility] [address] [place] [address] 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) 03/14/2025 10:00 AM CDT Office Visit [facility] Pulmonary [address] [facility] 8th [place] [address] [place] [address] Seth Vasquez MD 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) (Primary Dx); Encounter for monitoring tacrolimus therapy; Stage 4 chronic kidney disease (HCC); Bilateral leg pain 03/14/2025 9:30 AM CDT Lab [facility] [address] [place] [address] 03/14/2025 9:15 AM CDT - 03/14/2025 11:59 PM CDT Hospital Encounter [facility] Pulmonary [address] [facility] [address] [place] [address] 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) Discharge Disposition: Discharge to home or self care 03/14/2025 8:53 AM CDT - 03/14/2025 11:59 PM CDT Hospital Encounter [facility] Radiology [place] [facility] ([facility]) [address] [place] [address] 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) Discharge Disposition: Discharge to home or self care 03/14/2025 Telephone [facility] Transplant Lung [address] [facility] [address] Mailstop [phone] [place] [address] Paula Hitchcock RN 03/14/2025 Telephone [facility] Transplant Lung [address] [facility] [address] Mailstop [phone] [place] [address] Tiera Lincoln 03/09/2025 Telephone [facility] Transplant Lung [address] [facility] [address] Mailstop [phone] [place], [place] [id number] Nga Rosario 03/09/2025 Telephone [facility] Transplant Lung [address] [facility] [address] Mailstop [phone] [place], [place] [id number] Paula Hitchcock, LOLI 02/01/2025 Telephone [facility] Nephrology [address] [facility] 5th [place] [address] [place] [phone] Irving Gipson MD Dismissal 01/13/2025 Telephone [facility] Transplant Lung [address] [facility] [address] Mailstop [phone] [place] [address] Paula Hitchcock, LOLI 01/12/2025 Orders Only [facility] Transplant Lung [address] [facility] [address] Mailstop [phone] [place] [address] Paula Hitchcock, LOLI 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) (Primary Dx) from Last 3 Months Immunizations Immunization Administration [...] Comments Known health problems: none Pulmonary fibrosis 07/20/2020 ILD (interstitial lung disease) (HCC) 07/20/2020 Allergic rhinitis 07/20/2020 Asthma Hypertension Oropharyngeal [...] materials from doctor or pharmacy Never 02/19/2023 [facility] Utilities Answer Date Recorded In the past 12 months has th e [employer], gas, oil, or water company threatened to [...] week 03/20/2025 How often do you attend moravian or methodist serv ices? Never 03/20/2025 Do you belong to any clubs o r organizations such as moravian groups, unions, fraternal or athletic groups, or [...] place to sleep or slept in a retirement (including now)? No 02/06/2023 Housing Stability Vital Sign Answer Quinten e Recorded In the last 12 months, was t here a time when you were not able to pay the mortgage or rent on time? No 03/20/2025 In the past 12 months, how m any times have you moved where you were living? 0 03/20/2025 At any time in the past 12 m [facility], were you homeless or living in a retirement (including now)? No 03/20/2025 Personal Safety Answer Date Recorded Have you ever been in or are you currently in a harmful physical or emotional relationship or is someone making you feel afraid or unsafe? Denies 03/14/2025 Comments No Sex and Gender Information Value Date Recorded Sex Assigned at Not on file Legal Sex Female 6:28 PM CODING QUALITY ANALYST Gender Identity Not on file Sexual Orientation [...] 02/05/2023, 07/09/2022, Additional history exists Covid-19 Vaccine (2023-10 5 season) 2024 08/08/2022, 07/17/2021, 10/04/2020, Additional history exists Influenza Vaccine (#1) 2025 , 06/15/2021, 06/14/2020 Colon Cancer Screening-DNA Stool Discontinued 03/22/20 21 Colon Cancer Screening-FIT Discontinued 03/22/2021 Hepatitis C Screening Completed 08/15/2022 , 04/22/2022, 02/19/2022, Additional history exists Medical Devices Implanted Type Area Rake Operator Device Identifier Shelf Expiration Date Model / Serial / Lot Neri [place] Kit Hemodialysis Catheter Triple Lumen Curved Short Term Polyurethane Power Trialysis [id number] - [id number] Implanted:Qty: 1 on 12/13/2024 by Moon Carranza MD at [facility] Neri Gita 11/05/2025 [id number] / / [id number] Procedures Procedure Name Priority Date/Time Associated Diagnosis Comments TACROLIMUS LEVEL, TROUGH Routine 04/07/2025 COMPREHENSIVE METABOLIC PANEL Routine 04/07/2025 CBC WITH AUTO DIFFERENTIAL Routine 04/07/2025 TACROLIMUS LEVEL, TROUGH Routine 03/31/2025 COMPREHENSIVE METABOLIC PANEL Routine 03/31/2025 CBC WITH AUTO DIFFERENTIAL Routine 03/31/2025 COMPREHENSIVE METABOLIC PANEL Routine 03/24/2025 CBC WITH AUTO DIFFERENTIAL Routine 03/24/2025 TACROLIMUS LEVEL, TROUGH Routine 03/24/2025 INFECTION PREVENTION DEVORA AURIS PCR, SURVEILLANCE Routine [...] 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) HEPATITIS PANEL, ACUTE Routine 08/15/2022 9:25 AM CODING QUALITY ANALYST 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) Long-term use of immunosuppressant medication Encounter for therapeutic drug level monitoring Aftercare following organ transplant STOOL DNA COLOGUARD Routine 03/22/2021 9:50 AM CDT Screening for colon cancer SCREENING MAMMOGRAM BILATERAL W JOSESITO Routine 06/08/2015 2:50 PM CDT from Last 3 Months or Most Recently Relevant to Health Maintenance Results * Tacrolimus level trough (04/07/2025) SCRIBED Tacrolimus, trough 7.0 5.0 - 20.0 TXP NO LAB FOUND Blood 04/07/2025 us Historical Provider LAB BLOOD ORDERABLES Edit ed Result - Final TXP NO LAB FOUND * (ABNORMAL) CBC with auto differential (04/07/2025) [facility] SCRIBED WBC 4.0(A) 4.8 - 10.8 K/cumm TXP NO LAB FOUND SCRIBED Hemoglobin 7.0(A) 12.0 - 15.0 g/dL TXP NO LAB FOUND SCRIBED Hematocrit 22.7(A) 35.0 - 49.0 % TXP NO LAB FOUND SCRIBED Platelets 126(A) 150 - 420 K/cumm TXP NO LAB FOUND SCRIBED MPV 10.6 9.2 - 11.8 fL TXP NO LAB FOUND SCRIBED RBC 2.04(A) 4.20 - 5.40 M/cumm TXP NO LAB FOUND SCRIBED MCV 111.3(A) 78.0 - 102.0 fL TXP NO LAB FOUND SCRIBED MCH 34.3(A) 27.0 - 31.0 pg TXP NO LAB FOUND SCRIBED MCHC 30.8(A) 32.0 - 36.0 g/dL TXP NO LAB FOUND SCRIBED RDW 25.1(A) 11.6 - 14.4 % TXP NO LAB FOUND SCRIBED Neutrophils 56.0 46 - 73 % TXP NO LAB FOUND SCRIBED Lymphocytes 34.0 18 - 44 TXP NO LAB FOUND SCRIBED Monocytes 6.0 3 - 9 % TXP NO LAB FOUND SCRIBED Eosinophils 4.0 1 - 6 % TXP NO LAB FOUND SCRIBED Neutrophils Abs 2.24 1.30 - 6.70 K/cumm TXP NO LAB FOUND SCRIBED Lymphocytes Abs 1.4 1.1 - 4.5 K/cumm TXP NO LAB FOUND SCRIBED Monocytes Abs 0.2 0.1 - 0.9 K/cumm TXP NO LAB FOUND SCRIBED Eosinophils Abs 0.2 0.0 - 0.5 K/cumm TXP NO LAB FOUND Blood 04/07/2025 us Historical Provider LAB BLOOD ORDERABLES Tonia l Result TXP NO LAB FOUND * (ABNORMAL) Comprehensive metabolic panel (04/07/2025) SCRIBED Sodium 139 137 - 145 mmol/L TXP NO LAB FOUND SCRIBED Potassium 4.4 3.4 - 5.0 mmol/L TXP NO LAB FOUND SCRIBED Chloride 114(A) 98 - 107 mmol/L TXP NO LAB FOUND SCRIBED Carbon Dioxide 16(A) 22 - 30 mmol/L TXP NO LAB FOUND SCRIBED Anion Gap 9 4 - 12 mmol/L TXP NO LAB FOUND SCRIBED Urea Nitrogen (BUN) 38(A) 7 - 17 mg/dl TXP NO LAB FOUND SCRIBED Creatinine 3.80(A) 0.7 - 1.0 mg/dl TXP NO LAB FOUND SCRIBED Glucose 96 65 - 110 mg/dl TXP NO LAB FOUND SCRIBED Calcium 8.5 8.4 - 10.2 mg/dl TXP NO LAB FOUND SCRIBED Bilirubin 0.4 0.2 - 1.3 mg/dl TXP NO LAB FOUND SCRIBED Plasma Protein 6.3 6.3 - 8.2 g/dl TXP NO LAB FOUND SCRIBED Albumin 3.9 3.5 - 5.1 g/dl TXP NO LAB FOUND SCRIBED Alkaline Phosphatase 92 38 - 126 Units/L TXP NO LAB FOUND SCRIBED Alanine Transaminase (ALT) 15 6 - 35 Units/L TXP NO LAB FOUND SCRIBED Aspartate Transaminase (AST) 26 14 - 36 Units/L TXP NO LAB FOUND Blood 04/07/2025 Historical Provider MD LAB BLOOD ORDERABLES Edit ed Result - Final Performing Organization Address [facility] Co de Phone Number TXP NO LAB FOUND * Tacrolimus level trough (03/31/2025) SCRIBED Tacrolimus, trough 5.5 5.0 - 20.0 TXP NO LAB FOUND Blood 03/31/2025 Historical Provider MD LAB BLOOD ORDERABLES Edit ed Result - Final Performing Organization Address [facility]/State/ZIP Co de Phone Number TXP NO LAB FOUND * (ABNORMAL) CBC with auto differential (03/31/2025) SCRIBED WBC 3.5(A) 4.5 - 10.0 K/cumm TXP NO LAB FOUND SCRIBED Hemoglobin 7.1(A) 12.0 - 15.0 g/dL TXP NO LAB FOUND SCRIBED Hematocrit 22.7(A) 37.0 - 47.0 % TXP NO LAB FOUND SCRIBED Platelets 169 150 - 375 K/cumm TXP NO LAB FOUND SCRIBED MPV 11.4(A) 7.4 - 10.4 fL TXP NO LAB FOUND SCRIBED RBC 2.14(A) 4.20 - 5.40 M/cumm TXP NO LAB FOUND SCRIBED MCV 106.1(A) 80.0 - 100.0 100 TXP NO LAB FOUND SCRIBED MCH 33.2 26.0 - 34.0 pg TXP NO LAB FOUND SCRIBED MCHC 31.3(A) 32.0 - 36.0 g/dL TXP NO LAB FOUND SCRIBED RDW 24.7(A) 11.5 - 14.5 % TXP NO LAB FOUND SCRIBED Neutrophils 67.0 46 - 73 TXP NO LAB FOUND SCRIBED Lymphocytes 20.0 18 - 44 % TXP NO LAB FOUND SCRIBED Monocytes 5.0 3 - 9 % TXP NO LAB FOUND SCRIBED Eosinophils 1.0 0 - 4 % TXP NO LAB FOUND SCRIBED Basophils 1.0 0 - 1 % TXP NO LAB FOUND SCRIBED Neutrophils Abs 2.55 1.30 - 6.70 K/cumm TXP NO LAB FOUND SCRIBED Lymphocytes Abs 0.7(A) 1.1 - 4.5 K/cumm TXP NO LAB FOUND SCRIBED Monocytes Abs 0.2 0.1 - 0.9 K/cumm TXP NO LAB FOUND SCRIBED Eosinophils Abs 0.0 0.0 - 0.5 K/cumm TXP NO LAB FOUND SCRIBED Basophils Abs 0.0 0.0 - 0.1 K/cumm TXP NO LAB FOUND Blood 03/31/2025 us Historical Provider LAB BLOOD ORDERABLES Tonia l Result TXP NO LAB FOUND * (ABNORMAL) Comprehensive metabolic panel (03/31/2025) SCRIBED Sodium 138 137 - 145 mmol/L TXP NO LAB FOUND SCRIBED Potassium 4.6 3.4 - 5.0 mmol/L TXP NO LAB FOUND SCRIBED Chloride 110(A) 98 - 107 mmol/L TXP NO LAB FOUND SCRIBED Carbon Dioxide 18(A) 22 - 30 mmol/L TXP NO LAB FOUND SCRIBED Anion Gap 10 4 - 12 mmol/L TXP NO LAB FOUND SCRIBED Urea Nitrogen (BUN) 46(A) 7 - 17 mg/dl TXP NO LAB FOUND SCRIBED Creatinine 4.17(A) 0.7 - 1.0 mg/dl TXP NO LAB FOUND SCRIBED Glucose 93 65 - 110 mg/dl TXP NO LAB FOUND SCRIBED Calcium 9.3 8.4 - 10.2 mg/dl TXP NO LAB FOUND SCRIBED Bilirubin 0.4 0.2 - 1.3 mg/dl TXP NO LAB FOUND SCRIBED Plasma Protein 6.5 6.3 - 8.2 g/dl TXP NO LAB FOUND SCRIBED Albumin 3.8 3.5 - 5.1 g/dl TXP NO LAB FOUND SCRIBED Alkaline Phosphatase 95 38 - 126 Units/L TXP NO LAB FOUND SCRIBED Alanine Transaminase (ALT) 19 6 - 35 Units/L TXP NO LAB FOUND SCRIBED Aspartate Transaminase (AST) 33 14 - 36 Units/L TXP NO LAB FOUND Blood 03/31/2025 Historical Provider LAB BLOOD ORDERABLES Edit ed Result - Final TXP NO LAB FOUND * Tacrolimus level trough (03/24/2025) SCRIBED Tacrolimus, trough 14.4 5.0 - 20.0 TXP NO LAB FOUND Blood 03/24/2025 Historical Provider LAB BLOOD ORDERABLES Tonia l Result TXP NO LAB FOUND * (ABNORMAL) CBC with auto differential (03/24/2025) SCRIBED WBC 2.4(A) 4.0 - 10.8 K/cumm TXP NO LAB FOUND SCRIBED Hemoglobin 7.7(A) 12.0 - 16.0 g/dL TXP NO LAB FOUND SCRIBED Hematocrit 24.7(A) 36.0 - 47.0 % TXP NO LAB FOUND SCRIBED Platelets 167 150 - 350 K/cumm TXP NO LAB FOUND SCRIBED MPV 10.8(A) 7.4 - 10.4 fL TXP NO LAB FOUND SCRIBED RBC 2.38(A) 4.10 - 5.40 M/cumm TXP NO LAB FOUND SCRIBED MCV 103.8(A) 78.0 - 100.0 fL TXP NO LAB FOUND SCRIBED MCH 32.4(A) 27.0 - 31.0 pg TXP NO LAB FOUND SCRIBED MCHC 31.2(A) 33.0 - 36.0 g/dL TXP NO LAB FOUND SCRIBED RDW 24.9(A) 11.5 - 14.5 % TXP NO LAB FOUND SCRIBED Neutrophils 53.0 NONE % TXP NO LAB FOUND SCRIBED Lymphocytes 33.0 NONE % TXP NO LAB FOUND SCRIBED Monocytes 8.0 NONE % TXP NO LAB FOUND SCRIBED Neutrophils Abs 1.29(A) 1.60 - 8.30 K/cumm TXP NO LAB FOUND SCRIBED Lymphocytes Abs 0.8 0.8 - 4.7 K/cumm TXP NO LAB FOUND SCRIBED Monocytes Abs 0.2 0.1 - 1.5 K/cumm TXP NO LAB FOUND Blood 03/24/2025 us Historical Provider LAB BLOOD ORDERABLES Tonia gentile Result TXP NO LAB FOUND * (ABNORMAL) Comprehensive metabolic panel (03/24/2025) SCRIBED Sodium 142 136 - 145 mmol/L TXP NO LAB FOUND SCRIBED Potassium 4.5 3.5 - 5.1 mmol/L TXP NO LAB FOUND SCRIBED Chloride 107 98 - 107 mmol/L TXP NO LAB FOUND SCRIBED Carbon Dioxide 20.5(A) 21.0 - 32.0 mmol/L TXP NO LAB FOUND SCRIBED Anion Gap 14.5 5.0 - 15.0 mmol/L TXP NO LAB FOUND SCRIBED Urea Nitrogen (BUN) 32(A) 6 - 24 mg/dl TXP NO LAB FOUND SCRIBED Creatinine 3.78(A) 0.55 - 1.02 mg/dl TXP NO LAB FOUND SCRIBED Glucose 116(A) 70 - 99 mg/dl TXP NO LAB FOUND SCRIBED Calcium 9.1 8.4 - 10.5 mg/dl TXP NO LAB FOUND SCRIBED Bilirubin 0.3 0.2 - 1.0 mg/dl TXP NO LAB FOUND SCRIBED Plasma Protein 6.7 6.4 - 8.2 g/dl TXP NO LAB FOUND SCRIBED Albumin 3.7 3.4 - 5.0 g/dl TXP NO LAB FOUND SCRIBED Alkaline Phosphatase 137(A) 50 - 130 Units/L TXP NO LAB FOUND SCRIBED Alanine Transaminase (ALT) 35 14 - 59 Units/L TXP NO LAB FOUND SCRIBED Aspartate Transaminase (AST) 53(A) 15 - 37 Units/L TXP NO LAB FOUND Blood 03/24/2025 us Historical Provider LAB BLOOD ORDERABLES Edit ed Result - Final TXP NO LAB FOUND * Infection Prevention Devora auris PCR, surveillance Axilla/Groin (03/21/2025 12:36 PM CDT) Devora auris DNA Not Detected Not Detected [facility] Comment: Interpretive Data Testing performed by [facility] Molecular Infectious Disease Laboratory using the Lauren jimmy 6800 Devora auris assay. This assay detects DNA from Devora auris using Real-Time PCR. This assay is laboratory developed and is not cleared by the [place] Food and Drug Administration. The performance characteristics have been verified by the [facility] Molecular Infectious Disease Laboratory. Axilla/Groin 03/21/2025 12:3 6 PM CDT 03/21/2025 1:14 PM CDT Narrative SUMAYA CASTELLANOS - 03/22/2025 10:01 AM CDT Order placed by [facility] due to ring surveillance. us Instant Order Generic Provider LAB MICROBIOLOGY - GENERAL ORDERABLES Final Result Performing Organization Address [facility] Co de Phone Number [facility] Department [place] [address] [facility] * (ABNORMAL) eGFR (03/21/2025 5:07 AM [...] data was last reviewed 2021. Blood 03/21/2025 5:0 7 AM CDT 03/21/2025 5:34 AM CDT us Pauline Bhat MD LAB BLOOD ORDERABLES F inal Result Performing Organization Address City/[facility]/ZIP Co de Phone Number [facility] Department [place] [address] * (ABNORMAL) Differential, auto (03/21/2025 5:07 AM CDT) Neutrophil abs 0.54(L) 1.50 - 6.50 K/cumm Imm gran abs 0.19(H) 0.00 - 0.10 K/cumm [facility] Lymphocyte abs 0.74(L) 0.80 - 3.30 K/cumm [facility] Monocyte abs 0.23 0.20 - 0.80 K/cumm [facility] Eosinophil abs 0.03 0.00 - 0.50 K/cumm [facility] Basophil abs 0.03 0.00 - 0.10 K/cumm [facility] Neutrophil pct 30.7 % [facility] Comment: Interpretive Data Percent cell count reference ranges are not reported, since discordance with absolute values may lead to misinterpretation of CBC data. Current Interpretive Data was last revised on 2017. Imm gran pct 10.8 % [facility] Comment: Interpretive Data Percent cell count reference ranges are not reported, since discordance with absolute values may lead to misinterpretation of CBC data. Current Interpretive Data was last revised on 2017. Lymphocyte pct 42.0 % [facility] Comment: Interpretive Data Percent cell count reference ranges are not reported, since discordance with absolute values may lead to misinterpretation of CBC data. Current Interpretive Data was last revised on 2017. Monocyte pct 13.1 % [facility] Comment: Interpretive Data Percent cell count reference ranges are not reported, since discordance with absolute values may lead to misinterpretation of CBC data. Current Interpretive Data was last revised on 2017. Eosinophil pct 1.7 % [facility] Comment: Interpretive Data Percent cell count reference ranges are not reported, since discordance with absolute values may lead to misinterpretation of CBC data. Current Interpretive Data was last revised on 2017. Basophil pct 1.7 % [facility] Comment: Interpretive Data Percent cell count reference ranges are not reported, since discordance with absolute values may lead to misinterpretation of CBC data. Current Interpretive Data was last revised on 2017. Blood 03/21/2025 5:07 AM CDT 03/21/2025 5:34 AM CDT Pauline Bhat MD LAB BLOOD ORDERABLES F inal Result Performing Organization Address [facility] de Phone Number SUMAYA [facility] Department [place] [address] * Tacrolimus level trough (03/21/2025 5:07 AM CDT) [facility] Tacrolimus trough 5.1 ng/mL Comment: Interpretive Data Testing performed by liquid chromatography-tandem mass spectrometry. Therapeutic concentrations vary depending on type of transplanted organ and time elapsed since transplant. Typical trough concentrations range from 5-15 ng/mL. This test was developed and its performance characteristics determined by the [facility] Laboratory consistent with CLIA requirements. This test has not been cleared or approved by the [place] Food and Drug administration. Current interpretive data last reviewed 2019. Blood 03/21/2025 5:07 AM CDT 03/21/2025 5:34 AM CDT Pauline Bhat MD LAB BLOOD ORDERABLES F inal Result Performing Organization Address [facility] de Phone Number SUMAYA [facility] Department [place] [address] * (ABNORMAL) CBC with auto differential (03/21/2025 5:07 AM CDT) [facility] WBC 1.76(L) 3.80 - 9.90 K/cumm Hgb 7.0(L) 11.9 - 15.5 g/dL [facility] Hct 21.4(L) 35.6 - 45.5 % [facility] Plt 120(L) 150 - 400 K/cumm [facility] MPV 10.3 9.1 - 12.3 fL [facility] RBC 2.21(L) 3.90 - 5.20 M/cumm [facility] MCV 96.8(H) 81.3 - 96.4 fL [facility] [facility] MCH 31.7 27.1 - 33.3 pg [facility] MCHC 32.7 32.3 - 35.7 g/dL [facility] RDW CV 25.1(H) 11.1 - 14.9 % [facility] RDW SD 84.6(H) 35.7 - 48.1 fL [facility] NRBC abs 0.00 0.00 - 0.01 K/cumm [facility] Blood 03/21/2025 5:07 AM CDT 03/21/2025 5:34 AM CDT Pauline Bhat MD LAB BLOOD ORDERABLES F inal Result Performing Organization Address City/[facility] Co de Phone Number [facility] [employer] [place] [address] * (ABNORMAL) Phosphorus (03/21/2025 5:07 AM CDT) Phosphorus, pl 1.6(L) 2.3 - 4.5 mg/dL Blood 03/21/2025 5:07 AM CDT 03/21/2025 5:34 AM CDT Pauline Bhat MD LAB BLOOD ORDERABLES F inal Result Performing Organization Address [facility] Co de Phone Number [facility] [place] [employer] [place] [address] * Magnesium (03/21/2025 5:07 AM CDT) Magnesium 1.5 1.4 - 2.5 mg/dL Blood 03/21/2025 5:07 AM CDT 03/21/2025 5:34 AM CDT Pauline Bhat MD LAB BLOOD ORDERABLES F inal Result Performing Organization Address City/[facility] Co de Phone Number [facility] [place] [address] * (ABNORMAL) Comprehensive metabolic panel (03/21/2025 5:07 AM CDT) Sodium 140 135 - 145 mmol/L Potassium, pl 3.6 3.3 - 4.9 mmol/L [facility] Chloride 112(H) 97 - 110 mmol/L [facility] CO2 22 22 - 32 mmol/L [facility] Anion gap 6 2 - 15 mmol/L [facility] BUN 30(H) 6 - 25 mg/dL [facility] Creatinine 3.23(H) 0.60 - 1.10 mg/dL [facility] Glucose 86 70 - 199 mg/dL [facility] Comment: Interpretive Data Fasting glucose >/= 126 [...] 2022. Calcium 8.6 8.5 - 10.3 mg/dL [facility] Bilirubin, total 0.2 0.1 - 1.2 mg/dL [facility] Protein, pl 5.6(L) 6.5 - 8.5 g/dL [facility] Albumin 3.3(L) 3.5 - 5.0 g/dL [facility] Alk phos 87 40 - 130 Units/L [facility] ALT 19 7 - 45 Units/L [facility] AST 40 10 - 45 Units/L [facility] Blood 03/21/2025 5:07 AM CDT 03/21/2025 5:34 AM CDT us Pauline Bhat MD LAB BLOOD ORDERABLES F inal Result [facility] [place] [address] * (ABNORMAL) eGFR (03/20/2025 5:05 AM CDT) [...] MD LAB BLOOD ORDERABLES F inal Result [facility] [place] [address] * Tacrolimus level trough (03/20/2025 5:05 AM CDT) Tacrolimus trough 4.1 ng/mL Comment: Interpretive Data Testing performed by liquid chromatography-tandem mass spectrometry. Therapeutic concentrations vary depending on type of transplanted organ and time elapsed since transplant. Typical trough concentrations range from 5-15 ng/mL. This test was developed and its performance characteristics determined by the [facility] consistent with CLIA requirements. This test has not been cleared or approved by the [place] Food and Drug administration. Current interpretive data last reviewed 2019. Blood 03/20/2025 5:05 AM CDT 03/20/2025 6:00 AM CDT Pauline Bhat MD LAB BLOOD ORDERABLES F inal Result [facility] Department [place] [address] * (ABNORMAL) CBC with auto differential (03/20/2025 5:05 AM CDT) Pathologist [facility] WBC 1.58(L) 3.80 - 9.90 K/cumm Hgb 7.2(L) 11.9 - 15.5 g/dL [facility] Hct 21.6(L) 35.6 - 45.5 % [facility] Plt 120(L) 150 - 400 K/cumm [facility] MPV 11.2 9.1 - 12.3 fL [facility] RBC 2.23(L) 3.90 - 5.20 M/cumm [facility] MCV 96.9(H) 81.3 - 96.4 fL [facility] MCH 32.3 27.1 - 33.3 pg [facility] MCHC 33.3 32.3 - 35.7 g/dL [facility] RDW CV 24.8(H) 11.1 - 14.9 % [facility] RDW SD 83.8(H) 35.7 - 48.1 fL [facility] NRBC abs 0.00 0.00 - 0.01 K/cumm [facility] Morphologic Screen Results confirmed by manual morphology review. [facility] Blood 03/20/2025 5:05 AM CDT 03/20/2025 6:00 AM CDT Pauline Bhat MD LAB BLOOD ORDERABLES E dited Result - Final Performing Organization Address [facility]/ZIP Co de Phone Number [facility] Department [place] [address] * (ABNORMAL) Manual Differential (03/20/2025 5:05 AM CDT) Differential Manual Cells Counted 119 [facility] Neutrophil abs 0.74(L) 1.50 - 6.50 K/cumm [facility] Imm gran abs 0.07 0.00 - 0.10 K/cumm [facility] Lymphocyte abs 0.55(L) 0.80 - 3.30 K/cumm [facility] Monocyte abs 0.17(L) 0.20 - 0.80 K/cumm [facility] Eosinophil abs 0.03 0.00 - 0.50 K/cumm [facility] Basophil abs 0.03 0.00 - 0.10 K/cumm [facility] Neutrophil pct 47.0 % [facility] Comment: Interpretive Data Percent cell count reference ranges are not reported, since discordance with absolute values may lead to misinterpretation of CBC data. Current Interpretive Data was last revised on 2017. Lymphocyte pct 34.5 % [facility] Comment: Interpretive Data Percent cell count reference ranges are not reported, since discordance with absolute values may lead to misinterpretation of CBC data. Current Interpretive Data was last revised on 2017. Monocyte pct 10.9 % [facility] Comment: Interpretive Data Percent cell count reference ranges are not reported, since discordance with absolute values may lead to misinterpretation of CBC data. Current Interpretive Data was last revised on 2017. Eosinophil pct 1.7 % [facility] Comment: Interpretive Data Percent cell count reference ranges are not reported, since discordance with absolute values may lead to misinterpretation of CBC data. Current Interpretive Data was last revised on 2017. Basophil pct 1.7 % [facility] Comment: Interpretive Data Percent cell count reference ranges are not reported, since discordance with absolute values may lead to misinterpretation of CBC data. Current Interpretive Data was last revised on 2017. Metamyelocyte pct 1.7(H) 0.0 - 0.0 % [facility] Myelocyte pct 1.7(H) 0.0 - 0.0 % [facility] Promyelocyte pct 0.8(H) 0.0 - 0.0 % [facility] Blood 03/20/2025 5:05 AM CDT 03/20/2025 6:05 AM CDT Pauline Bhat MD LAB BLOOD ORDERABLES F inal Result Performing Organization Address [facility] de Phone Number [facility] [place] [address] * Type and screen (03/20/2025 5:05 AM CDT) Moon, indirect Negative ABO Rh O Positive [facility] Blood 03/20/2025 5:05 AM CDT 03/20/2025 6:05 AM CDT Narrative [facility] - 03/20/2025 7:29 AM CDT Has the patient had Daratumumab or Isatuximab in the past 6 months?->Unknown Gage Rogers MD LAB BLOOD BANK TEST ORDERABLES Final Result Performing Organization Address [facility] de Phone Number [facility] Department [place] [address] * (ABNORMAL) Phosphorus (03/20/2025 5:05 AM CDT) Pathologist [facility] Phosphorus, pl 1.6(L) 2.3 - 4.5 mg/dL Blood 03/20/2025 5:05 AM CDT 03/20/2025 5:58 AM CDT Pauline Bhat MD LAB BLOOD ORDERABLES F inal Result Performing Organization Address [facility] de Phone Number [facility] [place] [address] * Magnesium (03/20/2025 5:05 AM CDT) [facility] Magnesium 1.5 1.4 - 2.5 mg/dL Blood 03/20/2025 5:05 AM CDT 03/20/2025 5:58 AM CDT us Pauline Bhat MD LAB BLOOD ORDERABLES F inal Result [facility] [place] [address] * (ABNORMAL) Comprehensive metabolic panel (03/20/2025 5:05 AM CDT) Sodium 142 135 - 145 mmol/L Potassium, pl 3.5 3.3 - 4.9 mmol/L [facility] Chloride 111(H) 97 - 110 mmol/L [facility] CO2 22 22 - 32 mmol/L [facility] Anion gap 9 2 - 15 mmol/L [facility] BUN 35(H) 6 - 25 mg/dL [facility] Creatinine 3.58(H) 0.60 - 1.10 mg/dL [facility] Glucose 95 70 - 199 mg/dL [facility] Comment: Interpretive Data Fasting glucose >/= 126 [...] 2022. Calcium 8.6 8.5 - 10.3 mg/dL [facility] Bilirubin, total 0.2 0.1 - 1.2 mg/dL [facility] Protein, pl 5.7(L) 6.5 - 8.5 g/dL [facility] Albumin 3.2(L) 3.5 - 5.0 g/dL [facility] Alk phos 83 40 - 130 Units/L [facility] ALT 23 7 - 45 Units/L [facility] AST 48(H) 10 - 45 Units/L [facility] Blood 03/20/2025 5:05 AM CDT 03/20/2025 5:58 AM CDT Pauline Bhat MD LAB BLOOD ORDERABLES F inal Result Performing Organization Address [facility] Co de Phone Number [facility] [place] [address] * (ABNORMAL) eGFR (03/19/2025 5:05 AM CDT) [...] ORDERABLES F inal Result Performing Organization Address City/[facility]/ZIP Co de Phone Number [facility] [place] [address] * (ABNORMAL) Differential, auto (03/19/2025 5:05 AM CDT) Neutrophil abs 0.48(C) 1.50 - 6.50 K/cumm Comment:This result has been called to irineo reji rn by [id number] on 03/19/2025 07:41:05, and has been read back. Imm gran abs 0.18(H) 0.00 - 0.10 K/cumm [facility] Lymphocyte abs 0.68(L) 0.80 - 3.30 K/cumm [facility] Monocyte abs 0.18(L) 0.20 - 0.80 K/cumm [facility] Eosinophil abs 0.02 0.00 - 0.50 K/cumm [facility] Basophil abs 0.01 0.00 - 0.10 K/cumm [facility] Neutrophil pct 31.0 % [facility] Comment: Differential consistent with previous result. Differential consistent with previous result. Interpretive Data Percent cell count reference ranges are not reported, since discordance with absolute values may lead to misinterpretation of CBC data. Current Interpretive Data was last revised on 2017. Imm gran pct 11.6 % [facility] Comment: Interpretive Data Percent cell count reference ranges are not reported, since discordance with absolute values may lead to misinterpretation of CBC data. Current Interpretive Data was last revised on 2017. Lymphocyte pct 43.9 % [facility] Comment: Interpretive Data Percent cell count reference ranges are not reported, since discordance with absolute values may lead to misinterpretation of CBC data. Current Interpretive Data was last revised on 2017. Monocyte pct 11.6 % [facility] Comment: Interpretive Data Percent cell count reference ranges are not reported, since discordance with absolute values may lead to misinterpretation of CBC data. Current Interpretive Data was last revised on 2017. Eosinophil pct 1.3 % [facility] Comment: Interpretive Data Percent cell count reference ranges are not reported, since discordance with absolute values may lead to misinterpretation of CBC data. Current Interpretive Data was last revised on 2017. Basophil pct 0.6 % [facility] Comment: Interpretive Data Percent cell count reference ranges are not reported, since discordance with absolute values may lead to misinterpretation of CBC data. Current Interpretive Data was last revised on 2017. Blood 03/19/2025 5:05 AM CDT 03/19/2025 6:36 AM CDT Pauline Bhat MD LAB BLOOD ORDERABLES F inal Result Performing Organization Address [facility] de Phone Number [facility] Department [place] [address] * Tacrolimus level trough (03/19/2025 5:05 AM CDT) [facility] Tacrolimus trough 4.5 ng/mL Comment: Interpretive Data Testing performed by liquid chromatography-tandem mass spectrometry. Therapeutic concentrations vary depending on type of transplanted organ and time elapsed since transplant. Typical trough concentrations range from 5-15 ng/mL. This test was developed and its performance characteristics determined by the [facility] consistent with CLIA requirements. This test has not been cleared or approved by the [place] Food and Drug administration. Current interpretive data last reviewed 2019. Blood 03/19/2025 5:05 AM CDT 03/19/2025 6:36 AM CDT Pauline Bhat MD LAB BLOOD ORDERABLES F inal Result Performing Organization Address [facility] de Phone Number [facility] Department [place] [address] * (ABNORMAL) CBC with auto differential (03/19/2025 5:05 AM CDT) [facility] WBC 1.55(L) 3.80 - 9.90 K/cumm Hgb 7.0(L) 11.9 - 15.5 g/dL [facility] Hct 20.7(L) 35.6 - 45.5 % [facility] Plt 116(L) 150 - 400 K/cumm [facility] MPV 10.6 9.1 - 12.3 fL [facility] RBC 2.18(L) 3.90 - 5.20 M/cumm [facility] MCV 95.0 81.3 - 96.4 fL [facility] MCH 32.1 27.1 - 33.3 pg [facility] MCHC 33.8 32.3 - 35.7 g/dL [facility] RDW CV 25.2(H) 11.1 - 14.9 % [facility] RDW SD 81.4(H) 35.7 - 48.1 fL [facility] NRBC abs 0.00 0.00 - 0.01 K/cumm [facility] Blood 03/19/2025 5:05 AM CDT 03/19/2025 6:36 AM CDT Pauline Bhat MD LAB BLOOD ORDERABLES F inal Result Performing Organization Address City/[facility] Co de Phone Number [facility] [place] [place] [address] * (ABNORMAL) Phosphorus (03/19/2025 5:05 AM CDT) Phosphorus, pl 1.8(L) 2.3 - 4.5 mg/dL Blood 03/19/2025 5:05 AM CDT 03/19/2025 6:35 AM CDT Pauline Bhat MD LAB BLOOD ORDERABLES F inal Result Performing Organization Address [facility] Co de Phone Number [facility] [place] [place] [address] * Magnesium (03/19/2025 5:05 AM CDT) Magnesium 1.6 1.4 - 2.5 mg/dL Blood 03/19/2025 5:05 AM CDT 03/19/2025 6:35 AM CDT Pauline Bhat MD LAB BLOOD ORDERABLES F inal Result Performing Organization Address City/[facility] Co de Phone Number [facility] [place] [address] * (ABNORMAL) Comprehensive metabolic panel (03/19/2025 5:05 AM CDT) Sodium 140 135 - 145 mmol/L Potassium, pl 3.6 3.3 - 4.9 mmol/L [facility] Chloride 109 97 - 110 mmol/L [facility] CO2 20(L) 22 - 32 mmol/L [facility] Anion gap 11 2 - 15 mmol/L [facility] BUN 42(H) 6 - 25 mg/dL [facility] Creatinine 3.93(H) 0.60 - 1.10 mg/dL [facility] Glucose 89 70 - 199 mg/dL [facility] Comment: Interpretive Data Fasting glucose >/= 126 [...] 2022. Calcium 8.2(L) 8.5 - 10.3 mg/dL [facility] Bilirubin, total 0.2 0.1 - 1.2 mg/dL [facility] Protein, pl 5.6(L) 6.5 - 8.5 g/dL [facility] Albumin 3.1(L) 3.5 - 5.0 g/dL [facility] Alk phos 72 40 - 130 Units/L [facility] ALT 18 7 - 45 Units/L [facility] AST 45 10 - 45 Units/L [facility] Blood 03/19/2025 5:05 AM CDT 03/19/2025 6:35 AM CDT us Pauline Bhat MD LAB BLOOD ORDERABLES F inal Result [facility] [place] [address] * (ABNORMAL) eGFR (03/18/2025 5:45 AM CDT) [...] MD LAB BLOOD ORDERABLES F inal Result [facility] Department [place] [address] * (ABNORMAL) Differential, auto (03/18/2025 5:45 AM CDT) Pathologist [facility] Neutrophil abs 0.67(L) 1.50 - 6.50 K/cumm Imm gran abs 0.19(H) 0.00 - 0.10 K/cumm [facility] Lymphocyte abs 0.66(L) 0.80 - 3.30 K/cumm [facility] Monocyte abs 0.21 0.20 - 0.80 K/cumm [facility] Eosinophil abs 0.04 0.00 - 0.50 K/cumm [facility] Basophil abs 0.02 0.00 - 0.10 K/cumm [facility] Neutrophil pct 37.5 % [facility] Comment: Interpretive Data Percent cell count reference ranges are not reported, since discordance with absolute values may lead to misinterpretation of CBC data. Current Interpretive Data was last revised on 2017. Imm gran pct 10.6 % [facility] Comment: Interpretive Data Percent cell count reference ranges are not reported, since discordance with absolute values may lead to misinterpretation of CBC data. Current Interpretive Data was last revised on 2017. Lymphocyte pct 36.9 % [facility] Comment: Interpretive Data Percent cell count reference ranges are not reported, since discordance with absolute values may lead to misinterpretation of CBC data. Current Interpretive Data was last revised on 2017. Monocyte pct 11.7 % [facility] Comment: Interpretive Data Percent cell count reference ranges are not reported, since discordance with absolute values may lead to misinterpretation of CBC data. Current Interpretive Data was last revised on 2017. Eosinophil pct 2.2 % [facility] Comment: Interpretive Data Percent cell count reference ranges are not reported, since discordance with absolute values may lead to misinterpretation of CBC data. Current Interpretive Data was last revised on 2017. Basophil pct 1.1 % [facility] Comment: Interpretive Data Percent cell count reference ranges are not reported, since discordance with absolute values may lead to misinterpretation of CBC data. Current Interpretive Data was last revised on 2017. Blood 03/18/2025 5:45 AM CDT 03/18/2025 7:22 AM CDT us Pauline Bhat MD LAB BLOOD ORDERABLES F inal Result [facility] Department of Laboratories [place], [place] [id number] * Tacrolimus level trough (03/18/2025 5:45 AM CDT) [facility] Tacrolimus trough 3.2 ng/mL Comment: Interpretive Data Testing performed by liquid chromatography-tandem mass spectrometry. Therapeutic concentrations vary depending on type of transplanted organ and time elapsed since transplant. Typical trough concentrations range from 5-15 ng/mL. This test was developed and its performance characteristics determined by the [facility] consistent with CLIA requirements. This test has not been cleared or approved by the [place] Food and Drug administration. Current interpretive data last reviewed 2019. Blood 03/18/2025 5:45 AM CDT 03/18/2025 7:22 AM CDT Pauline Bhat MD LAB BLOOD ORDERABLES F inal Result [facility] [place] [address] * (ABNORMAL) CBC with auto differential (03/18/2025 5:45 AM CDT) WBC 1.79(L) 3.80 - 9.90 K/cumm Hgb 7.8(L) 11.9 - 15.5 g/dL [facility] Hct 23.2(L) 35.6 - 45.5 % [facility] Plt 117(L) 150 - 400 K/cumm [facility] MPV 10.9 9.1 - 12.3 fL [facility] RBC 2.42(L) 3.90 - 5.20 M/cumm [facility] MCV 95.9 81.3 - 96.4 fL [facility] Comment:MCV delta due to megan arent blood transfusion. MCH 32.2 27.1 - 33.3 pg [facility] MCHC 33.6 32.3 - 35.7 g/dL [facility] RDW CV 24.6(H) 11.1 - 14.9 % [facility] RDW SD 79.8(H) 35.7 - 48.1 fL [facility] NRBC abs 0.00 0.00 - 0.01 K/cumm [facility] Blood 03/18/2025 5:45 AM CDT 03/18/2025 7:22 AM CDT Pauline Bhat MD LAB BLOOD ORDERABLES E dited Result - Final Performing Organization Address [facility] Co de Phone Number [facility] [place] [address] * (ABNORMAL) Phosphorus (03/18/2025 5:45 AM CDT) Pathologist [facility] Phosphorus, pl 2.1(L) 2.3 - 4.5 mg/dL Blood 03/18/2025 5:45 AM CDT 03/18/2025 7:22 AM CDT Pauline Bhat MD LAB BLOOD ORDERABLES F inal Result Performing Organization Address [facility] Co de Phone Number [facility] [place] [address] * Magnesium (03/18/2025 5:45 AM CDT) [facility] Magnesium 1.8 1.4 - 2.5 mg/dL Blood 03/18/2025 5:45 AM CDT 03/18/2025 7:22 AM CDT Pauline Bhat MD LAB BLOOD ORDERABLES F inal Result Performing Organization Address [facility] Co de Phone Number [facility] [place] [address] * (ABNORMAL) Comprehensive metabolic panel (03/18/2025 5:45 AM CDT) Pathologist [facility] Sodium 143 135 - 145 mmol/L Potassium, pl 3.4 3.3 - 4.9 mmol/L [facility] Chloride 110 97 - 110 mmol/L [facility] CO2 20(L) 22 - 32 mmol/L [facility] Anion gap 13 2 - 15 mmol/L [facility] BUN 51(H) 6 - 25 mg/dL [facility] Creatinine 4.74(H) 0.60 - 1.10 mg/dL [facility] Glucose 94 70 - 199 mg/dL [facility] Comment: Interpretive Data Fasting glucose >/= 126 [...] 2022. Calcium 8.4(L) 8.5 - 10.3 mg/dL [facility] Bilirubin, total 0.3 0.1 - 1.2 mg/dL [facility] Protein, pl 5.9(L) 6.5 - 8.5 g/dL [facility] Albumin 3.4(L) 3.5 - 5.0 g/dL [facility] Alk phos 67 40 - 130 Units/L [facility] ALT 12 7 - 45 Units/L [facility] AST 30 10 - 45 Units/L [facility] Blood 03/18/2025 5:45 AM CDT 03/18/2025 7:22 AM CDT us Pauline Bhat MD LAB BLOOD ORDERABLES F inal Result Performing Organization Address City/[facility]/ZIP Co de Phone Number [facility] Department [place] [address] * Transfuse RBC (03/17/2025 11:45 PM CDT) Blood us Gary Verdin MD BLOOD TRANSFUSION ORDER ALEX Edited Result - Final Performing Organization Address City/[facility]/ZIP Co de Phone Number [facility] Department [place] [address] * Infection Prevention Devora auris PCR, surveillance Axilla/Groin (03/17/2025 1:35 PM CDT) Pathologist [facility] Devora auris DNA Not Detected Not Detected [facility] Comment: Interpretive Data Testing performed by [facility]ious Disease [facility] using the Lauren jimmy [id number] Devora auris assay. This assay detects DNA from Devora auris using Real-Time PCR. This assay is laboratory developed and is not cleared by the [place] Food and Drug Administration. The performance characteristics have been verified by the [facility]. Axilla/Groin 03/17/2025 1:35 PM CDT 03/17/2025 3:48 PM CDT Narrative [facility] - 03/17/2025 11:58 PM CDT Order placed by [facility] due to ring surveillance. us Instant Order Generic Provider LAB MICROBIOLOGY - GENERAL ORDERABLES Final Result Performing Organization Address City/[facility]/ZIP Co de Phone Number [facility] Department [place] [address] [facility] * Type and screen (03/17/2025 1:35 PM CDT) [facility] ABO Rh O Positive Moon, indirect Negative [facility] Blood 03/17/2025 1:35 PM CDT 03/17/2025 2:46 PM CDT Narrative [facility] - 03/17/2025 3:34 PM CDT Has the patient had Daratumumab or Isatuximab in the past 6 months?->Unknown Gary Verdin MD LAB BLOOD BANK TEST ORD ERABLES Final Result [facility] [place] [address] * Prepare RBC: 1 Units (03/17/2025 12:17 PM CDT) Pathologist [facility] Product code [id number] Unit Number [id number] [facility] Product Blood Type OPOS [facility] Dispense Status PRESUMED TRANSFUSED [facility] Blood 03/17/2025 12:1 7 PM CDT 03/17/2025 12:17 PM CDT Narrative [facility] - 03/18/2025 6:00 AM CDT Are special requirements needed? (All products are leukoreduced and CMV- safe)- >No Date required:-[id number] LRRBC # of [id number] Reasons:-Hgb <7 g/dL} us Gary Verdin MD BLOOD BANK PRODUCT ORDE RABLES Final Result Performing Organization Address City/State/[facility] Co de Phone Number [facility] [place] [address] * (ABNORMAL) eGFR (03/17/2025 5:17 AM CDT) [...] MD LAB BLOOD ORDERABLES F inal Result [facility] [place] [address] * (ABNORMAL) Differential, auto (03/17/2025 5:17 AM CDT) Neutrophil abs 0.80(L) 1.50 - 6.50 K/cumm Imm gran abs 0.20(H) 0.00 - 0.10 K/cumm [facility] Lymphocyte abs 0.67(L) 0.80 - 3.30 K/cumm [facility] Monocyte abs 0.30 0.20 - 0.80 K/cumm [facility] Eosinophil abs 0.02 0.00 - 0.50 K/cumm [facility] Basophil abs 0.02 0.00 - 0.10 K/cumm [facility] Neutrophil pct 39.8 % [facility] Comment: Interpretive Data Percent cell count reference ranges are not reported, since discordance with absolute values may lead to misinterpretation of CBC data. Current Interpretive Data was last revised on 2017. Imm gran pct 10.0 % [facility] Comment: Interpretive Data Percent cell count reference ranges are not reported, since discordance with absolute values may lead to misinterpretation of CBC data. Current Interpretive Data was last revised on 2017. Lymphocyte pct 33.3 % [facility] Comment: Interpretive Data Percent cell count reference ranges are not reported, since discordance with absolute values may lead to misinterpretation of CBC data. Current Interpretive Data was last revised on 2017. Monocyte pct 14.9 % [facility] Comment: Interpretive Data Percent cell count reference ranges are not reported, since discordance with absolute values may lead to misinterpretation of CBC data. Current Interpretive Data was last revised on 2017. Eosinophil pct 1.0 % [facility] Comment: Interpretive Data Percent cell count reference ranges are not reported, since discordance with absolute values may lead to misinterpretation of CBC data. Current Interpretive Data was last revised on 2017. Basophil pct 1.0 % [facility] Comment: Interpretive Data Percent cell count reference ranges are not reported, since discordance with absolute values may lead to misinterpretation of CBC data. Current Interpretive Data was last revised on 2017. Blood 03/17/2025 5:17 AM CDT 03/17/2025 5:53 AM CDT Pauline Bhat MD LAB BLOOD ORDERABLES F inal Result Performing Organization Address [facility] de Phone Number [facility] [place] [address] * Tacrolimus level trough (03/17/2025 5:17 AM CDT) Pathologist [facility] Tacrolimus trough 4.3 ng/mL Comment: Interpretive Data Testing performed by liquid chromatography-tandem mass spectrometry. Therapeutic concentrations vary depending on type of transplanted organ and time elapsed since transplant. Typical trough concentrations range from 5-15 ng/mL. This test was developed and its performance characteristics determined by the [facility] consistent with CLIA requirements. This test has not been cleared or approved by the US Food and Drug administration. Current interpretive data last reviewed 2019. Blood 03/17/2025 5:17 AM CDT 03/17/2025 5:53 AM CDT Pauline Bhat MD LAB BLOOD ORDERABLES F inal Result Performing Organization Address [facility] de Phone Number [facility] [place] [address] * (ABNORMAL) CBC with auto differential (03/17/2025 5:17 AM CDT) WBC 2.01(L) 3.80 - 9.90 K/cumm Hgb 6.9(L) 11.9 - 15.5 g/dL [facility] Hct 20.7(L) 35.6 - 45.5 % [facility] Plt 123(L) 150 - 400 K/cumm [facility] MPV 10.5 9.1 - 12.3 fL [facility] RBC 2.04(L) 3.90 - 5.20 M/cumm [facility] MCV 101.5(H) 81.3 - 96.4 fL [facility] MCH 33.8(H) 27.1 - 33.3 pg [facility] MCHC 33.3 32.3 - 35.7 g/dL [facility] RDW CV 22.5(H) 11.1 - 14.9 % [facility] RDW SD 81.1(H) 35.7 - 48.1 fL [facility] NRBC abs 0.00 0.00 - 0.01 K/cumm [facility] Blood 03/17/2025 5:17 AM CDT 03/17/2025 5:53 AM CDT Pauline Bhat MD LAB BLOOD ORDERABLES F inal Result Performing Organization Address [facility] de Phone Number [facility] Department [place] [address] * Phosphorus (03/17/2025 5:17 AM CDT) Phosphorus, pl 2.7 2.3 - 4.5 mg/dL Blood 03/17/2025 5:17 AM CDT 03/17/2025 5:54 AM CDT Pauline Bhat MD LAB BLOOD ORDERABLES F inal Result Performing Organization Address [facility] de Phone Number [facility] Department [place] [address] * Magnesium (03/17/2025 5:17 AM CDT) Magnesium 1.9 1.4 - 2.5 mg/dL Blood 03/17/2025 5:17 AM CDT 03/17/2025 5:54 AM CDT Pauline Bhat MD LAB BLOOD ORDERABLES F inal Result Performing Organization Address City/[facility]/ZIP Co de Phone Number [facility] [place] [address] * (ABNORMAL) Comprehensive metabolic panel (03/17/2025 5:17 AM CDT) Sodium 143 135 - 145 mmol/L Potassium, pl 3.9 3.3 - 4.9 mmol/L [facility] Chloride 110 97 - 110 mmol/L [facility] CO2 22 22 - 32 mmol/L [facility] Anion gap 11 2 - 15 mmol/L [facility] BUN 65(H) 6 - 25 mg/dL [facility] Creatinine 5.74(H) 0.60 - 1.10 mg/dL [facility] Glucose 113 70 - 199 mg/dL [facility] Comment: Interpretive Data Fasting glucose >/= 126 [...] 2022. Calcium 8.8 8.5 - 10.3 mg/dL [facility] Bilirubin, total 0.2 0.1 - 1.2 mg/dL [facility] Protein, pl 6.5 6.5 - 8.5 g/dL [facility] Albumin 3.8 3.5 - 5.0 g/dL [facility] Alk phos 85 40 - 130 Units/L [facility] ALT 9 7 - 45 Units/L [facility] AST 22 10 - 45 Units/L [facility] Blood 03/17/2025 5:17 AM CDT 03/17/2025 5:54 AM CDT aPuline Bhat MD LAB BLOOD ORDERABLES F inal Result Performing Organization Address City/State/[facility] Co de Phone Number [facility] [place] [employer] [address] * MID Lab Inf Prevention Courtesy Callback Stool (03/16/2025 11:20 PM CDT) TestName Norovirus PCR Date Notified 20250317 [facility] Time Notified 912 [facility] Called/Read Back Alberto Beckman, [employer] [facility] Called By Lito Eduardo [facility] Stool 03/16/2025 11:2 0 PM CDT 03/17/2025 3:06 AM CDT Pauline Bhat MD LAB MICROBIOLOGY - GEN ERAL ORDERABLES Final Result Performing Organization Address [facility] [place] [address] * C. difficile testing Stool (03/16/2025 11:20 PM CDT) Pathologist [facility] Result Positive Negative Toxin Result Negative Negative [facility] C. diff result Negative, free toxin. Negative, free toxin [facility] C. diff interp GDH+/toxin- results almost never represent true C. difficile infection (CDI). Results may represent colonization with C. difficile without CDI, detection of a bacteria other than toxigenic C. difficile, or a false negative toxin assay. If there is a high index of suspicion for CDI, additional testing by PCR is available upon request. [facility] Stool 03/16/2025 11:2 0 PM CDT 03/17/2025 12:56 AM CDT Pauline Bhat MD LAB MICROBIOLOGY - GEN ERAL ORDERABLES Final Result Performing Organization Address [facility] Co de Phone Number [facility] [place] [employer] [place] [address] * Ova and parasite exam Stool (03/16/2025 11:20 PM CDT) Pathologist [facility] Ova & Parasite exam See Footnote [facility] Comment: SOURCE: STOOL, STLP OVA AND PARASITE, MICROSCOPY, F FINAL No parasites seen. Cryptosporidium, Cyclospora, and microsporidia are not readily detected by this method. Single negative specimen does not rule out parasitic infection. Test Performed by: [facility] - [address] [address] Toll Test Desk Worker: Bryson Craft Ph.D.; CLIA# [id number] Stool 03/16/2025 11:2 0 PM CDT 03/17/2025 12:56 AM CDT Narrative [facility] - 03/24/2025 2:02 PM CDT Is the patient immunosuppressed?->Yes Has the patient had recent travel outside the [place]?->No Pauline Bhat MD LAB MICROBIOLOGY - GEN ERAL ORDERABLES Final Result [facility] [place] [address] [facility] * (ABNORMAL) Norovirus PCR Stool (03/16/2025 11:20 PM CDT) [facility] Norovirus GI RNA Not Detected Not Detected [facility] Norovirus GII RNA Detected(A) Not Detected [facility] Comment: Interpretive data: Testing performed at the [facility] using the GERS Xpert Norovirus Assay. This assay uses nucleic [...] ERAL ORDERABLES Final Result Performing Organization Address [facility] [place] [address] [facility] * Cryptosporidium and Giardia antigen assay Stool (03/16/2025 11:20 PM CDT) Giardia Ag Negative Negative Cryptosporidium Ag Negative Negative [facility] Comment: Interpretive data: Testing performed by the [facility] using an immunoassay that detects Cryptosporidium and Giardia antigens in stool specimens. If comprehensive examination for ova and parasites is required, please request Ova and Parasite Examination. Stool 03/16/2025 11:2 0 PM CDT 03/17/2025 12:56 AM CDT Pauline Bhat MD LAB MICROBIOLOGY - GEN ERAL ORDERABLES Final Result Performing Organization Address [facility] Co de Phone Number [facility] [place] [address] * Stool culture Stool Rectum (03/16/2025 11:20 PM CDT) Direct Specimen Exam Shiga Toxin Testing: Antigen detection assay for Shiga-toxin NEGATIVE for Shiga Toxin 1 and Shiga Toxin 2. Report Final Report: No growth of enteric bacterial pathogens [facility] Stool (Rectum) 03/16/2025 11 :20 PM CDT 03/17/2025 12:56 AM CDT Narrative [facility] - 03/21/2025 10:38 AM CDT Testing performed by [facility] ([phone]). Routine stool cultures include procedures to detect Salmonella, Shigella, Edwardsiella, Aeromonas, Pleisiomonas, Campylobacter, Yersinia, E. coli O157, and Shiga-like toxins. Vibrio is cultured only upon special request. If Vibrio is suspected, please call the laboratory at [phone]. Interpretive data was last updated January 13, 2017. Pauline Bhat MD LAB MICROBIOLOGY - GEN ERAL ORDERABLES Final Result Performing Organization Address [facility] Co de Phone Number [facility] Department [place] [address] * Infection Prevention VRE Culture Stool (03/16/2025 11:19 PM CDT) Report Final Report: Negative Stool 03/16/2025 11:1 9 PM CDT 03/17/2025 5:28 AM CDT Narrative [facility] - 03/19/2025 8:23 AM CDT Surveillance culture for Infection Prevention purposes only; results indicate colonization, not infection requiring treatment. Testing performed by [facility] ([phone]). Gary Verdin MD LAB MICROBIOLOGY - GENE RAL ORDERABLES Final Result Performing Organization Address [facility] Co de Phone Number [facility] Department [place] [address] * US Kidney Complete (03/16/2025 2:26 PM [...] Prosper Brooks M.D. us Pauline Bhat MD [facility] US PROCEDURES Tonia l Result * BK virus PCR quantitative Blood (03/16/2025 5:41 AM CDT) BKV DNA result, pl Not Detected [facility] Comment: The quantifiable range of this assay is 21.5 IU/mL to 100,000,000 IU/mL (1.33 log IU/mL to 8.00 log IU/mL). Testing was performed by the JIMMY [id number] BKV Quantatitive Test version 2.0 ([employer] Testing performed at [facility] Current Interpretive Data was last revised on 2021. Blood 03/16/2025 5:41 AM CDT 03/16/2025 6:28 AM CDT Pauline Bhat MD LAB MICROBIOLOGY - GEN ERAL ORDERABLES Final Result Performing Organization Address City/[facility]/ZIP Co de Phone Number [facility] [place] [employer] [place] [address] [facility] * (ABNORMAL) Cytomegalovirus (CMV) DNA PCR, quantitative Blood (03/16/2025 5:41 AM CDT) [facility] CMV DNA Detected( A) [facility] Comment: Interpretive Data: The quantifiable range of this assay is 34 IUnits/mL to 10,000,000 IUnits/mL (1.53 log IUnits/mL to 7.0 log IUnits/mL). Testing was performed by the JIMMY 6800 CMV Test ([employer] Testing performed at [facility]. Current interpretive data was last revised on 2021. CMV DNA IU/mL 124 IUnits/mL [facility] CMV DNA log IU/mL 2.09 log IUnits/mL [facility] Blood 03/16/2025 5:41 AM CDT 03/16/2025 6:28 AM CDT Pauline Bhat MD LAB MICROBIOLOGY - GEN ERAL ORDERABLES Final Result [facility] [place] [place] [address] [facility] * (ABNORMAL) eGFR (03/16/2025 5:41 AM CDT) Pathologist [facility] eGFR 6(L) >=60 mL/min/1. 73 m2 [...] MD LAB BLOOD ORDERABLES F inal Result [facility] [place] [address] * (ABNORMAL) Differential, auto (03/16/2025 5:41 AM CDT) Pathologist [facility] Neutrophil abs 0.57(L) 1.50 - 6.50 K/cumm Imm gran abs 0.09 0.00 - 0.10 K/cumm [facility] Lymphocyte abs 0.52(L) 0.80 - 3.30 K/cumm [facility] Monocyte abs 0.17(L) 0.20 - 0.80 K/cumm [facility] Eosinophil abs 0.03 0.00 - 0.50 K/cumm [facility] Basophil abs 0.01 0.00 - 0.10 K/cumm [facility] Neutrophil pct 41.0 % [facility] Comment: Interpretive Data Percent cell count reference ranges are not reported, since discordance with absolute values may lead to misinterpretation of CBC data. Current Interpretive Data was last revised on 2017. Imm gran pct 6.5 % [facility] Comment: Interpretive Data Percent cell count reference ranges are not reported, since discordance with absolute values may lead to misinterpretation of CBC data. Current Interpretive Data was last revised on 2017. Lymphocyte pct 37.4 % [facility] Comment: Interpretive Data Percent cell count reference ranges are not reported, since discordance with absolute values may lead to misinterpretation of CBC data. Current Interpretive Data was last revised on 2017. Monocyte pct 12.2 % [facility] Comment: Interpretive Data Percent cell count reference ranges are not reported, since discordance with absolute values may lead to misinterpretation of CBC data. Current Interpretive Data was last revised on 2017. Eosinophil pct 2.2 % [facility] Comment: Interpretive Data Percent cell count reference ranges are not reported, since discordance with absolute values may lead to misinterpretation of CBC data. Current Interpretive Data was last revised on 2017. Basophil pct 0.7 % [facility] Comment: Interpretive Data Percent cell count reference ranges are not reported, since discordance with absolute values may lead to misinterpretation of CBC data. Current Interpretive Data was last revised on 2017. Blood 03/16/2025 5:41 AM CDT 03/16/2025 6:25 AM CDT us Pauline Bhat MD LAB BLOOD ORDERABLES F inal Result [facility] [place] [address] * Tacrolimus level trough (03/16/2025 5:41 AM CDT) [facility] Tacrolimus trough 5.5 ng/mL Comment: Interpretive Data Testing performed by liquid chromatography-tandem mass spectrometry. Therapeutic concentrations vary depending on type of transplanted organ and time elapsed since transplant. Typical trough concentrations range from 5-15 ng/mL. This test was developed and its performance characteristics determined by the [facility] consistent with CLIA requirements. This test has not been cleared or approved by the [place] Food and Drug administration. Current interpretive data last reviewed 2019. Blood 03/16/2025 5:41 AM CDT 03/16/2025 6:25 AM CDT Pauline Bhat MD LAB BLOOD ORDERABLES F inal Result Performing Organization Address [facility] Co de Phone Number [facility] [place] [address] * (ABNORMAL) Iron profile w/ IBC (03/16/2025 5:41 AM CDT) Iron 191(H) 35 - 145 mcg/dL TIBC <208(L) 250 - 400 mcg/dL [facility] Transferrin saturation >92(H) 20 - 50 % [facility] Blood 03/16/2025 5:41 AM CDT 03/16/2025 6:24 AM CDT Pauline Bhat MD LAB BLOOD ORDERABLES F inal Result Performing Organization Address City/[facility] Co de Phone Number [facility] [place] [address] * (ABNORMAL) CBC with auto differential (03/16/2025 5:41 AM CDT) WBC 1.39(L) 3.80 - 9.90 K/cumm Hgb 7.5(L) 11.9 - 15.5 g/dL [facility] Hct 22.3(L) 35.6 - 45.5 % [facility] Plt 124(L) 150 - 400 K/cumm [facility] MPV 10.7 9.1 - 12.3 fL [facility] RBC 2.20(L) 3.90 - 5.20 M/cumm [facility] MCV 101.4(H) 81.3 - 96.4 fL [facility] MCH 34.1(H) 27.1 - 33.3 pg [facility] MCHC 33.6 32.3 - 35.7 g/dL [facility] RDW CV 22.5(H) 11.1 - 14.9 % [facility] RDW SD 81.2(H) 35.7 - 48.1 fL [facility] NRBC abs 0.00 0.00 - 0.01 K/cumm [facility] Blood 03/16/2025 5:41 AM CDT 03/16/2025 6:25 AM CDT Pauline Bhat MD LAB BLOOD ORDERABLES F inal Result Performing Organization Address [facility] de Phone Number [facility] Department [place] [address] * Copper, serum (03/16/2025 5:41 AM CDT) [facility] Copper 90 77 - 206 mcg/dL [facility] Comment: ADDITIONAL INFORMATION This test was developed and its performance characteristics determined by [facility] in a manner consistent with CLIA requirements. This test has not been cleared or approved by the U.S. Food and Drug Administration. Test Performed by: [facility] - [address] [id number] [place] [address] Toll Test Desk Worker: Bryson Craft Ph.D.; CLIA# [id number] Blood 03/16/2025 5:41 AM CDT 03/16/2025 6:24 AM CDT Pauilne Bhat MD LAB BLOOD ORDERABLES F inal Result Performing Organization Address [facility] de Phone Number [facility] [place] [place] [address] [facility] * Zinc (03/16/2025 5:41 AM CDT) Zinc 66 60 - 106 mcg/dL [facility] Comment: ADDITIONAL INFORMATION This test was developed and its performance characteristics determined by [facility] in a manner consistent with CLIA requirements. This test has not been cleared or approved by the U.S. Food and Drug Administration. Test Performed by: [facility] [place] [address] Toll Test Desk Worker: Bryson Craft Ph.D.; CLIA# [id number] Blood 03/16/2025 5:41 AM CDT 03/16/2025 6:24 AM CDT Pauline Bhat MD LAB BLOOD ORDERABLES F inal [place] [address] [facility] * Phosphorus (03/16/2025 5:41 AM CDT) Pathologist [facility] Phosphorus, pl 4.0 2.3 - 4.5 mg/dL Blood 03/16/2025 5:41 AM CDT 03/16/2025 6:24 AM CDT Pauline Bhat MD LAB BLOOD ORDERABLES F inal Result [facility] [employer] [address] * Magnesium (03/16/2025 5:41 AM CDT) [facility] Magnesium 2.3 1.4 - 2.5 mg/dL Blood 03/16/2025 5:41 AM CDT 03/16/2025 6:24 AM CDT us Pauline Bhat MD LAB BLOOD ORDERABLES F inal Result Performing Organization Address City/[facility]/ZIP Co de Phone Number [facility] [place] [address] * (ABNORMAL) Ferritin (03/16/2025 5:41 AM CDT) Pathologist [facility] Ferritin 868(H) 13 - 150 ng/mL Blood 03/16/2025 5:41 AM CDT 03/16/2025 6:24 AM CDT Pauline Bhat MD LAB BLOOD ORDERABLES F inal Result Performing Organization Address [facility] de Phone Number [facility] Department [place] [address] * (ABNORMAL) Comprehensive metabolic panel (03/16/2025 5:41 AM CDT) [facility] Sodium 141 135 - 145 mmol/L Potassium, pl 4.1 3.3 - 4.9 mmol/L [facility] Chloride 107 97 - 110 mmol/L [facility] CO2 20(L) 22 - 32 mmol/L [facility] Anion gap 14 2 - 15 mmol/L [facility] BUN 76(H) 6 - 25 mg/dL [facility] Creatinine 7.19(H) 0.60 - 1.10 mg/dL [facility] Glucose 81 70 - 199 mg/dL [facility] Comment: Interpretive Data Fasting glucose >/= 126 [...] 2022. Calcium 9.1 8.5 - 10.3 mg/dL [facility] Bilirubin, total 0.3 0.1 - 1.2 mg/dL [facility] Protein, pl 6.7 6.5 - 8.5 g/dL [facility] Albumin 3.9 3.5 - 5.0 g/dL [facility] Alk phos 72 40 - 130 Units/L [facility] ALT 6(L) 7 - 45 Units/L [facility] AST 20 10 - 45 Units/L [facility] Blood 03/16/2025 5:41 AM CDT 03/16/2025 6:24 AM CDT Pauline Bhat MD LAB BLOOD ORDERABLES F inal Result Performing Organization Address [facility] de Phone Number [facility] Department of [employer] [place] [address] * Infection Prevention Devora auris PCR, surveillance Axilla/Groin (03/15/2025 1:04 PM CDT) Devora auris DNA Not Detected Not Detected [facility] Comment: Interpretive Data Testing performed by [facility] Molecular Infectious Disease Laboratory using the Lauren jimmy 6800 Devora auris assay. This assay detects DNA from Devora auris using Real-Time PCR. This assay is laboratory developed and is not cleared by the [facility] Food and Drug Administration. The performance characteristics have been verified by the [facility] Molecular Infectious Disease Laboratory. Axilla/Groin 03/15/2025 1:04 PM CDT 03/15/2025 2:07 PM CDT Lito Robertson MD LAB MICROBIOLOGY - GENERAL ORDER ALEX Final Result Performing Organization Address [facility]/ZIP Co de Phone Number [facility] Department [place] [address] [facility] * (ABNORMAL) Protein / creatinine ratio, urine, random (03/15/2025 1:04 PM CDT) Protein, ur, quant 31.5 mg/dL Comment: Interpretive Data No reference range established. Current interpretive data was last revised 2019. Creatinine Ur 114.6 mg/dL [facility] Comment: Interpretive Data No reference range established. Current interpretive data was last revised 2019. Protein/creatinin e ratio 274.9(H) 0.0 - 180.0 mg/g CR [facility] Urine 03/15/2025 1:04 PM CDT 03/15/2025 2:09 PM CDT us Pauline Bhat MD LAB URINE ORDERABLES F inal Result [facility] Department [place] [address] * US ROBBI (03/15/2025 11:44 AM CDT) Anatomical Region Laterality Modality Vascular N/A Ultrasound 03/15/2025 11:0 8 AM CDT Narrative 03/21/2025 12:43 PM CDT [facility] - Department of Vascular Surgery, Vascular Laboratory [address] [place] [id number] Lower Extremity Arterial Doppler Report Patient Name: HANNAH BOYD : 1960 Study Date: 03/15/2025 11:08:00 AM Gender: F Tech: Tamela Muñoz T Location: [id number] Ref Provider: PAULINE BHAT Quality: Adequate Order Provider: PAULINE BHAT PROCEDURES: Arterial Report: Ankle - Brachial Index Doppler exam. INDICATIONS: Leg pain. MEASUREMENTS: Right Value Units Left Value Units Rt Brachial Pressure 128 mmHg Lt Brachial Pressure IV mmHg Rt FINE GRADE BULLDOZER OPERATOR Pressure >254 mmHg Lt FINE GRADE BULLDOZER OPERATOR Pressure 168 mmHg Rt DPA Pressure >254 mmHg Lt DPA Pressure 182 mmHg Rt 1st Digit Pressure 118 mmHg Lt 1st Digit Pressure 122 mmHg Rt PT ROBBI Resting NC Lt PT ROBBI Resting 1.31 Rt AT ROBBI Resting NC Lt AT ROBBI Resting 1.42 Rt Digit/Arm Index 0.92 Lt Digit/Arm Index 0.95 Right Value Units Left Value Units FINDINGS: Performing Wardrobe Attendant: Tamela Muñoz RVT. Right Posterior Tibial Artery [...] above. Electronically Signed By: Cesar Isaacs MD [facility] [phone] 03/21/2025 11:55:03 AM CDT Procedure Note Cesar Isaacs MD - 03/21/2025 [facility] - Department of Vascular Surgery,Vascular Laboratory [address] [place] [address] Lower Extremity Arterial Doppler Report Patient Name: HANNAH BOYD : 1960 Study Date: 03/15/2025 11:08:00 AM Gender: F Tech: Tamela Muñoz RVT Location: [id number] Ref Provider: PAULINE BHAT Quality: Adequate Order Provider: PAULINE BHAT PROCEDURES: Arterial Report: Ankle - Brachial Index Doppler exam. INDICATIONS: Leg pain. MEASUREMENTS: Right Value Units Left Value Units Rt Brachial Pressure 128 mmHg Lt Brachial Pressure IV mmHg Rt FINE GRADE BULLDOZER OPERATOR Pressure >254 mmHg Lt FINE GRADE BULLDOZER OPERATOR Pressure 168 mmHg Rt DPA Pressure >254 mmHg Lt DPA Pressure 182 mmHg Rt 1st Digit Pressure 118 mmHg Lt 1st Digit Pressure 122 mmHg Rt PT ROBBI Resting NC Lt PT ROBBI Resting 1.31 Rt AT ROBBI Resting NC Lt AT ROBBI Resting 1.42 Rt Digit/Arm Index 0.92 Lt Digit/Arm Index 0.95 Right Value Units Left Value Units FINDINGS: Performing Wardrobe Attendant: Tamela Muñoz RVT. Right Posterior Tibial Artery [...] above. Electronically Signed By: Cesar Isaacs MD [facility] [phone] 03/21/2025 11:55:03 AM CDT us Pauline Bhat MD [facility] US PROCEDURES Tonia l Result * (ABNORMAL) [...] ORDERABLES F inal Result Performing Organization Address [facility] de Phone Number SUMAYA [facility] Department [place] [address] * Tacrolimus level trough (03/15/2025 5:32 AM CDT) [facility] Tacrolimus trough 6.6 ng/mL Comment: Interpretive Data Testing performed by liquid chromatography-tandem mass spectrometry. Therapeutic concentrations vary depending on type of transplanted organ and time elapsed since transplant. Typical trough concentrations range from 5-15 ng/mL. This test was developed and its performance characteristics determined by the [facility] Laboratory consistent with CLIA requirements. This test has not been cleared or approved by the [place] Food and Drug administration. Current interpretive data last reviewed 2019. Blood 03/15/2025 5:32 AM CDT 03/15/2025 6:25 AM CDT Pauline Bhat MD LAB BLOOD ORDERABLES F inal Result Performing Organization Address [facility] Co de Phone Number [facility] [place] [address] * (ABNORMAL) Basic metabolic panel (03/15/2025 5:32 AM CDT) Pathologist [facility] Sodium 136 135 - 145 mmol/L Potassium, pl 3.7 3.3 - 4.9 mmol/L [facility] Chloride 105 97 - 110 mmol/L [facility] CO2 19(L) 22 - 32 mmol/L [facility] Anion gap 12 2 - 15 mmol/L [facility] BUN 84(H) 6 - 25 mg/dL [facility] Creatinine 7.79(H) 0.60 - 1.10 mg/dL [facility] Glucose 89 70 - 199 mg/dL [facility] Comment: Interpretive Data Fasting glucose >/= 126 [...] 2022. Calcium 8.7 8.5 - 10.3 mg/dL [facility] Blood 03/15/2025 5:32 AM CDT 03/15/2025 6:25 AM CDT us Pauline Bhat MD LAB BLOOD ORDERABLES F inal Result SUMAYA [facility] Department [place] [address] * (ABNORMAL) Urinalysis reflex to microscopic and culture Urine (03/15/2025 12:29 AM CDT) Pathologist [facility] Color, ur Yellow Yellow Clarity, ur Cloudy(A) Clear [facility] Specific gravity, ur 1.018 1.003 - 1.030 [facility] pH, urine 6.0 [facility] Comment: Interpretive Data U rine pH is affected by diet, medications, systemic acid-base disturbances, and renal tubular function. pH may affect urinary stone formation. For example, urine pH below 6.0 may help reduce the tendency for calcium phosphate stones and pH greater than 6.0 may reduce the tendency for uric acid stone formation. Source: [facility] Current Interpretive Data was last revised on 2017 Protein, ur ql 1+(A) Negative [facility] Glucose, ur ql Negative Negative [facility] Ketones, ur Negative Negative [facility] Bilirubin, ur Negative Negative [facility] Blood, ur Trace(A) Negative [facility] Urobilinogen, ur <2.0 <2.0 mg/dL [facility] Nitrite, ur Negative Negative [facility] Leukocyte esterase, ur 3+(A) Negative [facility] UA reflex comment Reflex to microscopic UA will be performed. [facility] Urine 03/15/2025 12:2 9 AM CDT 03/15/2025 12:48 AM CDT us Pauline Bhat MD LAB MICROBIOLOGY - GEN ERAL ORDERABLES Final Result Performing Organization Address City/[facility]/ZIP Co de Phone Number [facility] [place] [address] * Sodium, urine, random (03/15/2025 12:29 AM CDT) Sodium, ur 31 mmol/L Comment: Interpretive Data No reference range established. Current interpretive data was last revised 2019. Urine (Urine, Clean Catch) 03/15/2025 12:29 AM CDT 03/15/2025 12:54 AM CDT Pauline Bhat MD LAB URINE ORDERABLES F inal Result Performing Organization Address City/[facility]/ZIP Co de Phone Number [facility] Department [place] [employer] [place] [address] * Potassium, urine, random (03/15/2025 12:29 AM CDT) Potassium conc, ur 29.5 mmol/L Comment: Interpretive Data No reference range established. Current interpretive data was last revised 2019. Urine (Urine, Clean Catch) 03/15/2025 12:29 AM CDT 03/15/2025 12:54 AM CDT Pauline Bhat MD LAB URINE ORDERABLES F inal Result Performing Organization Address [facility] Co de Phone Number [facility] [place] [address] * Creatinine, urine, random (03/15/2025 12:29 AM CDT) Creatinine Ur 170.7 mg/dL Comment: Interpretive Data No reference range established. Current interpretive data was last revised 2019. Urine 03/15/2025 12:2 9 AM CDT 03/15/2025 12:54 AM CDT Pauline Bhat MD LAB URINE ORDERABLES F inal Result Performing Organization Address [facility] de Phone Number [facility] [place] [address] * (ABNORMAL) Urinalysis, microscopic only (03/15/2025 12:29 AM CDT) WBC, ur >50(A) 0 - 5 /HPF RBC, ur 3-5(A) 0 - 2 /HPF [facility] Epithelial cells, squamous, ur 1-5 0 - 5 /HPF [facility] Bacteria, ur 3+(A) [facility] Mucous, ur Present(A) [facility] Culture Reflex Comment Reflex to urine culture will be performed. [facility] Urine 03/15/2025 12:2 9 AM CDT 03/15/2025 12:48 AM CDT Pauline Bhat MD LAB URINE ORDERABLES F inal Result SUMAYA [facility] Department [place] [address] * (ABNORMAL) Urine culture Urine (03/15/2025 12:29 AM CDT) Report Final Report: Greater than or equal to 100,000 colonies/mL of Proteus vulgaris group Greater than or equal to 100,000 colonies/mL of Klebsiella variicola (.) Organism PROTEUS VULGARIS GROUP [facility] Organism KLEBSIELLA VARIICOLA [facility] Urine 03/15/2025 12:2 9 AM CDT 03/15/2025 1:27 AM CDT Narrative SUMAYA [facility] - 03/17/2025 10:58 AM CDT Urine culture reflexed based upon urinalysis results. Testing performed by [facility] Microbiology Laboratory ([phone]) Organism Antibiotic Method Susceptibility Proteus vulgaris group [...] ERAL ORDERABLES Final Result Performing Organization Address [facility] Co de Phone Number [facility] Department [place] [address] * (ABNORMAL) eGFR (03/14/2025 10:24 PM CDT) [facility] eGFR 5(L) >=60 mL/min/1. 73 m2 Comment: [...] ORDERABLES F inal Result Performing Organization Address [facility] Co de Phone Number SUMAYA [facility] Department [place] [address] * Respiratory pathogen panel Nasopharyngeal (03/14/2025 10:24 PM CDT) [facility] Influenza A RNA Not Detected Not Detected Influenza B RNA Not Detected Not Detected [facility] RSV RNA Not Detected Not Detected [facility] COVID-19 RNA Not Detected Not Detected [facility] Coronavirus 229E RNA Not Detected Not Detected [facility] Coronavirus HKU1 RNA Not Detected Not Detected [facility] Coronavirus NL63 RNA Not Detected Not Detected [facility] Coronavirus OC43 RNA Not Detected Not Detected [facility] Adenovirus DNA Not Detected Not Detected [facility] Metapneumovirus RNA Not Detected Not Detected [facility] Rhinovirus/Enterov irus RNA Not Detected Not Detected [facility] Parainfluenza 1 RNA Not Detected Not Detected [facility] Parainfluenza 2 RNA Not Detected Not Detected [facility] Parainfluenza 3 RNA Not Detected Not Detected [facility] Parainfluenza 4 RNA Not Detected Not Detected [facility] B. pertussis DNA Not Detected Not Detected [facility] B. parapertussis DNA Not Detected Not Detected [facility] C. pneumoniae DNA Not Detected Not Detected [facility] M. pneumoniae DNA Not Detected Not Detected [facility] Nasopharyngeal 03/14/2025 10 :24 PM CDT 03/14/2025 11:15 PM CDT Narrative [facility] - 03/15/2025 12:26 AM CDT Is the Patient experiencing symptoms consistent with COVID?->Unknown Surveillance testing for transplant patient?->No Interpretive Data The W-locate FilmArray Respiratory Panel (RP2.1) assay is a [...] assay has FDA clearance for testing of MIME ARTIST swabs. The performance of additional specimen types has been assessed by the performing laboratory. The performance characteristics of this assay have been determined by [facility] Molecular Infectious Disease Laboratory. Current interpretive data was last revised on 22. us Pauline Bhat MD LAB MICROBIOLOGY - GEN ERAL ORDERABLES Final Result [facility] Department [place] [address] * (ABNORMAL) CBC with auto differential (03/14/2025 10:24 PM CDT) WBC 1.65(L) 3.80 - 9.90 K/cumm Hgb 7.9(L) 11.9 - 15.5 g/dL [facility] Hct 23.6(L) 35.6 - 45.5 % [facility] Plt 133(L) 150 - 400 K/cumm [facility] MPV 10.4 9.1 - 12.3 fL [facility] RBC 2.36(L) 3.90 - 5.20 M/cumm [facility] MCV 100.0(H) 81.3 - 96.4 fL [facility] MCH 33.5(H) 27.1 - 33.3 pg [facility] MCHC 33.5 32.3 - 35.7 g/dL [facility] RDW CV 22.5(H) 11.1 - 14.9 % [facility] RDW SD 79.3(H) 35.7 - 48.1 fL [facility] NRBC abs 0.00 0.00 - 0.01 K/cumm [facility] Blood 03/14/2025 10:2 4 PM CDT 03/14/2025 11:13 PM CDT us Pauline Bhat MD LAB BLOOD ORDERABLES F inal Result [facility] Department [place] [address] * (ABNORMAL) Manual Differential (03/14/2025 10:24 PM CDT) Differential Manual Cells Counted 116 [facility] Neutrophil abs 0.95(L) 1.50 - 6.50 K/cumm [facility] Lymphocyte abs 0.58(L) 0.80 - 3.30 K/cumm [facility] Monocyte abs 0.09(L) 0.20 - 0.80 K/cumm [facility] Eosinophil abs 0.01 0.00 - 0.50 K/cumm [facility] Basophil abs 0.01 0.00 - 0.10 K/cumm [facility] Neutrophil pct 57.7 % [facility] Comment: Interpretive Data Percent cell count reference ranges are not reported, since discordance with absolute values may lead to misinterpretation of CBC data. Current Interpretive Data was last revised on 2017. Lymphocyte pct 35.3 % [facility] Comment: Interpretive Data Percent cell count reference ranges are not reported, since discordance with absolute values may lead to misinterpretation of CBC data. Current Interpretive Data was last revised on 2017. Monocyte pct 5.2 % [facility] Comment: Interpretive Data Percent cell count reference ranges are not reported, since discordance with absolute values may lead to misinterpretation of CBC data. Current Interpretive Data was last revised on 2017. Eosinophil pct 0.9 % [facility] Comment: Interpretive Data Percent cell count reference ranges are not reported, since discordance with absolute values may lead to misinterpretation of CBC data. Current Interpretive Data was last revised on 2017. Basophil pct 0.9 % [facility] Comment: Interpretive Data Percent cell count reference ranges are not reported, since discordance with absolute values may lead to misinterpretation of CBC data. Current Interpretive Data was last revised on 2017. RBC morphology Normal [facility] Platelet clumping Present(A) [facility] Blood 03/14/2025 10:2 4 PM CDT 03/14/2025 11:17 PM CDT us Pauline Bhat MD LAB BLOOD ORDERABLES E dited Result - Final Performing Organization Address [facility] Co de Phone Number [facility] Department [place] [address] * Phosphorus (03/14/2025 10:24 PM CDT) Phosphorus, pl 4.2 2.3 - 4.5 mg/dL Blood 03/14/2025 10:2 4 PM CDT 03/14/2025 11:13 PM CDT Pauline Bhat MD LAB BLOOD ORDERABLES F inal Result Performing Organization Address [facility] de Phone Number [facility] Department [place] [address] * Magnesium (03/14/2025 10:24 PM CDT) Magnesium 2.3 1.4 - 2.5 mg/dL Blood 03/14/2025 10:2 4 PM CDT 03/14/2025 11:13 PM CDT Pauline Bhat MD LAB BLOOD ORDERABLES F inal Result [facility] [place] [address] * (ABNORMAL) Comprehensive metabolic panel (03/14/2025 10:24 PM CDT) Sodium 135 135 - 145 mmol/L Potassium, pl 3.8 3.3 - 4.9 mmol/L [facility] Chloride 102 97 - 110 mmol/L [facility] CO2 18(L) 22 - 32 mmol/L [facility] Anion gap 15 2 - 15 mmol/L [facility] BUN 87(H) 6 - 25 mg/dL [facility] Creatinine 8.48(H) 0.60 - 1.10 mg/dL [facility] Glucose 122 70 - 199 mg/dL [facility] Comment: Interpretive Data Fasting glucose >/= 126 [...] 2022. Calcium 9.1 8.5 - 10.3 mg/dL [facility] Bilirubin, total 0.3 0.1 - 1.2 mg/dL [facility] Protein, pl 7.2 6.5 - 8.5 g/dL [facility] Albumin 4.2 3.5 - 5.0 g/dL [facility] Alk phos 72 40 - 130 Units/L [facility] ALT 9 7 - 45 Units/L [facility] AST 18 10 - 45 Units/L [facility] Blood 03/14/2025 10:2 4 PM CDT 03/14/2025 11:13 PM CDT us Pauline Bhat MD LAB BLOOD ORDERABLES F inal Result SUMAYA Marcelino [facility] Department [place] [address] * Pulmonary Function Test - (03/14/2025 9:42 AM CDT) FVC PRE 2.36 L [facility] FVC %PRE PRED 76 % [facility] FEV1 PRE 1.83 L [facility] FEV1 %PRE PRED 75 % [facility] FEV1/FVC PRE 77.4 % [facility] Anatomical Region Laterality Modality PFT 03/14/2025 9:32 AM CDT Narrative 03/14/2025 12:23 PM CDT PFT performed at:->[facility] Adult PFT Lab- [facility]8D Procedure:->Spirometry Procedure:->Pulse Ox Pulmonary Function Test Interpretation [...] and %HbO2 is age dependent. However, the [facility] Pulmonary Function Laboratory defines hypoxemia as a PaO2 <56 mm Hg or a %HbO2 <89%. Starting on September of 2024 the [facility] Pulmonary Function Laboratory utilizes race neutral GLI Global normative equations. us Pauline Bhat MD PFT ORDERABLES Final Result * (ABNORMAL) Blood smear review (03/14/2025 9:15 AM CDT) RBC morphology Present(A) Hypochromasia 3-7/HPF(A) [facility] Anisocytosis Slight(A) [facility] Poikilocytosis Slight(A) [facility] Microcytes 3-7/HPF(A) [facility] Macrocytes 3-7/HPF(A) [facility] Schistocytes 1-2/HPF(A) [facility] Acanthocytes 3-7/HPF(A) [facility] Platelet estimate Adequate [facility] Blood 03/14/2025 9:15 AM CDT 03/14/2025 10:00 AM CDT us Pauline Bhat MD LAB BLOOD ORDERABLES F inal Result SUMAYA [facility] Department [place] [address] * (ABNORMAL) eGFR (03/14/2025 9:15 AM CDT) [...] MD LAB BLOOD ORDERABLES F inal Result [facility] Department [place] [address] * (ABNORMAL) Differential, auto (03/14/2025 9:15 AM CDT) Neutrophil abs 0.82(L) 1.50 - 6.50 K/cumm Imm gran abs 0.05 0.00 - 0.10 K/cumm [facility] Lymphocyte abs 0.93 0.80 - 3.30 K/cumm [facility] Monocyte abs 0.25 0.20 - 0.80 K/cumm [facility] Eosinophil abs 0.05 0.00 - 0.50 K/cumm [facility] Basophil abs 0.01 0.00 - 0.10 K/cumm [facility] Neutrophil pct 38.8 % [facility] Comment: Interpretive Data Percent cell count reference ranges are not reported, since discordance with absolute values may lead to misinterpretation of CBC data. Current Interpretive Data was last revised on 2017. Imm gran pct 2.4 % [facility] Comment: Interpretive Data Percent cell count reference ranges are not reported, since discordance with absolute values may lead to misinterpretation of CBC data. Current Interpretive Data was last revised on 2017. Lymphocyte pct 44.1 % [facility] Comment: Interpretive Data Percent cell count reference ranges are not reported, since discordance with absolute values may lead to misinterpretation of CBC data. Current Interpretive Data was last revised on 2017. Monocyte pct 11.8 % [facility] Comment: Interpretive Data Percent cell count reference ranges are not reported, since discordance with absolute values may lead to misinterpretation of CBC data. Current Interpretive Data was last revised on 2017. Eosinophil pct 2.4 % [facility] Comment: Interpretive Data Percent cell count reference ranges are not reported, since discordance with absolute values may lead to misinterpretation of CBC data. Current Interpretive Data was last revised on 2017. Basophil pct 0.5 % [facility] Comment: Interpretive Data Percent cell count reference ranges are not reported, since discordance with absolute values may lead to misinterpretation of CBC data. Current Interpretive Data was last revised on 2017. Blood 03/14/2025 9:15 AM CDT 03/14/2025 9:57 AM CDT Pauline Bhat MD LAB BLOOD ORDERABLES F inal Result Performing Organization Address [facility] de Phone Number [facility] [place] [address] * Tacrolimus level trough (03/14/2025 9:15 AM CDT) [facility] Tacrolimus trough 7.9 ng/mL Comment: Interpretive Data Testing performed by liquid chromatography-tandem mass spectrometry. Therapeutic concentrations vary depending on type of transplanted organ and time elapsed since transplant. Typical trough concentrations range from 5-15 ng/mL. This test was developed and its performance characteristics determined by the [facility] Laboratory consistent with CLIA requirements. This test has not been cleared or approved by the [place] Food and Drug administration. Current interpretive data last reviewed 2019. Blood 03/14/2025 9:15 AM CDT 03/14/2025 9:50 AM CDT Pauline Bhat MD LAB BLOOD ORDERABLES F inal Result Performing Organization Address [facility] de Phone Number [facility] [place] [address] * (ABNORMAL) CBC with auto differential (03/14/2025 9:15 AM CDT) Pathologist [facility] WBC 2.11(L) 3.80 - 9.90 K/cumm Hgb 8.1(L) 11.9 - 15.5 g/dL [facility] Hct 24.1(L) 35.6 - 45.5 % [facility] Plt 150 150 - 400 K/cumm [facility] MPV 10.7 9.1 - 12.3 fL [facility] RBC 2.38(L) 3.90 - 5.20 M/cumm [facility] [facility] MCV 101.3(H) 81.3 - 96.4 fL [facility] MCH 34.0(H) 27.1 - 33.3 pg [facility] MCHC 33.6 32.3 - 35.7 g/dL [facility] RDW CV 22.7(H) 11.1 - 14.9 % [facility] RDW SD 82.1(H) 35.7 - 48.1 fL [facility] NRBC abs 0.02(H) 0.00 - 0.01 K/cumm [facility] Blood 03/14/2025 9:15 AM CDT 03/14/2025 9:57 AM CDT Pauline Bhat MD LAB BLOOD ORDERABLES F inal Result Performing Organization Address City/[facility]/ZIP Co de Phone Number [facility] Department [place] [address] * Vitamin D 25 hydroxy (03/14/2025 9:15 AM CDT) Vitamin D 25-OH 30 30 - 80 ng/mL Blood 03/14/2025 9:15 AM CDT 03/14/2025 9:50 AM CDT Pauline Bhat MD LAB BLOOD ORDERABLES F inal Result [facility] Department [place] [address] * TSH (03/14/2025 9:15 AM CDT) Thyroid Stimulating Hormone 0.95 0.30 - 4.20 mcIUnit/mL Blood 03/14/2025 9:15 AM CDT 03/14/2025 9:50 AM CDT Pauline Bhat MD LAB BLOOD ORDERABLES F inal Result Performing Organization Address City/[facility] Co de Phone Number [facility] [place] [employer] [place] [address] * T4, free (03/14/2025 9:15 AM CDT) Free T4 0.93 0.90 - 1.70 ng/dL Blood 03/14/2025 9:15 AM CDT 03/14/2025 9:50 AM CDT Pauline Bhat MD LAB BLOOD ORDERABLES F inal Result Performing Organization Address [facility] de Phone Number [facility] [employer] [address] * (ABNORMAL) Hemoglobin A1c (03/14/2025 9:15 AM CDT) Pathologist [facility] Hgb A1C 6.2(H) 4.0 - 5.6 % Estimated Average Glucose 131 mg/dL [facility] Comment: The ADA recommends reporting an estimated [...] ORDERABLES F inal Result Performing Organization Address [facility] Co de Phone Number [facility] [place] [place] [address] * (ABNORMAL) Lipid panel (03/14/2025 9:15 AM CDT) [facility] Cholesterol 216(H) 30 - 199 mg/dL Comment: [...] revised on 2018. Triglycerides 306(H) <=149 mg/dL [facility] Comment: Interpretive Data Ages < or = [...] revised on 2018. HDL 36(L) >=40 mg/dL [facility] Comment: Interpretive Data Ages < or = [...] on 2018. LDL, calculated 126 <=129 mg/dL [facility] Comment: Interpretive Data Ages < or = 19 years Acceptable: <110 mg/dL Borderline high: 110-129 mg/dL High: >or= 130 mg/dL Ages > or = 20 years Optimal: <100 mg/dL Near optimal: 100-129 mg/dL Borderline high: 130-159 mg/dL High: >160 mg/dL Calculated using the Lerner LDL-C estimating equation. This equation was implemented [...] on 2024. Non-HDL Cholesterol 180 mg/dL [facility] Comment: Interpretive Data Ages < or [...] last revised on 2018. Chol/HDL ratio 6 [facility] Blood 03/14/2025 9:15 AM CDT 03/14/2025 9:50 AM CDT us Pauline Bhat MD LAB BLOOD ORDERABLES F inal Result [facility] Department [place] [address] * (ABNORMAL) Comprehensive metabolic panel (03/14/2025 9:15 AM CDT) Sodium 133(L) 135 - 145 mmol/L Potassium, pl 4.1 3.3 - 4.9 mmol/L [facility] Comment:Hemolyzed; Potassium value may be falsely elevated by as much as 0.6-1.0 mmol/L. Suggest redraw and reanalysis. Chloride 102 97 - 110 mmol/L [facility] CO2 13(L) 22 - 32 mmol/L [facility] Anion gap 18(H) 2 - 15 mmol/L [facility] BUN 84(H) 6 - 25 mg/dL [facility] Creatinine 7.94(H) 0.60 - 1.10 mg/dL [facility] Glucose 127 70 - 199 mg/dL [facility] Comment: Interpretive Data Fasting glucose >/= 126 [...] 2022. Calcium 9.4 8.5 - 10.3 mg/dL [facility] Bilirubin, total 0.4 0.1 - 1.2 mg/dL [facility] Protein, pl 7.2 6.5 - 8.5 g/dL [facility] Albumin 3.9 3.5 - 5.0 g/dL [facility] Alk phos 73 40 - 130 Units/L [facility] ALT 7 7 - 45 Units/L [facility] AST 29 10 - 45 Units/L [facility] Comment:Hemolyzed; result ma y be falsely elevated Blood 03/14/2025 9:15 AM CDT 03/14/2025 9:50 AM CDT us Pauline Bhat MD LAB BLOOD ORDERABLES F inal Result [facility] [place] [address] * XR Chest Pa Lateral 2 Views [...] IMG XR PROCEDURES Tonia l Result * Hepatitis panel, acute (08/15/2022 9:25 AM CODING QUALITY ANALYST) Hep A IgM Nonreactive Nonreactive [facility] Hep B core IgM Nonreactive Nonreactive [facility] Hep C Ab Nonreactive Nonreactive [facility] Comment:Antibodies to HCV no t detected. Does NOT exclude the possibility of recent exposure to HCV. Current interpretive data was last revised on 22 HepBsAg Nonreactive Nonreactive [facility] Blood 08/15/2022 9:25 AM CODING QUALITY ANALYST 08/15/2022 10:04 AM CODING QUALITY ANALYST Manuel Gil MD LAB MICROBIOLOGY - GENE RAL ORDERABLES Final Result [facility] Department [place] [address] * Stool DNA - Cologuard (03/22/2021 9:50 AM CDT) Stool DNA - Cologuard Negative Negative [employer] (CLIA #:[id number]) Comment: NEGATIVE TEST RESULT. A negative Cologuard [...] screened with both Cologuard and colonoscopy. (Ioana Weathers et al, N Engl J Med 2014;370(14):6898-6648) The normal value (reference range) for this assay is negative. COLOGUARD RE-SCREENING RECOMMENDATION: Periodic colorectal cancer screening is an important part of preventive healthcare for asymptomatic individuals at average risk for colorectal cancer. Following a negative Cologuard result, the [place] Cancer Society and U.S. Multi-Society Task Force screening guidelines recommend a Cologuard re-screening interval of 3 years. References: [place] [employer] Society Guideline for Colorectal Cancer Screening: https://www.cancer.org/cancer/ejiaf-ojwrnf-prpcbf/azfrfmtnq-namoxyiyt-brqhlom/ac s-rec ommendations.html.; Andrew DK, Saul CR, John PavonK, Colorectal Cancer Screening: Recommendations for Physicians and Patients from the U.S. Multi-Society Task Force on Colorectal Cancer Screening , Am J Gastroenterology 2017; 112:0617-6465. TEST DESCRIPTION: Composite algorithmic analysis of stool [...] (Ioana Vicente al, N Engl J Med 2014;370(14):5638-0495.) Cologuard may produce a false negative or false positive result (no colorectal cancer or precancerous polyp present at colonoscopy follow up). A negative Cologuard test result does not guarantee the absence of CRC or advanced adenoma (pre-cancer). The current Cologuard screening interval is every 3 years. ([place] Cancer Society and U.S. Multi-Society Task Force). Cologuard performance data in a 10,000 patient pivotal study using colonoscopy as the reference method can be accessed at the following location: www.[employer].Singly/results. Additional description of the Cologuard test process, warnings and precautions can be found at www.flo.doogShopTaprd.com. Stool 03/22/2021 9:50 AM CDT 03/23/2021 6:25 PM CDT us Ethan Suero MD LAB BODY FLUIDS AND STOOLS OR DERABLES Final Result [employer] (CLIA #:[id number]) [address] [place] [address] * Screening Mammogram Bilateral W [place] (06/08/2015 [...] year. Electronically signed by: Dr. Kendell Renee ga/:06/09/2015 08:56:27 Bench Worker Binding: Criselda JOHNSON(R)(M), [facility] letter sent: Normal Exam Reading location: BI-RADS: 1 Negative [EOD] Narrative 06/09/2015 8:56 AM CDT - [facility] BILAT SCREENING 3D W/CAD BILATERAL DIGITAL SCREENING [...] year. Electronically signed by: Dr. 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 09/11/21, 12/25/21 09/11/2021 023 Insurance [facility] MEDICARE MEDICARE Advance Directives For more information, please contact: [phone] * Full Code (Latest Code Status on [...] 1:30 AM 02/13/2023 4:00 PM Care Teams Tubing Tester Relationship Specialty Start Date End Date Patrick Lorenzana MD [address] [facility] [address] [place] [address] PCP - General Family Medicine 01/07/25 Rosy Grover, LOLI [address] [facility] [address] [place] [address] Resident Care Coordinator 02/14/21 Pelon Yo MD [address] [place] [address] Referring Physician Pulmonary Disease 04/29/21 Paula Hitchcock, infection control rnResident Care Coordinator Resident Care Coordinator 01/21/22 Pauline Bhat MD [address] [facility] [address] [place] [address] Head Waiter/Waitress Pulmonary Disease 02/13/23
--- OUTSIDE RECORDS SUMMARY | 2025-04-14 11:16 | XMS_ITS | Clinical Summary ---
Author Organization [facility] Address [address] [facility] [place] [address] Care Team Providers Care Mottle Lay Up Operator Name Role Phone Pcp, [address] Primary Care Provide r Unavailable Source Comments [facility],non-owned Affiliates and Associated Physician Practices is amultiple site organization consisting of ambulatory clinics and hospital sitesin [place], [place], [place] and [place]. This disclosure is being madepursuant to the Care Everywhere program and may not contain all information available regarding this patient. Last updated 18.[employer] [facility] Allergies No known active allergies Medications * Be aware that medications may not be up to date on this document. Alwaysverify current medications with the patient. 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 [facility] ACCOUNT BILL Note [...] Resulting Agency Comment Lab Testing performed at: [address] [id number] [facility] - PATHOLOGY/CYTOLOGY O RDERABLES Final Result [facility] ACCOUNT BILL [address] [place] [address] from Last 3 Months or Most Recently Relevant to Health Maintenance Insurance Advance Directives * Full Code (Latest Code Status on File) Date Activated Date Inactivated Comments 03/11/2021 10:56 AM 03/17/2021 5:26 PM * Full Code Date Activated Date Inactivated Comments 02/12/2021 4:18 PM 02/19/2021 10:01 PM * Full Code Date Activated Date Inactivated Comments 01/23/2021 11:19 AM 01/24/2021 4:29 PM Care Teams Mottle Lay Up Operator Relationship Specialty Start Date End [facility] - [facility] 10/05/24
--- OUTSIDE RECORDS SUMMARY | 2025-04-14 11:16 | XMS_ITS | Encounter Summary ---
Author Organization [facility] Healthcare Address [address] [place] [address] Care Team Providers Care Patient Observer Name Role Phone Rosy Grover RN Unavailable [phone] Pelon Yo MD Unavailable [phone] Paula Hitchcock RN Unavailable Unavai Kayleigh Mireles MD Unavailable [phone] Unknown, Notinfile Primary Care Provider Unavail able Patrick Lorenzana MD Primary Care Provider Encounter Details Date Type Department Care Team (Late st Contact Info) Description 07/01/[address] [phone] White, Marie Social History Tobacco Use Types [...] often do you attend chur ch or alevism services? Never 02/06/2023 Do you belong to any clubs o r organizations such as religion groups, unions, fraternal or athletic groups, or [...] place to sleep or slept in a custodial (including now)? No 02/06/2023 Personal Safety Answer Date Recorded Have you ever been in or are you currently in a harmful physical or emotional relationship or is someone making you feel afraid or unsafe? Denies 06/29/2024 Comments No Sex and Gender Information Value Date Recorded Sex Assigned at Not on file Legal Sex Female 6:28 PM STRETCHER HELPER Gender Identity Not on file Sexual Orientation [...] documented as of this encounter Care Teams Patient Observer Relationship Specialty Start Date End Date Unknown, Notinfile PCP - General 11/11/23 01/06/25 Patrick Lorenzana MD [address] [facility] [address] [place] [address] PCP - General Family Medicine 01/07/25 Rosy Grover, LOLI [address] [facility] [address] [place] [address] Daycare Teacher 02/14/21 Pelon Yo MD [address] [place] [address] Referring Physician Pulmonary Disease 04/29/21 Paula Hitchcock RN Daycare Teacher Daycare Teacher 01/21/22 Kayleigh Boland MD [address] [facility] [address] [place] [address] School Resource Officer Pulmonary Disease 02/13/23 documented as of this encounter
[2025-04-14 11:57] LABS: Hematocrit 22.1 % (37.0-47.0); Immature Platelet Fraction Pct 3.2 % (0.9-11.2); Mean Corpuscular HGB Conc 30.3 g/dl (32-36); Mean Corpuscular Hemoglobin 34.0 pg (26-34); Mean Corpuscular Volume 112.2 fl (80-100); Platelet Count Result 64 k/mm3 (150-375); Red Blood Count 1.97 M/mm3 (4.2-5.4); White Blood Count 3.5 K/mm3 (4.5-10.0)
[2025-04-14 13:18] LABS: Hemoglobin 6.7 g/dL (12.0-15.0)
[2025-04-18 03:07] LABS: Tacrolimus (FK506), Blood 2.2 ng/mL (5.0-20.0)
== END 2025-04-14 11:09 | disposition home or self-care (01) ==
DX: I12.9 Hypertensive chronic kidney disease with stage 1 through stage 4 chronic kidney disease, or unspecified chronic kidney disease (principal); N17.9 Acute kidney failure, unspecified; Z94.2 Lung transplant status; N18.9 Chronic kidney disease, unspecified
CPT/HCPCS: 36415; 80053; 80197; 85027; 85055

== ENCOUNTER 2025-04-21 10:41 | Outpatient (NON) | payer MEDICARE, SELFPAY ==
--- OUTSIDE RECORDS SUMMARY | 2025-04-21 10:56 | XMS_ITS | Encounter Summary ---
Author Organization [facility] Healthcare Address [address] [place] [address] Care Team Providers Care Facility Attendant Name Role Phone Rosy Grover RN Unavailable [phone] Pelon Yo MD Unavailable [phone] Paula Hitchcock RN Unavailable Awildaiai Kayleigh Mireles MD Unavailable [phone] Patrick Lorenzana MD Primary Care Provider Encounter Details Date Type Department Care Team (Late st Contact Info) Description 04/20/2025 Telephone [facility] Trans[facility] Lung [address] [facility] [address] [phone] [place] [address] Regine Green RN [address] [facility] [address] [place] [address] Social History Tobacco Use Types Packs/Day Years [...] materials from doctor or pharmacy Never 02/19/2023 [facility] Utilities Answer Date Recorded In the past 12 months has th e electric, gas, oil, or water company threatened to shut off services in your home? No 03/20/2025 Social Connection and Isolation Panel Answer Date Recorded In a typical week, how many times do you talk on the phone with family, friends, or neighbors? Once a week 03/20/2025 How often do you get together with friends or re latives? Once a week 03/20/2025 How often do you attend judaism or religion serv ices? Never 03/20/2025 Do you belong to any clubs o r organizations such as judaism groups, unions, fraternal or athletic groups, or [...] in a mcc (including now)? No 02/06/2023 Housing Stability Vital Sign Answer Quinten e Recorded In the last 12 months, was t here a time when you were not able to pay the mortgage or rent on time? No 03/20/2025 In the past 12 months, how m any times have you moved where you were living? 0 03/20/2025 At any time in the past 12 m onths, were you homeless or living in a mcc (including now)? No 03/20/2025 Personal Safety Answer Date Recorded Have you ever been in or are you currently in a harmful physical or emotional relationship or is someone making you feel afraid or unsafe? Denies 03/14/2025 Comments No Sex and Gender Information Value Date Recorded Sex Assigned at Not on file Legal Sex Female 6:28 PM CONTRACT LOADER Gender Identity Not on file Sexual Orientation Not on file documented as of this encounter Miscellaneous Notes * Telephone Encounter - Regine Green RN - 04/20/2025 12:31 PM CDT Called pt to see if she would be attending clinic today. Pt states her ride had to get home and shewill not be coming. PFT was done and stable. Informed pt the office will call her to reschedule herappt from today. 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 [address] [place] [address] Eligibility And Occupancy Interviewer 02/14/21 Pelon Yo MD [address] [place] [address] Referring Physician Pulmonary Disease 04/29/21 Paula Hitchcock RN Eligibility And Occupancy Interviewer Eligibility And Occupancy Interviewer 01/21/22 Kayleigh Boland MD [address] [facility] [address] [place] [address] Boom Master Pulmonary Disease 02/13/23 documented as of this encounter
--- OUTSIDE RECORDS SUMMARY | 2025-04-21 10:56 | XMS_ITS | Encounter Summary ---
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) Procedures Pulmonary Function Test -[facility]- [facility]-8D; Spirometry, Pulse Ox Seth Vasquez MD [address] [place] [address] Phone: tel: fax: Referral ID Status Reason Start Date Expiration Date Visits Re quested Visits Authorized [id number] Closed 03/14/2025 04/13/2026 1 1 Reason for Visit * Procedure (Routine) - Closed Specialty Diagnoses / Procedures Referred By Contac t Referred To Contact Diagnoses 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) Procedures Pulmonary Function Test -[facility]- [facility]-8D; Spirometry, Pulse Ox Seth Vasquez MD [address] [place] [address] Phone: tel: fax: Referral ID Status Reason Start Date Expiration Date Visits Re quested Visits Authorized [id number] Closed 03/14/2025 04/13/2026 1 1 Encounter Details Date Type Department Care Team (Latest Contact Info) Description 04/20/2025 10:25 AM CDT - 04/20/2025 11:59 PM CDT Hospital Encounter [facility] Pulmonary [address] [place] [id number] 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 No 03/20/2025 Social Connection and Isolation Panel Answer Date Recorded In a typical week, how many times do you talk on the phone with family, friends, or neighbors? Once a week 03/20/2025 How often do you get together with friends or re latives? Once a week 03/20/2025 How often do you attend jew or islam serv ices? 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 30 tablet 2 acyclovir (ZOVIRAX) 200 mg capsule -- HOLD while on Valcyte -- 4 aspirin 81 mg chewable tablet Take 1 tablet (81 mg total) by mouth daily 5 azaTHIOprine (IMURAN) 50 mg tablet HOLD - previous dose 50mg nightly 5 calcium carbonate (OS-PITO) 1,500 mg (600 mg elemental) tablet Take one tablet (600 mg) by mouth once daily. It is acceptable to take combination product with vitamin D, but also take additional vitamin D on medication list. Over the counter medication. Can be taken any time of day. 2 carvediloL (COREG) 6.25 mg tablet 1 tablet (6.25 mg total) 5 cefdinir (OMNICEF) 300 mg capsule Take 1 capsule (300 mg total) by mouth daily 3 capsule 5 cholecalciferol (VITAMIN D-3) 2000 unit capsule Take 1 capsule (2,000 Units total) by mouth daily Over the counter medication. Can be taken any time of day. 2 folic acid (FOLVITE) 1 mg tablet Take 1 tablet (1 mg total) by mouth daily 5 12/31/19 26 omeprazole (PriLOSEC) 40 mg capsule Take 1 capsule (40 mg total) by mouth 2 (two) times a day 60 capsule 11 5 predniSONE (DELTASONE) 5 mg tablet Take 1 tablet (5 mg) by mouth daily 90 tablet 3 5 prochlorperazine (COMPAZINE) 5 mg tablet TAKE 1 TABLET BY MOUTH THREE TIMES A DAY NEEDED 90 tablet 3 5 sertraline (ZOLOFT) 50 mg tablet Take 1 tablet (50 mg total) by mouth daily sulfamethoxazole-tri methoprim (BACTRIM DS) 800-160 mg per tabletIndications:Pu lmonary fibrosis,Chronic hypoxemic respiratory failure (HCC),Awaiting transplantation of lung Take 1 tablet (160 mg of trimethoprim total) by mouth 3 (three) times a week 39 tablet 3 5 tacrolimus 0.5 mg immediate-release capsule Take 1 capsule (0.5 mg total) by mouth every morning 5 valGANciclovir (VALCYTE) 450 mg tablet Take 1 tablet (450 mg total) by mouth 2 (two) times a week on Mondays and 8 tablet 11 5 documented as of this encounter Discharge Disposition Disposition Code Departure Means Destination Discharge to home or self care documented in this encounter Plan of Treatment Not on file documented as of this encounter Procedures Procedure Name Priority Date/Time Associated Diagnosis Comments PULMONARY FUNCTION TEST (PFT) Routine 04/20/2025 10:42 AM CDT 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) documented in this encounter Results * Pulmonary Function Test - (04/20/2025 10:42 AM CDT) FVC PRE 2.39 L [facility] FVC %PRE PRED 77 % [facility] FEV1 PRE 1.80 L [facility] FEV1 %PRE PRED 74 % [facility] FEV1/FVC PRE 75.1 % [facility] Anatomical Region Laterality Modality PFT 04/20/2025 10:3 7 AM CDT Narrative 04/20/2025 11:09 AM CDT PFT performed at:->[facility] Procedure:->Spirometry Procedure:->Pulse Ox Pulmonary Function Test Interpretation SPIROMETRY: The FEV1 and FVC are reduced in a pattern suggestive of a restrictive abnormality. The inspiratory loop is normal. PULSE OXIMETRY: Oxygen saturation as measured by [...] and %HbO2 is age dependent. However, the [facility] Pulmonary Function Laboratory defines hypoxemia as a PaO2 <56 mm Hg or a %HbO2 <89%. Starting on September of 2024 the [facility] Pulmonary Function Laboratory utilizes race neutral GLI Global normative equations. 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 09/11/21, 12/25/21 09/11/2021 02/05/2023 documented as of this encounter Care Teams Hand Candy Cutter Relationship Specialty Start Date End Date Patrick Lorenzana MD [address] [place] [address] PCP - General Family Medicine 01/07/25 Rosy Grover RN [address] [facility] [address] [place] [address] Shredder Tender Peat 02/14/21 Pelon Yo MD [address] [place] [address] Referring Physician Pulmonary Disease 04/29/21 Paula Hitchcock RN Shredder Tender Peat Shredder Tender Peat 01/21/22 Kayleigh Boland MD [address] [facility] [address] [place] [address] Belly Dancer Pulmonary Disease 02/13/23 documented as of this encounter
--- OUTSIDE RECORDS SUMMARY | 2025-04-21 10:56 | XMS_ITS | Encounter Summary ---
Author Organization [facility] Address [address] [place] [address] Care Team Providers Care Transport Conductor Name Role Phone Rosy Grover RN Unavailable [phone] Pelon Yo MD Unavailable [phone] Paula Hitchcock RN Unavailable Georgei Kayleigh Mireles MD Unavailable [phone] Patrick Lorenzana MD Primary Care Provider Encounter Details Date Type Department Care Team (Late st Contact Info) Description 04/21/2025 Telephone [facility] Transplant Lung [phone] [place] [address] Nga Rosario Social History Tobacco Use Types Packs/Day Years [...] materials from doctor or pharmacy Never 02/19/2023 [facility] Utilities Answer Date Recorded In the past 12 months has th e [employer], gas, oil, or water [employer] threatened to shut off services in your home? No 03/20/2025 Social Connection and Isolation Panel Answer Date Recorded In a typical week, how many times do you talk on the phone with family, friends, or neighbors? Once a week 03/20/2025 How often do you get together with friends or re latives? Once a week 03/20/2025 How often do you attend zoroastrianism or hoahaoism serv ices? Never 03/20/2025 Do you belong [...] place to sleep or slept in a long term (including now)? No 02/06/2023 Housing Stability Vital Sign Answer Quinten e Recorded In the last 12 months, was t here a time when you were not able to pay the mortgage or rent on time? No 03/20/2025 In the past 12 months, how m any times have you moved where you were living? 0 03/20/2025 At any time in the past 12 m [facility], were you homeless or living in a long term (including now)? No 03/20/2025 Personal Safety Answer Date Recorded Have you ever been in or are you currently in a harmful physical or emotional relationship or is someone making you feel afraid or unsafe? 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 Patient also asked for a schedule in [facility] ,letter created and sent . 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 09/11/21, 12/25/21 09/11/2021 02/05/2023 documented as of this encounter Care Teams Transport Conductor Relationship Specialty Start Date End Date Patrick Lorenzana MD [address] [place] [address] PCP - General Family Medicine 01/07/25 Rosy Grover, LOLI [address] [facility] [address] [place] [address] Network Operations Analyst 02/14/21 Pelon Yo MD [address] [place] [address] Referring Physician Pulmonary Disease 04/29/21 Paula Hitchcock RN Network Operations Analyst Network Operations Analyst 01/21/22 Kayleigh Boland MD [address] [place] [address] Alterations Supervisor Pulmonary Disease 02/13/23 documented as of this encounter
--- OUTSIDE RECORDS SUMMARY | 2025-04-21 10:56 | XMS_ITS | Clinical Summary ---
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/UNSP CHR KDNY Active 09-08 00:00: 00 CHRONIC KIDNEY DISEASE, STAGE 4 (SEVERE) Active 09-08 00:00: 00 UNSPECIFIED SEVERE PROTEIN-SEPIDEH MANUEL MALNUTRITION Active 09-08 00:00: 00 CANDIDAL ESOPHAGITIS Active 09-08 00:00: 00 OTHER PANCYTOPENIA Active 09-08 00:00: 00 LUNG TRANSPLANT STATUS Active 09-08 00:00: 00 GASTRO-ESOPH AGEAL REFLUX DISEASE WITHOUT ESOPHAGITIS Active 09-08 00:00: 00 OTHER CHRONIC PAIN Active 09-08 00:00: 00 URINARY TRACT INFECTION, SITE NOT SPECIFIED Active 09-08 00:00: 00 UNSPECIFIED ASTHMA, UNCOMPLICATE D Active 09-08 00:00: 00 UNSPECIFIED HEARING LOSS, UNSPECIFIED EAR Active 09-08 00:00: 00 ABNORMAL WEIGHT LOSS Active 09-08 00:00: 00 BODY MASS INDEX [BMI] 19.9 OR LESS, ADULT Active 09-08 00:00: 00 PERSONAL HISTORY OF PULMONARY EMBOLISM Active 09-08 00:00: 00 Problems related to health literacy Active 09-08 00:00: 00 SOCIAL EXCLUSION AND REJECTION Active 09-08 00:00: 00 [facility] (CURRENT) USE OF ASPIRIN Active 09-08 00:00: 00 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 Ordering Clinician Indication Dosage Frequency Signature (SIG) Comments Components acetaminoph en 325 mg tablet 03-24 00:00: 00 Yes [id number] 2 tablet EVERY 6 HOURS 2 tablet EVERY 6 HOURS (route: oral) Med Classific ation: Analgesic , Anti-infl ammatory or Antipyret ic acyclovir 200 mg capsule 03-24 00:00: 00 03-28 10:10 :06.8 97 No [id number] 1 capsule DIRECTED 1 capsule DIRECTED (route: oral) Med Classific ation: Anti-Infe ctive Agents Alinia 500 mg tablet 03-24 00:00: 00 03-28 10:13 :05.6 23 No [id number] 1 tablet 2 TIMES DAILY 1 tablet 2 TIMES DAILY (route: oral) Med Classific ation: Anti-Infe ctive Agents Aspirin Childrens 81 mg chewable tablet 03-24 00:00: 00 Yes [id number] 1 tablet DAILY 1 tablet DAILY (route: oral) Med Classific ation: Hematolog ical Agents azathioprin e 50 mg tablet 03-24 00:00: 00 Yes [id number] 1 tablet BEDTIME 1 tablet BEDTIME (route: oral) Med Classific ation: Immunosup pressive Agents Bactrim DS 800 mg-160 mg tablet 03-24 00:00: 00 Yes [id number] 1 tablet 3 TIMES A WEEK 1 tablet 3 TIMES A WEEK (route: oral) Med Classific ation: Anti-Infe ctive Agents Calcium-600 600 mg (as calcium carbonate 1,500 mg) tablet 03-24 00:00: 00 Yes [id number] 1 tablet DAILY 1 tablet DAILY (route: oral) Med Classific ation: Electroly te Balance-N utritiona l Products Compazine 5 mg tablet 03-24 00:00: 00 Yes [id number] 1 tablet 3 TIMES DAILY 1 tablet 3 TIMES DAILY (route: oral) Med Classific ation: Gastroint estinal Therapy Agents fosfomycin tromethamin e 3 gram oral packet 03-24 00:00: 00 03-28 10:12 :44.0 13 No [id number] 1 packet WEEKLY 1 packet WEEKLY (route: oral) Med Classific ation: Genitouri nary Therapy omeprazole 40 mg capsule,del ayed release 03-24 00:00: 00 Yes [id number] 1 capsule 2 TIMES DAILY 1 capsule 2 TIMES DAILY (route: oral) Med Classific ation: Gastroint estinal Therapy Agents prednisone 5 mg tablet 03-24 00:00: 00 Yes [id number] 1 tablet DAILY 1 tablet DAILY (route: oral) Med Classific ation: Endocrine sertraline 50 mg tablet 03-24 00:00: 00 Yes [id number] 1 tablet DAILY 1 tablet DAILY (route: oral) Med Classific ation: Central Nervous System Agents tacrolimus 0.5 mg capsule, immediate-r elease 03-24 00:00: 00 04-14 23:59 :00 No [id number] 1 capsule 2 TIMES DAILY 1 capsule 2 TIMES DAILY (route: oral) Med Classific ation: Immunosup pressive Agents tacrolimus 1 mg capsule, immediate-r elease 03-24 00:00: 00 03-28 10:13 :54.1 57 No [id number] 1 capsule EVERY AM 1 capsule EVERY AM (route: oral) Med Classific ation: Immunosup pressive Agents Valcyte 450 mg tablet 03-24 00:00: 00 Yes [id number] 1 tablet 2 TIMES A WEEK 1 tablet 2 TIMES A WEEK (route: oral) Med Classific ation: Anti-Infe ctive Agents vitamin D3 2,000 unit-folic acid 1 mg tablet 03-24 00:00: 00 Yes [id number] 1 unit DAILY 1 unit DAILY (route: oral) Med Classific ation: Electroly te Balance-N utritiona l Products tacrolimus 0.5 mg capsule, immediate-r elease 04-14 00:00: 00 Yes [id number] 1 capsule DAILY 1 capsule DAILY (route: oral) Med Classific ation: Immunosup pressive Agents Immunizations Ordered Immunization Name Filled Immunization Name Date Status Comments Refusal Reason COVID-19, COVID-19 2024-05-09 00:00:00 PNEUMOCOCCAL (PPV), PPV 2024-05-09 00:00:00 INFLUENZA, LAIV (LIVE VIRUS) 2023-05-09 00:00:00 Vital Signs Vital Name Observation Time Observation Value Commen ts Temperature 2025-04-14 09:58:00.000 99.4 [degF] Temperature 2025-04-07 09:38:00.000 97.6 [degF] Temperature 2025-03-31 12:26:00.000 98 [degF] Temperature 2025-03-24 13:05:00.000 97.5 [degF] BMI (%) 2025-03-24 13:05:00.000 17 kg/m2 Height 2025-03-24 13:05:00.000 67 [in_us] Pulse 2025-04-14 09:58:00.000 70 /min Pulse 2025-04-07 09:38:00.000 71 /min Pulse 2025-03-31 12:26:00.000 77 /min Pulse 2025-03-24 13:05:00.000 76 /min O2 Saturation (%) 2025-04-14 09:58:00.000 100 % O2 Saturation (%) 2025-04-07 09:38:00.000 99 % O2 Saturation (%) 2025-03-31 12:26:00.000 97 % O2 Saturation (%) 2025-03-24 13:05:00.000 99 % Respirations 2025-04-14 09:58:00.000 18 /min Respirations 2025-04-07 09:38:00.000 16 /min Respirations 2025-03-31 12:26:00.000 18 /min Respirations 2025-03-24 13:05:00.000 16 /min Weight (lbs) 2025-04-14 09:58:00.000 114 [lb_av] Weight (lbs) 2025-04-07 09:38:00.000 114 [lb_av] Weight (lbs) 2025-03-31 12:26:00.000 112.4 [lb_av] Weight (lbs) 2025-03-24 13:05:00.000 112.4 [lb_av] Systolic Blood Pressure 2025-04-14 09:58:00.000 155 mm [Hg] Systolic Blood Pressure 2025-04-07 09:38:00.000 124 mm [Hg] Systolic Blood Pressure 2025-03-31 12:26:00.000 118 mm [Hg] Systolic Blood Pressure 2025-03-24 13:05:00.000 136 mm [Hg] Diastolic Blood Pressure 2025-04-14 09:58:00.000 82 mm [Hg] Diastolic Blood Pressure 2025-04-07 09:38:00.000 64 mm [Hg] Diastolic Blood Pressure 2025-03-31 12:26:00.000 72 mm [Hg] Diastolic Blood Pressure 2025-03-24 13:05:00.000 78 mm [Hg] Plan of Treatment Planned Activity Planned Date Details Comments Future Scheduled Test SKILLED NU RSE TO EVALUATE PATIENT, IDENTIFY PRIMARY AND CO-MORBID CONDITIONS CODED PER CODING GUIDELINES, AND DEVELOP PATIENT SPECIFIC PLAN OF CARE THAT INCLUDES PATIENT GOAL FOR HOME HEALTH. [code = SKILLED NURSE TO EVALUATE PATIENT, IDENTIFY PRIMARY AND CO-MORBID CONDITIONS CODED PER CODING GUIDELINES, AND DEVELOP PATIENT SPECIFIC PLAN OF CARE THAT INCLUDES PATIENT GOAL FOR HOME HEALTH.] Future Scheduled Test [facility]ENCY MAY ACCEPT ORDERS FROM THE FOLLOWING PHYSICIANS: TRANSPLANT TEAM: DR. BHAT DIE REAMER/TREATING PROVIDERS [code = HOME HEALTH AGENCY MAY ACCEPT ORDERS FROM THE FOLLOWING PHYSICIANS: TRANSPLANT TEAM: DR. BHAT DIE REAMER/TREATING PROVIDERS] Future Scheduled Test SKILLED NU RSE FOR INSTRUCTION/ REINFORCEMENT OF NEEDS RELATED TO NUTRITION/HYDRATION. [code = SKILLED NURSE FOR INSTRUCTION/ REINFORCEMENT OF NEEDS RELATED TO NUTRITION/HYDRATION.] Future Scheduled Test SKILLED NU RSE FOR O/A, TEACHING AND MANAGEMENT OF TENNILLE/CKD FOR EARLY IDENTIFICATION OF EXACERBATION OF DISEASE PROCESS [code = SKILLED NURSE FOR O/A, TEACHING AND MANAGEMENT OF TENNILLE/CKD FOR EARLY IDENTIFICATION OF EXACERBATION OF DISEASE PROCESS] Future Scheduled Test OCCUPATION AL THERAPIST TO EVALUATE PATIENT FOR [code = OCCUPATIONAL THERAPIST TO EVALUATE PATIENT FOR ] Future Scheduled Test MEDICAL SO CIAL WORKER TO EVALUATE PATIENT FOR ENSURING PATIENT HAS THE FINANCIAL MEANS TO PURCHASE FOOD, AND WAYS TO GET TO AND FROM PHYSICIAN APPOINTMENTS. 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 [code = SKILLED NURSE FOR O/A AND SKILLED TEACHING RELATED TO SIGNS AND SYMPTOMS OF INFECTION AND INFECTION CONTROL MEASURES.] Future Scheduled Test SKILLED NU RSE FOR O/A OF SELF-CARE DEFICITS AND TO PROVIDE TEACHING RELATED TO SAFE PROVISION OF ADLS. [code = SKILLED NURSE FOR O/A OF SELF-CARE DEFICITS AND TO PROVIDE TEACHING RELATED TO SAFE PROVISION OF ADLS.] Future Scheduled Test PHYSICAL T HERAPIST TO EVALUATE PATIENT [code = PHYSICAL THERAPIST TO EVALUATE PATIENT ] Future Scheduled Test SKILLED NU RSE TO INSTRUCT PATIENT/CAREGIVER ON PREVENTION OF SEPSIS, AND SIGNS AND SYMPTOMS OF SEPSIS TO REPORT. [code = SKILLED NURSE TO INSTRUCT PATIENT/CAREGIVER ON PREVENTION OF SEPSIS, AND SIGNS AND SYMPTOMS OF SEPSIS TO REPORT.] Future Scheduled Test SKILLED NU RSE TO OBTAIN BLOOD SPECIMEN VIA VENIPUNCTURE FOR LABS ORDERED: CBC W/ DIFF, CMP, TRACOLIMUS TROUGH WEEKLY PRIOR TO MORNING TACRO DOSE. FAX RESULTS TO DR. BHAT. [code = SKILLED NURSE TO OBTAIN BLOOD SPECIMEN VIA VENIPUNCTURE FOR LABS ORDERED: CBC W/ DIFF, CMP, TRACOLIMUS TROUGH WEEKLY PRIOR TO MORNING TACRO DOSE. FAX RESULTS TO DR. BHAT.] Future Scheduled Test PATIENT MCCARTHY S A RISK OF HOSPITALIZATION AND ED USE. SKILLED NURSE TO ESTABLISH SUPPORT MEASURES TO MINIMIZE RISK OF HOSPITALIZATION AND ED USE, AND INSTRUCT PATIENT/CAREGIVER ON METHODS TO REDUCE AVOIDABLE HOSPITALIZATION AND ED USE. [code = PATIENT HAS A RISK OF HOSPITALIZATION AND ED USE. SKILLED NURSE TO ESTABLISH SUPPORT MEASURES TO MINIMIZE RISK OF HOSPITALIZATION AND ED USE, AND INSTRUCT PATIENT/CAREGIVER ON METHODS TO REDUCE AVOIDABLE HOSPITALIZATION AND ED USE.] Future Scheduled Test SKILLED NU RSE TO PROVIDE INSTRUCTION TO PATIENT/CAREGIVER RELATED TO DISCHARGE PLANNING. [code = SKILLED NURSE TO PROVIDE INSTRUCTION TO PATIENT/CAREGIVER RELATED TO DISCHARGE PLANNING.] Future Scheduled Test SKILLED NU RSE TO PERFORM ENVIRONMENTAL SAFETY RISK ASSESSMENT AND FALL RISK ASSESSMENT AND PROVIDE INSTRUCTION TO IMPLEMENT ENVIRONMENTAL SAFETY AND FALL PREVENTION STRATEGIES THROUGHOUT THE CERTIFICATION PERIOD. SKILLED NURSE WILL MAINTAIN SITUATIONAL AWARENESS AND WILL NOTIFY CLINICAL CLINICAL PSYCHIATRIST AND PHYSICIAN/PROVIDER WITH ANY CHANGE IN CONDITION. [code = SKILLED NURSE TO PERFORM ENVIRONMENTAL SAFETY RISK ASSESSMENT AND FALL RISK ASSESSMENT AND PROVIDE INSTRUCTION TO IMPLEMENT ENVIRONMENTAL SAFETY AND FALL PREVENTION STRATEGIES THROUGHOUT THE CERTIFICATION PERIOD. SKILLED NURSE WILL MAINTAIN SITUATIONAL AWARENESS AND WILL NOTIFY CLINICAL CLINICAL PSYCHIATRIST AND PHYSICIAN/PROVIDER WITH ANY CHANGE IN CONDITION.] Future Scheduled Test SKILLED NU RSE FOR OBSERVATION AND ASSESSMENT OF PATIENTS PAIN LEVEL AND EFFECTIVENESS OF PAIN MANAGEMENT REGIMEN. SKILLED NURSE TO INSTRUCT PATIENT/CAREGIVER REGARDING PHARMACOLOGIC AND NON-PHARMACOLOGIC PAIN CONTROL MEASURES. SKILLED NURSE TO REPORT TO PHYSICIAN IF PAIN LEVEL IS OUTSIDE OF ESTABLISHED PARAMETERS. [code = SKILLED NURSE FOR OBSERVATION AND ASSESSMENT OF PATIENTS PAIN LEVEL AND EFFECTIVENESS OF PAIN MANAGEMENT REGIMEN. SKILLED NURSE TO INSTRUCT PATIENT/CAREGIVER REGARDING PHARMACOLOGIC AND NON-PHARMACOLOGIC PAIN CONTROL MEASURES. SKILLED NURSE TO REPORT TO PHYSICIAN IF PAIN LEVEL IS OUTSIDE OF ESTABLISHED PARAMETERS.] Future Scheduled Test SKILLED NU RSE TO ASSESS PATIENT'S SKIN INTEGRITY AND INSTRUCT PATIENT/CAREGIVER ON MEASURES TO PREVENT PRESSURE ULCERS. [code = SKILLED NURSE TO ASSESS PATIENT'S SKIN INTEGRITY AND INSTRUCT PATIENT/CAREGIVER ON MEASURES TO PREVENT PRESSURE ULCERS.] Future Scheduled Test SN TO INST RUCT PATIENT/CAREGIVER ON HEART FAILURE MANAGEMENT UTILIZING THE MATTERS OF THE HEART SPECIALTY PROGRAM. [code = SN TO INSTRUCT PATIENT/CAREGIVER ON HEART FAILURE MANAGEMENT UTILIZING THE MATTERS OF THE HEART SPECIALTY PROGRAM.] Future Scheduled Test SN TO INST RUCT PATIENT/CAREGIVER ON COPD MANAGEMENT UTILIZING THE BREATHING WITH CARE SPECIALTY PROGRAM. [code = SN TO INSTRUCT PATIENT/CAREGIVER ON COPD MANAGEMENT UTILIZING THE BREATHING WITH CARE SPECIALTY PROGRAM.] Future Scheduled Test SKILLED NU RSE TO REVIEW PATIENT MEDICATIONS (PRESCRIPTION/OTC). INSTRUCT PATIENT/CAREGIVER ON ALL MEDICATIONS INCLUDING PURPOSE, WHEN TO TAKE, IMPORTANCE OF MEDICATION ADHERENCE, MONITORING OF EFFECTIVENESS, ADVERSE DRUG REACTIONS, POSSIBLE SIDE EFFECTS, AND WHEN TO NOTIFY AGENCY OR PHYSICIAN/PROVIDER OF ANY CONCERNS. [code = SKILLED NURSE TO REVIEW PATIENT MEDICATIONS (PRESCRIPTION/OTC). INSTRUCT PATIENT/CAREGIVER ON ALL MEDICATIONS INCLUDING PURPOSE, WHEN TO TAKE, IMPORTANCE OF MEDICATION ADHERENCE, MONITORING OF EFFECTIVENESS, ADVERSE DRUG REACTIONS, POSSIBLE SIDE EFFECTS, AND WHEN TO NOTIFY AGENCY OR PHYSICIAN/PROVIDER OF ANY CONCERNS.] Future Scheduled Test SKILLED NU RSE FOR O/A, TEACHING AND MANAGEMENT OF URINARY TRACT INFECTION. [code = SKILLED NURSE FOR O/A, TEACHING AND MANAGEMENT OF URINARY TRACT INFECTION.] Goal Patient Goal - F EEL STRONGER AND BE ABLE TO GET OUT AND GO Goal Provider Goal - A PLAN OF CARE WILL BE ESTABLISHED THAT MEETS PATIENT'S USP NEEDS AND INCLUDES PATIENT GOAL FOR HOME HEALTH. Goal Provider Goal - ADDITIONAL ORDERS WILL BE RECEIVED FROM ALTERNATE PHYSICIAN IN A TIMELY MANNER THROUGHOUT THE CERTIFICATION PERIOD. Goal Provider Goal - PATIENT/CAREGIVER WILL DEMONSTRATE ABILITY TO SELF MANAGE NEEDS RELATED TO NUTRITION/HYDRATION THROUGHOUT THE EPISODE. Goal Provider Goal - PATIENT/CAREGIVER WILL VERBALIZE UNDERSTANDING OF GENITOURINARY DISEASE PROCESS, AND EXACERBATIONS OF GENITOURINARY DISEASE WILL BE PROMPTLY IDENTIFIED FOR EARLY INTERVENTION THROUGHOUT THE CERTIFICATION PERIOD. Goal Provider Goal - OCCUPATIONAL THERAPY EVALUATION TO BE COMPLETED WITH RECOMMENDATIONS AND WRITTEN PLAN OF TREATMENT ESTABLISHED FOR THE PHYSICIANS SIGNATURE. Goal Provider Goal - LICENSED MORTICIAN TO COMPLETE EVALUATION TO ADDRESS THE PATIENTS SOCIAL AND EMOTIONAL FACTORS AND/OR WRITTEN PLAN OF TREATMENT ESTABLISHED FOR THE PHYSICIAN'S SIGNATURE. Goal Provider Goal - PATIENT/CAREGIVER WILL VERBALIZE/DEMONSTRATE MANAGEMENT OF DISEASE PROCESS OF BILATERAL LUNG TRANSPLANT, AND INTERSTITIAL LUNG DISEASE. CHANGES IN RESPIRATORY STATUS WILL BE IDENTIFIED AND REPORTED TO PHYSICIAN FOR PROMPT INTERVENTION THROUGHOUT THE CERTIFICATION PERIOD. Goal Provider Goal - PATIENT/CAREGIVER WILL VERBALIZE/DEMONSTRATE UNDERSTANDING OF S/S OF INFECTION AND INFECTION CONTROL MEASURES. SIGNS AND SYMPTOMS OF INFECTION WILL BE IDENTIFIED AND PHYSICIAN NOTIFIED FOR PROMPT INTERVENTION THROUGHOUT THE CERTIFICATION PERIOD. Goal Provider Goal - PATIENT/CAREGIVER WILL VERBALIZE/DEMONSTRATE UNDERSTANDING OF SAFE PROVISION OF ADLS BY THE END OF THE CERTIFICATION PERIOD. Goal Provider Goal - A PHYSICAL THERAPY EVALUATION TO BE COMPLETED WITH RECOMMENDATIONS AND/OR WRITTEN PLAN OF TREATMENT ESTABLISHED FOR PHYSICIANS SIGNATURE. Goal Provider Goal - PATIENT WILL BE FREE FROM INFECTION AND PATIENT/CAREGIVER WILL VERBALIZE UNDERSTANDING OF SIGNS AND SYMPTOMS AND METHODS TO PREVENT SEPSIS BY END OF THE EPISODE. Goal Provider Goal - SKILLED NURSE TO PERFORM LAB PROCEDURE AND REPORT RESULTS TO PHYSICIAN. Goal Provider Goal - PATIENT WILL HAVE SUPPORT MEASURES ESTABLISHED TO PREVENT HOSPITALIZATION AND ED USE AND PATIENT/CAREGIVER WILL VERBALIZE/DEMONSTRATE METHODS TO REDUCE AVOIDABLE HOSPITALIZATION AND ED USE BY END OF EPISODE. Goal Provider Goal - PATIENT/CAREGIVER WILL VERBALIZE UNDERSTANDING OF DISCHARGE PLANNING INSTRUCTIONS BY DATE OF DISCHARGE. Goal Provider Goal - PATIENT/CAREGIVER WILL VERBALIZE/DEMONSTRATE EFFECTIVE ENVIRONMENTAL SAFETY AND FALL PREVENTION STRATEGIES, WILL REMAIN SAFE IN THE COMMUNITY, AND WILL BE FREE OF DANGER TO SELF AND OTHERS THROUGHOUT THE CERTIFICATION PERIOD. Goal Provider Goal - PATIENT/CAREGIVER WILL DEMONSTRATE UNDERSTANDING OF PHARMACOLOGIC AND NONPHARMACOLOGIC PAIN CONTROL MEASURES AND PATIENT WILL HAVE IMPROVEMENT IN PAIN INTERFERING WITH ACTIVITY EVIDENCED BY PAIN AT A LEVEL THAT IS ACCEPTABLE TO THE PATIENT AND PAIN LEVEL WITHIN ESTABLISHED PARAMETERS BY END OF CERTIFICATION PERIOD. Goal Provider Goal - PATIENT/CAREGIVER WILL VERBALIZE UNDERSTANDING OF PRESSURE ULCER PREVENTION BY END OF THE EPISODE. Goal Provider Goal - PATIENT/CAREGIVER WILL DEMONSTRATE MANAGEMENT OF HEART FAILURE A RESULT OF PARTICIPATION IN MATTERS OF THE HEART SPECIALTY PROGRAM. Goal Provider Goal - PATIENT/CAREGIVER WILL DEMONSTRATE MANAGEMENT OF COPD A RESULT OF PARTICIPATION IN BREATHING WITH CARE SPECIALTY PROGRAM. Goal Provider Goal - PATIENT/CAREGIVER WILL VERBALIZE UNDERSTANDING OF EDUCATION PROVIDED ON MEDICATIONS BY THE END OF THE CERTIFICATION PERIOD. Goal Provider Goal - PATIENT/CAREGIVER WILL VERBALIZE UNDERSTANDING OF URINARY TRACT INFECTION DISEASE PROCESS AND MANAGEMENT. PATIENT WILL BE FREE OF S/S OF UTI UPON COMPLETION OF TREATMENT OF UTI. Encounters Start Date/Time End Date/Time Encounter Type Admission Type Attending [facility] Care Department Encounter ID Discharge Date Discharge Status Discharge Condition Discharge Reason Percent Goals Met 2025-03-24 00:00:00 2025-05-22 00:00:00 Outpatient NEW ADMISSION KIMBERLY [facility] [id number] 70.00
--- OUTSIDE RECORDS SUMMARY | 2025-04-21 10:56 | XMS_ITS | Encounter Summary ---
Author Organization [facility] [place] Address [address] [place] [address] Phone Care Team Providers Care Directional Survey Drafter Name Role Phone Rosy Grover RN Unavailable [phone] Pelon Yo MD Unavailable [phone] Paula Hitchcock RN Unavailable Kayleigh Weeks MD Unavailable [phone] Patrick Lorenzana MD Primary Care Provider Reason for Visit * Consultation (Routine) - Authorized Specialty Diagnoses / Procedures Referred By Contjada glover Referred To Contact Nephrology Diagnoses 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) Kayleigh Boland MD [address] [place] [address] Phone: tel: fax: [facility] (All Locations) Referral ID Status Reason Start Date Expiration Date Visits Requested Visits Authorized [id number] Authorized Specialty Services Required 03/08/2025 03/08/2026 12 12 Encounter Details Date Type Department Care Team (Late st Contact Info) Description 04/20/2025 8:50 AM CDT Office Visit [facility] Nephrology [address] [facility] [address] [place] [address] [place] [address] CKD stage G4/A2, GFR 15-29 and albumin creatinine ratio 30-300 mg/g (HCC) (Primary Dx) Social History Tobacco Use Types Packs/Day Years [...] materials from doctor or pharmacy Never 02/19/2023 [facility] Utilities Answer Date Recorded In the past 12 months has e [employer], gas, oil, or water company threatened to [...] week 03/20/2025 How often do you attend restorationism or methodist serv ices? Never 03/20/2025 Do you belong to any clubs o r organizations such as restorationism groups, unions, fraternal or athletic groups, or [...] any time in the past [address] 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 Gender Identity Not on file Sexual Orientation Not on file documented as of this encounter Last Filed Vital Signs Vital Sign Reading Time Taken Comments Blood Pressure 176/90 04/20/2025 8:58 AM CDT Pulse 74 04/20/2025 8:58 AM CDT Temperature - - Respiratory Rate - - Oxygen Saturation - - Inhaled Oxygen Concentration - - Weight 53.1 kg (117 lb) 04/20/2025 8:58 AM CDT Height 165.1 cm (5' 5) 04/20/2025 8:58 AM CDT Body Mass Index 19.47 04/20/2025 8:58 AM CDT documented in this encounter Patient Instructions * Patient Instructions* Irving Gipson MD - 04/20/2025 8:50 AM CDT It was a pleasure seeing you today! VISIT SUMMARY: You had an initial nephrology evaluation today due to your chronic kidney disease. We discussed your recent hospitalizations for acute kidney injury, your history of a lung transplant, hypertension, recurrent urinary tract infections, and anemia. We reviewed your current medications and recent lab results. You are feeling well today with no current symptoms. YOUR PLAN: -CHRONIC KIDNEY DISEASE STAGE 4-5 POST-LUNG TRANSPLANT: Chronic kidney disease (CKD) stage 4-5 means your kidneys are severely impaired and not functioning well. This is likely due to your hypertension, medications for your lung transplant, and recurrent urinary tract infections. We will enroll youin a kidney disease education program, schedule a follow-up with Nurse Practitioner Jazmyne in 6-8 weeks, and order specific lab tests to monitor your condition. -HYPERTENSION IN THE SETTING OF CHRONIC KIDNEY DISEASE: Your blood pressure is not well-controlled,which can worsen your kidney disease. We discussed the possibility of adding a new medication to protect your kidneys, pending confirmation from your lung transplant team. Please keep a record of your blood pressure at home for the next 1-2 weeks. -ANEMIA IN CHRONIC KIDNEY DISEASE: Anemia means you have a low red blood cell count, which can makeyou feel tired and weak. This is likely due to your kidney disease and possibly other factors. We will order iron studies to check for iron deficiency and consider additional treatments if needed. -RECURRENT URINARY TRACT INFECTIONS: You have a history of frequent urinary tract infections, whichcan contribute to worsening kidney function. There are no current symptoms, but we will continue tomonitor this. -NON-OBSTRUCTIVE KIDNEY STONE: You have a kidney stone that is not currently blocking any part of your urinary system. You have not had any symptoms related to this, but we will keep an eye on it. INSTRUCTIONS: Please follow up with Nurse Practitioner Jazmyne in 6-8 weeks for further education and management of your kidney disease. Keep a record of your blood pressure at home for the next 1-2 weeks and bring the records to your next appointment. We will also be ordering specific lab tests to monitor your condition, including iron studies to evaluate for iron deficiency. A little reminder, before your next appointment, please try to do your lab tests. Kidney disease doesn???t always cause symptoms, so the tests help us check how your kidneys are doing. If the label rewinder asks what labs to get, you can show them the following list: Pre-clinic labs CKD 5: CBC, RFP every month. Iron Panel, Ferritin, PTH every 3 months Urine UACR at least twice a year HepBsAb yearly When you book your visit, josé it in your calendar or set a phone reminder so you don???t forget. We know life gets busy, but your follow-up clinic visits are a big part of staying healthy. If you need to change your appointment, just give us a call. We???ll find a time that works best for you. This way, we can make sure we???re staying on top of your health while also ensuring other patients get the care they need too. You can reach us anytime through [employer] or by phone. We are honored that you trust us to take care of you, and every small step like this helps us work together to keep you healthy. Thank you! documented in this encounter Plan of Treatment Scheduled Orders Name Type Priority Associated Diagnoses Orde r Schedule Renal function panel Lab Routine CKD stage G4/A2, GFR 15-29 and albumin creatinine ratio 30-300 mg/g ([facility]) Expected: 05/09/2025, Expires: 08/07/2025 Albumin Creatinine Ratio, Urine Lab Routine CKD stage G4/A2, GFR 15-29 and albumin creatinine ratio 30-300 mg/g (HCC) Expected: 05/09/2025, Expires: 08/07/2025 PTH Lab Routine CKD stage G4/A2, GFR 15-29 and albumin creatinine ratio 30-300 mg/g (HCC) Expected: 05/09/2025, Expires: 08/07/2025 Vitamin D 25 hydroxy Lab Routine CKD stage G4/A2, GFR 15-29 and albumin creatinine ratio 30-300 mg/g (HCC) Expected: 05/09/2025, Expires: 08/07/2025 CBC with auto differential Lab Routine CKD stage G4/A2, GFR 15-29 and albumin creatinine ratio 30-300 mg/g (HCC) Expected: 05/09/2025, Expires: 08/07/2025 Ferritin Lab Routine CKD stage G4/A2, GFR 15-29 and albumin creatinine ratio 30-300 mg/g (HCC) Expected: 05/09/2025, Expires: 08/07/2025 Hepatitis B Surface Antigen Blood Microbiology Routine CKD stage G4/A2, GFR 15-29 and albumin creatinine ratio 30-300 mg/g (HCC) Expected: 05/09/2025, Expires: 08/07/2025 Hepatitis B surface antibody (immune status) Blood Microbiology Routine CKD stage G4/A2, GFR 15-29 and albumin creatinine ratio 30-300 mg/g (HCC) Expected: 05/09/2025, Expires: 08/07/2025 Hepatitis C antibody Blood Microbiology Routine CKD stage G4/A2, GFR 15-29 and albumin creatinine ratio 30-300 mg/g (HCC) Expected: 05/09/2025, Expires: 08/07/2025 Hepatitis B core antibody, IgM Blood Microbiology Routine CKD stage G4/A2, GFR 15-29 and albumin creatinine ratio 30-300 mg/g (HCC) Expected: 05/09/2025, Expires: 08/07/2025 Cystatin C Lab Routine CKD stage G4/A2, GFR 15-29 and albumin creatinine ratio 30-300 mg/g (HCC) Expected: 05/09/2025, Expires: 08/07/2025 documented as of this encounter Visit Diagnoses Diagnosis CKD stage G4/A2, GFR 15-29 and albumin creatinine ratio 30-300 mg/g (HCC)- Primary documented in this encounter Historical Medications * This list may reflect changes made after this encounter. 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 09/11/21, 12/25/21 09/11/2021 02/05/2023 documented as of this encounter Care Teams Directional Survey Drafter Relationship Specialty Start Date End Date Patrick Lorenzana MD [address] [facility] [address] [place] [address] PCP - General Family Medicine 01/07/25 Rosy Grover RN [address] [facility] [address] [place] [address] Bowl Attendant 02/14/21 Pelon Yo MD [address] [place] [address] Referring Physician Pulmonary Disease 04/29/21 Paula Hitchcock RN Bowl Attendant Bowl Attendant 01/21/22 Kayleigh Boland MD [address] [facility] [address] [place] [address] Labor Expediter Pulmonary Disease 02/13/23 documented as of this encounter
--- OUTSIDE RECORDS SUMMARY | 2025-04-21 10:57 | XMS_ITS | Clinical Summary ---
Author Organization Unknown Care Team Providers Care Supervisor Special Education Name Role Phone MATEO CASTRO, TORREY Unavailable Unavailable APRIL ENNIS, KIMBERLY Unavailable Unavailabl e Payers Payer Name Policy Type Policy Number Effective Date Expira tion Date MEDICARE - [place] - PDGM [id number] Problems Condition Name Condition Details Condition Category [...] EXCLUSION AND REJECTION Active 09-08 00:00: 00 INTERMEDIATE (CURRENT) USE OF ASPIRIN Active 09-08 00:00: 00 RADIO NEWS WRITER (CURRENT) USE OF SYSTEMIC STEROIDS Active 09-08 [...] 325 mg tablet 03-24 00:00: 00 Yes [id number] 2 tablet EVERY 6 HOURS 2 tablet EVERY 6 HOURS (route: oral) Med Classific ation: Analgesic , Anti-infl ammatory or Antipyret ic acyclovir 200 mg capsule 03-24 00:00: 00 03-28 10:10 :06.8 97 No [id number] 1 capsule DIRECTED 1 capsule DIRECTED (route: oral) Med Classific ation: Anti-Infe ctive Agents Alinia 500 mg tablet 03-24 00:00: 00 03-28 10:13 :05.6 23 No [id number] 1 tablet 2 TIMES DAILY 1 tablet 2 TIMES DAILY (route: oral) Med Classific ation: Anti-Infe ctive Agents Aspirin Childrens 81 mg chewable tablet 03-24 00:00: 00 Yes [id number] 1 tablet DAILY 1 tablet DAILY (route: oral) Med Classific ation: Hematolog ical Agents azathioprin e 50 mg tablet 03-24 00:00: 00 Yes [id number] 1 tablet BEDTIME 1 tablet BEDTIME (route: oral) Med Classific ation: Immunosup pressive Agents Bactrim DS 800 mg-160 mg tablet 03-24 00:00: 00 Yes [id number] 1 tablet 3 TIMES A WEEK 1 tablet 3 TIMES A WEEK (route: oral) Med Classific ation: Anti-Infe ctive Agents Calcium-600 600 mg (as calcium carbonate 1,500 mg) tablet 03-24 00:00: 00 Yes [id number] 1 tablet DAILY 1 tablet DAILY (route: oral) Med Classific ation: Electroly te Balance-N utritiona l Products Compazine 5 mg tablet 03-24 00:00: 00 Yes [id number] 1 tablet 3 TIMES DAILY 1 tablet 3 TIMES DAILY (route: oral) Med Classific ation: Gastroint estinal Therapy Agents fosfomycin tromethamin e 3 gram oral packet 03-24 00:00: 00 03-28 10:12 :44.0 13 No [id number] 1 packet WEEKLY 1 packet WEEKLY (route: oral) Med Classific ation: Genitouri nary Therapy omeprazole 40 mg capsule,del ayed release 03-24 00:00: 00 Yes [id number] 1 capsule 2 TIMES DAILY 1 capsule 2 TIMES DAILY (route: oral) Med Classific ation: Gastroint estinal Therapy Agents prednisone 5 mg tablet 03-24 00:00: 00 Yes [id number] 1 tablet DAILY 1 tablet DAILY (route: oral) Med Classific ation: Endocrine sertraline 50 mg tablet 03-24 00:00: 00 Yes [id number] 1 tablet DAILY 1 tablet DAILY (route: oral) Med Classific ation: Central Nervous System Agents tacrolimus 0.5 mg capsule, immediate-r elease 03-24 00:00: 00 04-14 23:59 :00 No [id number] 1 capsule 2 TIMES DAILY 1 capsule 2 TIMES DAILY (route: oral) Med Classific ation: Immunosup pressive Agents tacrolimus 1 mg capsule, immediate-r elease 03-24 00:00: 00 03-28 10:13 :54.1 57 No [id number] 1 capsule EVERY AM 1 capsule EVERY AM (route: oral) Med Classific ation: Immunosup pressive Agents Valcyte 450 mg tablet 03-24 00:00: 00 Yes [id number] 1 tablet 2 TIMES A WEEK 1 tablet 2 TIMES A WEEK (route: oral) Med Classific ation: Anti-Infe ctive Agents vitamin D3 2,000 unit-folic acid 1 mg tablet 03-24 00:00: 00 Yes [id number] 1 unit DAILY 1 unit DAILY (route: oral) Med Classific ation: Electroly te Balance-N utritiona l Products tacrolimus 0.5 mg capsule, immediate-r elease 04-14 00:00: 00 Yes [id number] 1 capsule DAILY 1 capsule DAILY (route: [...] THE FOLLOWING PHYSICIANS: TRANSPLANT TEAM: DR. BHAT OUTSIDE COLLECTOR/TREATING PROVIDERS [code = HOME HEALTH AGENCY MAY ACCEPT ORDERS FROM THE FOLLOWING PHYSICIANS: TRANSPLANT TEAM: DR. BHAT OUTSIDE COLLECTOR/TREATING PROVIDERS] Future Scheduled Test SKILLED NU RSE [...] TO AND FROM PHYSICIAN APPOINTMENTS. [code = DELI ASSOCIATE TO EVALUATE PATIENT FOR ENSURING PATIENT HAS [...] MAINTAIN SITUATIONAL AWARENESS AND WILL NOTIFY CLINICAL FOOD MIXER ASSEMBLER AND PHYSICIAN/PROVIDER WITH ANY CHANGE IN CONDITION. [code = SKILLED NURSE TO PERFORM ENVIRONMENTAL SAFETY RISK ASSESSMENT AND FALL RISK ASSESSMENT AND PROVIDE INSTRUCTION TO IMPLEMENT ENVIRONMENTAL SAFETY AND FALL PREVENTION STRATEGIES THROUGHOUT THE CERTIFICATION PERIOD. SKILLED NURSE WILL MAINTAIN SITUATIONAL AWARENESS AND WILL NOTIFY CLINICAL FOOD MIXER ASSEMBLER AND PHYSICIAN/PROVIDER WITH ANY CHANGE IN CONDITION.] [...] CARE WILL BE ESTABLISHED THAT MEETS PATIENT'S HALFWAY NEEDS AND INCLUDES PATIENT GOAL FOR HOME [...] THE PHYSICIANS SIGNATURE. Goal Provider Goal - DELI ASSOCIATE TO COMPLETE EVALUATION TO ADDRESS THE PATIENTS [...] End Date/Time Encounter Type Admission Type Attending [facility] Care Department Encounter ID Discharge Date Discharge Status Discharge Condition Discharge Reason Percent Goals Met 2025-03-24 00:00:00 2025-05-22 00:00:00 Outpatient NEW ADMISSION KIMBERLY [facility] [id number] 70.00
--- OUTSIDE RECORDS SUMMARY | 2025-04-21 10:57 | XMS_ITS | Clinical Summary ---
Author Organization [facility] Address [address] [place] [address] Care Team Providers Care Multi Site Leasing Consultant Name Role Phone Rosy Grover RN Unavailable [phone] Pelon Yo MD Unavailable [phone] Palua Hitchcock RN Unavailable Awildavai Pauline Mireles MD Unavailable [phone] Patrick Lorenzana MD Primary Care Provider Allergies [...] (three) times a week 39 tablet 3 Active folic acid (FOLVITE) 1 mg tablet Take 1 tablet (1 mg total) by mouth daily 025 2025 Active prochlorperazine (COMPAZINE) 5 mg tablet TAKE 1 TABLET BY MOUTH THREE TIMES A DAY NEEDED 90 tablet 3 Active valGANciclovir (VALCYTE) 450 mg tablet Take [...] mg total) by mouth every morning Active carvediloL (COREG) 6.25 mg tablet 1 tablet (6.25 mg total) Active tacrolimus 0.5 mg immediate-release capsule Take 1 capsule (0.5 mg total) by mouth 2 (two) times a day 60 capsule 11 025 2024 Discontinued Active Problems Problem Noted Date Diagnosed Date Anemia due to chronic kidney disease 04/14/2025 Pain in both lower extremities 03/15/2025 Weight [...] 12:48 PM CDT): I endorse admission to alf care. The patient is at risk of [...] per week, tacrolimus, and valganciclovir 900mg on /; Follow up lab including Tacro level ordered. I asked the DON to ok the Tacro level via [employer]roc[employer]. Nurses through [employer] chat to confirm that Imuran is currently to be on hold. I asked him to review the medication orders per the medical center and this was confirmed. 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 for further guidance If her symptoms worsened [...] lisionpril/HCTZ Assessment & Plan (10/20/2020 3:02 PM PATIENT OBSERVER): Stable Cont lisionpril/HCTZ ILD (interstitial lung disease) 07/20/2020 Assessment & Plan (03/14/2025 9:26 PM CDT): -- cont pred 5, OI ppx, and valganciclovir -- Holding imuran -- PT/OT/Pulm rehab and RD consulted -- cont home mirtazapine for appetite Assessment & Plan (10/20/2020 3:02 PM PATIENT OBSERVER): F/u with pulmonary Allergic rhinitis 07/20/2020 Assessment & Plan (12/14/2020 5:17 AM CDT): Uncontrolled Cont socorro hoang Refer to ENT Primary insomnia 02/07/2020 Assessment & Plan (10/20/2020 3:03 PM PATIENT OBSERVER): Chronic Cont ativan Assessment & Plan (06/06/2020 [...] Other neutropenia 12/29/2024 01/04/2025 Melena 12/11/2024 12/31/2024 Ykcqo-[id number] kidney injury 06/26/2024 01/04/2025 Assessment & Plan [...] subsequent encounter 03/31/2022 12/31/2024 Oropharyngeal dysphagia 03/04/2022 07/12/2021 Overview (03/04/2022): MBS: Pharyngeal swallow function is [...] 01/04/2025 Moderate malnutrition 01/09/20222024 Urinary Tract Infection 01/04/2022 042 01/2025 Shortness of breath 01/03/2022 03/31/20 22 Allergic rhinitis 03/30/2021 12/30/2024 Idiopathic pulmonary fibrosis (CMS/HCC) 03/14/2021 02/01/2022 Overview (03/14/2021): Added automatically from request for surgery [id number] Weakness 03/11/2021 01/07/2025 Assessment & Plan (12/31/2024 [...] breath) on exertion 02/12/2021 12/31/2024 Hypertension, essential 10/06/2020 04/2 01/2025 Overview (03/12/2023): Last Assessment & Plan: Stable [...] diet Assessment & Plan (10/20/2020 3:02 PM PATIENT OBSERVER): Chronic Follow low cholesterol diet Assessment & [...] 03/31/2022 Assessment & Plan (10/20/2020 3:01 PM PATIENT OBSERVER): Likely secondary to ILD Cont Airduo F/u [...] Encounters Date Type Department Care Team Description 04/21/2025 Telephone [facility] Transplant Lung [address] [facility] [address] Mail[address] [phone] [place] [address] Nga Rosario 04/20/2025 10:25 AM CDT - 04/20/2025 11:59 PM CDT Hospital Encounter [facility] Pulmonary [address] [facility] [address] [place] [phone] 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) Discharge Disposition: Discharge to home or self care 04/20/2025 8:50 AM CDT Office Visit [facility] Nephrology [address] [facility] Advanced Medicine 5th [place] [address] [place] [phone] CKD stage G4/A2, GFR 15-29 and albumin creatinine ratio 30-300 mg/g (HCC) (Primary Dx) 04/20/2025 Telephone [facility] Transplant Lung [address] [facility] [address] Mail[address] [phone] [place] [address] Regine Green RN 04/18/2025 Telephone [facility] Transplant Lung [address] [facility] [address] [phone] [place] [address] Clary Lopez, LOLI 04/18/2025 Telephone [facility] Transplant Lung [address] [facility] [address] [phone] [place] [address] Nga Rosario 04/15/2025 7:30 PM CDT Lab [facility] [address] [place] [phone] 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) 04/15/2025 11:55 AM CDT - 04/15/2025 6:18 PM CDT Hospital Encounter [facility] [address] [place] [address] Kishore Rizo MD Anemia due to stage 3 chronic kidney disease, unspecified whether stage 3a or 3b CKD (HCC) (Primary Dx); 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) 04/15/2025 Orders Only [facility] Transplant Lung [address] [facility] [address] Mail[address] [phone] [place] [address] Paula Hitchcock, RN 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) (Primary Dx) 04/14/2025 Orders Only [facility] Pulmonary [address] [facility] Medicine 8th [place] [address] [place] [phone] Kishore Rizo MD 04/14/2025 Telephone [facility] Transplant Lung [address] [facility] [address] Mailstop [phone] [place] [address] Paula Hitchcock, RN 04/11/2025 Telephone [facility] Transplant Lung [address] [facility] [address] Mail[address] [phone] [place] [address] Paula Hitchcock, RN 04/01/2025 Telephone [facility] Pulmonary Rehabilitation Program [address] [facility] [address] [place] [phone] Josette Ochoa 03/31/2025 Orders Only [facility] Transplant Lung [address] [facility] [address] [phone] [place] [address] Paula Hitchcock, RN 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) (Primary Dx) 03/29/2025 Telephone [facility] Pulmonary Rehabilitation Program 1 [facility] 1st [place] [phone] Josette Ochoa 03/28/2025 Telephone [facility] Pulmonary [address] [facility] Medicine 8th [place] [address] [place] [phone] Kirby Porter MD 03/24/2025 Telephone [facility] Pulmonary Rehabilitation Program 1 [facility] 1st [place] [address] Josette Ochoa 03/22/2025 SHOP/CHAP Initial Eligibility Review [facility] OP CASE MANAGEMENT [address] [place] [address] Molly Wu RN 03/15/2025 10:35 AM CDT Ancillary Procedure [facility] Vascular Lab IP [address] [facility] [address] [place] [address] 03/14/2025 8:13 PM CDT - 03/21/2025 2:30 PM CDT Hospital Encounter [address] [phone] Pauline Bhat MD Qureshi, MD Jacob Murdock Rodrigo, MD Lung transplant status, bilateral, 2021, (CMV D+/R+) (Primary Dx); Weight loss; Weakness; Failure to thrive in adult Discharge Disposition: Discharge to home or self care 03/14/2025 10:30 AM CDT Lab [facility] Advanced [facility] [address] [place] [phone] 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) 03/14/2025 10:00 AM CDT Office Visit [facility] Pulmonary [address] [facility] Advanced Medicine 8th [place] [address] [place] [address] Seth Vasquez MD 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) (Primary Dx); Encounter for monitoring tacrolimus therapy; Stage 4 chronic kidney disease (HCC); Bilateral leg pain 03/14/2025 9:30 AM CDT Lab [facility] ([facility]) [address] [place] [phone] 03/14/2025 9:15 AM CDT - 03/14/2025 11:59 PM CDT Hospital Encounter [facility] Pulmonary [address] [phone] 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) Discharge Disposition: Discharge to home or self care 03/14/2025 8:53 AM CDT - 03/14/2025 11:59 PM CDT Hospital Encounter [facility] Radiology [facility] [address] [place] [address] 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) Discharge Disposition: Discharge to home or self care 03/14/2025 Telephone [facility] Transplant Lung [address] [facility] [address] Mail[address] [phone] [place] [address] Paula Hitchcock, LOLI 03/14/2025 Telephone [facility] Transplant Lung [address] [facility] [address] [phone] [place] [address] Tiera Lincoln 03/09/2025 Telephone [facility] Transplant Lung [address] [facility] [address] [phone] [place] [address] Nga Rosario 03/09/2025 Telephone [facility] Transplant Lung [address] [facility] [address] [phone] [place] [address] Paula Hitchcock, LOLI 02/01/2025 Telephone [facility] Nephrology [address] [facility] Advanced Medicine 5th [place] [address] [place] [phone] Irving Gipson MD Dismissal from Last 3 Months Immunizations Immunization Administration [...] Pulmonary fibrosis 07/20/2020 ILD (interstitial lung disease) ([facility]) 07/20/2020 Allergic rhinitis 07/20/2020 Asthma Hypertension [...] materials from doctor or pharmacy Never 02/19/2023 C Utilities Answer Date Recorded In the past [...] How often do you attend restorationism or sikh serv ices? Never 03/20/2025 Do you belong [...] place to sleep or slept in a fci (including now)? No 02/06/2023 Housing Stability Vital Sign Answer Quinten e Recorded In the last 12 months, was t here a time when you were not able to pay the mortgage or rent on time? No 03/20/2025 In the past 12 months, how m any times have you moved where you were living? 0 03/20/2025 At any time in the past 12 m [facility], were you homeless or living in a fci (including now)? No 03/20/2025 Personal Safety Answer Date Recorded Have you ever been in or are you currently in a harmful physical or emotional relationship or is someone making you feel afraid or unsafe? Denies 03/14/2025 Comments No Sex and Gender Information Value Date Recorded Sex Assigned at Not on file Legal Sex Female 6:28 PM PATIENT OBSERVER Gender Identity Not on file Sexual Orientation Not on file Obstetrics History Last Filed Vital Signs Vital Sign Reading Time Taken Comments Blood Pressure 176/90 04/20/2025 8:58 AM CDT Pulse 74 04/20/2025 8:58 AM CDT Temperature 36.7 C (98.1 F) 04/15/2025 6:06 PM CDT Respiratory Rate 18 04/15/2025 6:06 PM CDT Oxygen Saturation 99% 04/15/2025 6:06 PM CDT Inhaled Oxygen Concentration - - Weight 53.1 kg (117 lb) 04/20/2025 8:58 AM CDT Height 165.1 cm (5' 5) 04/20/2025 8:58 AM CDT Body Mass Index 19.47 04/20/2025 8:58 AM CDT Plan of Treatment Health Maintenance [...] 02/05/2023, 07/09/2022, Additional history exists Covid-19 Vaccine (5 - 2023-2 5 season) 2024 08/08/2022, 07/17/2021, 10/04/2020, Additional history exists Influenza Vaccine (#1) 2025 , 06/15/2021, 06/14/2020 Colon Cancer Screening-DNA Stool Discontinued 03/22/20 21 Colon Cancer Screening-FIT Discontinued 03/22/2021 Hepatitis C Screening Completed 08/15/2022 , 04/22/2022, 02/19/2022, Additional history exists Medical Devices Implanted Type Area Crane Hooker Device Identifier Shelf Expiration Date Model / Serial / Lot Neri Ellis Kit Hemodialysis Catheter Triple Lumen Curved Short Term Polyurethane Power Trialysis [id number] - [id number] Implanted:Qty: 1 on 12/13/2024 by Moon Carranza MD at [facility] Neri Ellis 11/05/2025 [id number] / / [id number] Procedures Procedure Name Priority Date/Time Associated Diagnosis Comments PULMONARY FUNCTION TEST (PFT) Routine 04/20/2025 10:42 AM CDT 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) TRANSFUSE RED BLOOD CELLS Timed 04/15/2025 4:25 PM CDT Anemia due to stage 3 chronic kidney disease, unspecified whether stage 3a or 3b CKD (HCC) TRANSFUSE RED BLOOD CELLS Timed 04/15/2025 2:12 PM CDT Anemia due to stage 3 chronic kidney disease, unspecified whether stage 3a or 3b CKD (HCC) TYPE AND SCREEN Timed 04/15/2025 12:40 PM CDT Anemia due to stage 3 chronic kidney disease, unspecified whether stage 3a or 3b CKD (HCC) PREPARE RBC Timed 04/15/2025 12:20 PM CDT Anemia due to stage 3 chronic kidney disease, unspecified whether stage 3a or 3b CKD (HCC) BLOOD SMEAR REVIEW Routine 04/15/2025 11:36 AM CDT Encounter for aftercare following lung transplant ([facility]) EGFR Routine 04/15/2025 11:36 AM CDT Encounter for aftercare following lung transplant ([facility]) DIFFERENTIAL AUTO Routine 04/15/2025 11:36 AM CDT Encounter for aftercare following lung transplant ([facility]) CBC WITH AUTO DIFFERENTIAL Routine 04/15/2025 11:36 AM CDT Encounter for aftercare following lung transplant ([facility]) COMPREHENSIVE METABOLIC PANEL Routine 04/15/2025 11:36 AM CDT Encounter for aftercare following lung transplant ([facility]) CYTOMEGALOVIRUS (CMV) DNA, QUANT GEN LAB Routine 04/15/2025 11:36 AM CDT Encounter for aftercare following lung transplant ([facility]) CBC WITHOUT DIFFERENTIAL Routine 04/14/2025 TACROLIMUS LEVEL, TROUGH Routine 04/07/2025 COMPREHENSIVE METABOLIC PANEL Routine 04/07/2025 CBC WITH AUTO DIFFERENTIAL Routine 04/07/2025 TACROLIMUS LEVEL, TROUGH Routine 03/31/2025 COMPREHENSIVE METABOLIC PANEL Routine 03/31/2025 CBC WITH AUTO DIFFERENTIAL Routine 03/31/2025 COMPREHENSIVE METABOLIC PANEL Routine 03/24/2025 CBC WITH AUTO DIFFERENTIAL Routine 03/24/2025 TACROLIMUS LEVEL, TROUGH Routine 03/24/2025 INFECTION PREVENTION SUSAN AURIS PCR, SURVEILLANCE Routine [...] HEPATITIS PANEL, ACUTE Routine 08/15/2022 9:25 AM PATIENT OBSERVER 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) Long-term use of immunosuppressant medication Encounter for therapeutic drug level monitoring Aftercare following organ transplant STOOL DNA COLOGUARD Routine 03/22/2021 9:50 AM CDT Screening for colon cancer SCREENING MAMMOGRAM BILATERAL W JOSESITO Routine 06/08/2015 2:50 PM CDT from Last 3 Months or Most Recently Relevant to Health Maintenance Results * Pulmonary Function Test - (04/20/2025 10:42 AM CDT) FVC PRE 2.39 L [facility] FVC %PRE PRED 77 % [facility] FEV1 PRE 1.80 L [facility] FEV1 %PRE PRED 74 % [facility] FEV1/FVC PRE 75.1 % [facility] Anatomical Region Laterality Modality PFT 04/20/2025 10:3 7 AM CDT Narrative 04/20/2025 11:09 AM CDT PFT performed at:->[facility] Adult PFT Lab- [id number] Procedure:->Spirometry Procedure:->Pulse Ox [...] %HbO2 is age dependent. However, the [facility] Pulmonary Function Laboratory defines hypoxemia as a PaO2 <56 mm Hg or a %HbO2 <89%. Starting on September of 2024 the [facility] Pulmonary Function Laboratory utilizes race neutral GLI Global normative equations. Seth Vasquez MD PFT ORDERABLES Final Result * Transfuse RBC (04/15/2025 6:16 PM CDT) Blood Kishore Rizo MD BLOOD TRANSFUSION ORDERABLES F inal Result Performing Organization Address City/[facility] Co de Phone Number SUMAYA [facility] Department [place] [employer] [place] [address] * Transfuse RBC (04/15/2025 4:27 PM CDT) Blood Kishore Rizo MD BLOOD TRANSFUSION ORDERABLES F inal Result Performing Organization Address City/[facility]/ZIP Co de Phone Number [facility] Department [place] [employer] [place] [address] * Type and screen (04/15/2025 12:40 PM CDT) Pathologist [facility] Moon, indirect Negative ABO Rh O Positive [facility] Blood Venous blood specimen / Unknown 04/15/2025 12:40 PM CDT 04/15/2025 12:52 PM CDT Kishore Rizo MD LAB BLOOD BANK TEST ORDERABLES Final Result Performing Organization Address City/[facility]/ZIP Co de Phone Number [facility] Department [place] [employer] [place] [address] * Prepare RBC: 2 Units (04/15/2025 12:20 PM CDT) [facility] Product code [id number] SUMAYA [facility] Unit Number [id number] W [facility] Product Blood Type ONEG [facility] Dispense Status PRESUMED TRANSFUSED [facility] Product code [id number] Unit Number [id number] U [facility] Product Blood Type OPOS [facility] Dispense Status PRESUMED TRANSFUSED [facility] Blood 04/15/2025 12:2 0 PM CDT 04/15/2025 12:20 PM CDT Narrative [facility] - 04/16/2025 4:01 AM CDT Are special requirements needed? (All products are leukoreduced and CMV- safe)- >No Date required:-[id number] LRRBC # of [id number] Reasons:-Hgb <7 g/dL} us Kishore Rizo MD BLOOD BANK PRODUCT ORDERABLES Final Result Performing Organization Address City/[facility]/ZIP Co de Phone Number [facility] [place] [employer] [place] [address] * (ABNORMAL) Blood smear review (04/15/2025 11:36 AM CDT) Pathologist [facility] RBC morphology Present(A ) Anisocytosis Marked(A) [facility] Poikilocytosis Slight(A) [facility] Macrocytes > 15/HPF(A) [facility] Schistocytes 1-2/HPF(A ) [facility] Elliptocytes 3-7/HPF(A ) [facility] Teardrop cells 3-7/HPF(A ) [facility] Platelet estimate Decreased (A) [facility] Blood 04/15/2025 11:3 6 AM CDT 04/15/2025 12:10 PM CDT Seth Vasquez MD LAB BLOOD ORDERABLES Final Resul t Performing Organization Address City/[facility]/ZIP Co de Phone Number [facility] [place] [employer] [place] [address] * (ABNORMAL) Cytomegalovirus (CMV) DNA PCR, quantitative Blood (04/15/2025 11:36 AM CDT) [facility] CMV DNA Detected( A) [facility] Comment: Interpretive Data: The quantifiable range of this assay is 34 IUnits/mL to 10,000,000 IUnits/mL (1.53 log IUnits/mL to 7.0 log IUnits/mL). Testing was performed by the [employer]ETH [id number] CMV Test ([employer] Testing performed at [facility]. Current interpretive data was last revised on 2021. CMV DNA IU/mL <34 IUnits/mL [facility] CMV DNA log IU/mL <1.53 log IUnits/mL [facility] Blood 04/15/2025 11:3 6 AM CDT 04/15/2025 12:22 PM CDT Seth Vasquez MD LAB MICROBIOLOGY - GENERAL ORDER ALEX Final Result Performing Organization Address City/[facility]/ZIP Co de Phone Number [facility] Department [place] [address] [facility] * (ABNORMAL) eGFR (04/15/2025 11:36 AM CDT) eGFR 15(L) >=60 mL/min/1. 73 m2 Comment: Interpretive Data [...] interpretive data was last reviewed 2021. Blood 04/15/2025 11:3 6 AM CDT 04/15/2025 12:07 PM CDT us Seth Vasquez MD LAB BLOOD ORDERABLES Final Resul t [facility] Department [place] [address] * (ABNORMAL) Differential, auto (04/15/2025 11:36 AM CDT) Pathologist [facility] Neutrophil abs 1.93 1.50 - 6.50 K/cumm Imm gran abs 0.24(H) 0.00 - 0.10 K/cumm [facility] Lymphocyte abs 0.54(L) 0.80 - 3.30 K/cumm [facility] Monocyte abs 0.16(L) 0.20 - 0.80 K/cumm [facility] Eosinophil abs 0.03 0.00 - 0.50 K/cumm [facility] Basophil abs 0.01 0.00 - 0.10 K/cumm [facility] Neutrophil pct 66.4 % [facility] Comment: Interpretive Data Percent cell count reference ranges are not reported, since discordance with absolute values may lead to misinterpretation of CBC data. Current Interpretive Data was last revised on 2017. Imm gran pct 8.2 % [facility] Comment: Interpretive Data Percent cell count reference ranges are not reported, since discordance with absolute values may lead to misinterpretation of CBC data. Current Interpretive Data was last revised on 2017. Lymphocyte pct 18.6 % [facility] Comment: Interpretive Data Percent cell count reference ranges are not reported, since discordance with absolute values may lead to misinterpretation of CBC data. Current Interpretive Data was last revised on 2017. Monocyte pct 5.5 % [facility] Comment: Interpretive Data Percent cell count reference ranges are not reported, since discordance with absolute values may lead to misinterpretation of CBC data. Current Interpretive Data was last revised on 2017. Eosinophil pct 1.0 % [facility] Comment: Interpretive Data Percent cell count reference ranges are not reported, since discordance with absolute values may lead to misinterpretation of CBC data. Current Interpretive Data was last revised on 2017. Basophil pct 0.3 % [facility] Comment: Interpretive Data Percent cell count reference ranges are not reported, since discordance with absolute values may lead to misinterpretation of CBC data. Current Interpretive Data was last revised on 2017. Blood 04/15/2025 11:3 6 AM CDT 04/15/2025 12:00 PM CDT Seth Vasquez MD LAB BLOOD ORDERABLES Final Resul t [facility] Department [place] [address] * (ABNORMAL) CBC with auto differential (04/15/2025 11:36 AM CDT) WBC 2.91(L) 3.80 - 9.90 K/cumm Hgb 6.5(L) 11.9 - 15.5 g/dL [facility] Hct 20.4(L) 35.6 - 45.5 % [facility] Plt 66(L) 150 - 400 K/cumm [facility] MPV 11.4 9.1 - 12.3 fL [facility] RBC 1.87(L) 3.90 - 5.20 M/cumm [facility] MCV 109.1(H) 81.3 - 96.4 fL [facility] MCH 34.8(H) 27.1 - 33.3 pg [facility] MCHC 31.9(L) 32.3 - 35.7 g/dL [facility] RDW CV 24.2(H) 11.1 - 14.9 % [facility] RDW SD 95.0(H) 35.7 - 48.1 fL [facility] NRBC abs 0.00 0.00 - 0.01 K/cumm [facility] Blood 04/15/2025 11:3 6 AM CDT 04/15/2025 12:00 PM CDT Seth Vasquez MD LAB BLOOD ORDERABLES Final Resul t [facility] Department [place] [address] * (ABNORMAL) Comprehensive metabolic panel (04/15/2025 11:36 AM CDT) Sodium 140 135 - 145 mmol/L Potassium, pl 4.8 3.3 - 4.9 mmol/L [facility] Chloride 109 97 - 110 mmol/L [facility] CO2 20(L) 22 - 32 mmol/L [facility] Anion gap 11 2 - 15 mmol/L [facility] BUN 37(H) 6 - 25 mg/dL [facility] Creatinine 3.40(H) 0.60 - 1.10 mg/dL [facility] Glucose 105 70 - 199 mg/dL [facility] Comment: Interpretive Data Fasting glucose [...] 2022. Calcium 8.7 8.5 - 10.3 mg/dL [facility] Bilirubin, total 0.3 0.1 - 1.2 mg/dL [facility] Protein, pl 6.5 6.5 - 8.5 g/dL [facility] Albumin 3.7 3.5 - 5.0 g/dL [facility] Alk phos 103 40 - 130 Units/L [facility] ALT 11 7 - 45 Units/L [facility] AST 21 10 - 45 Units/L [facility] Blood 04/15/2025 11:3 6 AM CDT 04/15/2025 12:00 PM CDT Seth Vasquez MD LAB BLOOD ORDERABLES Final Resul t [facility] Department [place] [address] * (ABNORMAL) CBC without differential (04/14/2025) SCRIBED WBC 3.5(A) 4.5 - 10.0 K/cumm EXTERNAL LAB SCRIBED Hemoglobin 6.7(A) 12.0 - 15.0 g/dL EXTERNAL LAB SCRIBED Hematocrit 22.1(A) 37.0 - 47.0 % EXTERNAL LAB SCRIBED Platelets 64(A) 150 - 375 K/cumm EXTERNAL LAB SCRIBED MPV 10.9(A) 7.4 - 10.4 fL EXTERNAL LAB SCRIBED RBC 1.97(A) 4.20 - 5.40 M/cumm EXTERNAL LAB SCRIBED MCV 112.2(A) 80.0 - 100.0 fL EXTERNAL LAB SCRIBED MCH 34.0 26.0 - 34.0 pg EXTERNAL LAB SCRIBED MCHC 30.3(A) 32.0 - 36.0 g/dL EXTERNAL LAB IPF 3.2 0.9 - 11.2 EXTERNAL LAB Blood 04/14/2025 Historical Provider MD LAB BLOOD ORDERABLES Edit ed Result - Final EXTERNAL LAB * Tacrolimus level trough (04/07/2025) SCRIBED Tacrolimus, trough 7.0 5.0 - 20.0 TXP NO LAB FOUND Blood 04/07/2025 Historical Provider MD LAB BLOOD ORDERABLES Edit ed Result - Final Performing Organization Address [facility] Co de Phone Number TXP NO LAB FOUND * (ABNORMAL) CBC with auto differential (04/07/2025) SCRIBED WBC 4.0(A) 4.8 - 10.8 K/cumm [...] ed Result - Final Performing Organization Address [facility] de Phone Number TXP NO LAB FOUND * Tacrolimus level trough (03/31/2025) SCRIBED Tacrolimus, trough 5.5 5.0 - 20.0 TXP NO LAB FOUND Blood 03/31/2025 Historical Provider MD LAB BLOOD ORDERABLES Edit ed Result - Final Performing Organization Address [facility] de Phone Number TXP NO LAB FOUND [...] Units/L TXP NO LAB FOUND Blood 03/31/2025 Result [facility] Historical Provider LAB BLOOD ORDERABLES Edit ed Result - Final TXP NO LAB FOUND * Tacrolimus level trough (03/24/2025) SCRIBED Tacrolimus, trough 14.4 5.0 - 20.0 TXP NO LAB FOUND Blood 03/24/2025 Result [facility] Historical Provider LAB BLOOD ORDERABLES Tonia l Result Performing Organization Address [facility]/ZIP Co de Phone Number TXP NO LAB [...] TXP NO LAB FOUND * Infection Prevention Susan auris PCR, surveillance Axilla/Groin (03/21/2025 12:36 PM CDT) Susan auris DNA Not Detected Not Detected [facility] Comment: Interpretive Data Testing performed by [facility] Molecular Infectious Disease Laboratory using the [employer]0 Susan auris assay. This assay detects DNA from Susan auris using Real-Time PCR. This assay is laboratory developed and is not cleared by the [facility] Food and Drug Administration. The performance characteristics have been verified by the [facility] Infectious Disease Laboratory. Axilla/Groin 03/21/2025 12:3 6 PM CDT 03/21/2025 1:14 PM CDT Narrative SUMAYA [facility] - 03/22/2025 10:01 AM CDT Order placed by [facility] due to ring surveillance. Instant Order Generic Provider LAB MICROBIOLOGY - GENERAL ORDERABLES Final Result SUMAYA [facility] Department [place] [address] [facility] * (ABNORMAL) eGFR (03/21/2025 5:07 AM CDT) [...] MD LAB BLOOD ORDERABLES F inal Result [facility] Department [place] [address] * (ABNORMAL) Differential, auto (03/21/2025 5:07 AM CDT) Neutrophil abs 0.54(L) 1.50 - 6.50 K/cumm Imm gran abs 0.19(H) 0.00 - 0.10 K/cumm [facility] Lymphocyte abs 0.74(L) 0.80 - 3.30 K[facility]cumm [facility] Monocyte abs 0.23 0.20 - 0.80 K/cumm [facility] Eosinophil abs 0.03 0.00 - 0.50 K/cumm [facility] Basophil abs 0.03 0.00 - 0.10 K/cumm [facility] Neutrophil pct 30.7 % [facility] Comment: Interpretive Data Percent cell count reference ranges are not reported, since discordance with absolute values may lead to misinterpretation of CBC data. Current Interpretive Data was last revised on 2017. Imm gran pct 10.8 % [facility] Comment: Interpretive Data Percent cell count reference ranges are not reported, since discordance with absolute values may lead to misinterpretation of CBC data. Current Interpretive Data was last revised on 2017. Lymphocyte pct 42.0 % [facility] Comment: Interpretive Data Percent cell count reference ranges are not reported, since discordance with absolute values may lead to misinterpretation of CBC data. Current Interpretive Data was last revised on 2017. Monocyte pct 13.1 % [facility] Comment: Interpretive Data Percent cell count reference ranges are not reported, since discordance with absolute values may lead to misinterpretation of CBC data. Current Interpretive Data was last revised on 2017. Eosinophil pct 1.7 % [facility] Comment: Interpretive Data Percent cell count reference ranges are not reported, since discordance with absolute values may lead to misinterpretation of CBC data. Current Interpretive Data was last revised on 2017. Basophil pct 1.7 % [facility] Comment: Interpretive Data Percent cell count reference ranges are not reported, since discordance with absolute values may lead to misinterpretation of CBC data. Current Interpretive Data was last revised on 2017. Blood 03/21/2025 5:07 AM CDT 03/21/2025 5:34 AM CDT Pauline Bhat MD LAB BLOOD ORDERABLES F inal Result Performing Organization Address [facility] de Phone Number [facility] Department [place] [employer] [place] [address] * Tacrolimus level trough (03/21/2025 5:07 AM CDT) [facility] Tacrolimus trough 5.1 ng/mL Comment: Interpretive Data Testing performed by liquid chromatography-tandem mass spectrometry. Therapeutic concentrations vary depending on type of transplanted organ and time elapsed since transplant. Typical trough concentrations range from 5-15 ng/mL. This test was developed and its performance characteristics determined by the [facility] Laboratory consistent with CLIA requirements. This test has not been cleared or approved by the [place] Food and Drug administration. Current interpretive data last reviewed 2019. Blood 03/21/2025 5:07 AM CDT 03/21/2025 5:34 AM CDT Pauline Bhat MD LAB BLOOD ORDERABLES F inal Result Performing Organization Address [facility] Co de Phone Number [facility] [place] [address] * (ABNORMAL) CBC with auto differential (03/21/2025 5:07 AM CDT) Pathologist [facility] WBC 1.76(L) 3.80 - 9.90 K/cumm Hgb 7.0(L) 11.9 - 15.5 g/dL [facility] Hct 21.4(L) 35.6 - 45.5 % [facility] Plt 120(L) 150 - 400 K/cumm [facility] MPV 10.3 9.1 - 12.3 fL [facility] RBC 2.21(L) 3.90 - 5.20 M/cumm [facility] MCV 96.8(H) 81.3 - 96.4 fL [facility] MCH 31.7 27.1 - 33.3 pg [facility] MCHC 32.7 32.3 - 35.7 g/dL [facility] RDW CV 25.1(H) 11.1 - 14.9 % [facility] RDW SD 84.6(H) 35.7 - 48.1 fL [facility] NRBC abs 0.00 0.00 - 0.01 K/cumm [facility] Blood 03/21/2025 5:07 AM CDT 03/21/2025 5:34 AM CDT Pauline Bhat MD LAB BLOOD ORDERABLES F inal Result Performing Organization Address [facility] de Phone Number [facility] Department [place] [address] * (ABNORMAL) Phosphorus (03/21/2025 5:07 AM CDT) Pathologist [facility] Phosphorus, pl 1.6(L) 2.3 - 4.5 mg/dL Blood 03/21/2025 5:07 AM CDT 03/21/2025 5:34 AM CDT Pauline Bhat MD LAB BLOOD ORDERABLES F inal Result [facility] Department [place] [address] * Magnesium (03/21/2025 5:07 AM CDT) Pathologist [facility] Magnesium 1.5 1.4 - 2.5 mg/dL Blood 03/21/2025 5:07 AM CDT 03/21/2025 5:34 AM CDT Pauline Bhat MD LAB BLOOD ORDERABLES F inal Result Performing Organization Address City/[facility] Co de Phone Number [facility] Department [place] [address] * (ABNORMAL) Comprehensive metabolic panel (03/21/2025 5:07 AM CDT) Pathologist [facility] Sodium 140 135 - 145 mmol/L Potassium, pl 3.6 3.3 - 4.9 mmol/L [facility] Chloride 112(H) 97 - 110 mmol/L [facility] CO2 22 22 - 32 mmol/L [facility] Anion gap 6 2 - 15 mmol/L [facility] BUN 30(H) 6 - 25 mg/dL [facility] Creatinine 3.23(H) 0.60 - 1.10 mg/dL [facility] Glucose 86 70 - 199 mg/dL [facility] Comment: Interpretive Data Fasting glucose [...] 2022. Calcium 8.6 8.5 - 10.3 mg/dL [facility] Bilirubin, total 0.2 0.1 - 1.2 mg/dL [facility] Protein, pl 5.6(L) 6.5 - 8.5 g/dL [facility] Albumin 3.3(L) 3.5 - 5.0 g/dL [facility] Alk phos 87 40 - 130 Units/L [facility] ALT 19 7 - 45 Units/L [facility] AST 40 10 - 45 Units/L [facility] Blood 03/21/2025 5:07 AM CDT 03/21/2025 5:34 AM CDT us Pauline Bhat MD LAB BLOOD ORDERABLES F inal Result [facility] Department [place] [address] * (ABNORMAL) eGFR (03/20/2025 5:05 AM CDT) [...] of Race in Diagnosing Kidney Disease, JASN 2021). The CKD-EPI equation should not be used for patients with unstable renal function and has not been validated in children and those over 70. Current interpretive data was last reviewed 2021. Blood 03/20/2025 5:05 AM CDT 03/20/2025 5:58 AM CDT Pauline Bhat MD LAB BLOOD ORDERABLES F inal Result Performing Organization Address [facility] de Phone Number [facility] [place] [address] * Tacrolimus level trough (03/20/2025 5:05 AM CDT) [facility] Tacrolimus trough 4.1 ng/mL Comment: Interpretive Data Testing performed by liquid chromatography-tandem mass spectrometry. Therapeutic concentrations vary depending on type of transplanted organ and time elapsed since transplant. Typical trough concentrations range from 5-15 ng/mL. This test was developed and its performance characteristics determined by the [facility] consistent with CLIA requirements. This test has not been cleared or approved by the [place] Food and Drug administration. Current interpretive data last reviewed 2019. Blood 03/20/2025 5:05 AM CDT 03/20/2025 6:00 AM CDT Pauline Bhat MD LAB BLOOD ORDERABLES F inal Result Performing Organization Address [facility] de Phone Number [facility] Department [place] [address] * (ABNORMAL) CBC with auto differential (03/20/2025 5:05 AM CDT) [facility] WBC 1.58(L) 3.80 - 9.90 K/cumm Hgb 7.2(L) 11.9 - 15.5 g/dL [facility] Hct 21.6(L) 35.6 - 45.5 % [facility] Plt 120(L) 150 - 400 K/cumm [facility] MPV 11.2 9.1 - 12.3 fL [facility] RBC 2.23(L) 3.90 - 5.20 M/cumm [facility] MCV 96.9(H) 81.3 - 96.4 fL [facility] MCH 32.3 27.1 - 33.3 pg [facility] MCHC 33.3 32.3 - 35.7 g/dL [facility] RDW CV 24.8(H) 11.1 - 14.9 % [facility] RDW SD 83.8(H) 35.7 - 48.1 fL [facility] NRBC abs 0.00 0.00 - 0.01 K/cumm [facility] Morphologic Screen Results confirmed by manual morphology review. [facility] Blood 03/20/2025 5:05 AM CDT 03/20/2025 6:00 AM CDT us Pauline Bhat MD LAB BLOOD ORDERABLES E dited Result - Final [facility] Department [place] [address] * (ABNORMAL) Manual Differential (03/20/2025 5:05 AM CDT) Differential Manual Cells Counted 119 [facility] Neutrophil abs 0.74(L) 1.50 - 6.50 K/cumm [facility] Imm gran abs 0.07 0.00 - 0.10 K/cumm [facility] Lymphocyte abs 0.55(L) 0.80 - 3.30 K/cumm [facility] Monocyte abs 0.17(L) 0.20 - 0.80 K/cumm [facility] Eosinophil abs 0.03 0.00 - 0.50 K/cumm [facility] Basophil abs 0.03 0.00 - 0.10 K/cumm [facility] Neutrophil pct 47.0 % [facility] Comment: Interpretive Data Percent cell count reference ranges are not reported, since discordance with absolute values may lead to misinterpretation of CBC data. Current Interpretive Data was last revised on 2017. Lymphocyte pct 34.5 % [facility] Comment: Interpretive Data Percent cell count reference ranges are not reported, since discordance with absolute values may lead to misinterpretation of CBC data. Current Interpretive Data was last revised on 2017. Monocyte pct 10.9 % [facility] Comment: Interpretive Data Percent cell count reference ranges are not reported, since discordance with absolute values may lead to misinterpretation of CBC data. Current Interpretive Data was last revised on 2017. Eosinophil pct 1.7 % [facility] Comment: Interpretive Data Percent cell count reference ranges are not reported, since discordance with absolute values may lead to misinterpretation of CBC data. Current Interpretive Data was last revised on 2017. Basophil pct 1.7 % [facility] Comment: Interpretive Data Percent cell count reference ranges are not reported, since discordance with absolute values may lead to misinterpretation of CBC data. Current Interpretive Data was last revised on 2017. Metamyelocyte pct 1.7(H) 0.0 - 0.0 % [facility] Myelocyte pct 1.7(H) 0.0 - 0.0 % [facility] Promyelocyte pct 0.8(H) 0.0 - 0.0 % [facility] Blood 03/20/2025 5:05 AM CDT 03/20/2025 6:05 AM CDT Pauline Bhat MD LAB BLOOD ORDERABLES F inal Result Performing Organization Address [facility]/ZIP Co de Phone Number [facility] Department [place] [address] * Type and screen (03/20/2025 5:05 AM CDT) Pathologist [facility] Moon, indirect Negative ABO Rh O Positive [facility] Blood 03/20/2025 5:05 AM CDT 03/20/2025 6:05 AM CDT Narrative [facility] - 03/20/2025 7:29 AM CDT Has the patient had Daratumumab or Isatuximab in the past 6 months?->Unknown Gage Rogers MD LAB BLOOD BANK TEST ORDERABLES Final Result [facility] [place] [address] * (ABNORMAL) Phosphorus (03/20/2025 5:05 AM CDT) Phosphorus, pl 1.6(L) 2.3 - 4.5 mg/dL Blood 03/20/2025 5:05 AM CDT 03/20/2025 5:58 AM CDT Pauline Bhat MD LAB BLOOD ORDERABLES F inal Result Performing Organization Address City/[facility]/ZIP Co de Phone Number [facility] Department [place] [address] * Magnesium (03/20/2025 5:05 AM CDT) [facility] Magnesium 1.5 1.4 - 2.5 mg/dL Blood 03/20/2025 5:05 AM CDT 03/20/2025 5:58 AM CDT Pauline Bhat MD LAB BLOOD ORDERABLES F inal Result Performing Organization Address [facility] de Phone Number [facility] Department [place] [address] * (ABNORMAL) Comprehensive metabolic panel (03/20/2025 5:05 AM CDT) [facility] Sodium 142 135 - 145 mmol/L Potassium, pl 3.5 3.3 - 4.9 mmol/L [facility] Chloride 111(H) 97 - 110 mmol/L [facility] CO2 22 22 - 32 mmol/L [facility] Anion gap 9 2 - 15 mmol/L [facility] BUN 35(H) 6 - 25 mg/dL [facility] Creatinine 3.58(H) 0.60 - 1.10 mg/dL [facility] Glucose 95 70 - 199 mg/dL [facility] Comment: Interpretive Data Fasting glucose [...] Calcium 8.6 8.5 - 10.3 mg/dL [facility] Bilirubin, total 0.2 0.1 - 1.2 mg/dL [facility] Protein, pl 5.7(L) 6.5 - 8.5 g/dL [facility] Albumin 3.2(L) 3.5 - 5.0 g/dL [facility] Alk phos 83 40 - 130 Units/L [facility] ALT 23 7 - 45 Units/L [facility] AST 48(H) 10 - 45 Units/L [facility] Blood 03/20/2025 5:05 AM CDT 03/20/2025 5:58 AM CDT Pauline Bhat MD LAB BLOOD ORDERABLES F inal Result [facility] Department [place] [address] * (ABNORMAL) eGFR (03/19/2025 5:05 AM CDT) [...] MD LAB BLOOD ORDERABLES F inal Result [facility] Department [place] [address] * (ABNORMAL) Differential, auto (03/19/2025 5:05 AM CDT) Neutrophil abs 0.48(C) 1.50 - 6.50 K/cumm Comment:This result has been called to irineo mendoza rn by [id number] on 03/19/2025 07:41:05, and has been read back. Imm gran abs 0.18(H) 0.00 - 0.10 K/cumm [facility] Lymphocyte abs 0.68(L) 0.80 - 3.30 K/cumm [facility] Monocyte abs 0.18(L) 0.20 - 0.80 K/cumm [facility] Eosinophil abs 0.02 0.00 - 0.50 K/cumm [facility] Basophil abs 0.01 0.00 - 0.10 K/cumm [facility] Neutrophil pct 31.0 % [facility] Comment: Differential consistent with previous result. Differential consistent with previous result. Interpretive Data Percent cell count reference ranges are not reported, since discordance with absolute values may lead to misinterpretation of CBC data. Current Interpretive Data was last revised on 2017. Imm gran pct 11.6 % [facility] Comment: Interpretive Data Percent cell count reference ranges are not reported, since discordance with absolute values may lead to misinterpretation of CBC data. Current Interpretive Data was last revised on 2017. Lymphocyte pct 43.9 % [facility] Comment: Interpretive Data Percent cell count reference ranges are not reported, since discordance with absolute values may lead to misinterpretation of CBC data. Current Interpretive Data was last revised on 2017. Monocyte pct 11.6 % [facility] Comment: Interpretive Data Percent cell count reference ranges are not reported, since discordance with absolute values may lead to misinterpretation of CBC data. Current Interpretive Data was last revised on 2017. Eosinophil pct 1.3 % [facility] Comment: Interpretive Data Percent cell count reference ranges are not reported, since discordance with absolute values may lead to misinterpretation of CBC data. Current Interpretive Data was last revised on 2017. Basophil pct 0.6 % [facility] Comment: Interpretive Data Percent cell count reference ranges are not reported, since discordance with absolute values may lead to misinterpretation of CBC data. Current Interpretive Data was last revised on 2017. Blood 03/19/2025 5:05 AM CDT 03/19/2025 6:36 AM CDT Pauline Bhat MD LAB BLOOD ORDERABLES F inal Result Performing Organization Address [facility] de Phone Number [facility] [employer] [place] [address] * Tacrolimus level trough (03/19/2025 5:05 AM CDT) [facility] Tacrolimus trough 4.5 ng/mL Comment: Interpretive Data Testing performed by liquid chromatography-tandem mass spectrometry. Therapeutic concentrations vary depending on type of transplanted organ and time elapsed since transplant. Typical trough concentrations range from 5-15 ng/mL. This test was developed and its performance characteristics determined by the [facility] consistent with CLIA requirements. This test has not been cleared or approved by the [place] Food and Drug administration. Current interpretive data last reviewed 2019. Blood 03/19/2025 5:05 AM CDT 03/19/2025 6:36 AM CDT us Pauline Bhat MD LAB BLOOD ORDERABLES F inal Result Performing Organization Address [facility] de Phone Number [facility] [place] [address] * (ABNORMAL) CBC with auto differential (03/19/2025 5:05 AM CDT) Pathologist [facility] WBC 1.55(L) 3.80 - 9.90 K/cumm Hgb 7.0(L) 11.9 - 15.5 g/dL [facility] Hct 20.7(L) 35.6 - 45.5 % [facility] Plt 116(L) 150 - 400 K/cumm [facility] MPV 10.6 9.1 - 12.3 fL [facility] CENTER RBC 2.18(L) 3.90 - 5.20 M/cumm [facility] MCV 95.0 81.3 - 96.4 fL [facility] MCH 32.1 27.1 - 33.3 pg [facility] MCHC 33.8 32.3 - 35.7 g/dL [facility] RDW CV 25.2(H) 11.1 - 14.9 % [facility] RDW SD 81.4(H) 35.7 - 48.1 fL [facility] NRBC abs 0.00 0.00 - 0.01 K/cumm [facility] Blood 03/19/2025 5:05 AM CDT 03/19/2025 6:36 AM CDT Pauline Bhat MD LAB BLOOD ORDERABLES F inal Result Performing Organization Address [facility] de Phone Number [facility] Department [place] [address] * (ABNORMAL) Phosphorus (03/19/2025 5:05 AM CDT) Pathologist [facility] Phosphorus, pl 1.8(L) 2.3 - 4.5 mg/dL Blood 03/19/2025 5:05 AM CDT 03/19/2025 6:35 AM CDT Pauline Bhat MD LAB BLOOD ORDERABLES F inal Result [facility] Department [place] [address] * Magnesium (03/19/2025 5:05 AM CDT) Pathologist [facility] Magnesium 1.6 1.4 - 2.5 mg/dL Blood 03/19/2025 5:05 AM CDT 03/19/2025 6:35 AM CDT Pauline Bhat MD LAB BLOOD ORDERABLES F inal Result Performing Organization Address City/[facility] Co de Phone Number [facility] Department [place] [address] * (ABNORMAL) Comprehensive metabolic panel (03/19/2025 5:05 AM CDT) [facility] Sodium 140 135 - 145 mmol/L Potassium, pl 3.6 3.3 - 4.9 mmol/L [facility] Chloride 109 97 - 110 mmol/L [facility] CO2 20(L) 22 - 32 mmol/L [facility] Anion gap 11 2 - 15 mmol/L [facility] BUN 42(H) 6 - 25 mg/dL [facility] Creatinine 3.93(H) 0.60 - 1.10 mg/dL [facility] Glucose 89 70 - 199 mg/dL [facility] Comment: Interpretive Data Fasting glucose [...] 2022. Calcium 8.2(L) 8.5 - 10.3 mg/dL [facility] Bilirubin, total 0.2 0.1 - 1.2 mg/dL [facility] Protein, pl 5.6(L) 6.5 - 8.5 g/dL [facility] Albumin 3.1(L) 3.5 - 5.0 g/dL [facility] Alk phos 72 40 - 130 Units/L [facility] ALT 18 7 - 45 Units/L [facility] AST 45 10 - 45 Units/L [facility] Blood 03/19/2025 5:05 AM CDT 03/19/2025 6:35 AM CDT us Pauline Bhat MD LAB BLOOD ORDERABLES F inal Result [facility] Department [place] [address] * (ABNORMAL) eGFR (03/18/2025 5:45 AM CDT) [...] 5:45 AM CDT 03/18/2025 7:40 AM CDT Pauline Bhat MD LAB BLOOD ORDERABLES F inal Result [facility] Department [place] [address] * (ABNORMAL) Differential, auto (03/18/2025 5:45 AM CDT) Neutrophil abs 0.67(L) 1.50 - 6.50 K/cumm Imm gran abs 0.19(H) 0.00 - 0.10 K/cumm [facility] Lymphocyte abs 0.66(L) 0.80 - 3.30 K/cumm [facility] Monocyte abs 0.21 0.20 - 0.80 K/cumm [facility] Eosinophil abs 0.04 0.00 - 0.50 K/cumm [facility] Basophil abs 0.02 0.00 - 0.10 K/cumm [facility] Neutrophil pct 37.5 % [facility] Comment: Interpretive Data Percent cell count reference ranges are not reported, since discordance with absolute values may lead to misinterpretation of CBC data. Current Interpretive Data was last revised on 2017. Imm gran pct 10.6 % [facility] Comment: Interpretive Data Percent cell count reference ranges are not reported, since discordance with absolute values may lead to misinterpretation of CBC data. Current Interpretive Data was last revised on 2017. Lymphocyte pct 36.9 % [facility] Comment: Interpretive Data Percent cell count reference ranges are not reported, since discordance with absolute values may lead to misinterpretation of CBC data. Current Interpretive Data was last revised on 2017. Monocyte pct 11.7 % [facility] Comment: Interpretive Data Percent cell count reference ranges are not reported, since discordance with absolute values may lead to misinterpretation of CBC data. Current Interpretive Data was last revised on 2017. Eosinophil pct 2.2 % [facility] Comment: Interpretive Data Percent cell count reference ranges are not reported, since discordance with absolute values may lead to misinterpretation of CBC data. Current Interpretive Data was last revised on 2017. Basophil pct 1.1 % [facility] Comment: Interpretive Data Percent cell count reference ranges are not reported, since discordance with absolute values may lead to misinterpretation of CBC data. Current Interpretive Data was last revised on 2017. Blood 03/18/2025 5:45 AM CDT 03/18/2025 7:22 AM CDT Pauline Bhat MD LAB BLOOD ORDERABLES F inal Result Performing Organization Address [facility] de Phone Number [facility] [place] [address] * Tacrolimus level trough (03/18/2025 5:45 AM CDT) Pathologist [facility] Tacrolimus trough 3.2 ng/mL Comment: Interpretive Data Testing performed by liquid chromatography-tandem mass spectrometry. Therapeutic concentrations vary depending on type of transplanted organ and time elapsed since transplant. Typical trough concentrations range from 5-15 ng/mL. This test was developed and its performance characteristics determined by the [facility] consistent with CLIA requirements. This test has not been cleared or approved by the [place] Food and Drug administration. Current interpretive data last reviewed 2019. Blood 03/18/2025 5:45 AM CDT 03/18/2025 7:22 AM CDT Pauline Bhat MD LAB BLOOD ORDERABLES F inal Result Performing Organization Address [facility] de Phone Number [facility] [place] [address] * (ABNORMAL) CBC with auto differential (03/18/2025 5:45 AM CDT) Pathologist [facility] WBC 1.79(L) 3.80 - 9.90 K/cumm Hgb 7.8(L) 11.9 - 15.5 g/dL [facility] Hct 23.2(L) 35.6 - 45.5 % [facility] Plt 117(L) 150 - 400 K/cumm [facility] MPV 10.9 9.1 - 12.3 fL [facility] RBC 2.42(L) 3.90 - 5.20 M/cumm [facility] MCV 95.9 81.3 - 96.4 fL [facility] Comment:MCV delta due to megan arent blood transfusion. MCH 32.2 27.1 - 33.3 pg [facility] MCHC 33.6 32.3 - 35.7 g/dL [facility] RDW CV 24.6(H) 11.1 - 14.9 % [facility] RDW SD 79.8(H) 35.7 - 48.1 fL [facility] NRBC abs 0.00 0.00 - 0.01 K/cumm [facility] Blood 03/18/2025 5:45 AM CDT 03/18/2025 7:22 AM CDT us Pauline Bhat MD LAB BLOOD ORDERABLES E dited Result - Final Performing Organization Address City/[facility]/ZIP Co de Phone Number [facility] Department [place] [address] * (ABNORMAL) Phosphorus (03/18/2025 5:45 AM CDT) Phosphorus, pl 2.1(L) 2.3 - 4.5 mg/dL Blood 03/18/2025 5:45 AM CDT 03/18/2025 7:22 AM CDT Pauline Bhat MD LAB BLOOD ORDERABLES F inal Result [facility] Department [place] [address] * Magnesium (03/18/2025 5:45 AM CDT) Magnesium 1.8 1.4 - 2.5 mg/dL Blood 03/18/2025 5:45 AM CDT 03/18/2025 7:22 AM CDT us Pauline Bhat MD LAB BLOOD ORDERABLES F inal Result [facility] Department [place] [address] * (ABNORMAL) Comprehensive metabolic panel (03/18/2025 5:45 AM CDT) Sodium 143 135 - 145 mmol/L Potassium, pl 3.4 3.3 - 4.9 mmol/L [facility] Chloride 110 97 - 110 mmol/L [facility] CO2 20(L) 22 - 32 mmol/L [facility] Anion gap 13 2 - 15 mmol/L [facility] BUN 51(H) 6 - 25 mg/dL [facility] Creatinine 4.74(H) 0.60 - 1.10 mg/dL [facility] Glucose 94 70 - 199 mg/dL [facility] Comment: Interpretive Data Fasting glucose [...] 2022. Calcium 8.4(L) 8.5 - 10.3 mg/dL [facility] Bilirubin, total 0.3 0.1 - 1.2 mg/dL [facility] Protein, pl 5.9(L) 6.5 - 8.5 g/dL [facility] Albumin 3.4(L) 3.5 - 5.0 g/dL [facility] Alk phos 67 40 - 130 Units/L [facility] ALT 12 7 - 45 Units/L [facility] AST 30 10 - 45 Units/L [facility] Blood 03/18/2025 5:45 AM CDT 03/18/2025 7:22 AM CDT Pauline Bhat MD LAB BLOOD ORDERABLES F inal Result Performing Organization Address [facility]/ZIP Co de Phone Number [facility] [place] [address] * Transfuse RBC (03/17/2025 11:45 PM CDT) Blood Gary Verdin MD BLOOD TRANSFUSION ORDER ALEX Edited Result - Final Performing Organization Address [facility] [place] [address] * Infection Prevention Susan auris PCR, surveillance Axilla/Groin (03/17/2025 1:35 PM CDT) Susan auris DNA Not Detected Not Detected [facility] Comment: Interpretive Data Testing performed by [facility] Infectious Disease Laboratory using the Lauren beth 6800 Susan auris assay. This assay detects DNA from Susan auris using Real-Time PCR. This assay is laboratory developed and is not cleared by the [facility] Food and Drug Administration. The performance characteristics have been verified by the [facility] Infectious Disease Laboratory. Axilla/Groin 03/17/2025 1:35 PM CDT 03/17/2025 3:48 PM CDT Narrative [facility] - 03/17/2025 11:58 PM CDT Order placed by [facility] due to ring surveillance. us Instant Order Generic Provider LAB MICROBIOLOGY - GENERAL ORDERABLES Final Result Performing Organization Address [facility] Co de Phone Number [facility] [place] [address] [facility] * Type and screen (03/17/2025 1:35 PM CDT) ABO Rh O Positive Moon, indirect Negative [facility] Blood 03/17/2025 1:35 PM CDT 03/17/2025 2:46 PM CDT Narrative [facility] - 03/17/2025 3:34 PM CDT Has the patient had Daratumumab or Isatuximab in the past 6 months?->Unknown Gary Verdin MD LAB BLOOD BANK TEST ORD ERABLES Final Result Performing Organization Address [facility] Co de Phone Number [facility] Department [place] [address] * Prepare RBC: 1 Units (03/17/2025 12:17 PM CDT) Pathologist [facility] Product code [id number] Unit Number [id number] [facility] Product Blood Type OPOS [facility] Dispense Status PRESUMED TRANSFUSED [facility] Blood 03/17/2025 12:1 7 PM CDT 03/17/2025 12:17 PM CDT Narrative [facility] - 03/18/2025 6:00 AM CDT Are special requirements needed? (All products are leukoreduced and CMV- safe)- >No Date required:-[id number] LRRBC # of [id number] Reasons:-Hgb <7 g/dL} us Gary Verdin MD BLOOD BANK PRODUCT ORDE RABLES Final Result Performing Organization Address [facility] Co de Phone Number [facility] Department [place] [address] * (ABNORMAL) eGFR (03/17/2025 5:17 AM CDT) Pathologist [facility] eGFR 8(L) >=60 mL/min/1. 73 m2 Comment: [...] MD LAB BLOOD ORDERABLES F inal Result [facility] Department [place] [address] * (ABNORMAL) Differential, auto (03/17/2025 5:17 AM CDT) Pathologist [facility] Neutrophil abs 0.80(L) 1.50 - 6.50 K/cumm Imm gran abs 0.20(H) 0.00 - 0.10 K/cumm [facility] Lymphocyte abs 0.67(L) 0.80 - 3.30 K/cumm [facility] Monocyte abs 0.30 0.20 - 0.80 K/cumm [facility] Eosinophil abs 0.02 0.00 - 0.50 K/cumm [facility] Basophil abs 0.02 0.00 - 0.10 K/cumm [facility] Neutrophil pct 39.8 % [facility] Comment: Interpretive Data Percent cell count reference ranges are not reported, since discordance with absolute values may lead to misinterpretation of CBC data. Current Interpretive Data was last revised on 2017. Imm gran pct 10.0 % [facility] Comment: Interpretive Data Percent cell count reference ranges are not reported, since discordance with absolute values may lead to misinterpretation of CBC data. Current Interpretive Data was last revised on 2017. Lymphocyte pct 33.3 % [facility] Comment: Interpretive Data Percent cell count reference ranges are not reported, since discordance with absolute values may lead to misinterpretation of CBC data. Current Interpretive Data was last revised on 2017. Monocyte pct 14.9 % [facility] Comment: Interpretive Data Percent cell count reference ranges are not reported, since discordance with absolute values may lead to misinterpretation of CBC data. Current Interpretive Data was last revised on 2017. Eosinophil pct 1.0 % [facility] Comment: Interpretive Data Percent cell count reference ranges are not reported, since discordance with absolute values may lead to misinterpretation of CBC data. Current Interpretive Data was last revised on 2017. Basophil pct 1.0 % [facility] Comment: Interpretive Data Percent cell count reference ranges are not reported, since discordance with absolute values may lead to misinterpretation of CBC data. Current Interpretive Data was last revised on 2017. Blood 03/17/2025 5:17 AM CDT 03/17/2025 5:53 AM CDT Pauline Bhat MD LAB BLOOD ORDERABLES F inal Result [facility] Department [place] [address] * Tacrolimus level trough (03/17/2025 5:17 AM CDT) [facility] Tacrolimus trough 4.3 ng/mL Comment: Interpretive Data Testing performed by liquid chromatography-tandem mass spectrometry. Therapeutic concentrations vary depending on type of transplanted organ and time elapsed since transplant. Typical trough concentrations range from 5-15 ng/mL. This test was developed and its performance characteristics determined by the [facility] consistent with CLIA requirements. This test has not been cleared or approved by the [place] Food and Drug administration. Current interpretive data last reviewed 2019. Blood 03/17/2025 5:17 AM CDT 03/17/2025 5:53 AM CDT Pauline Bhat MD LAB BLOOD ORDERABLES F inal Result [facility] Department [place] [address] * (ABNORMAL) CBC with auto differential (03/17/2025 5:17 AM CDT) WBC 2.01(L) 3.80 - 9.90 K/cumm Hgb 6.9(L) 11.9 - 15.5 g/dL [facility] Hct 20.7(L) 35.6 - 45.5 % [facility] Plt 123(L) 150 - 400 K/cumm [facility] MPV 10.5 9.1 - 12.3 fL [facility] RBC 2.04(L) 3.90 - 5.20 M/cumm [facility] MCV 101.5(H) 81.3 - 96.4 fL [facility] MCH 33.8(H) 27.1 - 33.3 pg [facility] MCHC 33.3 32.3 - 35.7 g/dL [facility] RDW CV 22.5(H) 11.1 - 14.9 % [facility] RDW SD 81.1(H) 35.7 - 48.1 fL [facility] NRBC abs 0.00 0.00 - 0.01 K/cumm [facility] Blood 03/17/2025 5:17 AM CDT 03/17/2025 5:53 AM CDT us Pauline Bhat MD LAB BLOOD ORDERABLES F inal Result [facility] Department [place] [address] * Phosphorus (03/17/2025 5:17 AM CDT) Phosphorus, pl 2.7 2.3 - 4.5 mg/dL Blood 03/17/2025 5:17 AM CDT 03/17/2025 5:54 AM CDT Pauline Bhat MD LAB BLOOD ORDERABLES F inal Result Performing Organization Address City/[facility]/ZIP Co de Phone Number [facility] Department [place] [address] * Magnesium (03/17/2025 5:17 AM CDT) Pathologist [facility] Magnesium 1.9 1.4 - 2.5 mg/dL Blood 03/17/2025 5:17 AM CDT 03/17/2025 5:54 AM CDT Pauline Bhat MD LAB BLOOD ORDERABLES F inal Result Performing Organization Address [facility] Co de Phone Number [facility] [place] [address] * (ABNORMAL) Comprehensive metabolic panel (03/17/2025 5:17 AM CDT) Pathologist [facility] Sodium 143 135 - 145 mmol/L Potassium, pl 3.9 3.3 - 4.9 mmol/L [facility] Chloride 110 97 - 110 mmol/L [facility] CO2 22 22 - 32 mmol/L [facility] Anion gap 11 2 - 15 mmol/L [facility] BUN 65(H) 6 - 25 mg/dL [facility] Creatinine 5.74(H) 0.60 - 1.10 mg/dL [facility] Glucose 113 70 - 199 mg/dL [facility] Comment: Interpretive Data Fasting glucose [...] 2022. Calcium 8.8 8.5 - 10.3 mg/dL [facility] Bilirubin, total 0.2 0.1 - 1.2 mg/dL [facility] Protein, pl 6.5 6.5 - 8.5 g/dL [facility] Albumin 3.8 3.5 - 5.0 g/dL [facility] Alk phos 85 40 - 130 Units/L [facility] ALT 9 7 - 45 Units/L [facility] AST 22 10 - 45 Units/L [facility] Blood 03/17/2025 5:17 AM CDT 03/17/2025 5:54 AM CDT Pauline Bhat MD LAB BLOOD ORDERABLES F inal Result Performing Organization Address City/[facility]/ZIP Co de Phone Number [facility] Department [place] [employer] [place] [address] * [facility] Lab Inf Prevention Courtesy Callback Stool (03/16/2025 11:20 PM CDT) Pathologist [facility] TestName Norovirus PCR Date Notified [id number] [facility] Time Notified 912 [facility] Called/Read Back Alberto Beckman, Envelope Folding Machine Operator [facility] Called By Lito Eduardo [facility] Stool 03/16/2025 11:2 0 PM CDT 03/17/2025 3:06 AM CDT us Pauline Bhat MD LAB MICROBIOLOGY - GEN ERAL ORDERABLES Final Result [facility] [place] [employer] [place] [address] * C. difficile testing Stool (03/16/2025 11:20 PM CDT) Pathologist [facility] Result Positive Negative Toxin Result Negative Negative [facility] C. diff result Negative, free toxin. Negative, free toxin [facility] C. diff interp GDH+/toxin- results almost never represent true C. difficile infection (CDI). Results may represent colonization with C. difficile without CDI, detection of a bacteria other than toxigenic C. difficile, or a false negative toxin assay. If there is a high index of suspicion for CDI, additional testing by PCR is available upon request. [facility] Stool 03/16/2025 11:2 0 PM CDT 03/17/2025 12:56 AM CDT Pauline Bhat MD LAB MICROBIOLOGY - GEN ERAL ORDERABLES Final Result Performing Organization Address [facility] Co de Phone Number [facility] [employer] [place] [address] * Ova and parasite exam Stool (03/16/2025 11:20 PM CDT) Pathologist [facility] Ova & Parasite exam See Footnote [place] ref Lab Comment: SOURCE: STOOL, STLP OVA AND PARASITE, MICROSCOPY, F FINAL No parasites seen. Cryptosporidium, Cyclospora, and microsporidia are not readily detected by this method. Single negative specimen does not rule out parasitic infection. Test Performed by: [facility] [place] [address] [employer] Machine Operator: Bryson Craft Ph.D.; CLIA# [id number] Stool 03/16/2025 11:2 0 PM CDT 03/17/2025 12:56 AM CDT Narrative [facility] - 03/24/2025 2:02 PM CDT Is the patient immunosuppressed?->Yes Has the patient had recent travel outside the [place]?->No Pauline Bhat MD LAB MICROBIOLOGY - GEN ERAL ORDERABLES Final Result [facility] [employer] [place] [address] [facility] * (ABNORMAL) Norovirus PCR Stool (03/16/2025 11:20 PM CDT) Pathologist [facility] Norovirus GI RNA Not Detected Not Detected [facility] Norovirus GII RNA Detected(A) Not Detected [facility] Comment: Interpretive data: Testing performed at the [facility] using the [employer] Xpert Norovirus Assay. This assay uses nucleic [...] ERAL ORDERABLES Final Result Performing Organization Address [facility] de Phone Number [facility] Department [place] [address] [facility] * Cryptosporidium and Giardia antigen assay Stool (03/16/2025 11:20 PM CDT) Giardia Ag Negative Negative Cryptosporidium Ag Negative Negative [facility] Comment: Interpretive data: Testing performed by the [facility] Laboratory using an immunoassay that detects Cryptosporidium and Giardia antigens in stool specimens. If comprehensive examination for ova and parasites is required, please request Ova and Parasite Examination. Stool 03/16/2025 11:2 0 PM CDT 03/17/2025 12:56 AM CDT Pauline Bhat MD LAB MICROBIOLOGY - GEN ERAL ORDERABLES Final Result [facility] [place] [address] * Stool culture Stool Rectum (03/16/2025 11:20 PM CDT) Direct Specimen Exam Shiga Toxin Testing: Antigen detection assay for Shiga-toxin NEGATIVE for Shiga Toxin 1 and Shiga Toxin 2. Report Final Report: No growth of enteric bacterial pathogens [facility] Stool (Rectum) 03/16/2025 11 :20 PM CDT 03/17/2025 12:56 AM CDT Narrative [facility] - 03/21/2025 10:38 AM CDT Testing performed by [facility] Microbiology Laboratory ([phone]). Routine stool cultures include procedures to detect Salmonella, Shigella, Edwardsiella, Aeromonas, Pleisiomonas, Campylobacter, Yersinia, E. coli O157, and Shiga-like toxins. Vibrio is cultured only upon special request. If Vibrio is suspected, please call the laboratory at [phone]. Interpretive data was last updated January 13, 2017. us Pauline Bhat MD LAB MICROBIOLOGY - GEN ERAL ORDERABLES Final Result Performing Organization Address [facility] de Phone Number [facility] [place] [address] * Infection Prevention VRE Culture Stool (03/16/2025 11:19 PM CDT) Report Final Report: Negative Stool 03/16/2025 11:1 9 PM CDT 03/17/2025 5:28 AM CDT Narrative [facility] - 03/19/2025 8:23 AM CDT Surveillance culture for Infection Prevention purposes only; results indicate colonization, not infection requiring treatment. Testing performed by [facility] Microbiology Laboratory ([phone]). us Gary Verdin MD LAB MICROBIOLOGY - GENE RAL ORDERABLES Final Result Performing Organization Address [facility] Co de Phone Number [facility] Department [place] [address] * US Kidney Complete (03/16/2025 2:26 PM [...] it. Electronically signed by: Prosper Brooks M.D. Pauline Bhat MD IMG US PROCEDURES Tonia l Result * BK virus PCR quantitative Blood (03/16/2025 5:41 AM CDT) [facility] BKV DNA result, pl Not Detected [facility] Comment: The quantifiable range of this assay is 21.5 IU/mL to 100,000,000 IU/mL (1.33 log IU/mL to 8.00 log IU/mL). Testing was performed by the BETH 6800 BKV Quantatitive Test version 2.0 ([employer] Testing performed at [facility] Current Interpretive Data was last revised on 2021. Blood 03/16/2025 5:41 AM CDT 03/16/2025 6:28 AM CDT Pauline Bhat MD LAB MICROBIOLOGY - GEN ERAL ORDERABLES Final Result SUMAYA [facility] Department [place] [address] [facility] * (ABNORMAL) Cytomegalovirus (CMV) DNA PCR, quantitative Blood (03/16/2025 5:41 AM CDT) [facility] CMV DNA Detected( A) [facility] Comment: Interpretive Data: The quantifiable range of this assay is 34 IUnits/mL to 10,000,000 IUnits/mL (1.53 log IUnits/mL to 7.0 log IUnits/mL). Testing was performed by the BETH 6800 CMV Test ([employer] Testing performed at [facility]. Current interpretive data was last revised on 2021. CMV DNA IU/mL 124 IUnits/mL [facility] CMV DNA log IU/mL 2.09 log IUnits/mL [facility] Blood 03/16/2025 5:41 AM CDT 03/16/2025 6:28 AM CDT us Pauline Bhat MD LAB MICROBIOLOGY - GEN ERAL ORDERABLES Final Result [facility] Department [place] [address] [facility] * (ABNORMAL) eGFR (03/16/2025 5:41 AM CDT) Pathologist [facility] eGFR 6(L) >=60 mL/min/1. 73 m2 Comment: [...] MD LAB BLOOD ORDERABLES F inal Result [facility] Department [place] [address] * (ABNORMAL) Differential, auto (03/16/2025 5:41 AM CDT) Neutrophil abs 0.57(L) 1.50 - 6.50 K/cumm Imm gran abs 0.09 0.00 - 0.10 K/cumm [facility] Lymphocyte abs 0.52(L) 0.80 - 3.30 K/cumm [facility] Monocyte abs 0.17(L) 0.20 - 0.80 K/cumm [facility] Eosinophil abs 0.03 0.00 - 0.50 K/cumm [facility] Basophil abs 0.01 0.00 - 0.10 K/cumm [facility] Neutrophil pct 41.0 % [facility] Comment: Interpretive Data Percent cell count reference ranges are not reported, since discordance with absolute values may lead to misinterpretation of CBC data. Current Interpretive Data was last revised on 2017. Imm gran pct 6.5 % [facility] Comment: Interpretive Data Percent cell count reference ranges are not reported, since discordance with absolute values may lead to misinterpretation of CBC data. Current Interpretive Data was last revised on 2017. Lymphocyte pct 37.4 % [facility] Comment: Interpretive Data Percent cell count reference ranges are not reported, since discordance with absolute values may lead to misinterpretation of CBC data. Current Interpretive Data was last revised on 2017. Monocyte pct 12.2 % [facility] Comment: Interpretive Data Percent cell count reference ranges are not reported, since discordance with absolute values may lead to misinterpretation of CBC data. Current Interpretive Data was last revised on 2017. Eosinophil pct 2.2 % [facility] Comment: Interpretive Data Percent cell count reference ranges are not reported, since discordance with absolute values may lead to misinterpretation of CBC data. Current Interpretive Data was last revised on 2017. Basophil pct 0.7 % [facility] Comment: Interpretive Data Percent cell count reference ranges are not reported, since discordance with absolute values may lead to misinterpretation of CBC data. Current Interpretive Data was last revised on 2017. Blood 03/16/2025 5:41 AM CDT 03/16/2025 6:25 AM CDT Pauline Bhat MD LAB BLOOD ORDERABLES F inal Result Performing Organization Address [facility] de Phone Number [facility] Department [place] [address] * Tacrolimus level trough (03/16/2025 5:41 AM CDT) Tacrolimus trough 5.5 ng/mL Comment: Interpretive Data Testing performed by liquid chromatography-tandem mass spectrometry. Therapeutic concentrations vary depending on type of transplanted organ and time elapsed since transplant. Typical trough concentrations range from 5-15 ng/mL. This test was developed and its performance characteristics determined by the [facility] Laboratory consistent with CLIA requirements. This test has not been cleared or approved by the [place] Food and Drug administration. Current interpretive data last reviewed 2019. Blood 03/16/2025 5:41 AM CDT 03/16/2025 6:25 AM CDT Pauline Bhat MD LAB BLOOD ORDERABLES F inal Result Performing Organization Address [facility] de Phone Number [facility] [place] [address] * (ABNORMAL) Iron profile w/ IBC (03/16/2025 5:41 AM CDT) Iron 191(H) 35 - 145 mcg/dL TIBC <208(L) 250 - 400 mcg/dL [facility] Transferrin saturation >92(H) 20 - 50 % [facility] Blood 03/16/2025 5:41 AM CDT 03/16/2025 6:24 AM CDT Pauline Bhat MD LAB BLOOD ORDERABLES F inal Result [facility] Department [place] [address] * (ABNORMAL) CBC with auto differential (03/16/2025 5:41 AM CDT) WBC 1.39(L) 3.80 - 9.90 K/cumm Hgb 7.5(L) 11.9 - 15.5 g/dL [facility] Hct 22.3(L) 35.6 - 45.5 % [facility] Plt 124(L) 150 - 400 K/cumm [facility] MPV 10.7 9.1 - 12.3 fL [facility] RBC 2.20(L) 3.90 - 5.20 M/cumm [facility] MCV 101.4(H) 81.3 - 96.4 fL [facility] MCH 34.1(H) 27.1 - 33.3 pg [facility] MCHC 33.6 32.3 - 35.7 g/dL [facility] RDW CV 22.5(H) 11.1 - 14.9 % [facility] RDW SD 81.2(H) 35.7 - 48.1 fL [facility] NRBC abs 0.00 0.00 - 0.01 K/cumm [facility] Blood 03/16/2025 5:41 AM CDT 03/16/2025 6:25 AM CDT Pauline Bhat MD LAB BLOOD ORDERABLES F inal Result [facility] Department [place] [address] * Copper, serum (03/16/2025 5:41 AM CDT) Copper 90 77 - 206 mcg/dL [facility] Comment: ADDITIONAL INFORMATION This test was developed and its performance characteristics determined by [facility] in a manner consistent with CLIA requirements. This test has not been cleared or approved by the U.S. Food and Drug Administration. Test Performed by: [facility] [place] [address] [employer] Machine Operator: Bryson Craft Ph.D.; CLIA# [id number] Blood 03/16/2025 5:41 AM CDT 03/16/2025 6:24 AM CDT Pauline Bhat MD LAB BLOOD ORDERABLES F inal Result Performing Organization Address [facility] de Phone Number [facility] [employer] [address] [facility] * Zinc (03/16/2025 5:41 AM CDT) [facility] Signature Zinc 66 60 - 106 mcg/dL [facility] Comment: ADDITIONAL INFORMATION This test was developed and its performance characteristics determined by [facility] in a manner consistent with CLIA requirements. This test has not been cleared or approved by the U.S. Food and Drug Administration. Test Performed by: [facility] [place] [address] [employer] Operator: Bryson Craft Ph.D.; CLIA# [id number] Blood 03/16/2025 5:41 AM CDT 03/16/2025 6:24 AM CDT Pauline Bhat MD LAB BLOOD ORDERABLES F inal Result Performing Organization Address [facility] de Phone Number [facility] [place] [address] [facility] * Phosphorus (03/16/2025 5:41 AM CDT) [facility] Phosphorus, pl 4.0 2.3 - 4.5 mg/dL Blood 03/16/2025 5:41 AM CDT 03/16/2025 6:24 AM CDT Pauline Bhat MD LAB BLOOD ORDERABLES F inal Result Performing Organization Address [facility] Co de Phone Number [facility] Department [place] [place] [address] * Magnesium (03/16/2025 5:41 AM CDT) [facility] Magnesium 2.3 1.4 - 2.5 mg/dL Blood 03/16/2025 5:41 AM CDT 03/16/2025 6:24 AM CDT Pauline Bhat MD LAB BLOOD ORDERABLES F inal Result Performing Organization Address [facility] de Phone Number [facility] [place] [address] * (ABNORMAL) Ferritin (03/16/2025 5:41 AM CDT) [facility] Ferritin 868(H) 13 - 150 ng/mL Blood 03/16/2025 5:41 AM CDT 03/16/2025 6:24 AM CDT Pauline Bhat MD LAB BLOOD ORDERABLES F inal Result Performing Organization Address [facility] de Phone Number [facility] [place] [address] * (ABNORMAL) Comprehensive metabolic panel (03/16/2025 5:41 AM CDT) [facility] Sodium 141 135 - 145 mmol/L Potassium, pl 4.1 3.3 - 4.9 mmol/L [facility] Chloride 107 97 - 110 mmol/L [facility] CO2 20(L) 22 - 32 mmol/L [facility] Anion gap 14 2 - 15 mmol/L [facility] BUN 76(H) 6 - 25 mg/dL [facility] Creatinine 7.19(H) 0.60 - 1.10 mg/dL [facility] Glucose 81 70 - 199 mg/dL [facility] Comment: Interpretive Data Fasting glucose [...] 2022. Calcium 9.1 8.5 - 10.3 mg/dL [facility] Bilirubin, total 0.3 0.1 - 1.2 mg/dL [facility] Protein, pl 6.7 6.5 - 8.5 g/dL [facility] Albumin 3.9 3.5 - 5.0 g/dL [facility] Alk phos 72 40 - 130 Units/L [facility] ALT 6(L) 7 - 45 Units/L [facility] AST 20 10 - 45 Units/L [facility] Blood 03/16/2025 5:41 AM CDT 03/16/2025 6:24 AM CDT us Pauline Bhat MD LAB BLOOD ORDERABLES F inal Result [facility] Department [place] [address] * Infection Prevention Susan auris PCR, surveillance Axilla/Groin (03/15/2025 1:04 PM CDT) Pathologist [facility] Susan auris DNA Not Detected Not Detected [facility] Comment: Interpretive Data Testing performed by [facility] Molecular Infectious Disease Laboratory using the [employer] 6800 Susan auris assay. This assay detects DNA from Susan auris using Real-Time PCR. This assay is laboratory developed and is not cleared by the [place] Food and Drug Administration. The performance characteristics have been verified by the [facility] Molecular Infectious Disease Laboratory. Axilla/Groin 03/15/2025 1:04 PM CDT 03/15/2025 2:07 PM CDT Lito Robertson MD LAB MICROBIOLOGY - GENERAL ORDER ALEX Final Result Performing Organization Address [facility] Co de Phone Number [facility] [place] [address] [facility] * (ABNORMAL) Protein / creatinine ratio, urine, random (03/15/2025 1:04 PM CDT) Protein, ur, quant 31.5 mg/dL Comment: Interpretive Data No reference range established. Current interpretive data was last revised 2019. Creatinine Ur 114.6 mg/dL [facility] Comment: Interpretive Data No reference range established. Current interpretive data was last revised 2019. Protein/creatinin e ratio 274.9(H) 0.0 - 180.0 mg/g CR [facility] Urine 03/15/2025 1:04 PM CDT 03/15/2025 2:09 PM CDT Pauline Bhat MD LAB URINE ORDERABLES F inal Result Performing Organization Address [facility]/ZIP Co de Phone Number [facility] [place] [address] * US ROBBI (03/15/2025 11:44 AM CDT) Anatomical Region Laterality Modality Vascular N/A Ultrasound 03/15/2025 11:0 8 AM CDT Narrative 03/21/2025 12:43 PM CDT [facility] - Department of Vascular Surgery, Vascular Laboratory [address] [place] [id number] Lower Extremity Arterial Doppler Report Patient Name: HANNAH BOYD : 1960 Study Date: 03/15/2025 11:08:00 AM Gender: F Tech: Tamela Muñoz RVT Location: [id number] Ref Provider: PAULINE BHAT Quality: Adequate Order Provider: PAULINE BHAT PROCEDURES: Arterial Report: Ankle - Brachial Index Doppler exam. INDICATIONS: Leg pain. MEASUREMENTS: Right Value Units Left Value Units Rt Brachial Pressure 128 mmHg Lt Brachial Pressure IV mmHg Rt INFRASTRUCTURE DEVELOPER Pressure >254 mmHg Lt INFRASTRUCTURE DEVELOPER Pressure 168 mmHg Rt DPA Pressure >254 mmHg Lt DPA Pressure 182 mmHg Rt 1st Digit Pressure 118 mmHg Lt 1st Digit Pressure 122 mmHg Rt PT ROBBI Resting NC Lt PT ROBBI Resting 1.31 Rt AT ROBBI Resting NC Lt AT ROBBI Resting 1.42 Rt Digit/Arm Index 0.92 Lt Digit/Arm Index 0.95 Right Value Units Left Value Units FINDINGS: Performing Cloud Administrator: Tamela Muñoz RVT. Right Posterior Tibial Artery [...] above. Electronically Signed By: Cesar Isaacs MD [facility] [phone] 03/21/2025 11:55:03 AM CDT Procedure Note Cesar Isaacs MD - 03/21/2025 [facility] - Department of Vascular Surgery,Vascular Laboratory [address] [place] [address] Lower Extremity Arterial Doppler Report Patient Name: HANNAH BOYD : 1960 Study Date: 03/15/2025 11:08:00 AM Gender: F Tech: Tamela Muñoz Rody Location: [id number] Ref Provider: PAULINE BHAT Quality: Adequate Order Provider: PAULINE BHAT PROCEDURES: Arterial Report: Ankle - Brachial Index Doppler exam. INDICATIONS: Leg pain. MEASUREMENTS: Right Value Units Left Value Units Rt Brachial Pressure 128 mmHg Lt Brachial Pressure IV mmHg Rt INFRASTRUCTURE DEVELOPER Pressure >254 mmHg Lt INFRASTRUCTURE DEVELOPER Pressure 168 mmHg Rt DPA Pressure >254 mmHg Lt DPA Pressure 182 mmHg Rt 1st Digit Pressure 118 mmHg Lt 1st Digit Pressure 122 mmHg Rt PT ROBBI Resting NC Lt PT ROBBI Resting 1.31 Rt AT ROBBI Resting NC Lt AT ROBBI Resting 1.42 Rt Digit/Arm Index 0.92 Lt Digit/Arm Index 0.95 Right Value Units Left Value Units FINDINGS: Performing Cloud Administrator: Tamela Muñoz RVT. Right Posterior Tibial Artery [...] above. Electronically Signed By: Cesar Isaacs MD [facility] [phone] 03/21/2025 11:55:03 AM CDT us Pauline Bhat MD IMG US PROCEDURES Tonia l Result * (ABNORMAL) [...] LAB BLOOD ORDERABLES F inal Result [facility] Department [place] [address] * Tacrolimus level trough (03/15/2025 5:32 AM CDT) Tacrolimus trough 6.6 ng/mL Comment: Interpretive Data Testing performed by liquid chromatography-tandem mass spectrometry. Therapeutic concentrations vary depending on type of transplanted organ and time elapsed since transplant. Typical trough concentrations range from 5-15 ng/mL. This test was developed and its performance characteristics determined by the [facility] Laboratory consistent with CLIA requirements. This test has not been cleared or approved by the [place] Food and Drug administration. Current interpretive data last reviewed 2019. Blood 03/15/2025 5:32 AM CDT 03/15/2025 6:25 AM CDT us Pauline Bhat MD LAB BLOOD ORDERABLES F inal Result [facility] Department [place] [address] * (ABNORMAL) Basic metabolic panel (03/15/2025 5:32 AM CDT) Pathologist [facility] Sodium 136 135 - 145 mmol/L Potassium, pl 3.7 3.3 - 4.9 mmol/L [facility] Chloride 105 97 - 110 mmol/L [facility] CO2 19(L) 22 - 32 mmol/L [facility] Anion gap 12 2 - 15 mmol/L [facility] BUN 84(H) 6 - 25 mg/dL [facility] Creatinine 7.79(H) 0.60 - 1.10 mg/dL [facility] Glucose 89 70 - 199 mg/dL [facility] Comment: Interpretive Data Fasting glucose [...] 2022. Calcium 8.7 8.5 - 10.3 mg/dL [facility] Blood 03/15/2025 5:32 AM CDT 03/15/2025 6:25 AM CDT Pauline Bhat MD LAB BLOOD ORDERABLES F inal Result Performing Organization Address [facility] Co de Phone Number [facility] Department [place] [address] * (ABNORMAL) Urinalysis reflex to microscopic and culture Urine (03/15/2025 12:29 AM CDT) Color, ur Yellow Yellow Clarity, ur Cloudy(A) Clear [facility] Specific gravity, ur 1.018 1.003 - 1.030 [facility] pH, urine 6.0 [facility] Comment: Interpretive Data U rine pH is affected by diet, medications, systemic acid-base disturbances, and renal tubular function. pH may affect urinary stone formation. For example, urine pH below 6.0 may help reduce the tendency for calcium phosphate stones and pH greater than 6.0 may reduce the tendency for uric acid stone formation. Source: [facility] Current Interpretive Data was last revised on 2017 Protein, ur ql 1+(A) Negative [facility] Glucose, ur ql Negative Negative [facility] Ketones, ur Negative Negative [facility] Bilirubin, ur Negative Negative [facility] Blood, ur Trace(A) Negative [facility] Urobilinogen, ur <2.0 <2.0 mg/dL [facility] Nitrite, ur Negative Negative [facility] Leukocyte esterase, ur 3+(A) Negative [facility] UA reflex comment Reflex to microscopic UA will be performed. [facility] Urine 03/15/2025 12:2 9 AM CDT 03/15/2025 12:48 AM CDT Pauline Bhat MD LAB MICROBIOLOGY - GEN ERAL ORDERABLES Final Result Performing Organization Address [facility] Co de Phone Number [facility] Department [place] [address] * Sodium, urine, random (03/15/2025 12:29 AM CDT) Sodium, ur 31 mmol/L Comment: Interpretive Data No reference range established. Current interpretive data was last revised 2019. Urine (Urine, Clean Catch) 03/15/2025 12:29 AM CDT 03/15/2025 12:54 AM CDT Pauline Bhat MD LAB URINE ORDERABLES F inal Result Performing Organization Address [facility] Co de Phone Number [facility] [place] [place] [address] * Potassium, urine, random (03/15/2025 12:29 AM CDT) Potassium conc, ur 29.5 mmol/L Comment: Interpretive Data No reference range established. Current interpretive data was last revised 2019. Urine (Urine, Clean Catch) 03/15/2025 12:29 AM CDT 03/15/2025 12:54 AM CDT Pauline Bhat MD LAB URINE ORDERABLES F inal Result Performing Organization Address [facility] Co de Phone Number [facility] Department [place] [address] * Creatinine, urine, random (03/15/2025 12:29 AM CDT) Creatinine Ur 170.7 mg/dL Comment: Interpretive Data No reference range established. Current interpretive data was last revised 2019. Urine 03/15/2025 12:2 9 AM CDT 03/15/2025 12:54 AM CDT Pauline Bhat MD LAB URINE ORDERABLES F inal Result Performing Organization Address [facility] de Phone Number [facility] Department [place] [address] * (ABNORMAL) Urinalysis, microscopic only (03/15/2025 12:29 AM CDT) WBC, ur >50(A) 0 - 5 /HPF RBC, ur 3-5(A) 0 - 2 /HPF [facility] Epithelial cells, squamous, ur 1-5 0 - 5 /HPF [facility] Bacteria, ur 3+(A) [facility] Mucous, ur Present(A) [facility] Culture Reflex Comment Reflex to urine culture will be performed. [facility] [facility] Urine 03/15/2025 12:2 9 AM CDT 03/15/2025 12:48 AM CDT Pauline Bhat MD LAB URINE ORDERABLES F inal Result Performing Organization Address [facility] de Phone Number [facility] Department [place] [address] * (ABNORMAL) Urine culture Urine (03/15/2025 12:29 AM CDT) Report Final Report: Greater than or equal to 100,000 colonies/mL of Proteus vulgaris group Greater than or equal to 100,000 colonies/mL of Klebsiella variicola (.) Organism PROTEUS VULGARIS GROUP [facility] Organism KLEBSIELLA VARIICOLA [facility] Urine 03/15/2025 12:2 9 AM CDT 03/15/2025 1:27 AM CDT Narrative [facility] - 03/17/2025 10:58 AM CDT Urine culture reflexed based upon urinalysis results. Testing performed by [facility] Microbiology Laboratory ([phone]) Organism Antibiotic Method Susceptibility Proteus vulgaris group [...] MICROBIOLOGY - GEN ERAL ORDERABLES Final Result [facility] Department [place] [address] * (ABNORMAL) eGFR (03/14/2025 10:24 PM CDT) eGFR 5(L) >=60 mL/min/1. 73 m2 [...] MD LAB BLOOD ORDERABLES F inal Result [facility] Department [place] [address] * Respiratory pathogen panel Nasopharyngeal (03/14/2025 10:24 PM CDT) Pathologist [facility] Influenza A RNA Not Detected Not Detected Influenza B RNA Not Detected Not Detected [facility] RSV RNA Not Detected Not Detected [facility] COVID-19 RNA Not Detected Not Detected [facility] Coronavirus 229E RNA Not Detected Not Detected [facility] Coronavirus HKU1 RNA Not Detected Not Detected [facility] Coronavirus NL63 RNA Not Detected Not Detected [facility] Coronavirus OC43 RNA Not Detected Not Detected [facility] Adenovirus DNA Not Detected Not Detected [facility] Metapneumovirus RNA Not Detected Not Detected [facility] Rhinovirus/Enterov irus RNA Not Detected Not Detected [facility] Parainfluenza 1 RNA Not Detected Not Detected [facility] Parainfluenza 2 RNA Not Detected Not Detected [facility] Parainfluenza 3 RNA Not Detected Not Detected [facility] Parainfluenza 4 RNA Not Detected Not Detected [facility] B. pertussis DNA Not Detected Not Detected [facility] B. parapertussis DNA Not Detected Not Detected [facility] C. pneumoniae DNA Not Detected Not Detected [facility] M. pneumoniae DNA Not Detected Not Detected [facility] Nasopharyngeal 03/14/2025 10 :24 PM CDT 03/14/2025 11:15 PM CDT Narrative [facility] - 03/15/2025 12:26 AM CDT Is the Patient experiencing symptoms consistent with COVID?->Unknown Surveillance testing for transplant patient?->No Interpretive Data The [employer] Film[employer] Respiratory Panel (RP2.1) assay is a [...] assay has FDA clearance for testing of [employer] swabs. The performance of additional specimen types has been assessed by the performing laboratory. The performance characteristics of this assay have been determined by [facility] Molecular Infectious Disease Laboratory. Current interpretive data was last revised on 22. us Pauline Bhat MD LAB MICROBIOLOGY - GEN ERAL ORDERABLES Final Result [facility] Department [place] [address] * (ABNORMAL) CBC with auto differential (03/14/2025 10:24 PM CDT) [facility] WBC 1.65(L) 3.80 - 9.90 K/cumm Hgb 7.9(L) 11.9 - 15.5 g/dL [facility] Hct 23.6(L) 35.6 - 45.5 % [facility] Plt 133(L) 150 - 400 K/cumm [facility] MPV 10.4 9.1 - 12.3 fL [facility] RBC 2.36(L) 3.90 - 5.20 M/cumm [facility] MCV 100.0(H) 81.3 - 96.4 fL [facility] MCH 33.5(H) 27.1 - 33.3 pg [facility] MCHC 33.5 32.3 - 35.7 g/dL [facility] RDW CV 22.5(H) 11.1 - 14.9 % [facility] RDW SD 79.3(H) 35.7 - 48.1 fL [facility] NRBC abs 0.00 0.00 - 0.01 K/cumm [facility] Blood 03/14/2025 10:2 4 PM CDT 03/14/2025 11:13 PM CDT us Pauline Bhat MD LAB BLOOD ORDERABLES F inal Result [facility] Department [place] [address] * (ABNORMAL) Manual Differential (03/14/2025 10:24 PM CDT) [facility] Differential Manual Cells Counted 116 [facility] Neutrophil abs 0.95(L) 1.50 - 6.50 K/cumm [facility] Lymphocyte abs 0.58(L) 0.80 - 3.30 K/cumm [facility] Monocyte abs 0.09(L) 0.20 - 0.80 K/cumm [facility] Eosinophil abs 0.01 0.00 - 0.50 K/cumm [facility] Basophil abs 0.01 0.00 - 0.10 K/cumm [facility] Neutrophil pct 57.7 % [facility] Comment: Interpretive Data Percent cell count reference ranges are not reported, since discordance with absolute values may lead to misinterpretation of CBC data. Current Interpretive Data was last revised on 2017. Lymphocyte pct 35.3 % [facility] Comment: Interpretive Data Percent cell count reference ranges are not reported, since discordance with absolute values may lead to misinterpretation of CBC data. Current Interpretive Data was last revised on 2017. Monocyte pct 5.2 % [facility] Comment: Interpretive Data Percent cell count reference ranges are not reported, since discordance with absolute values may lead to misinterpretation of CBC data. Current Interpretive Data was last revised on 2017. Eosinophil pct 0.9 % [facility] Comment: Interpretive Data Percent cell count reference ranges are not reported, since discordance with absolute values may lead to misinterpretation of CBC data. Current Interpretive Data was last revised on 2017. Basophil pct 0.9 % [facility] Comment: Interpretive Data Percent cell count reference ranges are not reported, since discordance with absolute values may lead to misinterpretation of CBC data. Current Interpretive Data was last revised on 2017. RBC morphology Normal [facility] Platelet clumping Present(A) [facility] Blood 03/14/2025 10:2 4 PM CDT 03/14/2025 11:17 PM CDT us Pauline Bhat MD LAB BLOOD ORDERABLES E dited Result - Final [facility] Department [place] [address] * Phosphorus (03/14/2025 10:24 PM CDT) Phosphorus, pl 4.2 2.3 - 4.5 mg/dL Blood 03/14/2025 10:2 4 PM CDT 03/14/2025 11:13 PM CDT Pauline Bhat MD LAB BLOOD ORDERABLES F inal Result Performing Organization Address City/[facility]/ZIP Co de Phone Number [facility] Department [place] [address] * Magnesium (03/14/2025 10:24 PM CDT) Pathologist [facility] Magnesium 2.3 1.4 - 2.5 mg/dL Blood 03/14/2025 10:2 4 PM CDT 03/14/2025 11:13 PM CDT Pauline Bhat MD LAB BLOOD ORDERABLES F inal Result Performing Organization Address [facility] de Phone Number [facility] Department [place] [address] * (ABNORMAL) Comprehensive metabolic panel (03/14/2025 10:24 PM CDT) Pathologist [facility] Sodium 135 135 - 145 mmol/L Potassium, pl 3.8 3.3 - 4.9 mmol/L [facility] Chloride 102 97 - 110 mmol/L [facility] CO2 18(L) 22 - 32 mmol/L [facility] Anion gap 15 2 - 15 mmol/L [facility] BUN 87(H) 6 - 25 mg/dL [facility] Creatinine 8.48(H) 0.60 - 1.10 mg/dL [facility] Glucose 122 70 - 199 mg/dL [facility] Comment: Interpretive Data Fasting glucose [...] Calcium 9.1 8.5 - 10.3 mg/dL [facility] Bilirubin, total 0.3 0.1 - 1.2 mg/dL [facility] Protein, pl 7.2 6.5 - 8.5 g/dL [facility] Albumin 4.2 3.5 - 5.0 g/dL [facility] Alk phos 72 40 - 130 Units/L [facility] ALT 9 7 - 45 Units/L [facility] AST 18 10 - 45 Units/L [facility] Blood 03/14/2025 10:2 4 PM CDT 03/14/2025 11:13 PM CDT us Pauline Bhat MD LAB BLOOD ORDERABLES F inal Result [facility] Department [place] [address] * Pulmonary Function Test - (03/14/2025 9:42 AM CDT) [facility] FVC PRE 2.36 L [facility] FVC %PRE PRED 76 % [facility] FEV1 PRE 1.83 L [facility] FEV1 %PRE PRED 75 % [facility] FEV1/FVC PRE 77.4 % [facility] Anatomical Region Laterality Modality PFT 03/14/2025 9:32 AM CDT Narrative 03/14/2025 12:23 PM CDT PFT performed at:->[facility] Adult PFT Lab- [facility]8D Procedure:->Spirometry Procedure:->Pulse Ox [...] %HbO2 is age dependent. However, the [facility] Pulmonary Function Laboratory defines hypoxemia as a PaO2 <56 mm Hg or a %HbO2 <89%. Starting on September of 2024 the [facility] Pulmonary Function Laboratory utilizes race neutral GLI Global normative equations. Pauline Bhat MD PFT ORDERABLES Final Result * (ABNORMAL) Blood smear review (03/14/2025 9:15 AM CDT) RBC morphology Present(A) Hypochromasia 3-7/HPF(A) [facility] Anisocytosis Slight(A) [facility] Poikilocytosis Slight(A) [facility] Microcytes 3-7/HPF(A) [facility] Macrocytes 3-7/HPF(A) [facility] Schistocytes 1-2/HPF(A) [facility] Acanthocytes 3-7/HPF(A) [facility] Platelet estimate Adequate [facility] Blood 03/14/2025 9:15 AM CDT 03/14/2025 10:00 AM CDT Pauline Bhat MD LAB BLOOD ORDERABLES F inal Result [facility] Department [place] [address] * (ABNORMAL) eGFR (03/14/2025 9:15 AM CDT) [...] MD LAB BLOOD ORDERABLES F inal Result [facility] Department [place] [address] * (ABNORMAL) Differential, auto (03/14/2025 9:15 AM CDT) Neutrophil abs 0.82(L) 1.50 - 6.50 K/cumm Imm gran abs 0.05 0.00 - 0.10 K/cumm [facility] Lymphocyte abs 0.93 0.80 - 3.30 K/cumm [facility] Monocyte abs 0.25 0.20 - 0.80 K/cumm [facility] Eosinophil abs 0.05 0.00 - 0.50 K/cumm [facility] Basophil abs 0.01 0.00 - 0.10 K/cumm [facility] Neutrophil pct 38.8 % [facility] Comment: Interpretive Data Percent cell count reference ranges are not reported, since discordance with absolute values may lead to misinterpretation of CBC data. Current Interpretive Data was last revised on 2017. Imm gran pct 2.4 % [facility] Comment: Interpretive Data Percent cell count reference ranges are not reported, since discordance with absolute values may lead to misinterpretation of CBC data. Current Interpretive Data was last revised on 2017. Lymphocyte pct 44.1 % [facility] Comment: Interpretive Data Percent cell count reference ranges are not reported, since discordance with absolute values may lead to misinterpretation of CBC data. Current Interpretive Data was last revised on 2017. Monocyte pct 11.8 % [facility] Comment: Interpretive Data Percent cell count reference ranges are not reported, since discordance with absolute values may lead to misinterpretation of CBC data. Current Interpretive Data was last revised on 2017. Eosinophil pct 2.4 % [facility] Comment: Interpretive Data Percent cell count reference ranges are not reported, since discordance with absolute values may lead to misinterpretation of CBC data. Current Interpretive Data was last revised on 2017. Basophil pct 0.5 % [facility] Comment: Interpretive Data Percent cell count reference ranges are not reported, since discordance with absolute values may lead to misinterpretation of CBC data. Current Interpretive Data was last revised on 2017. Blood 03/14/2025 9:15 AM CDT 03/14/2025 9:57 AM CDT Pauline Bhat MD LAB BLOOD ORDERABLES F inal Result [facility] Department [place] [address] * Tacrolimus level trough (03/14/2025 9:15 AM CDT) [facility] Signature Tacrolimus trough 7.9 ng/mL Comment: Interpretive Data Testing performed by liquid chromatography-tandem mass spectrometry. Therapeutic concentrations vary depending on type of transplanted organ and time elapsed since transplant. Typical trough concentrations range from 5-15 ng/mL. This test was developed and its performance characteristics determined by the [facility] Laboratory consistent with CLIA requirements. This test has not been cleared or approved by the US Food and Drug administration. Current interpretive data last reviewed 2019. Blood 03/14/2025 9:15 AM CDT 03/14/2025 9:50 AM CDT Pauline Bhat MD LAB BLOOD ORDERABLES F inal Result [facility] Department [place] [address] * (ABNORMAL) CBC with auto differential (03/14/2025 9:15 AM CDT) WBC 2.11(L) 3.80 - 9.90 K/cumm Hgb 8.1(L) 11.9 - 15.5 g/dL [facility] Hct 24.1(L) 35.6 - 45.5 % [facility] Plt 150 150 - 400 K/cumm [facility] MPV 10.7 9.1 - 12.3 fL [facility] RBC 2.38(L) 3.90 - 5.20 M/cumm [facility] MCV 101.3(H) 81.3 - 96.4 fL [facility] MCH 34.0(H) 27.1 - 33.3 pg [facility] MCHC 33.6 32.3 - 35.7 g/dL [facility] RDW CV 22.7(H) 11.1 - 14.9 % [facility] RDW SD 82.1(H) 35.7 - 48.1 fL [facility] NRBC abs 0.02(H) 0.00 - 0.01 K/cumm [facility] Blood 03/14/2025 9:15 AM CDT 03/14/2025 9:57 AM CDT Pauline Bhat MD LAB BLOOD ORDERABLES F inal Result [facility] Department [place] [address] * Vitamin D 25 hydroxy (03/14/2025 9:15 AM CDT) Vitamin D 25-OH 30 30 - 80 ng/mL Blood 03/14/2025 9:15 AM CDT 03/14/2025 9:50 AM CDT Pauline Bhat MD LAB BLOOD ORDERABLES F inal Result Performing Organization Address City/[facility] [place] [address] * TSH (03/14/2025 9:15 AM CDT) Thyroid Stimulating Hormone 0.95 0.30 - 4.20 mcIUnit/mL Blood 03/14/2025 9:15 AM CDT 03/14/2025 9:50 AM CDT Pauline Bhat MD LAB BLOOD ORDERABLES F inal Result Performing Organization Address [facility] [place] [address] * T4, free (03/14/2025 9:15 AM CDT) Free T4 0.93 0.90 - 1.70 ng/dL Blood 03/14/2025 9:15 AM CDT 03/14/2025 9:50 AM CDT Pauline Bhat MD LAB BLOOD ORDERABLES F inal Result Performing Organization Address [facility] [place] [address] * (ABNORMAL) Hemoglobin A1c (03/14/2025 9:15 AM CDT) Hgb A1C 6.2(H) 4.0 - 5.6 % Estimated Average Glucose 131 mg/dL [facility] Comment: The ADA recommends reporting [...] MD LAB BLOOD ORDERABLES F inal Result [facility] Department [place] [address] * (ABNORMAL) Lipid panel (03/14/2025 9:15 AM [...] on 2018. Triglycerides 306(H) <=149 mg/dL [facility] Comment: Interpretive Data Ages < or = [...] on 2018. HDL 36(L) >=40 mg/dL [facility] CATSELLANOS Comment: Interpretive Data Ages < or = [...] on 2018. LDL, calculated 126 <=129 mg/dL [facility] Comment: Interpretive Data Ages < [...] NCEP Expert Panel. Circulation 2004;110:227 3. Yann M et al. SANAZ Cardiol. 2020 January 06;5(5):540-548. doi: 10.1001/jamacardio.2020.0013 Current Interpretive Data was last revised on 2024. Non-HDL Cholesterol 180 mg/dL [facility] Comment: Interpretive Data Ages < [...] last revised on 2018. Chol/HDL ratio 6 [facility] Blood 03/14/2025 9:15 AM CDT 03/14/2025 9:50 AM CDT us Pauline Bhat MD LAB BLOOD ORDERABLES F inal Result [facility] Department [place] [address] * (ABNORMAL) Comprehensive metabolic panel (03/14/2025 9:15 AM CDT) Sodium 133(L) 135 - 145 mmol/L Potassium, pl 4.1 3.3 - 4.9 mmol/L [facility] Comment:Hemolyzed; Potassium value may be falsely elevated by as much as 0.6-1.0 mmol/L. Suggest redraw and reanalysis. Chloride 102 97 - 110 mmol/L [facility] CO2 13(L) 22 - 32 mmol/L [facility] Anion gap 18(H) 2 - 15 mmol/L [facility] BUN 84(H) 6 - 25 mg/dL [facility] Creatinine 7.94(H) 0.60 - 1.10 mg/dL [facility] Glucose 127 70 - 199 mg/dL [facility] Comment: Interpretive Data Fasting glucose [...] 2022. Calcium 9.4 8.5 - 10.3 mg/dL [facility] Bilirubin, total 0.4 0.1 - 1.2 mg/dL [facility] Protein, pl 7.2 6.5 - 8.5 g/dL [facility] Albumin 3.9 3.5 - 5.0 g/dL [facility] Alk phos 73 40 - 130 Units/L [facility] ALT 7 7 - 45 Units/L [facility] AST 29 10 - 45 Units/L [facility] Comment:Hemolyzed; result ma y be falsely elevated Blood 03/14/2025 9:15 AM CDT 03/14/2025 9:50 AM CDT Pauline Bhat MD LAB BLOOD ORDERABLES F inal Result [facility] Department [place] [address] * XR Chest Pa Lateral 2 Views [...] Vertebroplasty changes noted. Electronically signed by: Starr Semenkovich, M.D. us Pauline Bhat MD IMG XR PROCEDURES Tonia l Result * Hepatitis panel, acute (08/15/2022 9:25 AM PATIENT OBSERVER) Pathologist [facility] Hep A IgM Nonreactive Nonreactive [facility] Hep B core IgM Nonreactive Nonreactive [facility] Hep C Ab Nonreactive Nonreactive [facility] Comment:Antibodies to HCV no t detected. Does NOT exclude the possibility of recent exposure to HCV. Current interpretive data was last revised on 22 HepBsAg Nonreactive Nonreactive [facility] Blood 08/15/2022 9:25 AM PATIENT OBSERVER 08/15/2022 10:04 AM PATIENT OBSERVER Manuel Gil MD LAB MICROBIOLOGY - GENE RAL ORDERABLES Final Result [facility] Department [place] [address] * Stool DNA - Cologuard (03/22/2021 9:50 AM CDT) [facility] Stool DNA - Cologuard Negative Negative [facility] (CLIA #:[id number]) Comment: NEGATIVE TEST RESULT. A negative Cologuard [...] (Ioana Vicente al, N Engl J Med 2014;370(14):1267-7470) The normal value (reference range) for this assay is negative. COLOGUARD RE-SCREENING RECOMMENDATION: Periodic colorectal cancer screening is an important part of preventive healthcare for asymptomatic individuals at average risk for colorectal cancer. Following a negative Cologuard result, the [place] [employer] Society and U.S. Multi-Society Task Force screening guidelines recommend a Cologuard re-screening interval of 3 years. References: [place] [employer] Guideline for Colorectal Cancer Screening: https://www.cancer.org/cancer/meqyw-wgydoz-snwqze/fkajngytk-xwfcyftrz-ibidmlt/ac s-rec ommendations.html.; Andrew DK, Saul CR, John PavonK, Colorectal Cancer Screening: Recommendations for Physicians and Patients from the U.S. Multi-Society Task Force on Colorectal Cancer Screening , Am J Gastroenterology 2017; 112:5732-5602. TEST DESCRIPTION: Composite algorithmic analysis of stool [...] (Ioana Vicente al, N Engl J Med 2014;370(14):9780-6649.) Cologuard may produce a false negative or false positive result (no colorectal cancer or precancerous polyp present at colonoscopy follow up). A negative Cologuard test result does not guarantee the absence of CRC or advanced adenoma (pre-cancer). The current Cologuard screening interval is every 3 years. ([place] [employer] Society and U.S. Multi-Society Task Force). Cologuard performance data in a 10,000 patient pivotal study using colonoscopy as the reference method can be accessed at the following location: [email or web address]/results. Additional description of the Cologuard test process, warnings and precautions can be found at www.[email or web address]rd.com. Stool 03/22/2021 9:50 AM CDT 03/23/2021 6:25 PM CDT Ethan Suero MD LAB BODY FLUIDS AND STOOLS OR DERABLES Final Result [employer] (CLIA #:[id number]) [address] [place] [address] * Screening Mammogram Bilateral W Josesito (06/08/2015 [...] signed by: Dr. Kendell Renee nh/:06/09/2015 08:56:27 Cd Reactor Operator: Criselda LOONEY)(Edgar), [facility] letter sent: Normal Exam Reading location: BI-RADS: [...] signed by: Dr. 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 [address] [place] [address] Jewelry Setter 02/14/21 Pelon Yo MD [address] [place] [address] Referring Physician Pulmonary Disease 04/29/21 Paula Hitchcock, furnace repairer helperJewelry Setter Jewelry Setter 01/21/22 Pauline Bhat MD [address] [facility] [address] [place] [address] Maintenance Mechanic Elevators Pulmonary Disease 02/13/23
--- OUTSIDE RECORDS SUMMARY | 2025-04-21 10:58 | XMS_ITS ---
Author Organization [facility] Address [address] [place] [address] Care Team Providers Care Diagnostic Technologist Name Role Phone Rosy Grover RN Unavailable [phone] Pelon Yo MD Unavailable [phone] Paula Hitchcock RN Unavailable Kayleigh Weeks MD Unavailable [phone] Patrick Lorenzana MD Primary Care Provider Transplant Episode Lung Recipient [facility] ([place], [place]) - [facility] Organs Received: Right Lung, Left Lung Transplanted on 01/19/2022 Marked as Active Follow-up on 01/19/2022 Lung CoordinatorPaula Hitchcock RN Phone: N/A Fax: N/A Email: N/A Yuhaaviatam Organ Diagnosis Organ Primary Contributory Lung Hypersensitivity [...] N/A N/A Pelon Yo MD Referring Physician [phone] N/A Rosy Grover RN Pre Coordinator [phone] N/A N/A Events Post-Transplant Pre-Transplant Admitted: 01/08/2022 Referred: 02/14/2021 Transplanted: 01/19/2022 Evaluation began: Discharged: 03/20/2022 Committee: 04/26/2021 Center waitlisted:
--- OUTSIDE RECORDS SUMMARY | 2025-04-21 10:58 | XMS_ITS | Clinical Summary ---
Author Organization [facility] Address [address] [facility] [place] [address] Care Team Providers Care Change Management Coordinator Name Role Phone Pcp, [address] Primary Care Provide r Unavailable Source Comments [facility],non-owned Affiliates and Associated Physician Practices is amultiple site organization consisting of ambulatory clinics and hospital sitesin [place], [place], [place] and [place]. This disclosure is being madepursuant to the Care Everywhere program and may not contain all information available regarding this patient. Last updated 18.[facility] [facility] Allergies No known active allergies Medications * Be aware that medications may not be up to date on this document. Alwaysverify current medications with the patient. 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 [facility] ACCOUNT BILL Note [...] Resulting Agency Comment Lab Testing performed at: Lab[address] [id number] [facility] - PATHOLOGY/CYTOLOGY O RDERABLES Final Result [facility] ACCOUNT BILL [address] [place] [address] from Last 3 Months or Most Recently Relevant to Health [place] [address] [place] [address] Advance Directives * Full Code (Latest Code Status on File) Date Activated Date Inactivated Comments 03/11/2021 10:56 AM 03/17/2021 5:26 PM * Full Code Date Activated Date Inactivated Comments 02/12/2021 4:18 PM 02/19/2021 10:01 PM * Full Code Date Activated Date Inactivated Comments 01/23/2021 11:19 AM 01/24/2021 4:29 PM Care Teams Change Management Coordinator Relationship Specialty Start Date End Date PcpMikal [facility] 3rd PCP - General 10/05/24
--- OUTSIDE RECORDS SUMMARY | 2025-04-21 10:58 | XMS_ITS | Encounter Summary ---
Author Organization [facility] Address [address] [place] [address] Care Team Providers Care Filenet P8 Developer Name Role Phone Rosy Grover RN Unavailable [phone] Pelon Yo MD Unavailable [phone] Paula Hitchcock RN Unavailable Unavai Kayleigh Mireles MD Unavailable [phone] Unknown, Notinfile Primary Care Provider Unavail able Patrick Lorenzana MD Primary Care Provider Encounter Details Date Type Department Care Team (Late st Contact Info) Description 07/01/[address] [address] White, Marie Social History Tobacco Use Types [...] Never 02/19/2023 Social Connection and Isolation Panel Answer Date Recorded In a typical week, how many times do you talk on the phone with family, friends, or neighbors? Three times a week 02/07/20 How often do you get togethe r with friends or relatives? Once a week 02/06/2023 How often do you attend chur ch or samaritan services? Never 02/06/2023 Do you belong to any clubs o r organizations such as orthodox groups, unions, fraternal or athletic groups, or [...] place to sleep or slept in a half-way (including now)? No 02/06/2023 Personal Safety Answer Date Recorded Have you ever been in or are you currently in a harmful physical or emotional relationship or is someone making you feel afraid or unsafe? Denies 06/29/2024 Comments No Sex and Gender Information Value Date Recorded Sex Assigned at Not on file Legal Sex Female 6:28 PM RN ORTHOPEDIC Gender Identity Not on file Sexual Orientation [...] 09/11/21, 12/25/21 09/11/2021 02/05/2023 Ring Surveillance Comment:C. Aurshad - 8900 12/12/2024 12/12/2024 12/30/2024 10:18 AM CDT C. difficile suspected 12/18/2024 12/18/202412/19 6:10 AM CDT C. difficile suspected 12/26/2024 12/26/202412/26 2:54 PM CDT Norovirus suspected 12/26/2024 12/26/2024 12/27/19 3:12 PM CDT Norovirus 12/26/2024 12/26/2024 01/09/2025 3:05 AM CDT COVID: Suspected 03/14/2025 03/14/202503/1503/15/2025 12:27 AM CDT Ring Surveillance: C. auris Comment:03/15/2025- 8900 C. Auris. Lashonda Ontiveros 03/15/2025 03/15/2025 03/22/2025 7:27 PM C DT C. difficile suspected 03/15/2025 03/16/202503/17 5:35 AM CDT Norovirus suspected 03/15/2025 03/16/2025 03/17/20 4:31 AM CDT Norovirus 03/16/2025 03/16/2025 03/30/2025 7:26 PM CDT documented as of this encounter Care Teams Filenet P8 Developer Relationship Specialty Start Date End Date Unknown, Notinfile PCP - General 11/11/23 01/06/25 Patrick Lorenzana MD [address] [facility] [address] [place] [address] PCP - General Family Medicine 01/07/25 Rosy Grover, LOLI [address] [facility] [address] [place] [address] Candlemaker 02/14/21 Pelon Yo MD [address] [place] [address] Referring Physician Pulmonary Disease 04/29/21 Paula Hitchcock RN Candlemaker Candlemaker 01/21/22 Kayleigh Boland MD [address] [place] [address] Handyman Pulmonary Disease 02/13/23 documented as of this encounter
--- OUTSIDE RECORDS SUMMARY | 2025-04-21 10:58 | XMS_ITS | Clinical Summary ---
Author Organization [facility] Address [address] [place] [address] Care Team Providers Care Longshore Equipment Operator Name Role Phone None, Provider MD Primary [...] - 03/24/2025 11:59 PM CDT Hospital Encounter [place] [id number] [place] [address] Fabrice Dunham MD Discharge Disposition: Home or Self Care (Routine Discharge) 03/24/2025 Orders Only [facility] [address] [place] [address] Fabrice Dunham MD from Last 3 Months [...] Comments Blood Pressure 113/69 10/03/2022 5:57 AM DIRECTOR FEDERAL Pulse 88 10/03/2022 5:28 AM DIRECTOR FEDERAL Temperature 36.7 C (98.1 F) 10/03/2022 5:28 AM DIRECTOR FEDERAL Respiratory Rate 18 10/03/2022 5:28 AM DIRECTOR FEDERAL Oxygen Saturation 93% 10/03/2022 5:28 AM DIRECTOR FEDERAL Inhaled Oxygen Concentration - - Weight 55.8 kg (123 lb 0.3 oz) 10/02/2022 5:25 P M DIRECTOR FEDERAL Height 168.9 cm (5' 6.5) 10/02/2022 5:25 PM DIRECTOR FEDERAL Body Mass Index 19.56 10/02/2022 5:25 PM DIRECTOR FEDERAL Plan of Treatment Health Maintenance Due Date [...] BLOOD, FECES STAT 10/02/2022 5 :42 PM DIRECTOR FEDERAL from Last 3 Months or Most Recently Relevant to Health Maintenance Results * (ABNORMAL) COMPREHENSIVE METABOLIC PANEL (03/24/2025 1:10 PM CDT) SODIUM S/P/B 142 136 - 145 MMOL/L 03/24/2025 7:13 PM CDT [facility] POTASSIUM S/P/B 4.5 3.5 - 5.1 MMOL/L 03/24/2025 7:13 PM CDT [facility] CHLORIDE S/P/B 107 98 - 107 MMOL/L 03/24/2025 7:13 PM CDT [facility] CO2 20.5(L) 21.0 - 32.0 MMOL/L 03/24/2025 7:13 PM CDT [facility] GLUCOSE 116(H) 70 - 99 MG/DL 03/24/2025 7:13 PM CDT [facility] Comment: FASTING GLUCOSE 100 TO 125 MG/DL IS CONSISTENT WITH IMPAIRED FASTING GLUCOSE. FASTING GLUCOSE >125 MG/DL IS CONSISTENT WITH DIABETES. RANDOM GLUCOSE >200 MG/DL WITH HYPERGLYCEMIC SYMPTOMS IS CONSISTENT WITH DIABETES. PER ADA GUIDELINES BUN 32(H) 6 - 24 MG/DL 03/24/2025 7:13 PM CDT [facility] CREATININE S/P/B 3.78(H) 0.55 - 1.02 MG/DL 03/24/2025 7:13 PM CDT [facility] CALCIUM S/P/B 9.1 8.4 - 10.5 MG/DL 03/24/2025 7:13 PM CDT [facility] BILIRUBIN TOTAL S/P/B 0.3 0.2 - 1.0 MG/DL 03/24/2025 7:13 PM CDT [facility] Comment: THIS ASSAY IS NOT RECOMMENDED FOR PATIENTS UNDERGOING TREATMENT WITH ELTROMBOPAG DUE TO THE POTENTIAL FOR FALSELY ELEVATED RESULTS. ALKALINE PHOSPHATASE S/P/B 137(H) 50 - 130 U/L 03/24/2025 7:13 PM CDT [facility] AST 53(H) 15 - 37 U/L 03/24/2025 7:13 PM CDT [facility] ALT 35 14 - 59 U/L 03/24/2025 7:13 PM CDT [facility] TOTAL PROTEIN S/P/B 6.7 6.4 - 8.2 G/DL 03/24/2025 7:13 PM CDT [facility] ALBUMIN S/P/B 3.7 3.4 - 5.0 G/DL 03/24/2025 7:13 PM CDT [facility] ANION GAP 14.5 5.0 - 15.0 MMOL/L 03/24/2025 7:13 PM CDT [facility] OSMOLALITY (CALC) 302 MOSM/KG 025 7:13 PM CDT [facility] Comment:REFERENCE RANGE NOT ESTABLISHED GFR ESTIMATE 13(L) >89 ML/MIN/1. 73 M2 03/24/2025 7:13 PM CDT [facility] GFR NOTES GFR REFERENCE S: 03/24/2025 7:13 PM CDT [facility] Comment: THE ESTIMATED GFR IS [...] Fabrice Pennington MD LABORATORY Fin al Result [facility] [address] [place] [address], * (ABNORMAL) CBC W/DIFF AUTOMATED (03/24/2025 1:10 PM CDT) WBC 2.43(L) 4.00 - 10.80 x10'3/uL 03/24/2025 7:04 PM CDT [facility] RBC 2.38(L) 4.10 - 5.40 x10'6/uL 03/24/2025 7:04 PM CDT [facility] HGB 7.7(L) 12.0 - 16.0 G/DL 03/24/2025 7:04 PM CDT [facility] HCT 24.7(L) 36.0 - 47.0 % 03/24/2025 7:04 PM CDT [facility] MCV 103.8(H) 78.0 - 100.0 FL 03/24/2025 7:04 PM CDT [facility] MCH 32.4(H) 27.0 - 31.0 PG 03/24/2025 7:04 PM CDT [facility] MCHC 31.2(L) 33.0 - 36.0 G/DL 03/24/2025 7:04 PM CDT [facility] RDW 24.9(H) 11.5 - 14.5 % 03/24/2025 7:04 PM CDT [facility] PLT 167 150 - 350 x10'3/uL 03/24/2025 7:04 PM CDT [facility] MPV 10.8(H) 7.4 - 10.4 FL 03/24/2025 7:04 PM CDT [facility] CBC COMMENT NORMAL REFERENCE RANGE NOT ESTABLISHED FOR THE PROPORTIONAL LEUKOCYTE DIFFERENTIAL. 03/24/2025 7:04 PM CDT [facility] SEG NEUTROPHILS 53 % 7:27 PM CDT [facility] METAMYELOCYTES 2 % 03/24/2025 7:27 PM CDT [facility] MYELOCYTES 4 % 03/24/2025 7:27 PM CDT [facility] LYMPHOCYTES 33 % 03/24/2025 7:27 PM CDT [facility] MONOCYTES 8 % 03/24/2025 7:27 PM CDT [facility] ABS SEGMENTED NEUTS 1.29(L) 1.60 - 8.30 x10'3/uL 03/24/2025 7:27 PM CDT [facility] ABS. METAMYELOCYTES 0.05(H) 0.00 x10'3/uL 03/24/2025 7:27 PM CDT [facility] ABS. MYELOCYTES 0.10(H) 0.00 x10'3/uL 03/24/2025 7:27 PM CDT [facility] ABS. LYMPHOCYTES 0.80 0.80 - 4.70 x10'3/uL 03/24/2025 7:27 PM CDT [facility] ABS. MONOCYTES 0.19 0.10 - 1.50 x10'3/uL 03/24/2025 7:27 PM CDT [facility] PLT MORPH. NORMAL 03/24/2025 7:27 PM CDT [facility] RBC MORPHOLOGY 2+ 03/24/2025 7:27 PM CDT [facility] Comment: POIKILOCYTOSIS 2+ MACROCYTES 3+ ANISOCYTOSIS 03/24/2025 1:10 PM CDT Fabrice Pennington MD LABORATORY Fin al Result [facility] [address] [id number], * TACROLIMUS (03/24/2025 1:10 PM CDT) Pathologist [facility] TACROLIMUS 14.4 mcg/L 03/26/2025 3:29 PM CDT [facility] SHELLI NIELSEN Comment: No definitive therapeutic or toxic ranges have been established. Optimal blood drug levels are influenced by type of transplant, patient response, time post- transplant, co-administration of other drugs, and drug formulation. The following trough range is a suggested guideline: 5.0-20.0 mcg/L This test was developed and its analytical performance characteristics have been determined by [facility] [place], [place]. It has not been cleared or approved by the U.S. Food and Drug Administration. This assay has been validated pursuant to the CLIA regulations and is used for clinical purposes. Test Performed by [facility], [facility], [address] [place] [address] Wilson Reyez M.D., Ph.D., Director of Laboratories , CLIA [id number] 03/24/2025 1:10 PM CDT Fabrice Pennington MD LABORATORY Fin al Result [facility] [place] [id number] [place], [place] , [place] [phone] * OCCULT BLOOD, FECES (10/02/2022 5:42 PM DIRECTOR FEDERAL) Pathologist [facility] OCCULT BLOOD FECAL POSITIVE 10/02/2022 6:04 PM DIRECTOR FEDERAL [facility] STOOL SPECIMEN / Unknown 10/02/2022 5:42 PM DIRECTOR FEDERAL Pat Gomes BUSINESS REPRESENTATIVE-BC BODY FLUIDS AND STOOLS OR DERABLES Final Result [facility] [address] [place] [address], [place] [phone] from Last 3 Months or Most Recently Relevant to Health Maintenance Additional Health Concerns Infection Onset Date Last Indicated ESBL - Extended Spectrum Beta-lactamase 10/04/19 23 10/04/2022 Insurance M[employer]LAN Advance Directives * Full Code (Latest Code Status on File) Date Activated Date Inactivated Comments 10/02/2022 10:53 PM 10/03/2022 11:08 AM Care Teams Longshore Equipment Operator Relationship Specialty Start Date End Date None, Provider, PCP - General UNKNOWN PHYSICIAN SPECIALTY 10/02/22
--- OUTSIDE RECORDS SUMMARY | 2025-04-21 10:58 | XMS_ITS | Patient Health Record ---
Author Organization [facility] Address [address] [address] Care Team Providers Care Cyanide Case Hardener Name Role Phone RAYSA COLVIN Unavailable [phone] Reason For Referral No Information Plan Of Treatment No Information
[2025-04-21 11:35] LABS: Hematocrit 34.1 % (37.0-47.0); Hemoglobin 10.4 g/dL (12.0-15.0); Immature Granulocyte Percent A 6.4 % (0-0.5); Immature Platelet Fraction Pct 3.4 % (0.9-11.2); Lymphocytes Absolute Auto 0.96 K/mm3 (0.9-3.2); Mean Corpuscular HGB Conc 30.5 g/dl (32-36); Mean Corpuscular Hemoglobin 31.9 pg (26-34); Mean Corpuscular Volume 104.6 fl (80-100); Nucleated Red Blood Cells Absolute Auto 0.000 K/mm3 (0.0-0.012); Nucleated Red Blood Cells Perc 0.0 % (0.0-0.2); Platelet Count Result 56 k/mm3 (150-375); Red Blood Count 3.26 M/mm3 (4.2-5.4); White Blood Count 3.1 K/mm3 (4.5-10.0)
[2025-04-21 11:55] LABS: Alanine Aminotransferase 15 U/L (6-35); Albumin Level 4.0 g/dL (3.5-5.1); Alkaline Phosphatase 85 U/L (38-126); Anion Gap 12 mmol/L (4-12); Aspartate Amino Transferase 32 U/L (14-36); Bilirubin,Total 0.7 mg/dL (0.2-1.3); Blood Urea Nitrogen 27 mg/dL (7-17); Calcium 9.2 mg/dL (8.4-10.2); Carbon Dioxide 16 mmol/L (22-30); Chloride 110 mmol/L (98-107); Estimated Glomerular Filt Rate 13; Glucose 110 mg/dL (65-110); Potassium 5.1 mmol/L (3.4-5.0); Sodium 138 mmol/L (137-145); Total Protein 6.9 g/dL (6.3-8.2)
[2025-04-25 06:07] LABS: Tacrolimus (FK506), Blood 8.2 ng/mL (5.0-20.0)
== END 2025-04-21 10:42 | disposition home or self-care (01) ==
DX: N17.9 Acute kidney failure, unspecified (principal); Z94.2 Lung transplant status
CPT/HCPCS: 80053; 80197; 85025; 85055

== ENCOUNTER 2025-04-28 09:27 | Outpatient (NON) | payer MEDICARE, SELFPAY ==
--- OUTSIDE RECORDS SUMMARY | 2025-04-28 10:01 | XMS_ITS | Encounter Summary ---
Author Organization [facility] Healthcare Address [address] [place] [address] Care Team Providers Care State Game Protector Name Role Phone Rosy Grover RN Unavailable [phone] Pelon Yo MD Unavailable [phone] Paula Hitchcock RN Unavailable Unavai Kayleigh Mireles MD Unavailable [phone] Unknown, Notinfile Primary Care Provider Unavail able Patrick Lorenzana MD Primary Care Provider Encounter Details Date Type Department Care Team (Late st Contact Info) Description 07/01/[address] [address] White, Marie Social History Tobacco Use Types [...] often do you attend chur ch or lutheran services? Never 02/06/2023 Do you belong to any clubs o r organizations such as confucianist groups, unions, fraternal or athletic groups, or [...] place to sleep or slept in a senior care (including now)? No 02/06/2023 Personal Safety Answer Date Recorded Have you ever been in or are you currently in a harmful physical or emotional relationship or is someone making you feel afraid or unsafe? Denies 06/29/2024 Comments No Sex and Gender Information Value Date Recorded Sex Assigned at Not on file Legal Sex Female 6:28 PM MACHINE ADJUSTER LEADER CASE TRIM Gender Identity Not on file Sexual Orientation [...] documented as of this encounter Care Teams State Game Protector Relationship Specialty Start Date End Date Unknown, Notinfile PCP - General 11/11/23 01/06/25 Patrick Lorenzana MD [address] [facility] [address] [place] [address] PCP - General Family Medicine 01/07/25 Rosy Grover, LOLI [address] [facility] [address] [place] [address] Commutator Operator 02/14/21 Pelon Yo MD [address] [place] [address] Referring Physician Pulmonary Disease 04/29/21 Paula Hitchcock RN Commutator Operator Commutator Operator 01/21/22 Kayleigh Boland MD [address] [place] [address] Loftsman/Woman Pulmonary Disease 02/13/23 documented as of this encounter
--- OUTSIDE RECORDS SUMMARY | 2025-04-28 10:02 | XMS_ITS | Clinical Summary ---
Author Organization [facility] Address [address] [facility] [place] [address] Care Team Providers Care Mobile Security Specialist Name Role Phone Pcp, [address] Primary Care Provide r Unavailable Source Comments [facility],non-owned Affiliates and Associated Physician Practices is amultiple site organization consisting of ambulatory clinics and hospital sitesin [place], [place], [place] and [place]. This disclosure is being madepursuant to the Care Everywhere program and may not contain all information available regarding this patient. Last updated 18.[employer] [facility] Allergies No known active allergies Medications * Be aware that medications may not be up to date on this document. Alwaysverify current medications with the patient. montelukast (SINGULAIR) 10 MG tablet Take 10 mg by mouth at bedtime 1 Active omeprazole (PRILOSEC) 40 MG capsule Take 40 mg by mouth 2 times daily 0 Active fluticasone propionate (FLONASE) 50 MCG/ACT nasal spray [place] 2 sprays into each nostril once daily [...] CXR I advised her to call her rail equipment operator for further guidance If her symptoms worsened she is to go [facility] ER Shortness of breath 02/12/2021 UIP [...] BID Immunizations Immunization Administration Dates Next Due CovPolicyBazaar primary monoval ent 12+ yr 0.3mL Purple [...] on file Legal Sex Female 2:55 PM PATTERN GENERATOR OPERATOR Gender Identity Not on file Sexual [...] Performed by [facility] ACCOUNT BILL Comment:Rachel Hernandez, Heel Packer (ASCP) Comment . [facility] ACCOUNT BILL Note [...] Resulting Agency Comment Lab Testing performed at: [address] [id number] [facility] - PATHOLOGY/CYTOLOGY O RDERABLES Final Result [facility] ACCOUNT BILL [address] [place] [address] from Last 3 Months or Most Recently Relevant to Health Maintenance Insurance Advance Directives * Full Code (Latest Code Status on File) Date Activated Date Inactivated Comments 03/11/2021 10:56 AM 03/17/2021 5:26 PM * Full Code Date Activated Date Inactivated Comments 02/12/2021 4:18 PM 02/19/2021 10:01 PM * Full Code Date Activated Date Inactivated Comments 01/23/2021 11:19 AM 01/24/2021 4:29 PM Care Teams Mobile Security Specialist Relationship Specialty Start Date End Date PcpMikal [facility] 3rd PCP - General 10/05/24
--- OUTSIDE RECORDS SUMMARY | 2025-04-28 10:02 | XMS_ITS ---
Author Organization [facility] Address [address] [place] [address] Care Team Providers Care Pit Furnace Operator Name Role Phone Rosy Grover RN Unavailable [phone] Pelon Yo MD Unavailable [phone] Paula Hitchcock RN Unavailable Kayleigh Weeks MD Unavailable [phone] Patrick Lorenzana MD Primary Care Provider Transplant Episode Lung Recipient [facility] ([place], [place]) - [facility] Organs Received: Right Lung, Left Lung Transplanted on 01/19/2022 Marked as Active Follow-up on 01/19/2022 Lung CoordinatorPaula Hitchcock RN Phone: N/A Fax: N/A Email: N/A [facility] Organ Diagnosis Organ Primary Contributory Lung Hypersensitivity [...] N/A N/A Pelon Yo MD Referring Physician [phone] N/A Rosy Grover RN Pre Coordinator [phone] N/A N/A Events Post-Transplant Pre-Transplant Admitted: 01/08/2022 Referred: 02/14/2021 Transplanted: 01/19/2022 Evaluation began: Discharged: 03/20/2022 Committee: 04/26/2021 Center waitlisted:
--- OUTSIDE RECORDS SUMMARY | 2025-04-28 10:02 | XMS_ITS | Clinical Summary ---
Author Organization [facility] Address [address] [place] [address] Care Team Providers Care Hogshead Weigher Name Role Phone Rosy Grover RN Unavailable [phone] Pelon Yo MD Unavailable [phone] Paula Hitchcock RN Unavailable Georgei Pauline Mireles MD Unavailable [phone] Patrick Lorenzana MD Primary Care Provider Allergies [...] every morning Active carvediloL (COREG) 6.25 mg tabletIndications: CKD stage G5/A2, GFR <15 and albumin creatinine ratio 30- 299 mg/g (HCC) 1 tablet (6.25 mg total) Active tacrolimus [...] 12:48 PM CDT): I endorse admission to [facility] care. The patient is at risk of [...] the Tacro level via mediprocity. Nurses through [facility] chat to confirm that Imuran is currently to be on hold. I asked him to review the medication orders per [facility] and this was confirmed. 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 If her symptoms worsened [...] lisionpril/HCTZ Assessment & Plan (10/20/2020 3:02 PM FILM SOUND COORDINATOR): Stable Cont lisionpril/HCTZ ILD (interstitial lung disease) 07/20/2020 Assessment & Plan (03/14/2025 9:26 PM CDT): -- cont pred 5, OI ppx, and valganciclovir -- Holding imuran -- PT/OT/Pulm rehab and RD consulted -- cont home mirtazapine for appetite Assessment & Plan (10/20/2020 3:02 PM FILM SOUND COORDINATOR): F/u with pulmonary Allergic rhinitis 07/20/2020 Assessment & Plan (12/14/2020 5:17 AM CDT): Uncontrolled Cont socorro hoang Refer to ENT Primary insomnia 02/07/2020 Assessment & Plan (10/20/2020 3:03 PM FILM SOUND COORDINATOR): Chronic Cont ativan Assessment & Plan [...] Other neutropenia 12/29/2024 01/04/2025 Melena 12/11/2024 12/31/2024 Dvbaz-rl-upzqoyr kidney injury 06/26/2024 01/04/2025 Assessment & Plan [...] Moderate malnutrition 01/09/20222024 Urinary Tract Infection 01/04/2022 0401/2025 Shortness of breath 01/03/2022 03/31/20 22 Allergic rhinitis 03/30/2021 12/30/2024 Idiopathic pulmonary fibrosis (CMS/HCC) 03/14/2021 02/01/2022 Overview (03/14/2021): Added automatically from request for surgery [id number] [facility] 03/11/2021 01/07/2025 Assessment & Plan (12/31/2024 12:06 [...] on exertion 02/12/2021 12/31/2024 Hypertension, essential 10/06/2020 04/01/2025 Overview (03/12/2023): Last Assessment & Plan: Stable [...] diet Assessment & Plan (10/20/2020 3:02 PM FILM SOUND COORDINATOR): Chronic Follow low cholesterol diet Assessment [...] 03/31/2022 Assessment & Plan (10/20/2020 3:01 PM FILM SOUND COORDINATOR): Likely secondary to ILD Cont Airduo [...] Type Department Care Team Description 04/21/2025 Telephone [facility] Transplant Lung [address] [facility] [phone] [place] [address] Nga Rosario 04/20/2025 10:25 AM CDT - 04/20/2025 11:59 PM CDT Hospital Encounter [facility] Medicine Pulmonary [address] [facility] [address] [place] [address] 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) Discharge Disposition: Discharge to home or self care 04/20/2025 8:50 AM CDT Office Visit [facility] Nephrology [address] [facility] 5th [place] [address] [place] [id number] Irving Gipson MD CKD stage G5/A2, GFR <15 and albumin creatinine ratio 30- 299 mg/g ([facility]) (Primary Dx); Hypertension, essential; 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, 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+ 04/20/2025 Telephone [facility] Transplant Lung [address] [phone] [place] [address] Regine Green RN 04/18/2025 Telephone [facility] Transplant Lung [address] [phone] [place] [address] Clary Lopez, LOLI 04/18/2025 Telephone [facility] Transplant Lung [address] [id number] [place] [address] Nga Rosario 04/15/2025 7:30 PM CDT Lab [facility] Advanced [facility] ([facility]) [address] [place] [address] 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) 04/15/2025 11:55 AM CDT - 04/15/2025 6:18 PM CDT Hospital Encounter [facility] Advanced Medicine ([facility]) [address] [place] [address] Kishore Rizo MD Anemia due to stage 3 chronic kidney disease, unspecified whether stage 3a or 3b CKD (HCC) (Primary Dx); 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) 04/15/2025 Orders Only [facility] Transplant Lung [address] [phone] [place] [address] Paula Hitchcock, LOLI 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) (Primary Dx) 04/14/2025 Orders Only [facility] Pulmonary [address] [facility] 8th [place] [address] [place] [address] Kishore Rizo MD 04/14/2025 Telephone [facility] Transplant Lung [address] [phone] [place] [address] Paula Hitchcock, LOLI 04/11/2025 Telephone [facility] Transplant Lung [address] [phone] [place] [address] Paula Hitchcock, LOLI 04/01/2025 Telephone [facility] Pulmonary Rehabilitation Program [address] [facility] 1st [place] [phone] Josette Ochoa 03/31/2025 Orders Only [facility] Transplant Lung [address] [phone] [place] [address] Paula Hitchcock, LOLI 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) (Primary Dx) 03/29/2025 Telephone [facility] Pulmonary Rehabilitation Program 1 [facility] 1st [place] [phone] Josette Ochoa 03/28/2025 Telephone [facility] Medicine Pulmonary [address] [facility] 8th [place] [address] [place] [address] Kirby Porter MD 03/24/2025 Telephone [facility] Pulmonary Rehabilitation Program 1 [facility] 1st [place] [address] Josette Ochoa 03/22/2025 SHOP/CHAP Initial Eligibility Review [facility] CASE MANAGEMENT [address] [place] [address] Molly Wu RN 03/15/2025 10:35 AM CDT Ancillary Procedure [facility] Vascular Lab IP [address] [facility] [address] [place] [address] 03/14/2025 8:13 PM CDT - 03/21/2025 2:30 PM CDT Hospital Encounter [facility] [address] [place] [address] Pauline Bhat MD Qureshi, MD Jacob Murdock Rodrigo, MD Lung transplant status, bilateral, 2021, (CMV D+/R+) (Primary Dx); Weight loss; Weakness; Failure to thrive in adult Discharge Disposition: Discharge to home or self care 03/14/2025 10:30 AM CDT Lab [facility] for [facility] ([facility]) [address] [place] [address] 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) 03/14/2025 10:00 AM CDT Office Visit [facility] Medicine Pulmonary [address] [place] [address] 8th [place] [address] [place] [address] Seth Vasquez MD 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) (Primary Dx); Encounter for monitoring tacrolimus therapy; Stage 4 chronic kidney disease (HCC); Bilateral leg pain 03/14/2025 9:30 AM CDT Lab [facility] ([facility]) [address] [place] [address] 03/14/2025 9:15 AM CDT - 03/14/2025 11:59 PM CDT Hospital Encounter [facility] Medicine Pulmonary [address] [facility] [address] [place] [address] 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) Discharge Disposition: Discharge to home or self care 03/14/2025 8:53 AM CDT - 03/14/2025 11:59 PM CDT Hospital Encounter [facility] Radiology [facility] ([facility]) [address] [place] [address] 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) Discharge Disposition: Discharge to home or self care 03/14/2025 Telephone [facility] Transplant Lung [address] [facility] [phone] [place] [address] Paula Hitchcock RN 03/14/2025 Telephone [facility] Transplant Lung [address] [phone] [place] [address] Tiera Lincoln 03/09/2025 Telephone [facility] Transplant Lung [address] [phone] [place] [address] Nga Rosario 03/09/2025 Telephone [facility] Transplant Lung [address] [phone] [place] [address] Paula Hitchcock RN 02/01/2025 Telephone [facility] Medicine Nephrology [address] [facility] Advanced Medicine 5th [place] [address] [place] [address] Irving Gipson MD Dismissal from Last 3 [...] Pulmonary fibrosis 07/20/2020 ILD (interstitial lung disease) ([facility]) 07/20/2020 Allergic rhinitis 07/20/2020 Asthma Hypertension [...] materials from doctor or pharmacy Never 02/19/2023 [facility] Utilities Answer Date Recorded In the [...] week 03/20/2025 How often do you attend lutheran or mosque serv ices? Never 03/20/2025 Do you belong to any clubs o r organizations such as lutheran groups, unions, fraternal or athletic groups, or [...] place to sleep or slept in a residential (including now)? No 02/06/2023 Housing Stability Vital Sign Answer Quinten e Recorded In the last 12 months, was t here a time when you were not able to pay the mortgage or rent on time? No 03/20/2025 In the past 12 months, how m any times have you moved where you were living? 0 03/20/2025 At any time in the past 12 m [facility], were you homeless or living in a residential (including now)? No 03/20/2025 Personal Safety Answer Date Recorded Have you ever been in or are you currently in a harmful physical or emotional relationship or is someone making you feel afraid or unsafe? Denies 03/14/2025 Comments No Sex and Gender Information Value Date Recorded Sex Assigned at Not on file Legal Sex Female 6:28 PM FILM SOUND COORDINATOR Gender Identity Not on file Sexual [...] history exists Medical Devices Implanted Type Area Windows Server Administrator Device Identifier Shelf Expiration Date Model / Serial / Lot Neri Gita Kit Hemodialysis Catheter Triple Lumen Curved Short Term Polyurethane Power Trialysis [id number] - [id number] Implanted:Qty: 1 on 12/13/2024 by Moon Carranza MD at [facility] Neri Gooding 11/05/2025 [id number] / / [id number] Procedures Procedure Name Priority Date/Time Associated Diagnosis Comments TACROLIMUS LEVEL, TROUGH Routine 04/21/2025 COMPREHENSIVE METABOLIC PANEL Routine 04/21/2025 CBC WITH AUTO DIFFERENTIAL Routine 04/21/2025 PULMONARY FUNCTION TEST (PFT) Routine 04/20/2025 10:42 [...] aftercare following lung transplant (HCC) EGFR Routine 04/15/2025 11:36 AM CDT 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) DIFFERENTIAL AUTO Routine 04/15/2025 11:36 AM CDT 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) CBC WITH AUTO DIFFERENTIAL Routine 04/15/2025 11:36 AM CDT 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) COMPREHENSIVE METABOLIC PANEL Routine 04/15/2025 11:36 AM CDT 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) CYTOMEGALOVIRUS (CMV) DNA, QUANT GEN LAB Routine 04/15/2025 11:36 AM CDT 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) TACROLIMUS LEVEL, TROUGH Routine 04/14/2025 CBC WITHOUT DIFFERENTIAL Routine 04/14/2025 TACROLIMUS LEVEL, [...] HEPATITIS PANEL, ACUTE Routine 08/15/2022 9:25 AM FILM SOUND COORDINATOR 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) Long-term use of immunosuppressant medication Encounter for therapeutic drug level monitoring Aftercare following organ transplant STOOL DNA COLOGUARD Routine 03/22/2021 9:50 AM CDT Screening for colon cancer SCREENING MAMMOGRAM BILATERAL W JOSESITO Routine 06/08/2015 2:50 PM CDT from Last 3 Months or Most Recently Relevant to Health Maintenance Results * Tacrolimus level trough (04/21/2025) SCRIBED Tacrolimus, trough 8.2 5.0 - 20.0 TXP NO LAB FOUND Blood 04/21/2025 us Historical Provider LAB BLOOD ORDERABLES Edit ed Result - Final TXP NO LAB FOUND * (ABNORMAL) CBC with auto differential (04/21/2025) SCRIBED WBC 3.1(A) 4.5 - 10.0 K/cumm TXP NO LAB FOUND SCRIBED Hemoglobin 10.4(A) 12.0 - 15.0 g/dL TXP NO LAB FOUND SCRIBED Hematocrit 34.1(A) 37.0 - 47.0 % TXP NO LAB FOUND SCRIBED Platelets 56(A) 150 - 375 K/cumm TXP NO LAB FOUND SCRIBED MPV 10.0 7.4 - 10.4 fL TXP NO LAB FOUND SCRIBED RBC 3.26(A) 4.20 - 5.40 M/cumm TXP NO LAB FOUND SCRIBED MCV 104.6(A) 80.0 - 100.0 fL TXP NO LAB FOUND SCRIBED MCH 31.9 26.0 - 34.0 pg TXP NO LAB FOUND SCRIBED MCHC 30.5(A) 32.0 - 36.0 g/dL TXP NO LAB FOUND SCRIBED RDW 25.2(A) 11.5 - 14.5 % TXP NO LAB FOUND SCRIBED Neutrophils 54.9 45.5 - 73.1 % TXP NO LAB FOUND SCRIBED Imm Granulocytes 6.4 0 - 0.5 TXP NO LAB FOUND SCRIBED Lymphocytes 30.7 18.3 - 44.2 % TXP NO LAB FOUND SCRIBED Monocytes 6.1 2.6 - 8.5 % TXP NO LAB FOUND SCRIBED Eosinophils 1.3 0 - 4.4 TXP NO LAB FOUND SCRIBED Basophils 0.6 0.2 - 1.2 % TXP NO LAB FOUND SCRIBED Neutrophils Abs 1.70 1.30 - 6.70 K/cumm TXP NO LAB FOUND SCRIBED Imm Granulocytes Abs 0.2(A) 0.0 - 0.0 K/cumm TXP NO LAB FOUND SCRIBED Lymphocytes Abs 1.0 0.9 - 3.2 K/cumm TXP NO LAB FOUND SCRIBED Monocytes Abs 0.2 0.1 - 0.6 K/cumm TXP NO LAB FOUND SCRIBED Eosinophils Abs 0.0 0.0 - 0.3 K/cumm TXP NO LAB FOUND SCRIBED Basophils Abs 0.0 0.0 - 0.1 K/cumm TXP NO LAB FOUND Blood 04/21/2025 us Historical Provider LAB BLOOD ORDERABLES Tonia l Result TXP NO LAB FOUND * (ABNORMAL) Comprehensive metabolic panel (04/21/2025) SCRIBED Sodium 138 137 - 145 mmol/L TXP NO LAB FOUND SCRIBED Potassium 5.1(A) 3.4 - 5.0 mmol/L TXP NO LAB FOUND SCRIBED Chloride 110(A) 98 - 107 mmol/L TXP NO LAB FOUND SCRIBED Carbon Dioxide 16(A) 22 - 30 mmol/L TXP NO LAB FOUND SCRIBED Anion Gap 12 4 - 12 mmol/L TXP NO LAB FOUND SCRIBED Urea Nitrogen (BUN) 27(A) 7 - 17 mg/dl TXP NO LAB FOUND SCRIBED Creatinine 3.55(A) 0.7 - 1.0 mg/dl TXP NO LAB FOUND SCRIBED Glucose 110 65 - 110 mg/dl TXP NO LAB FOUND SCRIBED Calcium 9.2 8.4 - 10.2 mg/dl TXP NO LAB FOUND SCRIBED Bilirubin 0.7 0.2 - 1.3 mg/dl TXP NO LAB FOUND SCRIBED Plasma Protein 6.9 6.3 - 8.2 g/dl TXP NO LAB FOUND SCRIBED Albumin 4.0 3.5 - 5.1 g/dl TXP NO LAB FOUND SCRIBED Alkaline Phosphatase 85 38 - 125 Units/L TXP NO LAB FOUND SCRIBED Alanine Transaminase (ALT) 15 6 - 35 Units/L TXP NO LAB FOUND SCRIBED Aspartate Transaminase (AST) 32 14 - 36 Units/L TXP NO LAB FOUND Blood 04/21/2025 us Historical Provider LAB BLOOD ORDERABLES Edit ed Result - Final TXP NO LAB FOUND * Pulmonary Function Test - (04/20/2025 10:42 AM CDT) FVC PRE 2.[address] [facility] FVC %PRE PRED 77 % [facility] FEV1 PRE 1.[address] [facility] FEV1 %PRE PRED 74 % [facility] FEV1/FVC PRE 75.1 % [facility] Anatomical Region Laterality Modality PFT 04/20/2025 10:3 7 AM CDT Narrative 04/20/2025 11:09 AM CDT PFT performed at:->[facility] U Adult PFT Lab- [id number]-8D Procedure:->Spirometry Procedure:->Pulse [...] and %HbO2 is age dependent. However, the [facility] Pulmonary Function Laboratory defines hypoxemia as a PaO2 <56 mm Hg or a %HbO2 <89%. Starting on September of 2024 the [facility] Pulmonary Function Laboratory utilizes race neutral GLI Global normative equations. Seth Vasquez MD PFT ORDERABLES Final Result * Transfuse RBC (04/15/2025 6:16 PM CDT) Blood Kishore Rizo MD BLOOD TRANSFUSION ORDERABLES F inal Result Performing Organization Address [facility] Co de Phone Number [facility] [place] [address] * Transfuse RBC (04/15/2025 4:27 PM CDT) Blood Kishore Rizo MD BLOOD TRANSFUSION ORDERABLES F inal Result Performing Organization Address [facility] de Phone Number [facility] Department [place] [address] * Type and screen (04/15/2025 12:40 PM CDT) Moon, indirect Negative ABO Rh O Positive [facility] Blood Venous blood specimen / Unknown 04/15/2025 12:40 PM CDT 04/15/2025 12:52 PM CDT Kishore Rizo MD LAB BLOOD BANK TEST ORDERABLES Final Result Performing Organization Address [facility] [place] [address] * Prepare RBC: 2 Units (04/15/2025 12:20 PM CDT) Product code [id number] [facility] Unit Number [id number] W [facility] Product Blood Type ONEG [facility] Dispense Status PRESUMED TRANSFUSED [facility] Product code [id number] Unit Number [id number] U [facility] Product Blood Type OPOS [facility] Dispense Status PRESUMED TRANSFUSED [facility] Blood 04/15/2025 12:2 0 PM CDT 04/15/2025 12:20 PM CDT N[facility]ative [facility] - 04/16/2025 4:01 AM CDT Are special requirements needed? (All products are leukoreduced and CMV- safe)- >No Date required:-[id number] LRRBC # of [id number] Reasons:-Hgb <7 g/dL} us Kishore Rizo MD BLOOD BANK PRODUCT ORDERABLES Final Result Performing Organization Address [facility] Co de Phone Number [facility] Department [place] [employer] [place] [address] * (ABNORMAL) Blood smear review (04/15/2025 11:36 AM CDT) Pathologist [facility] RBC morphology Present(A ) Anisocytosis Marked(A) [facility] Poikilocytosis Slight(A) [facility] Macrocytes > 15/HPF(A) [facility] Schistocytes 1-2/HPF(A ) [facility] Elliptocytes 3-7/HPF(A ) [facility] Teardrop cells 3-7/HPF(A ) [facility] Platelet estimate Decreased (A) [facility] Blood 04/15/2025 11:3 6 AM CDT 04/15/2025 12:10 PM CDT us Seth Vasquez MD LAB BLOOD ORDERABLES Final Resul t Performing Organization Address [facility]/ZIP Co de Phone Number [facility] [place] [address] * (ABNORMAL) Cytomegalovirus (CMV) DNA PCR, quantitative Blood (04/15/2025 11:36 AM CDT) Pathologist [facility] CMV DNA Detected( A) [facility] Comment: Interpretive Data: The quantifiable range of this assay is 34 IUnits/mL to 10,000,000 IUnits/mL (1.53 log IUnits/mL to 7.0 log IUnits/mL). Testing was performed by the [employer]ETH 6800 CMV Test ([employer] Testing performed at [facility]. Current interpretive data was last revised on 2021. CMV DNA IU/mL <34 IUnits/mL [facility] CMV DNA log IU/mL <1.53 log IUnits/mL [facility] Blood 04/15/2025 11:3 6 AM CDT 04/15/2025 12:22 PM CDT Seth Vasquez MD LAB MICROBIOLOGY - GENERAL ORDER ALEX Final Result [facility] Department [place] [address] [facility] * (ABNORMAL) eGFR (04/15/2025 11:36 AM CDT) Pathologist [facility] eGFR 15(L) >=60 mL/min/1. 73 m2 Comment: [...] MD LAB BLOOD ORDERABLES Final Resul t [facility] Department [place] [address] * (ABNORMAL) Differential, auto (04/15/2025 11:36 AM CDT) Neutrophil abs 1.93 1.50 - 6.50 K/cumm Imm gran abs 0.24(H) 0.00 - 0.10 K/cumm [facility] Lymphocyte abs 0.54(L) 0.80 - 3.30 K/cumm [facility] Monocyte abs 0.16(L) 0.20 - 0.80 K/cumm [facility] Eosinophil abs 0.03 0.00 - 0.50 K/cumm [facility] Basophil abs 0.01 0.00 - 0.10 K/cumm [facility] Neutrophil pct 66.4 % [facility] Comment: Interpretive Data Percent cell count reference ranges are not reported, since discordance with absolute values may lead to misinterpretation of CBC data. Current Interpretive Data was last revised on 2017. Imm gran pct 8.2 % [facility] Comment: Interpretive Data Percent cell count reference ranges are not reported, since discordance with absolute values may lead to misinterpretation of CBC data. Current Interpretive Data was last revised on 2017. Lymphocyte pct 18.6 % [facility] Comment: Interpretive Data Percent cell count reference ranges are not reported, since discordance with absolute values may lead to misinterpretation of CBC data. Current Interpretive Data was last revised on 2017. Monocyte pct 5.5 % [facility] Comment: Interpretive Data Percent cell count reference ranges are not reported, since discordance with absolute values may lead to misinterpretation of CBC data. Current Interpretive Data was last revised on 2017. Eosinophil pct 1.0 % [facility] Comment: Interpretive Data Percent cell count reference ranges are not reported, since discordance with absolute values may lead to misinterpretation of CBC data. Current Interpretive Data was last revised on 2017. Basophil pct 0.3 % [facility] Comment: Interpretive Data Percent cell count reference ranges are not reported, since discordance with absolute values may lead to misinterpretation of CBC data. Current Interpretive Data was last revised on 2017. Blood 04/15/2025 11:3 6 AM CDT 04/15/2025 12:00 PM CDT Seth Vasquez MD LAB BLOOD ORDERABLES Final Resul t Performing Organization Address [facility] Co de Phone Number [facility] Department [place] [address] * (ABNORMAL) CBC with auto differential (04/15/2025 11:36 AM CDT) WBC 2.91(L) 3.80 - 9.90 K/cumm Hgb 6.5(L) 11.9 - 15.5 g/dL [facility] Hct 20.4(L) 35.6 - 45.5 % [facility] Plt 66(L) 150 - 400 K/cumm [facility] MPV 11.4 9.1 - 12.3 fL [facility] RBC 1.87(L) 3.90 - 5.20 M/cumm [facility] MCV 109.1(H) 81.3 - 96.4 fL [facility] MCH 34.8(H) 27.1 - 33.3 pg [facility] MCHC 31.9(L) 32.3 - 35.7 g/dL [facility] RDW CV 24.2(H) 11.1 - 14.9 % [facility] RDW SD 95.0(H) 35.7 - 48.1 fL [facility] NRBC abs 0.00 0.00 - 0.01 K/cumm [facility] Blood 04/15/2025 11:3 6 AM CDT 04/15/2025 12:00 PM CDT Seth Vasquez MD LAB BLOOD ORDERABLES Final Resul t Performing Organization Address City/[facility]/ZIP Co de Phone Number [facility] Department [place] [address] * (ABNORMAL) Comprehensive metabolic panel (04/15/2025 11:36 AM CDT) Sodium 140 135 - 145 mmol/L Potassium, pl 4.8 3.3 - 4.9 mmol/L [facility] Chloride 109 97 - 110 mmol/L [facility] CO2 20(L) 22 - 32 mmol/L [facility] Anion gap 11 2 - 15 mmol/L [facility] BUN 37(H) 6 - 25 mg/dL [facility] Creatinine 3.40(H) 0.60 - 1.10 mg/dL [facility] Glucose 105 70 - 199 mg/dL [facility] Comment: Interpretive Data Fasting glucose >/= 126 [...] 2022. Calcium 8.7 8.5 - 10.3 mg/dL [facility] Bilirubin, total 0.3 0.1 - 1.2 mg/dL [facility] Protein, pl 6.5 6.5 - 8.5 g/dL [facility] Albumin 3.7 3.5 - 5.0 g/dL [facility] Alk phos 103 40 - 130 Units/L [facility] ALT 11 7 - 45 Units/L [facility] AST 21 10 - 45 Units/L [facility] Blood 04/15/2025 11:3 6 AM CDT 04/15/2025 12:00 PM CDT us Seth Vasquez MD LAB BLOOD ORDERABLES Final Resul t Performing Organization Address [facility] [facility] Co de Phone Number SUMAYA [facility] [place] [address] * (ABNORMAL) Tacrolimus level trough (04/14/2025) SCRIBED Tacrolimus, trough 2.2(A) 5.0 - 20.0 TXP NO LAB FOUND Blood 04/14/2025 Historical Provider MD LAB BLOOD ORDERABLES Edit ed Result - Final TX NO LAB FOUND * (ABNORMAL) CBC without differential (04/14/2025) SCRIBED [...] K/cumm TXP NO LAB FOUND Blood 04/07/2025 Historical Provider LAB BLOOD ORDERABLES Tonia l [...] NO LAB FOUND Blood 04/07/2025 Historical Provider LAB BLOOD ORDERABLES Edit ed Result - Final TXP NO LAB FOUND * Tacrolimus level trough (03/31/2025) SCRIBED Tacrolimus, trough 5.5 5.0 - 20.0 TXP NO LAB FOUND Blood 03/31/2025 us Historical Provider LAB BLOOD ORDERABLES Edit [...] K/cumm TXP NO LAB FOUND Blood 03/31/2025 Historical Provider LAB BLOOD ORDERABLES Tonia l [...] 03/24/2025 Historical Provider LAB BLOOD ORDERABLES Tonia seferino Result TXP NO LAB FOUND * (ABNORMAL) [...] K/cumm TXP NO LAB FOUND Blood 03/24/2025 Historical [...] Units/L TXP NO LAB FOUND Blood 03/24/2025 Historical Provider LAB BLOOD ORDERABLES Edit ed Result - Final TXP NO LAB FOUND * Infection Prevention Susan auris PCR, surveillance Axilla/Groin (03/21/2025 12:36 PM CDT) Susan auris DNA Not Detected Not Detected [facility] Comment: Interpretive Data Testing performed by [facility] Disease [facility] using the Lauren beth [id number] Susan auris assay. This assay detects DNA from Susan auris using Real-Time PCR. This assay is laboratory developed and is not cleared by the [place] Food and Drug Administration. The performance characteristics have been verified by the [facility]. Axilla/Groin 03/21/2025 12:3 6 PM CDT 03/21/2025 1:14 PM CDT Narrative SUMAYA [facility] - 03/22/2025 10:01 AM CDT Order placed by [facility] due to ring surveillance. us Instant Order Generic Provider LAB MICROBIOLOGY - GENERAL ORDERABLES Final Result [facility] Department [place] [address] [facility] * (ABNORMAL) eGFR (03/21/2025 5:07 AM CDT) [...] MD LAB BLOOD ORDERABLES F inal Result [facility] Department [place] [address] * (ABNORMAL) Differential, auto (03/21/2025 5:07 AM CDT) Neutrophil abs 0.54(L) 1.50 - 6.50 K/cumm Imm gran abs 0.19(H) 0.00 - 0.10 K/cumm [facility] Lymphocyte abs 0.74(L) 0.80 - 3.30 K/cumm [facility] Monocyte abs 0.23 0.20 - 0.80 K/cumm [facility] Eosinophil abs 0.03 0.00 - 0.50 K/cumm [facility] Basophil abs 0.03 0.00 - 0.10 K/cumm [facility] Neutrophil pct 30.7 % [facility] Comment: Interpretive Data Percent cell count reference ranges are not reported, since discordance with absolute values may lead to misinterpretation of CBC data. Current Interpretive Data was last revised on 2017. Imm gran pct 10.8 % [facility] Comment: Interpretive Data Percent cell count reference ranges are not reported, since discordance with absolute values may lead to misinterpretation of CBC data. Current Interpretive Data was last revised on 2017. Lymphocyte pct 42.0 % [facility] Comment: Interpretive Data Percent cell count reference ranges are not reported, since discordance with absolute values may lead to misinterpretation of CBC data. Current Interpretive Data was last revised on 2017. Monocyte pct 13.1 % [facility] Comment: Interpretive Data Percent cell count reference ranges are not reported, since discordance with absolute values may lead to misinterpretation of CBC data. Current Interpretive Data was last revised on 2017. Eosinophil pct 1.7 % [facility] Comment: Interpretive Data Percent cell count reference ranges are not reported, since discordance with absolute values may lead to misinterpretation of CBC data. Current Interpretive Data was last revised on 2017. Basophil pct 1.7 % [facility] Comment: Interpretive Data Percent cell count reference ranges are not reported, since discordance with absolute values may lead to misinterpretation of CBC data. Current Interpretive Data was last revised on 2017. Blood 03/21/2025 5:07 AM CDT 03/21/2025 5:34 AM CDT Pauline Bhat MD LAB BLOOD ORDERABLES F inal Result Performing Organization Address [facility] de Phone Number [facility] [place] [address] * Tacrolimus level trough (03/21/2025 5:07 AM CDT) [facility] Tacrolimus trough 5.1 ng/mL Comment: Interpretive Data Testing performed by liquid chromatography-tandem mass spectrometry. Therapeutic concentrations vary depending on type of transplanted organ and time elapsed since transplant. Typical trough concentrations range from 5-15 ng/mL. This test was developed and its performance characteristics determined by the [facility] consistent with CLIA requirements. This test has not been cleared or approved by the [place] Food and Drug administration. Current interpretive data last reviewed 2019. Blood 03/21/2025 5:07 AM CDT 03/21/2025 5:34 AM CDT Pauline Bhat MD LAB BLOOD ORDERABLES F inal Result Performing Organization Address [facility] de Phone Number [facility] [place] [place] [place] [address] * (ABNORMAL) CBC with auto differential (03/21/2025 5:07 AM CDT) [facility] WBC 1.76(L) 3.80 - 9.90 K/cumm Hgb 7.0(L) 11.9 - 15.5 g/dL [facility] Hct 21.4(L) 35.6 - 45.5 % [facility] Plt 120(L) 150 - 400 K/cumm [facility] MPV 10.3 9.1 - 12.3 fL [facility] RBC 2.21(L) 3.90 - 5.20 M/cumm [facility] MCV 96.8(H) 81.3 - 96.4 fL [facility] MCH 31.7 27.1 - 33.3 pg [facility] MCHC 32.7 32.3 - 35.7 g/dL [facility] RDW CV 25.1(H) 11.1 - 14.9 % [facility] RDW SD 84.6(H) 35.7 - 48.1 fL [facility] NRBC abs 0.00 0.00 - 0.01 K/cumm [facility] Blood 03/21/2025 5:07 AM CDT 03/21/2025 5:34 AM CDT Pauline Bhat MD LAB BLOOD ORDERABLES F inal Result Performing Organization Address City/[facility]/ZIP Co de Phone Number [facility] Department [place] [address] * (ABNORMAL) Phosphorus (03/21/2025 5:07 AM CDT) Phosphorus, pl 1.6(L) 2.3 - 4.5 mg/dL Blood 03/21/2025 5:07 AM CDT 03/21/2025 5:34 AM CDT Pauline Bhat MD LAB BLOOD ORDERABLES F inal Result [facility] [place] [address] * Magnesium (03/21/2025 5:07 AM CDT) Magnesium 1.5 1.4 - 2.5 mg/dL Blood 03/21/2025 5:07 AM CDT 03/21/2025 5:34 AM CDT us Pauline Bhat MD LAB BLOOD ORDERABLES F inal Result [facility] Department [place] [address] * (ABNORMAL) Comprehensive metabolic panel (03/21/2025 5:07 AM CDT) Sodium 140 135 - 145 mmol/L Potassium, pl 3.6 3.3 - 4.9 mmol/L [facility] Chloride 112(H) 97 - 110 mmol/L [facility] CO2 22 22 - 32 mmol/L [facility] Anion gap 6 2 - 15 mmol/L [facility] BUN 30(H) 6 - 25 mg/dL [facility] Creatinine 3.23(H) 0.60 - 1.10 mg/dL [facility] Glucose 86 70 - 199 mg/dL [facility] Comment: Interpretive Data Fasting glucose >/= 126 [...] Calcium 8.6 8.5 - 10.3 mg/dL [facility] Bilirubin, total 0.2 0.1 - 1.2 mg/dL [facility] Protein, pl 5.6(L) 6.5 - 8.5 g/dL [facility] Albumin 3.3(L) 3.5 - 5.0 g/dL [facility] Alk phos 87 40 - 130 Units/L [facility] ALT 19 7 - 45 Units/L [facility] AST 40 10 - 45 Units/L [facility] Blood 03/21/2025 5:07 AM CDT 03/21/2025 5:34 AM CDT Pauline Bhat MD LAB BLOOD ORDERABLES F inal Result Performing Organization Address [facility] Co de Phone Number SUMAYA CASTELLANOS [facility] Department [place] [address] * (ABNORMAL) eGFR (03/20/2025 5:05 AM CDT) [...] ORDERABLES F inal Result Performing Organization Address [facility] Co de Phone Number SUMAYA CASTELLANOS [facility] Department [place] [address] * Tacrolimus level trough (03/20/2025 5:05 AM CDT) Tacrolimus trough 4.1 ng/mL Comment: Interpretive Data Testing performed by liquid chromatography-tandem mass spectrometry. Therapeutic concentrations vary depending on type of transplanted organ and time elapsed since transplant. Typical trough concentrations range from 5-15 ng/mL. This test was developed and its performance characteristics determined by the [facility] consistent with CLIA requirements. This test has not been cleared or approved by the [place] Food and Drug administration. Current interpretive data last reviewed 2019. Blood 03/20/2025 5:05 AM CDT 03/20/2025 6:00 AM CDT Pauline Bhat MD LAB BLOOD ORDERABLES F inal Result [facility] Department [place] [address] * (ABNORMAL) CBC with auto differential (03/20/2025 5:05 AM CDT) WBC 1.58(L) 3.80 - 9.90 K/cumm Hgb 7.2(L) 11.9 - 15.5 g/dL [facility] Hct 21.6(L) 35.6 - 45.5 % [facility] Plt 120(L) 150 - 400 K/cumm [facility] MPV 11.2 9.1 - 12.3 fL [facility] RBC 2.23(L) 3.90 - 5.20 M/cumm [facility] MCV 96.9(H) 81.3 - 96.4 fL [facility] MCH 32.3 27.1 - 33.3 pg [facility] MCHC 33.3 32.3 - 35.7 g/dL [facility] RDW CV 24.8(H) 11.1 - 14.9 % [facility] RDW SD 83.8(H) 35.7 - 48.1 fL [facility] NRBC abs 0.00 0.00 - 0.01 K/cumm [facility] Morphologic Screen Results confirmed by manual morphology review. [facility] Blood 03/20/2025 5:05 AM CDT 03/20/2025 6:00 AM CDT Pauline Bhat MD LAB BLOOD ORDERABLES E dited Result - Final [facility] Department [place] [address] * (ABNORMAL) Manual Differential (03/20/2025 5:05 AM CDT) Differential Manual Cells Counted 119 [facility] Neutrophil abs 0.74(L) 1.50 - 6.50 K/cumm [facility] Imm gran abs 0.07 0.00 - 0.10 K/cumm [facility] Lymphocyte abs 0.55(L) 0.80 - 3.30 K/cumm [facility] Monocyte abs 0.17(L) 0.20 - 0.80 K/cumm [facility] Eosinophil abs 0.03 0.00 - 0.50 K/cumm [facility] Basophil abs 0.03 0.00 - 0.10 K/cumm [facility] Neutrophil pct 47.0 % [facility] Comment: Interpretive Data Percent cell count reference ranges are not reported, since discordance with absolute values may lead to misinterpretation of CBC data. Current Interpretive Data was last revised on 2017. Lymphocyte pct 34.5 % [facility] Comment: Interpretive Data Percent cell count reference ranges are not reported, since discordance with absolute values may lead to misinterpretation of CBC data. Current Interpretive Data was last revised on 2017. Monocyte pct 10.9 % [facility] Comment: Interpretive Data Percent cell count reference ranges are not reported, since discordance with absolute values may lead to misinterpretation of CBC data. Current Interpretive Data was last revised on 2017. Eosinophil pct 1.7 % [facility] Comment: Interpretive Data Percent cell count reference ranges are not reported, since discordance with absolute values may lead to misinterpretation of CBC data. Current Interpretive Data was last revised on 2017. Basophil pct 1.7 % [facility] Comment: Interpretive Data Percent cell count reference ranges are not reported, since discordance with absolute values may lead to misinterpretation of CBC data. Current Interpretive Data was last revised on 2017. Metamyelocyte pct 1.7(H) 0.0 - 0.0 % [facility] Myelocyte pct 1.7(H) 0.0 - 0.0 % [facility] Promyelocyte pct 0.8(H) 0.0 - 0.0 % [facility] Blood 03/20/2025 5:05 AM CDT 03/20/2025 6:05 AM CDT Pauline Bhat MD LAB BLOOD ORDERABLES F inal Result Performing Organization Address [facility] Co de Phone Number [facility] [place] [address] * Type and screen (03/20/2025 5:05 AM CDT) Moon, indirect Negative ABO Rh O Positive [facility] Blood 03/20/2025 5:05 AM CDT 03/20/2025 6:05 AM CDT Narrative [facility] - 03/20/2025 7:29 AM CDT Has the patient had Daratumumab or Isatuximab in the past 6 months?->Unknown Gage Rogers MD LAB BLOOD BANK TEST ORDERABLES Final Result Performing Organization Address [facility] Co de Phone Number [facility] [place] [address] * (ABNORMAL) Phosphorus (03/20/2025 5:05 AM CDT) Phosphorus, pl 1.6(L) 2.3 - 4.5 mg/dL Blood 03/20/2025 5:05 AM CDT 03/20/2025 5:58 AM CDT Result [facility] Pauline Bhat MD LAB BLOOD ORDERABLES F inal Result Performing Organization Address [facility] Co de Phone Number [facility] [place] [address] * Magnesium (03/20/2025 5:05 AM CDT) Magnesium 1.5 1.4 - 2.5 mg/dL Blood 03/20/2025 5:05 AM CDT 03/20/2025 5:58 AM CDT Pauline Bhat MD LAB BLOOD ORDERABLES F inal Result [facility] [place] [address] * (ABNORMAL) Comprehensive metabolic panel (03/20/2025 5:05 AM CDT) Sodium 142 135 - 145 mmol/L Potassium, pl 3.5 3.3 - 4.9 mmol/L [facility] Chloride 111(H) 97 - 110 mmol/L [facility] CO2 22 22 - 32 mmol/L [facility] Anion gap 9 2 - 15 mmol/L [facility] BUN 35(H) 6 - 25 mg/dL [facility] Creatinine 3.58(H) 0.60 - 1.10 mg/dL [facility] Glucose 95 70 - 199 mg/dL [facility] Comment: Interpretive Data Fasting glucose >/= 126 [...] Calcium 8.6 8.5 - 10.3 mg/dL [facility] Bilirubin, total 0.2 0.1 - 1.2 mg/dL [facility] Protein, pl 5.7(L) 6.5 - 8.5 g/dL [facility] Albumin 3.2(L) 3.5 - 5.0 g/dL [facility] Alk phos 83 40 - 130 Units/L [facility] ALT 23 7 - 45 Units/L [facility] AST 48(H) 10 - 45 Units/L [facility] Blood 03/20/2025 5:05 AM CDT 03/20/2025 5:58 AM CDT Pauline Bhat MD LAB BLOOD ORDERABLES F inal Result Performing Organization Address [facility]/ZIP Co de Phone Number [facility] [place] [address] * (ABNORMAL) eGFR (03/19/2025 5:05 AM CDT) Pathologist [facility] eGFR 12(L) >=60 mL/min/1. 73 m2 Comment: [...] ORDERABLES F inal Result Performing Organization Address City/[facility]/ZIP Co de Phone Number [facility] [place] [address] * (ABNORMAL) Differential, auto (03/19/2025 5:05 AM CDT) Neutrophil abs 0.48(C) 1.50 - 6.50 K/cumm Comment:This result has been called to irineo mendoza rn by [id number] on 03/19/2025 07:41:05, and has been read back. Imm gran abs 0.18(H) 0.00 - 0.10 K/cumm [facility] Lymphocyte abs 0.68(L) 0.80 - 3.30 K/cumm [facility] Monocyte abs 0.18(L) 0.20 - 0.80 K/cumm [facility] Eosinophil abs 0.02 0.00 - 0.50 K/cumm [facility] Basophil abs 0.01 0.00 - 0.10 K/cumm [facility] Neutrophil pct 31.0 % [facility] Comment: Differential consistent with previous result. Differential consistent with previous result. Interpretive Data Percent cell count reference ranges are not reported, since discordance with absolute values may lead to misinterpretation of CBC data. Current Interpretive Data was last revised on 2017. Imm gran pct 11.6 % [facility] Comment: Interpretive Data Percent cell count reference ranges are not reported, since discordance with absolute values may lead to misinterpretation of CBC data. Current Interpretive Data was last revised on 2017. Lymphocyte pct 43.9 % [facility] Comment: Interpretive Data Percent cell count reference ranges are not reported, since discordance with absolute values may lead to misinterpretation of CBC data. Current Interpretive Data was last revised on 2017. Monocyte pct 11.6 % [facility] Comment: Interpretive Data Percent cell count reference ranges are not reported, since discordance with absolute values may lead to misinterpretation of CBC data. Current Interpretive Data was last revised on 2017. Eosinophil pct 1.3 % [facility] Comment: Interpretive Data Percent cell count reference ranges are not reported, since discordance with absolute values may lead to misinterpretation of CBC data. Current Interpretive Data was last revised on 2017. Basophil pct 0.6 % [facility] Comment: Interpretive Data Percent cell count reference ranges are not reported, since discordance with absolute values may lead to misinterpretation of CBC data. Current Interpretive Data was last revised on 2017. Blood 03/19/2025 5:05 AM CDT 03/19/2025 6:36 AM CDT Pauline Bhat MD LAB BLOOD ORDERABLES F inal Result Performing Organization Address [facility] de Phone Number [facility] [place] [address] * Tacrolimus level trough (03/19/2025 5:05 AM CDT) Pathologist [facility] Tacrolimus trough 4.5 ng/mL Comment: Interpretive Data Testing performed by liquid chromatography-tandem mass spectrometry. Therapeutic concentrations vary depending on type of transplanted organ and time elapsed since transplant. Typical trough concentrations range from 5-15 ng/mL. This test was developed and its performance characteristics determined by the [facility] consistent with CLIA requirements. This test has not been cleared or approved by the [place] Food and Drug administration. Current interpretive data last reviewed 2019. Blood 03/19/2025 5:05 AM CDT 03/19/2025 6:36 AM CDT Pauline Bhat MD LAB BLOOD ORDERABLES F inal Result Performing Organization Address [facility] de Phone Number [facility] [place] [address] * (ABNORMAL) CBC with auto differential (03/19/2025 5:05 AM CDT) [facility] WBC 1.55(L) 3.80 - 9.90 K/cumm Hgb 7.0(L) 11.9 - 15.5 g/dL [facility] Hct 20.7(L) 35.6 - 45.5 % [facility] Plt 116(L) 150 - 400 K/cumm [facility] MPV 10.6 9.1 - 12.3 fL [facility] RBC 2.18(L) 3.90 - 5.20 M/cumm [facility] MCV 95.0 81.3 - 96.4 fL [facility] MCH 32.1 27.1 - 33.3 pg [facility] MCHC 33.8 32.3 - 35.7 g/dL [facility] RDW CV 25.2(H) 11.1 - 14.9 % [facility] RDW SD 81.4(H) 35.7 - 48.1 fL [facility] NRBC abs 0.00 0.00 - 0.01 K/cumm [facility] Blood 03/19/2025 5:05 AM CDT 03/19/2025 6:36 AM CDT Pauline Bhat MD LAB BLOOD ORDERABLES F inal Result Performing Organization Address City/[facility]/ZIP Co de Phone Number [facility] Department [place] [place] [address] * (ABNORMAL) Phosphorus (03/19/2025 5:05 AM CDT) Phosphorus, pl 1.8(L) 2.3 - 4.5 mg/dL Blood 03/19/2025 5:05 AM CDT 03/19/2025 6:35 AM CDT Pauline Bhat MD LAB BLOOD ORDERABLES F inal Result [facility] [place] [address] * Magnesium (03/19/2025 5:05 AM CDT) Magnesium 1.6 1.4 - 2.5 mg/dL Blood 03/19/2025 5:0 5 AM CDT 03/19/2025 6:35 AM CDT us Pauline Bhat MD LAB BLOOD ORDERABLES F inal Result [facility] [place] [address] * (ABNORMAL) Comprehensive metabolic panel (03/19/2025 5:05 AM CDT) Sodium 140 135 - 145 mmol/L Potassium, pl 3.6 3.3 - 4.9 mmol/L [facility] Chloride 109 97 - 110 mmol/L [facility] CO2 20(L) 22 - 32 mmol/L [facility] Anion gap 11 2 - 15 mmol/L [facility] BUN 42(H) 6 - 25 mg/dL [facility] Creatinine 3.93(H) 0.60 - 1.10 mg/dL [facility] Glucose 89 70 - 199 mg/dL [facility] Comment: Interpretive Data Fasting glucose >/= 126 [...] 2022. Calcium 8.2(L) 8.5 - 10.3 mg/dL [facility] Bilirubin, total 0.2 0.1 - 1.2 mg/dL [facility] Protein, pl 5.6(L) 6.5 - 8.5 g/dL [facility] Albumin 3.1(L) 3.5 - 5.0 g/dL [facility] Alk phos 72 40 - 130 Units/L [facility] ALT 18 7 - 45 Units/L [facility] AST 45 10 - 45 Units/L [facility] Blood 03/19/2025 5:05 AM CDT 03/19/2025 6:35 AM CDT Pauline Bhat MD LAB BLOOD ORDERABLES F inal Result Performing Organization Address [facility] de Phone Number SUMAYA [facility] [place] [address] * (ABNORMAL) eGFR (03/18/2025 5:45 AM CDT) [...] ORDERABLES F inal Result Performing Organization Address [facility] Co de Phone Number SUMAYA [facility] [place] [address] * (ABNORMAL) Differential, auto (03/18/2025 5:45 AM CDT) Neutrophil abs 0.67(L) 1.50 - 6.50 K/cumm Imm gran abs 0.19(H) 0.00 - 0.10 K/cumm [facility] Lymphocyte abs 0.66(L) 0.80 - 3.30 K/cumm [facility] Monocyte abs 0.21 0.20 - 0.80 K/cumm [facility] Eosinophil abs 0.04 0.00 - 0.50 K/cumm [facility] Basophil abs 0.02 0.00 - 0.10 K/cumm [facility] Neutrophil pct 37.5 % [facility] Comment: Interpretive Data Percent cell count reference ranges are not reported, since discordance with absolute values may lead to misinterpretation of CBC data. Current Interpretive Data was last revised on 2017. Imm gran pct 10.6 % [facility] Comment: Interpretive Data Percent cell count reference ranges are not reported, since discordance with absolute values may lead to misinterpretation of CBC data. Current Interpretive Data was last revised on 2017. Lymphocyte pct 36.9 % [facility] Comment: Interpretive Data Percent cell count reference ranges are not reported, since discordance with absolute values may lead to misinterpretation of CBC data. Current Interpretive Data was last revised on 2017. Monocyte pct 11.7 % [facility] Comment: Interpretive Data Percent cell count reference ranges are not reported, since discordance with absolute values may lead to misinterpretation of CBC data. Current Interpretive Data was last revised on 2017. Eosinophil pct 2.2 % [facility] Comment: Interpretive Data Percent cell count reference ranges are not reported, since discordance with absolute values may lead to misinterpretation of CBC data. Current Interpretive Data was last revised on 2017. Basophil pct 1.1 % [facility] Comment: Interpretive Data Percent cell count reference ranges are not reported, since discordance with absolute values may lead to misinterpretation of CBC data. Current Interpretive Data was last revised on 2017. Blood 03/18/2025 5:45 AM CDT 03/18/2025 7:22 AM CDT us Pauline Bhat MD LAB BLOOD ORDERABLES F inal Result [facility] [place] [address] * Tacrolimus level trough (03/18/2025 5:45 AM CDT) [facility] Tacrolimus trough 3.2 ng/mL Comment: Interpretive Data Testing performed by liquid chromatography-tandem mass spectrometry. Therapeutic concentrations vary depending on type of transplanted organ and time elapsed since transplant. Typical trough concentrations range from 5-15 ng/mL. This test was developed and its performance characteristics determined by the [facility] consistent with CLIA requirements. This test has not been cleared or approved by the US Food and Drug administration. Current interpretive data last reviewed 2019. Blood 03/18/2025 5:45 AM CDT 03/18/2025 7:22 AM CDT us Pauline Bhat MD LAB BLOOD ORDERABLES F inal Result [facility] Department [place] [address] * (ABNORMAL) CBC with auto differential (03/18/2025 5:45 AM CDT) [facility] WBC 1.79(L) 3.80 - 9.90 K/cumm Hgb 7.8(L) 11.9 - 15.5 g/dL [facility] Hct 23.2(L) 35.6 - 45.5 % [facility] Plt 117(L) 150 - 400 K/cumm [facility] MPV 10.9 9.1 - 12.3 fL [facility] RBC 2.42(L) 3.90 - 5.20 M/cumm [facility] MCV 95.9 81.3 - 96.4 fL [facility] Comment:MCV delta due to megan arent blood transfusion. MCH 32.2 27.1 - 33.3 pg [facility] MCHC 33.6 32.3 - 35.7 g/dL [facility] RDW CV 24.6(H) 11.1 - 14.9 % [facility] RDW SD 79.8(H) 35.7 - 48.1 fL [facility] NRBC abs 0.00 0.00 - 0.01 K/cumm [facility] Blood 03/18/2025 5:45 AM CDT 03/18/2025 7:22 AM CDT Pauline Bhat MD LAB BLOOD ORDERABLES E dited Result - Final Performing Organization Address City/[facility] Co de Phone Number [facility] [place] [place] [place] [address] * (ABNORMAL) Phosphorus (03/18/2025 5:45 AM CDT) Pathologist [facility] Phosphorus, pl 2.1(L) 2.3 - 4.5 mg/dL Blood 03/18/2025 5:45 AM CDT 03/18/2025 7:22 AM CDT Pauline Bhat MD LAB BLOOD ORDERABLES F inal Result Performing Organization Address [facility] de Phone Number [facility] [place] [address] * Magnesium (03/18/2025 5:45 AM CDT) Pathologist [facility] Magnesium 1.8 1.4 - 2.5 mg/dL Blood 03/18/2025 5:45 AM CDT 03/18/2025 7:22 AM CDT Pauline Bhat MD LAB BLOOD ORDERABLES F inal Result Performing Organization Address City/[facility] Co de Phone Number [facility] [employer] [place], [place] [id number] * (ABNORMAL) Comprehensive metabolic panel (03/18/2025 5:45 AM CDT) Sodium 143 135 - 145 mmol/L Potassium, pl 3.4 3.3 - 4.9 mmol/L [facility] Chloride 110 97 - 110 mmol/L [facility] CO2 20(L) 22 - 32 mmol/L [facility] Anion gap 13 2 - 15 mmol/L [facility] BUN 51(H) 6 - 25 mg/dL [facility] Creatinine 4.74(H) 0.60 - 1.10 mg/dL [facility] Glucose 94 70 - 199 mg/dL [facility] Comment: Interpretive Data Fasting glucose >/= 126 [...] 2022. Calcium 8.4(L) 8.5 - 10.3 mg/dL [facility] Bilirubin, total 0.3 0.1 - 1.2 mg/dL [facility] Protein, pl 5.9(L) 6.5 - 8.5 g/dL [facility] Albumin 3.4(L) 3.5 - 5.0 g/dL [facility] Alk phos 67 40 - 130 Units/L [facility] ALT 12 7 - 45 Units/L [facility] AST 30 10 - 45 Units/L [facility] Blood 03/18/2025 5:45 AM CDT 03/18/2025 7:22 AM CDT us Pauline Bhat MD LAB BLOOD ORDERABLES F inal Result [facility] [place] [address] * Transfuse RBC (03/17/2025 11:45 PM CDT) Blood us Gary Verdin MD BLOOD TRANSFUSION ORDER ALEX Edited Result - Final Performing Organization Address [facility]/[place] [address] * Infection Prevention Susan auris PCR, surveillance Axilla/Groin (03/17/2025 1:35 PM CDT) Susan auris DNA Not Detected Not Detected [facility] Comment: Interpretive Data Testing performed by [facility] using the Lauren beth 6800 Susan auris assay. This assay detects DNA from Susan auris using Real-Time PCR. This assay is laboratory developed and is not cleared by the [facility] Food and Drug Administration. The performance characteristics have been verified by the [facility]. Axilla/Groin 03/17/2025 1:35 PM CDT 03/17/2025 3:48 PM CDT Narrative [facility] - 03/17/2025 11:58 PM CDT Order placed by [facility] due to ring surveillance. Instant Order Generic Provider LAB MICROBIOLOGY - GENERAL ORDERABLES Final Result Performing Organization Address [facility] [place] [address] [facility] * Type and screen (03/17/2025 1:35 PM CDT) ABO Rh O Positive Mono, indirect Negative [facility] Blood 03/17/2025 1:35 PM CDT 03/17/2025 2:46 PM CDT Narrative [facility] - 03/17/2025 3:34 PM CDT Has the patient had Daratumumab or Isatuximab in the past 6 months?->Unknown Gary Verdin MD LAB BLOOD BANK TEST ORD ERABLES Final Result Performing Organization Address City/[facility]/ZIP Co de [place] [address] * Prepare RBC: 1 Units (03/17/2025 12:17 PM CDT) Product code [id number] Unit Number [id number] [facility] Product Blood Type OPOS [facility] Dispense Status PRESUMED TRANSFUSED [facility] Blood 03/17/2025 12:1 7 PM CDT 03/17/2025 12:17 PM CDT [facility]ative [facility] - 03/18/2025 6:00 AM CDT Are special requirements needed? (All products are leukoreduced and CMV- safe)- >No Date required:-[id number] LRRBC # of [id number] Reasons:-Hgb <7 g/dL} Gary Verdin MD BLOOD BANK PRODUCT ORDE RADHA Final Result [facility] Department [place] [address] * (ABNORMAL) eGFR (03/17/2025 5:17 AM CDT) [...] MD LAB BLOOD ORDERABLES F inal Result [facility] [place] [address] * (ABNORMAL) Differential, auto (03/17/2025 5:17 AM CDT) Neutrophil abs 0.80(L) 1.50 - 6.50 K/cumm Imm gran abs 0.20(H) 0.00 - 0.10 K/cumm [facility] Lymphocyte abs 0.67(L) 0.80 - 3.30 K/cumm [facility] Monocyte abs 0.30 0.20 - 0.80 K/cumm [facility] Eosinophil abs 0.02 0.00 - 0.50 K/cumm [facility] Basophil abs 0.02 0.00 - 0.10 K/cumm [facility] Neutrophil pct 39.8 % [facility] Comment: Interpretive Data Percent cell count reference ranges are not reported, since discordance with absolute values may lead to misinterpretation of CBC data. Current Interpretive Data was last revised on 2017. Imm gran pct 10.0 % [facility] Comment: Interpretive Data Percent cell count reference ranges are not reported, since discordance with absolute values may lead to misinterpretation of CBC data. Current Interpretive Data was last revised on 2017. Lymphocyte pct 33.3 % [facility] Comment: Interpretive Data Percent cell count reference ranges are not reported, since discordance with absolute values may lead to misinterpretation of CBC data. Current Interpretive Data was last revised on 2017. Monocyte pct 14.9 % [facility] Comment: Interpretive Data Percent cell count reference ranges are not reported, since discordance with absolute values may lead to misinterpretation of CBC data. Current Interpretive Data was last revised on 2017. Eosinophil pct 1.0 % [facility] Comment: Interpretive Data Percent cell count reference ranges are not reported, since discordance with absolute values may lead to misinterpretation of CBC data. Current Interpretive Data was last revised on 2017. Basophil pct 1.0 % SUMA[facility] Comment: Interpretive Data Percent cell count reference ranges are not reported, since discordance with absolute values may lead to misinterpretation of CBC data. Current Interpretive Data was last revised on 2017. Blood 03/17/2025 5:17 AM CDT 03/17/2025 5:53 AM CDT Pauline Bhat MD LAB BLOOD ORDERABLES F inal Result Performing Organization Address [facility] de Phone Number [facility]IGUELEE [facility] [place] [address] * Tacrolimus level trough (03/17/2025 5:17 AM CDT) Pathologist [facility] Tacrolimus trough 4.3 ng/mL Comment: Interpretive Data Testing performed by liquid chromatography-tandem mass spectrometry. Therapeutic concentrations vary depending on type of transplanted organ and time elapsed since transplant. Typical trough concentrations range from 5-15 ng/mL. This test was developed and its performance characteristics determined by the [facility] consistent with CLIA requirements. This test has not been cleared or approved by the US Food and Drug administration. Current interpretive data last reviewed 2019. Blood 03/17/2025 5:17 AM CDT 03/17/2025 5:53 AM CDT Pauline Bhat MD LAB BLOOD ORDERABLES F inal Result Performing Organization Address [facility] Co de Phone Number MIGUELEE [facility] [place] [address] * (ABNORMAL) CBC with auto differential (03/17/2025 5:17 AM CDT) WBC 2.01(L) 3.80 - 9.90 K/cumm Hgb 6.9(L) 11.9 - 15.5 g/dL [facility] Hct 20.7(L) 35.6 - 45.5 % [facility] Plt 123(L) 150 - 400 K/cumm [facility] MPV 10.5 9.1 - 12.3 fL [facility] RBC 2.04(L) 3.90 - 5.20 M/cumm [facility] MCV 101.5(H) 81.3 - 96.4 fL [facility] MCH 33.8(H) 27.1 - 33.3 pg [facility] MCHC 33.3 32.3 - 35.7 g/dL [facility] RDW CV 22.5(H) 11.1 - 14.9 % [facility] RDW SD 81.1(H) 35.7 - 48.1 fL [facility] NRBC abs 0.00 0.00 - 0.01 K/cumm [facility] Blood 03/17/2025 5:17 AM CDT 03/17/2025 5:53 AM CDT us Pauline Bhat MD LAB BLOOD ORDERABLES F inal Result [facility] Department [place] [employer] [place] [place] [address] * Phosphorus (03/17/2025 5:17 AM CDT) Pathologist [facility] Phosphorus, pl 2.7 2.3 - 4.5 mg/dL Blood 03/17/2025 5:17 AM CDT 03/17/2025 5:54 AM CDT Pauline Bhat MD LAB BLOOD ORDERABLES F inal Result [facility] [place] [address] * Magnesium (03/17/2025 5:17 AM CDT) Pathologist [facility] Magnesium 1.9 1.4 - 2.5 mg/dL Blood 03/17/2025 5:17 AM CDT 03/17/2025 5:54 AM CDT us Pauline Bhat MD LAB BLOOD ORDERABLES F inal Result [facility] [place] [address] * (ABNORMAL) Comprehensive metabolic panel (03/17/2025 5:17 AM CDT) Sodium 143 135 - 145 mmol/L Potassium, pl 3.9 3.3 - 4.9 mmol/L [facility] Chloride 110 97 - 110 mmol/L [facility] CO2 22 22 - 32 mmol/L [facility] Anion gap 11 2 - 15 mmol/L [facility] BUN 65(H) 6 - 25 mg/dL [facility] Creatinine 5.74(H) 0.60 - 1.10 mg/dL [facility] Glucose 113 70 - 199 mg/dL [facility] Comment: Interpretive Data Fasting glucose >/= 126 [...] Calcium 8.8 8.5 - 10.3 mg/dL [facility] Bilirubin, total 0.2 0.1 - 1.2 mg/dL [facility] Protein, pl 6.5 6.5 - 8.5 g/dL [facility] Albumin 3.8 3.5 - 5.0 g/dL [facility] Alk phos 85 40 - 130 Units/L [facility] ALT 9 7 - 45 Units/L [facility] AST 22 10 - 45 Units/L [facility] Blood 03/17/2025 5:17 AM CDT 03/17/2025 5:54 AM CDT Pauline Bhat MD LAB BLOOD ORDERABLES F inal Result Performing Organization Address City/[facility]/[place] [address] * [facility] Lab Inf Prevention Courtesy Callback Stool (03/16/2025 11:20 PM CDT) Pathologist [facility] TestName Norovirus PCR Date Notified [id number] [facility] Time Notified 912 [facility] Called/Read Back Alberto Beckman, Banana Room Cutter [facility] Called By Lito Eduardo [facility] Stool 03/16/2025 11:2 0 PM CDT 03/17/2025 3:06 AM CDT Result [facility] Pauline Bhat MD LAB MICROBIOLOGY - GEN ERAL ORDERABLES Final Result Performing Organization Address City/[facility] [place] [address] * C. difficile testing Stool (03/16/2025 11:20 PM CDT) Pathologist [facility] Result Positive Negative Toxin Result Negative Negative [facility] C. diff result Negative, free toxin. Negative, free toxin [facility] C. diff interp GDH+/toxin- results almost never represent true C. difficile infection (CDI). Results may represent colonization with C. difficile without CDI, detection of a bacteria other than toxigenic C. difficile, or a false negative toxin assay. If there is a high index of suspicion for CDI, additional testing by PCR is available upon request. [facility] Stool 03/16/2025 11:2 0 PM CDT 03/17/2025 12:56 AM CDT Pauline Bhat MD LAB MICROBIOLOGY - GEN ERAL ORDERABLES Final Result [facility] [place] [address] * Ova and parasite exam Stool (03/16/2025 11:20 PM CDT) Pathologist [facility] Ova & Parasite exam See Footnote [facility] Comment: SOURCE: STOOL, LP OVA AND PARASITE, MICROSCOPY, F FINAL No parasites seen. Cryptosporidium, Cyclospora, and microsporidia are not readily detected by this method. Single negative specimen does not rule out parasitic infection. Test Performed by: [place] [address] Slot Operations Manager: Bryson Craft Ph.D.; CLIA# [id number] Stool 03/16/2025 11:2 0 PM CDT 03/17/2025 12:56 AM CDT Narrative [facility] - 03/24/2025 2:02 PM CDT Is the patient immunosuppressed?->Yes Has the patient had recent travel outside the [place]?->No Pauline Bhat MD LAB MICROBIOLOGY - GEN ERAL ORDERABLES Final Result [facility] [place] [address] [facility] * (ABNORMAL) Norovirus PCR Stool (03/16/2025 11:20 PM CDT) [facility] Norovirus GI RNA Not Detected Not Detected [facility] Norovirus GII RNA Detected(A) Not Detected [facility] Comment: Interpretive data: Testing performed at the [facility] using the [employer] Xpert Norovirus Assay. This assay uses nucleic [...] ERAL ORDERABLES Final Result Performing Organization Address [facility] Co de Phone Number [facility] [place] [place] [place] [address] [facility] * Cryptosporidium and Giardia antigen assay Stool (03/16/2025 11:20 PM CDT) Giardia Ag Negative Negative Cryptosporidium Ag Negative Negative [facility] Comment: Interpretive data: Testing performed by the [facility] using an immunoassay that detects Cryptosporidium and Giardia antigens in stool specimens. If comprehensive examination for ova and parasites is required, please request Ova and Parasite Examination. Stool 03/16/2025 11:2 0 PM CDT 03/17/2025 12:56 AM CDT Pauline Bhat MD LAB MICROBIOLOGY - GEN ERAL ORDERABLES Final Result Performing Organization Address City/[facility] Co de Phone Number [facility] Department [place] [employer] [place] [place] [address] * Stool culture Stool Rectum (03/16/2025 11:20 PM CDT) Direct Specimen Exam Shiga Toxin Testing: Antigen detection assay for Shiga-toxin NEGATIVE for Shiga Toxin 1 and Shiga Toxin 2. Report Final Report: No growth of enteric bacterial pathogens [facility] Stool (Rectum) 03/16/2025 11 :20 PM CDT 03/17/2025 12:56 AM CDT Narrative [facility] - 03/21/2025 10:38 AM CDT Testing performed by [facility] ([phone]). Routine stool cultures include procedures to detect Salmonella, Shigella, Edwardsiella, Aeromonas, Pleisiomonas, Campylobacter, Yersinia, E. coli O157, and Shiga-like toxins. Vibrio is cultured only upon special request. If Vibrio is suspected, please call the laboratory at [phone]. Interpretive data was last updated January 13, 2017. us Pauline Bhat MD LAB MICROBIOLOGY - GEN ERAL ORDERABLES Final Result Performing Organization Address [facility] Co de Phone Number [facility] Department [place] [place] [address] * Infection Prevention VRE Culture Stool (03/16/2025 11:19 PM CDT) Report Final Report: Negative Stool 03/16/2025 11:1 9 PM CDT 03/17/2025 5:28 AM CDT Narrative [facility] - 03/19/2025 8:23 AM CDT Surveillance culture for Infection Prevention purposes only; results indicate colonization, not infection requiring treatment. Testing performed by [facility] ([phone]). us Gary Verdin MD LAB MICROBIOLOGY - GENE RAL ORDERABLES Final Result Performing Organization Address City/[facility]/ZIP Co de Phone Number [facility] Department [place] [place] [address] * US Kidney Complete (03/16/2025 2:26 PM [...] by: Prosper Brooks M.D. Pauline Bhat MD [facility] US PROCEDURES Tonia l Result * BK virus PCR quantitative Blood (03/16/2025 5:41 AM CDT) Pathologist [facility] BKV DNA result, pl Not Detected [facility] Comment: The quantifiable range of this assay is 21.5 IU/mL to 100,000,000 IU/mL (1.33 log IU/mL to 8.00 log IU/mL). Testing was performed by the BETH 6800 BKV Quantatitive Test version 2.0 ([employer] Testing performed at [facility] Current Interpretive Data was last revised on 2021. Blood 03/16/2025 5:41 AM CDT 03/16/2025 6:28 AM CDT Result [facility] Pauline Bhat MD LAB MICROBIOLOGY - GEN ERAL ORDERABLES Final Result [facility] [place] [address] [facility] * (ABNORMAL) Cytomegalovirus (CMV) DNA PCR, quantitative Blood (03/16/2025 5:41 AM CDT) Pathologist [facility] CMV DNA Detected( A) [facility] Comment: Interpretive Data: The quantifiable range of this assay is 34 IUnits/mL to 10,000,000 IUnits/mL (1.53 log IUnits/mL to 7.0 log IUnits/mL). Testing was performed by the BETH 6800 CMV Test ([employer] Testing performed at [facility]. Current interpretive data was last revised on 2021. CMV DNA IU/mL 124 IUnits/mL [facility] CMV DNA log IU/mL 2.09 log IUnits/mL [facility] Blood 03/16/2025 5:41 AM CDT 03/16/2025 6:28 AM CDT Pauline Bhat MD LAB MICROBIOLOGY - GEN ERAL ORDERABLES Final Result Performing Organization Address City/[facility]/ZIP Co de Phone Number [facility] [place] [address] [facility] * (ABNORMAL) eGFR (03/16/2025 5:41 AM CDT) eGFR 6(L) >=60 mL/min/1. 73 m2 Comment: [...] LAB BLOOD ORDERABLES F inal Result [facility] [place] [address] * (ABNORMAL) Differential, auto (03/16/2025 5:41 AM CDT) Neutrophil abs 0.57(L) 1.50 - 6.50 K/cumm Imm gran abs 0.09 0.00 - 0.10 K/cumm [facility] Lymphocyte abs 0.52(L) 0.80 - 3.30 K/cumm [facility] Monocyte abs 0.17(L) 0.20 - 0.80 K/cumm [facility] Eosinophil abs 0.03 0.00 - 0.50 K/cumm [facility] Basophil abs 0.01 0.00 - 0.10 K/cumm [facility] Neutrophil pct 41.0 % [facility] Comment: Interpretive Data Percent cell count reference ranges are not reported, since discordance with absolute values may lead to misinterpretation of CBC data. Current Interpretive Data was last revised on 2017. Imm gran pct 6.5 % [facility] Comment: Interpretive Data Percent cell count reference ranges are not reported, since discordance with absolute values may lead to misinterpretation of CBC data. Current Interpretive Data was last revised on 2017. Lymphocyte pct 37.4 % [facility] Comment: Interpretive Data Percent cell count reference ranges are not reported, since discordance with absolute values may lead to misinterpretation of CBC data. Current Interpretive Data was last revised on 2017. Monocyte pct 12.2 % [facility] Comment: Interpretive Data Percent cell count reference ranges are not reported, since discordance with absolute values may lead to misinterpretation of CBC data. Current Interpretive Data was last revised on 2017. Eosinophil pct 2.2 % [facility] Comment: Interpretive Data Percent cell count reference ranges are not reported, since discordance with absolute values may lead to misinterpretation of CBC data. Current Interpretive Data was last revised on 2017. Basophil pct 0.7 % [facility] Comment: Interpretive Data Percent cell count reference ranges are not reported, since discordance with absolute values may lead to misinterpretation of CBC data. Current Interpretive Data was last revised on 2017. Blood 03/16/2025 5:41 AM CDT 03/16/2025 6:25 AM CDT us Pauline Bhat MD LAB BLOOD ORDERABLES F inal Result [facility] [place] [address] * Tacrolimus level trough (03/16/2025 5:41 AM CDT) Tacrolimus trough 5.5 ng/mL Comment: Interpretive Data Testing performed by liquid chromatography-tandem mass spectrometry. Therapeutic concentrations vary depending on type of transplanted organ and time elapsed since transplant. Typical trough concentrations range from 5-15 ng/mL. This test was developed and its performance characteristics determined by the [facility] consistent with CLIA requirements. This test has not been cleared or approved by the [place] Food and Drug administration. Current interpretive data last reviewed 2019. Blood 03/16/2025 5:41 AM CDT 03/16/2025 6:25 AM CDT Pauline Bhat MD LAB BLOOD ORDERABLES F inal Result Performing Organization Address City/[facility]/ZIP Co de Phone Number SUMAYA [facility] [place] [address] * (ABNORMAL) Iron profile w/ IBC (03/16/2025 5:41 AM CDT) Pathologist [facility] Iron 191(H) 35 - 145 mcg/dL TIBC <208(L) 250 - 400 mcg/dL [facility] Transferrin saturation >92(H) 20 - 50 % [facility] Blood 03/16/2025 5:41 AM CDT 03/16/2025 6:24 AM CDT Pauline Bhat MD LAB BLOOD ORDERABLES F inal Result [facility] [place] [address] * (ABNORMAL) CBC with auto differential (03/16/2025 5:41 AM CDT) WBC 1.39(L) 3.80 - 9.90 K/cumm Hgb 7.5(L) 11.9 - 15.5 g/dL [facility] Hct 22.3(L) 35.6 - 45.5 % [facility] Plt 124(L) 150 - 400 K/cumm [facility] MPV 10.7 9.1 - 12.3 fL [facility] RBC 2.20(L) 3.90 - 5.20 M/cumm [facility] MCV 101.4(H) 81.3 - 96.4 fL [facility] MCH 34.1(H) 27.1 - 33.3 pg [facility] MCHC 33.6 32.3 - 35.7 g/dL [facility] RDW CV 22.5(H) 11.1 - 14.9 % [facility] RDW SD 81.2(H) 35.7 - 48.1 fL [facility] NRBC abs 0.00 0.00 - 0.01 K/cumm [facility] Blood 03/16/2025 5:41 AM CDT 03/16/2025 6:25 AM CDT us Pauline Bhat MD LAB BLOOD ORDERABLES F inal Result [facility]YA [facility] [place] [address] * Copper, serum (03/16/2025 5:41 AM CDT) [facility] Copper 90 77 - 206 mcg/dL [facility] Comment: ADDITIONAL INFORMATION This test was developed and its performance characteristics determined by [facility] in a manner consistent with CLIA requirements. This test has not been cleared or approved by the U.S. Food and Drug Administration. Test Performed by: [facility] - 81 [address] [address] Slot Operations Manager: Bryson Craft Ph.D.; CLIA# [id number] Blood 03/16/2025 5:41 AM CDT 03/16/2025 6:24 AM CDT Pauline Bhat MD LAB BLOOD ORDERABLES F inal Result Performing Organization Address [facility] Co de Phone Number [facility] [place] [address] [facility] * Zinc (03/16/2025 5:41 AM CDT) Zinc 66 60 - 106 mcg/dL [facility] Comment: ADDITIONAL INFORMATION This test was developed and its performance characteristics determined by [facility] in a manner consistent with CLIA requirements. This test has not been cleared or approved by the U.S. Food and Drug Administration. Test Performed by: [address] [address] Slot Operations Manager: Bryson Craft Ph.D.; CLIA# [id number] Blood 03/16/2025 5:41 AM CDT 03/16/2025 6:24 AM CDT Pauline Bhat MD LAB BLOOD ORDERABLES F inal Result Performing Organization Address [facility] de Phone Number SUMAYA [facility] [place] [address] [facility] ref [facility] * Phosphorus (03/16/2025 5:41 AM CDT) Phosphorus, pl 4.0 2.3 - 4.5 mg/dL Blood 03/16/2025 5:41 AM CDT 03/16/2025 6:24 AM CDT Pauline Bhat MD LAB BLOOD ORDERABLES F inal Result Performing Organization Address City/[facility] Co de Phone Number [facility] [place] [address] * Magnesium (03/16/2025 5:41 AM CDT) [facility] Magnesium 2.3 1.4 - 2.5 mg/dL Blood 03/16/2025 5:41 AM CDT 03/16/2025 6:24 AM CDT Pauline Bhat MD LAB BLOOD ORDERABLES F inal Result Performing Organization Address City/State/[facility] [place] [address] * (ABNORMAL) Ferritin (03/16/2025 5:41 AM CDT) [facility] Ferritin 868(H) 13 - 150 ng/mL Blood 03/16/2025 5:41 AM CDT 03/16/2025 6:24 AM CDT Pauline Bhat MD LAB BLOOD ORDERABLES F inal Result Performing Organization Address City/State/[facility] Co de Phone Number [facility] [place] [address] * (ABNORMAL) Comprehensive metabolic panel (03/16/2025 5:41 AM CDT) [facility] Sodium 141 135 - 145 mmol/L Potassium, pl 4.1 3.3 - 4.9 mmol/L [facility] Chloride 107 97 - 110 mmol/L [facility] CO2 20(L) 22 - 32 mmol/L [facility] Anion gap 14 2 - 15 mmol/L [facility] BUN 76(H) 6 - 25 mg/dL [facility] Creatinine 7.19(H) 0.60 - 1.10 mg/dL [facility] Glucose 81 70 - 199 mg/dL [facility] Comment: Interpretive Data Fasting glucose >/= 126 [...] 2022. Calcium 9.1 8.5 - 10.3 mg/dL [facility] Bilirubin, total 0.3 0.1 - 1.2 mg/dL [facility] Protein, pl 6.7 6.5 - 8.5 g/dL [facility] Albumin 3.9 3.5 - 5.0 g/dL [facility] Alk phos 72 40 - 130 Units/L [facility] ALT 6(L) 7 - 45 Units/L [facility] AST 20 10 - 45 Units/L [facility] Blood 03/16/2025 5:41 AM CDT 03/16/2025 6:24 AM CDT us Pauline Bhat MD LAB BLOOD ORDERABLES F inal Result [facility] [place] [address] * Infection Prevention Susan auris PCR, surveillance Axilla/Groin (03/15/2025 1:04 PM CDT) Susan auris DNA Not Detected Not Detected [facility] Comment: Interpretive Data Testing performed by [facility] Molecular Infectious Disease Laboratory using the Lauren beth 6800 Susan auris assay. This assay detects DNA from Susan auris using Real-Time PCR. This assay is laboratory developed and is not cleared by the [place] Food and Drug Administration. The performance characteristics have been verified by the [facility]ious Disease [facility]. Axilla/Groin 03/15/2025 1:04 PM CDT 03/15/2025 2:07 PM CDT Lito Robertson MD LAB MICROBIOLOGY - GENERAL ORDER ALEX Final Result SUMAYA CASTELLANOS [facility] [place] [address] [facility] * (ABNORMAL) Protein / creatinine ratio, urine, random (03/15/2025 1:04 PM CDT) Protein, ur, quant 31.5 mg/dL Comment: Interpretive Data No reference range established. Current interpretive data was last revised 2019. Creatinine Ur 114.6 mg/dL [facility] Comment: Interpretive Data No reference range established. Current interpretive data was last revised 2019. Protein/creatinin e ratio 274.9(H) 0.0 - 180.0 mg/g CR [facility] Urine 03/15/2025 1:04 PM CDT 03/15/2025 2:09 PM CDT us Pauline Bhat MD LAB URINE ORDERABLES F inal Result SUMAYA CASTELLANOS [facility] [place] [address] * US ROBBI (03/15/2025 11:44 AM CDT) Anatomical Region Laterality Modality Vascular N/A Ultrasound 03/15/2025 11:0 8 AM CDT Narrative 03/21/2025 12:43 PM CDT [employer] - Department of Vascular Surgery, Vascular Laboratory [address] [place] [address] Lower Extremity Arterial Doppler Report Patient Name: HANNAH BOYD : 1960 Study Date: 03/15/2025 11:08:00 AM Gender: F Tech: Tamela Muñoz RVT Location: [id number] Ref Provider: PAULINE BHAT Quality: Adequate Order Provider: PAULINE BHAT PROCEDURES: Arterial Report: Ankle - Brachial Index Doppler exam. INDICATIONS: Leg pain. MEASUREMENTS: Right Value Units Left Value Units Rt Brachial Pressure 128 mmHg Lt Brachial Pressure IV mmHg Rt WINDOW SASH INSTALLER Pressure >254 mmHg Lt WINDOW SASH INSTALLER Pressure 168 mmHg Rt DPA Pressure >254 mmHg Lt DPA Pressure 182 mmHg Rt 1st Digit Pressure 118 mmHg Lt 1st Digit Pressure 122 mmHg Rt PT ROBBI Resting NC Lt PT ROBBI Resting 1.31 Rt AT ROBBI Resting NC Lt AT ROBBI Resting 1.42 Rt Digit/Arm Index 0.92 Lt Digit/Arm Index 0.95 Right Value Units Left Value Units FINDINGS: Performing Can Marker: Tamela Muñoz RVT. Right Posterior Tibial Artery [...] above. Electronically Signed By: Cesar Isaacs MD [facility] [phone] 03/21/2025 11:55:03 AM CDT Procedure Note Cesar Isaacs MD - 03/21/2025 [facility] - Department of Vascular Surgery,Vascular Laboratory [address] [place] [address] Lower Extremity Arterial Doppler Report Patient Name: HANNAH BOYD : 1960 Study Date: 03/15/2025 11:08:00 AM Gender: F Tech: Tamela Muñoz Rody Location: [id number] Ref Provider: PAULINE BHAT Quality: Adequate Order Provider: PAULINE BHAT PROCEDURES: Arterial Report: Ankle - Brachial Index Doppler exam. INDICATIONS: Leg pain. MEASUREMENTS: Right Value Units Left Value Units Rt Brachial Pressure 128 mmHg Lt Brachial Pressure IV mmHg Rt WINDOW SASH INSTALLER Pressure >254 mmHg Lt WINDOW SASH INSTALLER Pressure 168 mmHg Rt DPA Pressure >254 mmHg Lt DPA Pressure 182 mmHg Rt 1st Digit Pressure 118 mmHg Lt 1st Digit Pressure 122 mmHg Rt PT ROBBI Resting NC Lt PT ROBBI Resting 1.31 Rt AT ROBBI Resting NC Lt AT ROBBI Resting 1.42 Rt Digit/Arm Index 0.92 Lt Digit/Arm Index 0.95 Right Value Units Left Value Units FINDINGS: Performing Can Marker: Tamela Muñoz RVT. Right Posterior Tibial Artery [...] above. Electronically Signed By: Cesar Isaacs MD [facility] [phone] 03/21/2025 11:55:03 AM CDT us Pauline Bhat [...] MD LAB BLOOD ORDERABLES F inal Result [facility] [place] [address] * Tacrolimus level trough (03/15/2025 5:32 AM CDT) Tacrolimus trough 6.6 ng/mL Comment: Interpretive Data Testing performed by liquid chromatography-tandem mass spectrometry. Therapeutic concentrations vary depending on type of transplanted organ and time elapsed since transplant. Typical trough concentrations range from 5-15 ng/mL. This test was developed and its performance characteristics determined by the [facility] Laboratory consistent with CLIA requirements. This test has not been cleared or approved by the [place] Food and Drug administration. Current interpretive data last reviewed 2019. Blood 03/15/2025 5:32 AM CDT 03/15/2025 6:25 AM CDT Pauline Bhat MD LAB BLOOD ORDERABLES F inal Result [facility] Department [place] [address] * (ABNORMAL) Basic metabolic panel (03/15/2025 5:32 AM CDT) [facility] Sodium 136 135 - 145 mmol/L Potassium, pl 3.7 3.3 - 4.9 mmol/L [facility] Chloride 105 97 - 110 mmol/L [facility] CO2 19(L) 22 - 32 mmol/L [facility] Anion gap 12 2 - 15 mmol/L [facility] BUN 84(H) 6 - 25 mg/dL [facility] Creatinine 7.79(H) 0.60 - 1.10 mg/dL [facility] Glucose 89 70 - 199 mg/dL [facility] Comment: Interpretive Data Fasting glucose >/= 126 [...] 2022. Calcium 8.7 8.5 - 10.3 mg/dL [facility] Blood 03/15/2025 5:32 AM CDT 03/15/2025 6:25 AM CDT Pauline Bhat MD LAB BLOOD ORDERABLES F inal Result Performing Organization Address [facility]/ZIP Co de Phone Number [facility] [place] [address] * (ABNORMAL) Urinalysis reflex to microscopic and culture Urine (03/15/2025 12:29 AM CDT) Color, ur Yellow Yellow Clarity, ur Cloudy(A) Clear [facility] Specific gravity, ur 1.018 1.003 - 1.030 [facility] pH, urine 6.0 [facility] Comment: Interpretive Data U rine pH is affected by diet, medications, systemic acid-base disturbances, and renal tubular function. pH may affect urinary stone formation. For example, urine pH below 6.0 may help reduce the tendency for calcium phosphate stones and pH greater than 6.0 may reduce the tendency for uric acid stone formation. Source: [facility] [employer] Current Interpretive Data was last revised on 2017 Protein, ur ql 1+(A) Negative [facility] Glucose, ur ql Negative Negative [facility] Ketones, ur Negative Negative [facility] Bilirubin, ur Negative Negative [facility] Blood, ur Trace(A) Negative [facility] Urobilinogen, ur <2.0 <2.0 mg/dL [facility] Nitrite, ur Negative Negative [facility] Leukocyte esterase, ur 3+(A) Negative [facility] UA reflex comment Reflex to microscopic UA will be performed. [facility] Urine 03/15/2025 12:2 9 AM CDT 03/15/2025 12:48 AM CDT us Pauline Bhat MD LAB MICROBIOLOGY - GEN ERAL ORDERABLES Final Result [facility] [place] [address] * Sodium, urine, random (03/15/2025 12:29 AM CDT) Sodium, ur 31 mmol/L Comment: Interpretive Data No reference range established. Current interpretive data was last revised 2019. Urine (Urine, Clean Catch) 03/15/2025 12:29 AM CDT 03/15/2025 12:54 AM CDT Pauline Bhat MD LAB URINE ORDERABLES F inal Result Performing Organization Address [facility] de Phone Number [facility] [place] [address] * Potassium, urine, random (03/15/2025 12:29 AM CDT) Potassium conc, ur 29.5 mmol/L Comment: Interpretive Data No reference range established. Current interpretive data was last revised 2019. Urine (Urine, Clean Catch) 03/15/2025 12:29 AM CDT 03/15/2025 12:54 AM CDT Pauline Bhat MD LAB URINE ORDERABLES F inal Result Performing Organization Address [facility] de Phone Number [facility] Department [place] [address] * Creatinine, urine, random (03/15/2025 12:29 AM CDT) Creatinine Ur 170.7 mg/dL Comment: Interpretive Data No reference range established. Current interpretive data was last revised 2019. Urine 03/15/2025 12:2 9 AM CDT 03/15/2025 12:54 AM CDT Pauline Bhat MD LAB URINE ORDERABLES F inal Result Performing Organization Address [facility] de Phone Number [facility] [place] [address] * (ABNORMAL) Urinalysis, microscopic only (03/15/2025 12:29 AM CDT) WBC, ur >50(A) 0 - 5 /HPF RBC, ur 3-5(A) 0 - 2 /HPF [facility] Epithelial cells, squamous, ur 1-5 0 - 5 /HPF [facility] Bacteria, ur 3+(A) [facility] Mucous, ur Present(A) [facility] Culture Reflex Comment Reflex to urine culture will be performed. [facility] Urine 03/15/2025 12:2 9 AM CDT 03/15/2025 12:48 AM CDT Pauline Bhat MD LAB URINE ORDERABLES F inal Result [facility] [place] [address] * (ABNORMAL) Urine culture Urine (03/15/2025 12:29 AM CDT) Report Final Report: Greater than or equal to 100,000 colonies/mL of Proteus vulgaris group Greater than or equal to 100,000 colonies/mL of Klebsiella variicola (.) Organism PROTEUS VULGARIS GROUP [facility] Organism KLEBSIELLA VARIICOLA [facility] Urine 03/15/2025 12:2 9 AM CDT 03/15/2025 1:27 AM CDT Narrative [facility] - 03/17/2025 10:58 AM CDT Urine culture reflexed based upon urinalysis results. Testing performed by [facility] Microbiology Laboratory ([phone]) Organism Antibiotic Method Susceptibility Proteus vulgaris group [...] ERAL ORDERABLES Final Result Performing Organization Address City/[facility]/ZIP Co de Phone Number SUMAYA [facility] [place] [address] * (ABNORMAL) eGFR (03/14/2025 10:24 PM CDT) [...] LAB BLOOD ORDERABLES F inal Result [facility] [place] [address] * Respiratory pathogen panel Nasopharyngeal (03/14/2025 10:24 PM CDT) [facility] Influenza A RNA Not Detected Not Detected Influenza B RNA Not Detected Not Detected [facility] RSV RNA Not Detected Not Detected [facility] COVID-19 RNA Not Detected Not Detected [facility] Coronavirus 229E RNA Not Detected Not Detected [facility] Coronavirus HKU1 RNA Not Detected Not Detected [facility] Coronavirus NL63 RNA Not Detected Not Detected [facility] Coronavirus OC43 RNA Not Detected Not Detected [facility] Adenovirus DNA Not Detected Not Detected [facility] Metapneumovirus RNA Not Detected Not Detected [facility] Rhinovirus/Enterov irus RNA Not Detected Not Detected [facility] Parainfluenza 1 RNA Not Detected Not Detected [facility] Parainfluenza 2 RNA Not Detected Not Detected [facility] Parainfluenza 3 RNA Not Detected Not Detected [facility] Parainfluenza 4 RNA Not Detected Not Detected [facility] B. pertussis DNA Not Detected Not Detected [facility] B. parapertussis DNA Not Detected Not Detected [facility] C. pneumoniae DNA Not Detected Not Detected [facility] M. pneumoniae DNA Not Detected Not Detected [facility] Nasopharyngeal 03/14/2025 10 :24 PM CDT 03/14/2025 11:15 PM CDT Narrative [facility] - 03/15/2025 12:26 AM CDT Is the Patient experiencing symptoms consistent with COVID?->Unknown Surveillance testing for transplant patient?->No Interpretive Data The [employer] FilmArray Respiratory Panel (RP2.1) assay is a [...] assay has FDA clearance for testing of CASE ASSEMBLER swabs. The performance of additional specimen types has been assessed by the performing laboratory. The performance characteristics of this assay have been determined by [facility] Molecular Infectious Disease Laboratory. Current interpretive data was last revised on 22. Pauline Bhat MD LAB MICROBIOLOGY - GEN ERAL ORDERABLES Final Result [facility] [place] [address] * (ABNORMAL) CBC with auto differential (03/14/2025 10:24 PM CDT) [facility] WBC 1.65(L) 3.80 - 9.90 K/cumm Hgb 7.9(L) 11.9 - 15.5 g/dL [facility] Hct 23.6(L) 35.6 - 45.5 % [facility] Plt 133(L) 150 - 400 K/cumm [facility] MPV 10.4 9.1 - 12.3 fL [facility] RBC 2.36(L) 3.90 - 5.20 M/cumm [facility] MCV 100.0(H) 81.3 - 96.4 fL [facility] MCH 33.5(H) 27.1 - 33.3 pg [facility] MCHC 33.5 32.3 - 35.7 g/dL [facility] RDW CV 22.5(H) 11.1 - 14.9 % [facility] RDW SD 79.3(H) 35.7 - 48.1 fL [facility] NRBC abs 0.00 0.00 - 0.01 K/cumm [facility] Blood 03/14/2025 10:2 4 PM CDT 03/14/2025 11:13 PM CDT us Pauline Bhat MD LAB BLOOD ORDERABLES F inal Result [facility] [place] [address] * (ABNORMAL) Manual Differential (03/14/2025 10:24 PM CDT) Differential Manual Cells Counted 116 [facility] Neutrophil abs 0.95(L) 1.50 - 6.50 K/cumm [facility] Lymphocyte abs 0.58(L) 0.80 - 3.30 K/cumm [facility] Monocyte abs 0.09(L) 0.20 - 0.80 K/cumm [facility] Eosinophil abs 0.01 0.00 - 0.50 K/cumm [facility] Basophil abs 0.01 0.00 - 0.10 K/cumm [facility] Neutrophil pct 57.7 % [facility] Comment: Interpretive Data Percent cell count reference ranges are not reported, since discordance with absolute values may lead to misinterpretation of CBC data. Current Interpretive Data was last revised on 2017. Lymphocyte pct 35.3 % [facility] Comment: Interpretive Data Percent cell count reference ranges are not reported, since discordance with absolute values may lead to misinterpretation of CBC data. Current Interpretive Data was last revised on 2017. Monocyte pct 5.2 % [facility] Comment: Interpretive Data Percent cell count reference ranges are not reported, since discordance with absolute values may lead to misinterpretation of CBC data. Current Interpretive Data was last revised on 2017. Eosinophil pct 0.9 % [facility] Comment: Interpretive Data Percent cell count reference ranges are not reported, since discordance with absolute values may lead to misinterpretation of CBC data. Current Interpretive Data was last revised on 2017. Basophil pct 0.9 % [facility] Comment: Interpretive Data Percent cell count reference ranges are not reported, since discordance with absolute values may lead to misinterpretation of CBC data. Current Interpretive Data was last revised on 2017. RBC morphology Normal [facility] Platelet clumping Present(A) [facility] Blood 03/14/2025 10:2 4 PM CDT 03/14/2025 11:17 PM CDT Pauline Bhat MD LAB BLOOD ORDERABLES E dited Result - Final [facility] Department [place] [place] [address] * Phosphorus (03/14/2025 10:24 PM CDT) Phosphorus, pl 4.2 2.3 - 4.5 mg/dL Blood 03/14/2025 10:2 4 PM CDT 03/14/2025 11:13 PM CDT Pauline Bhat MD LAB BLOOD ORDERABLES F inal Result [facility] [place] [address] * Magnesium (03/14/2025 10:24 PM CDT) Magnesium 2.3 1.4 - 2.5 mg/dL Blood 03/14/2025 10:2 4 PM CDT 03/14/2025 11:13 PM CDT us Pauline Bhat MD LAB BLOOD ORDERABLES F inal Result [facility] [place] [address] * (ABNORMAL) Comprehensive metabolic panel (03/14/2025 10:24 PM CDT) Pathologist [facility] Sodium 135 135 - 145 mmol/L Potassium, pl 3.8 3.3 - 4.9 mmol/L [facility] Chloride 102 97 - 110 mmol/L [facility] CO2 18(L) 22 - 32 mmol/L [facility] Anion gap 15 2 - 15 mmol/L [facility] BUN 87(H) 6 - 25 mg/dL [facility] Creatinine 8.48(H) 0.60 - 1.10 mg/dL [facility] Glucose 122 70 - 199 mg/dL [facility] Comment: Interpretive Data Fasting glucose >/= 126 [...] Calcium 9.1 8.5 - 10.3 mg/dL [facility] Bilirubin, total 0.3 0.1 - 1.2 mg/dL [facility] Protein, pl 7.2 6.5 - 8.5 g/dL [facility] Albumin 4.2 3.5 - 5.0 g/dL [facility] Alk phos 72 40 - 130 Units/L [facility] ALT 9 7 - 45 Units/L [facility] AST 18 10 - 45 Units/L [facility] Blood 03/14/2025 10:2 4 PM CDT 03/14/2025 11:13 PM CDT Pauline Bhat MD LAB BLOOD ORDERABLES F inal Result SUMAYA [facility] [place] [address] * Pulmonary Function Test - (03/14/2025 9:42 AM CDT) [facility] FVC PRE 2.36 L [facility] FVC %PRE PRED 76 % [facility] FEV1 PRE 1.83 L [facility] FEV1 %PRE PRED 75 % [facility] FEV1/FVC PRE 77.4 % [facility] Anatomical Region Laterality Modality PFT 03/14/2025 9:32 AM CDT Narrative 03/14/2025 12:23 PM CDT PFT performed at:->[facility] Adult PFT Lab- [id number] Procedure:->Spirometry Procedure:->Pulse [...] and %HbO2 is age dependent. However, the [facility] Pulmonary Function Laboratory defines hypoxemia as a PaO2 <56 mm Hg or a %HbO2 <89%. Starting on September of 2024 the [facility] Pulmonary Function Laboratory utilizes race neutral GLI Global normative equations. Pauline Bhat MD PFT ORDERABLES Final Result * (ABNORMAL) Blood smear review (03/14/2025 9:15 AM CDT) RBC morphology Present(A) Hypochromasia 3-7/HPF(A) [facility] Anisocytosis Slight(A) [facility] Poikilocytosis Slight(A) [facility] Microcytes 3-7/HPF(A) [facility] Macrocytes 3-7/HPF(A) [facility] Schistocytes 1-2/HPF(A) [facility] Acanthocytes 3-7/HPF(A) [facility] Platelet estimate Adequate [facility] Blood 03/14/2025 9:15 AM CDT 03/14/2025 10:00 AM CDT Pauline Bhat MD LAB BLOOD ORDERABLES F inal Result SUMAYA [facility] [place] [address] * (ABNORMAL) eGFR (03/14/2025 9:15 AM CDT) [...] MD LAB BLOOD ORDERABLES F inal Result [facility] [place] [address] * (ABNORMAL) Differential, auto (03/14/2025 9:15 AM CDT) Neutrophil abs 0.82(L) 1.50 - 6.50 K/cumm Imm gran abs 0.05 0.00 - 0.10 K/cumm [facility] Lymphocyte abs 0.93 0.80 - 3.30 K/cumm [facility] Monocyte abs 0.25 0.20 - 0.80 K/cumm [facility] Eosinophil abs 0.05 0.00 - 0.50 K/cumm [facility] Basophil abs 0.01 0.00 - 0.10 K/cumm [facility] Neutrophil pct 38.8 % [facility] Comment: Interpretive Data Percent cell count reference ranges are not reported, since discordance with absolute values may lead to misinterpretation of CBC data. Current Interpretive Data was last revised on 2017. Imm gran pct 2.4 % [facility] Comment: Interpretive Data Percent cell count reference ranges are not reported, since discordance with absolute values may lead to misinterpretation of CBC data. Current Interpretive Data was last revised on 2017. Lymphocyte pct 44.1 % [facility] Comment: Interpretive Data Percent cell count reference ranges are not reported, since discordance with absolute values may lead to misinterpretation of CBC data. Current Interpretive Data was last revised on 2017. Monocyte pct 11.8 % [facility] Comment: Interpretive Data Percent cell count reference ranges are not reported, since discordance with absolute values may lead to misinterpretation of CBC data. Current Interpretive Data was last revised on 2017. Eosinophil pct 2.4 % [facility] Comment: Interpretive Data Percent cell count reference ranges are not reported, since discordance with absolute values may lead to misinterpretation of CBC data. Current Interpretive Data was last revised on 2017. Basophil pct 0.5 % [facility] Comment: Interpretive Data Percent cell count reference ranges are not reported, since discordance with absolute values may lead to misinterpretation of CBC data. Current Interpretive Data was last revised on 2017. Blood 03/14/2025 9:15 AM CDT 03/14/2025 9:57 AM CDT Pauline Bhat MD LAB BLOOD ORDERABLES F inal Result Performing Organization Address [facility] de Phone Number MIGUELEE [facility] [place] [address] * Tacrolimus level trough (03/14/2025 9:15 AM CDT) Pathologist [facility] Tacrolimus trough 7.9 ng/mL Comment: Interpretive Data Testing performed by liquid chromatography-tandem mass spectrometry. Therapeutic concentrations vary depending on type of transplanted organ and time elapsed since transplant. Typical trough concentrations range from 5-15 ng/mL. This test was developed and its performance characteristics determined by the [facility] consistent with CLIA requirements. This test has not been cleared or approved by the US Food and Drug administration. Current interpretive data last reviewed 2019. Blood 03/14/2025 9:15 AM CDT 03/14/2025 9:50 AM CDT Pauline Bhat MD LAB BLOOD ORDERABLES F inal Result Performing Organization Address [facility] Co de Phone Number MIGUELEE [facility] [place] [address] * (ABNORMAL) CBC with auto differential (03/14/2025 9:15 AM CDT) WBC 2.11(L) 3.80 - 9.90 K/cumm Hgb 8.1(L) 11.9 - 15.5 g/dL [facility] Hct 24.1(L) 35.6 - 45.5 % [facility] Plt 150 150 - 400 K/cumm [facility] MPV 10.7 9.1 - 12.3 fL [facility] RBC 2.38(L) 3.90 - 5.20 M/cumm [facility] MCV 101.3(H) 81.3 - 96.4 fL [facility] MCH 34.0(H) 27.1 - 33.3 pg [facility] MCHC 33.6 32.3 - 35.7 g/dL [facility] RDW CV 22.7(H) 11.1 - 14.9 % [facility] RDW SD 82.1(H) 35.7 - 48.1 fL [facility] NRBC abs 0.02(H) 0.00 - 0.01 K/cumm [facility] Blood 03/14/2025 9:15 AM CDT 03/14/2025 9:57 AM CDT Pauline Bhat MD LAB BLOOD ORDERABLES F inal Result Performing Organization Address City/[facility] Co de Phone Number [facility] Department [place] [place] [address] * Vitamin D 25 hydroxy (03/14/2025 9:15 AM CDT) Pathologist [facility] Vitamin D 25-OH 30 30 - 80 ng/mL Blood 03/14/2025 9:15 AM CDT 03/14/2025 9:50 AM CDT Pauline Bhat MD LAB BLOOD ORDERABLES F inal Result Performing Organization Address [facility] Co de Phone Number [facility] [place] [address] * TSH (03/14/2025 9:15 AM CDT) Thyroid Stimulating Hormone 0.95 0.30 - 4.20 mcIUnit/mL Blood 03/14/2025 9:15 AM CDT 03/14/2025 9:50 AM CDT Pauline Bhat MD LAB BLOOD ORDERABLES F inal Result Performing Organization Address [facility] de Phone Number [facility] [place] [address] * T4, free (03/14/2025 9:15 AM CDT) [facility] Free T4 0.93 0.90 - 1.70 ng/dL Blood 03/14/2025 9:15 AM CDT 03/14/2025 9:50 AM CDT Pauline Bhat MD LAB BLOOD ORDERABLES F inal Result Performing Organization Address [facility] Phone Number [facility] [place] [address] * (ABNORMAL) Hemoglobin A1c (03/14/2025 9:15 AM CDT) [facility] Hgb A1C 6.2(H) 4.0 - 5.6 % Estimated Average Glucose 131 mg/dL [facility] Comment: The ADA recommends reporting an estimated [...] ORDERABLES F inal Result Performing Organization Address [facility] de Phone Number [facility] [place] [address] * (ABNORMAL) Lipid panel (03/14/2025 9:15 AM [...] revised on 2018. Triglycerides 306(H) <=149 mg/dL [facility] Comment: Interpretive Data Ages < or [...] revised on 2018. HDL 36(L) >=40 mg/dL [facility] Comment: Interpretive Data Ages < or [...] on 2018. LDL, calculated 126 <=129 mg/dL [facility] Comment: Interpretive Data Ages < or [...] revised on 2024. Non-HDL Cholesterol 180 mg/dL [facility] Comment: Interpretive Data Ages < or [...] last revised on 2018. Chol/HDL ratio 6 [facility] Blood 03/14/2025 9:15 AM CDT 03/14/2025 9:50 AM CDT us Pauline Bhat MD LAB BLOOD ORDERABLES F inal Result [facility] Department [place] [address] * (ABNORMAL) Comprehensive metabolic panel (03/14/2025 9:15 AM CDT) Sodium 133(L) 135 - 145 mmol/L Potassium, pl 4.1 3.3 - 4.9 mmol/L [facility] Comment:Hemolyzed; Potassium value may be falsely elevated by as much as 0.6-1.0 mmol/L. Suggest redraw and reanalysis. Chloride 102 97 - 110 mmol/L [facility] CO2 13(L) 22 - 32 mmol/L [facility] Anion gap 18(H) 2 - 15 mmol/L [facility] BUN 84(H) 6 - 25 mg/dL [facility] Creatinine 7.94(H) 0.60 - 1.10 mg/dL [facility] Glucose 127 70 - 199 mg/dL [facility] Comment: Interpretive Data Fasting glucose >/= 126 [...] 2022. Calcium 9.4 8.5 - 10.3 mg/dL [facility] Bilirubin, total 0.4 0.1 - 1.2 mg/dL [facility] Protein, pl 7.2 6.5 - 8.5 g/dL [facility] Albumin 3.9 3.5 - 5.0 g/dL [facility] Alk phos 73 40 - 130 Units/L [facility] ALT 7 7 - 45 Units/L [facility] AST 29 10 - 45 Units/L [facility] Comment:Hemolyzed; result ma y be falsely elevated Blood 03/14/2025 9:15 AM CDT 03/14/2025 9:50 AM CDT us Pauline Bhat MD LAB BLOOD ORDERABLES F inal Result [facility] [place] [address] * XR Chest Pa Lateral 2 Views [...] noted. Electronically signed by: Starr Kohli M.D. us Pauline Bhat MD IMG XR PROCEDURES Tonia l Result * Hepatitis panel, acute (08/15/2022 9:25 AM FILM SOUND COORDINATOR) Hep A IgM Nonreactive Nonreactive [facility] Hep B core IgM Nonreactive Nonreactive [facility] Hep C Ab Nonreactive Nonreactive [facility] Comment:Antibodies to HCV no t detected. Does NOT exclude the possibility of recent exposure to HCV. Current interpretive data was last revised on 22 HepBsAg Nonreactive Nonreactive [facility] Blood 08/15/2022 9:25 AM FILM SOUND COORDINATOR 08/15/2022 10:04 AM FILM SOUND COORDINATOR Manuel Gil MD LAB MICROBIOLOGY - [facility] ORDERABLES Final Result [facility] [place] [address] * Stool DNA - Cologuard (03/22/2021 9:50 AM CDT) Stool DNA - Cologuard Negative Negative Basic[facility] (CLIA #:[id number]) Comment: NEGATIVE TEST RESULT. A negative Cologuard [...] (Ioana Vicente al, N Engl J Med 2014;370(14):1767-2874) The normal value (reference range) for this assay is negative. COLOGUARD RE-SCREENING RECOMMENDATION: Periodic colorectal cancer screening is an important part of preventive healthcare for asymptomatic individuals at average risk for colorectal cancer. Following a negative Cologuard result, the [employer] Cancer Society and U.S. Multi-Society Task Force screening guidelines recommend a Cologuard re-screening interval of 3 years. References: [place] Society Guideline for Colorectal Cancer Screening: https://www.cancer.org/cancer/oqbrj-ctfuyl-uvoibm/uncavbmtp-vgcjuhsqi-udnsbjd/ac s-rec ommendations.html.; Andrew DK, Saul MACIAS, John DUNLAP, Colorectal Cancer Screening: Recommendations for Physicians and Patients from the U.S. Multi-Society Task Force on Colorectal Cancer Screening , Am J Gastroenterology 2017; 112:0668-9611. TEST DESCRIPTION: Composite algorithmic analysis of stool [...] screened with both Cologuard and colonoscopy. (Ioana Fine. et al, N Engl J Med 2014;370(14):5744-4550.) Cologuard may produce a false negative or false positive result (no colorectal cancer or precancerous polyp present at colonoscopy follow up). A negative Cologuard test result does not guarantee the absence of CRC or advanced adenoma (pre-cancer). The current Cologuard screening interval is every 3 years. ([employer] Cancer Society and U.S. Multi-Society Task Force). Cologuard performance data in a 10,000 patient pivotal study using colonoscopy as the reference method can be accessed at the following location: www.Digify.com/results. Additional description of the Cologuard test process, warnings and precautions can be found at www.MolecuLightogRentMonitorrd.com. Stool 03/22/2021 9:5 0 AM CDT 03/23/2021 6:25 PM CDT Ethan Suero MD LAB BODY FLUIDS AND STOOLS OR DERABLES Final Result [facility] (CLIA #:[id number]) [address] [place] [address] * Screening Mammogram Bilateral W Josesito (06/08/2015 [...] signed by: Dr. Kendell Renee nh/:06/09/2015 08:56:27 Rubber Press Tender: Criselda Delgado RT(R)(M), [facility] letter sent: Normal Exam Reading location: [...] signed by: Dr. 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 09/11/21, 12/25/21 09/11/2021 023 Insurance [employer] MEDIC[employer] MEDICARE Advance Directives For more information, please contact: [phone] * Full Code (Latest Code Status on [...] 1:30 AM 02/13/2023 4:00 PM Care Teams Hogshead Weigher Relationship Specialty Start Date End Date Patrick Lorenzana MD [address] [facility] [address] [place] [address] PCP - General Family Medicine 01/07/25 Rosy Grover, LOLI [address] [facility] [address] [place] [address] Coal Crusher Operator 02/14/21 Pelon Yo MD [address] [place] [address] Referring Physician Pulmonary Disease 04/29/21 Paula Hitchcock RN Coal Crusher Operator Coal Crusher Operator 01/21/22 Pauline Bhat MD [address] [facility] [address] [place] [address] Scale Installer Pulmonary Disease 02/13/23
--- OUTSIDE RECORDS SUMMARY | 2025-04-28 10:02 | XMS_ITS | Clinical Summary ---
Author Organization [facility] Address [address] [place] [address] Care Team Providers Care Elevator Troubleshooter Name Role Phone None, Provider MD Primary [...] - 03/24/2025 11:59 PM CDT Hospital Encounter [place] [id number] [place] [address] Fabrice Dunham MD Discharge Disposition: Home or Self Care (Routine Discharge) 03/24/2025 Orders Only [facility] [address] [place] [address] Fabrice Dunham MD from Last 3 Months [...] Comments Blood Pressure 113/69 10/03/2022 5:57 AM RN ADMISSION Pulse 88 10/03/2022 5:28 AM RN ADMISSION Temperature 36.7 C (98.1 F) 10/03/2022 5:28 AM RN ADMISSION Respiratory Rate 18 10/03/2022 5:28 AM RN ADMISSION Oxygen Saturation 93% 10/03/2022 5:28 AM RN ADMISSION Inhaled Oxygen Concentration - - Weight 55.8 kg (123 lb 0.3 oz) 10/02/2022 5:25 P M RN ADMISSION Height 168.9 cm (5' 6.5) 10/02/2022 5:25 PM RN ADMISSION Body Mass Index 19.56 10/02/2022 5:25 PM RN ADMISSION Plan of Treatment Health Maintenance Due Date [...] BLOOD, FECES STAT 10/02/2022 5 :42 PM RN ADMISSION from Last 3 Months or Most Recently Relevant to Health Maintenance Results * (ABNORMAL) COMPREHENSIVE METABOLIC PANEL (03/24/2025 1:10 PM CDT) SODIUM S/P/B 142 136 - 145 MMOL/L 03/24/2025 7:13 PM CDT [facility] POTASSIUM S/P/B 4.5 3.5 - 5.1 MMOL/L 03/24/2025 7:13 PM CDT [facility] CHLORIDE S/P/B 107 98 - 107 MMOL/L 03/24/2025 7:13 PM CDT [facility] CO2 20.5(L) 21.0 - 32.0 MMOL/L 03/24/2025 7:13 PM CDT [facility] GLUCOSE 116(H) 70 - 99 MG/DL 03/24/2025 7:13 PM CDT [facility] Comment: FASTING GLUCOSE 100 TO 125 MG/DL IS CONSISTENT WITH IMPAIRED FASTING GLUCOSE. FASTING GLUCOSE >125 MG/DL IS CONSISTENT WITH DIABETES. RANDOM GLUCOSE >200 MG/DL WITH HYPERGLYCEMIC SYMPTOMS IS CONSISTENT WITH DIABETES. PER ADA GUIDELINES BUN 32(H) 6 - 24 MG/DL 03/24/2025 7:13 PM CDT [facility] CREATININE S/P/B 3.78(H) 0.55 - 1.02 MG/DL 03/24/2025 7:13 PM CDT [facility] CALCIUM S/P/B 9.1 8.4 - 10.5 MG/DL 03/24/2025 7:13 PM CDT [facility] BILIRUBIN TOTAL S/P/B 0.3 0.2 - 1.0 MG/DL 03/24/2025 7:13 PM CDT [facility] Comment: THIS ASSAY IS NOT RECOMMENDED FOR PATIENTS UNDERGOING TREATMENT WITH ELTROMBOPAG DUE TO THE POTENTIAL FOR FALSELY ELEVATED RESULTS. ALKALINE PHOSPHATASE S/P/B 137(H) 50 - 130 U/L 03/24/2025 7:13 PM CDT [facility] AST 53(H) 15 - 37 U/L 03/24/2025 7:13 PM CDT [facility] ALT 35 14 - 59 U/L 03/24/2025 7:13 PM CDT [facility] TOTAL PROTEIN S/P/B 6.7 6.4 - 8.2 G/DL 03/24/2025 7:13 PM CDT [facility] ALBUMIN S/P/B 3.7 3.4 - 5.0 G/DL 03/24/2025 7:13 PM CDT [facility] ANION GAP 14.5 5.0 - 15.0 MMOL/L 03/24/2025 7:13 PM CDT [facility] OSMOLALITY (CALC) 302 MOSM/KG 025 7:13 PM CDT [facility] Comment:REFERENCE RANGE NOT ESTABLISHED GFR ESTIMATE 13(L) >89 ML/MIN/1. 73 M2 03/24/2025 7:13 PM CDT [facility] GFR NOTES GFR REFERENCE S: 03/24/2025 7:13 PM CDT [facility] Comment: THE ESTIMATED GFR IS CALCULATED [...] Fabrice Pennington MD LABORATORY Fin al Result [facility] [address] [employer] [address], * (ABNORMAL) CBC W/DIFF AUTOMATED (03/24/2025 1:10 PM CDT) WBC 2.43(L) 4.00 - 10.80 x10'3/uL 03/24/2025 7:04 PM CDT [facility] RBC 2.38(L) 4.10 - 5.40 x10'6/uL 03/24/2025 7:04 PM CDT [facility] HGB 7.7(L) 12.0 - 16.0 G/DL 03/24/2025 7:04 PM CDT [facility] HCT 24.7(L) 36.0 - 47.0 % 03/24/2025 7:04 PM CDT [facility] MCV 103.8(H) 78.0 - 100.0 FL 03/24/2025 7:04 PM CDT [facility] MCH 32.4(H) 27.0 - 31.0 PG 03/24/2025 7:04 PM CDT [facility] MCHC 31.2(L) 33.0 - 36.0 G/DL 03/24/2025 7:04 PM CDT [facility] RDW 24.9(H) 11.5 - 14.5 % 03/24/2025 7:04 PM CDT [facility] PLT 167 150 - 350 x10'3/uL 03/24/2025 7:04 PM CDT [facility] MPV 10.8(H) 7.4 - 10.4 FL 03/24/2025 7:04 PM CDT [facility] CBC COMMENT NORMAL REFERENCE RANGE NOT ESTABLISHED FOR THE PROPORTIONAL LEUKOCYTE DIFFERENTIAL. 03/24/2025 7:04 PM CDT [facility] SEG NEUTROPHILS 53 % 7:27 PM CDT [facility] METAMYELOCYTES 2 % 03/24/2025 7:27 PM CDT [facility] MYELOCYTES 4 % 03/24/2025 7:27 PM CDT [facility] LYMPHOCYTES 33 % 03/24/2025 7:27 PM CDT [facility] MONOCYTES 8 % 03/24/2025 7:27 PM CDT [facility] ABS SEGMENTED NEUTS 1.29(L) 1.60 - 8.30 x10'3/uL 03/24/2025 7:27 PM CDT [facility] ABS. METAMYELOCYTES 0.05(H) 0.00 x10'3/uL 03/24/2025 7:27 PM CDT [facility] ABS. MYELOCYTES 0.10(H) 0.00 x10'3/uL 03/24/2025 7:27 PM CDT [facility] ABS. LYMPHOCYTES 0.80 0.80 - 4.70 x10'3/uL 03/24/2025 7:27 PM CDT [facility] ABS. MONOCYTES 0.19 0.10 - 1.50 x10'3/uL 03/24/2025 7:27 PM CDT [facility] PLT MORPH. NORMAL 03/24/2025 7:27 PM CDT [facility] RBC MORPHOLOGY 2+ 03/24/2025 7:27 PM CDT [facility] Comment: POIKILOCYTOSIS 2+ MACROCYTES 3+ ANISOCYTOSIS 03/24/2025 1:10 PM CDT Fabrice Pennington MD LABORATORY Fin al Result [facility] [address] [place] [id number], * TACROLIMUS (03/24/2025 1:10 PM CDT) Pathologist [facility] TACROLIMUS 14.4 mcg/L 03/26/2025 3:29 PM CDT [facility] Comment: No definitive therapeutic or toxic ranges have been established. Optimal blood drug levels are influenced by type of transplant, patient response, time post- transplant, co-administration of other drugs, and drug formulation. The following trough range is a suggested guideline: 5.0-20.0 mcg/L This test was developed and its analytical performance characteristics have been determined by [facility] [place], [place]. It has not been cleared or approved by the U.S. Food and Drug Administration. This assay has been validated pursuant to the CLIA regulations and is used for clinical purposes. Test Performed by [facility], [facility], [address] [place] [address] Wilson Reyez M.D., Ph.D., Director of Laboratories , CLIA [id number] 03/24/2025 1:10 PM CDT Fabrice Pennington MD LABORATORY Fin al Result [facility] [place] [id number] [place], [place] , [place] [phone] * OCCULT BLOOD, FECES (10/02/2022 5:42 PM RN ADMISSION) Pathologist [facility] OCCULT BLOOD FECAL POSITIVE 10/02/2022 6:04 PM RN ADMISSION [facility] STOOL SPECIMEN / Unknown 10/02/2022 5:42 PM RN ADMISSION Pat Gomes TERMITE INSPECTOR-BC BODY FLUIDS AND STOOLS OR DERABLES Final Result [facility] [address] [place] [address], [place] [phone] from Last 3 Months or Most Recently Relevant to Health Maintenance Additional Health Concerns Infection Onset Date Last Indicated ESBL - Extended Spectrum Beta-lactamase 10/04/19 23 10/04/2022 Insurance [employer] Advance Directives * Full Code (Latest Code Status on File) Date Activated Date Inactivated Comments 10/02/2022 10:53 PM 10/03/2022 11:08 AM Care Teams Elevator Troubleshooter Relationship Specialty Start Date End Date None, Provider, PCP - General UNKNOWN PHYSICIAN SPECIALTY 10/02/22
[2025-04-28 10:21] LABS: Hematocrit 34.0 % (37.0-47.0); Hemoglobin 10.6 g/dL (12.0-15.0); Immature Granulocyte Percent A 7.2 % (0-0.5); Lymphocytes Absolute Auto 0.86 K/mm3 (0.9-3.2); Mean Corpuscular HGB Conc 31.2 g/dl (32-36); Mean Corpuscular Hemoglobin 32.2 pg (26-34); Mean Corpuscular Volume 103.3 fl (80-100); Nucleated Red Blood Cells Absolute Auto 0.000 K/mm3 (0.0-0.012); Nucleated Red Blood Cells Perc 0.0 % (0.0-0.2); Platelet Count Result 105 k/mm3 (150-375); Red Blood Count 3.29 M/mm3 (4.2-5.4); White Blood Count 2.6 K/mm3 (4.5-10.0)
[2025-04-28 10:47] LABS: Anisocytosis 2+; Schistocytes None Seen
[2025-04-28 10:53] LABS: Alanine Aminotransferase 15 U/L (6-35); Albumin Level 3.9 g/dL (3.5-5.1); Alkaline Phosphatase 71 U/L (38-126); Anion Gap 13 mmol/L (4-12); Aspartate Amino Transferase 25 U/L (14-36); Bilirubin,Total 0.4 mg/dL (0.2-1.3); Blood Urea Nitrogen 33 mg/dL (7-17); Calcium 9.1 mg/dL (8.4-10.2); Carbon Dioxide 15 mmol/L (22-30); Chloride 110 mmol/L (98-107); Estimated Glomerular Filt Rate 14; Glucose 139 mg/dL (65-110); Potassium 4.3 mmol/L (3.4-5.0); Sodium 138 mmol/L (137-145); Total Protein 6.8 g/dL (6.3-8.2)
[2025-05-01 15:08] LABS: Tacrolimus (FK506), Blood 4.5 ng/mL (5.0-20.0)
== END 2025-04-28 09:28 | disposition home or self-care (01) ==
DX: N17.9 Acute kidney failure, unspecified (principal); Z94.2 Lung transplant status; Z79.621 Long term (current) use of calcineurin inhibitor
CPT/HCPCS: 36415; 80053; 80197; 85025